=== PATIENT | female | born 1960 | race Caucasian/White ===

== ENCOUNTER 2018-03-12 21:36 | Observation (INO) | payer MEDICARE, MEDICAID ==
[~2018-03-12] VITALS: Ht 165.1 cm; Wt 111.4 kg
--- OUTSIDE RECORDS SUMMARY | 2018-03-12 21:42 | XMS REPORT ---
Author Author [facility] [employer] [facility] Medical Staff Organization [facility] [employer] [facility] Address [address] [place], [place] [address] Phone [phone] Care Team Providers Care Local Tanker Truck Driver Name Role Phone SHAILESH JOHNSON MD PP [phone] Summary purpose TRANSITION OF CARE AUTO GENERATION Chief Complaint and Reason for Visit No authorized Reason for Visit (Admitting Diagnosis) is available for this visit. Problem list No authorized problems tracked for continuity of care are available for this visit. Encounters No authorized problems tracked for encounter diagnoses are available for this visit. Medications No medications recorded for this patient visit Allergies, adverse reactions, alerts Allergen Category Ingredient Status Reaction Severity Onset Iodine Drug Allergy Iodine Confirmed or Verified Latex Drug Allergy Latex Confirmed but Inactive Nausea Severe Adolescence Latex Environmental Allergy LATEX Confirmed but Inactive Nausea Severe Adolescence Codeine Drug Allergy Codeine Confirmed or Verified Erythromycin Base Drug Allergy Erythromycin Base Confirmed or Verified [place] Food Allergy STRAWBERRY Confirmed or Verified Shortness of Breath Lincoln Drug Allergy [place] Confirmed or Verified Shortness of Breath pepperoni Food Allergy pepperoni Confirmed or Verified Shortness of Breath Moderate Coban Miscellaneous Allergy Coban Confirmed or Verified Morphine Drug Allergy Morphine Confirmed or Verified Nausea Severe Adult Morphine Drug Allergy Morphine Confirmed or Verified Shortness of Breath Moderate Adult Stadol Drug Allergy Stadol Confirmed or Verified Stadol Drug Allergy Butorphanol Confirmed or Verified Moxifloxacin Drug Allergy Moxifloxacin Confirmed or Verified Augmentin Drug Allergy Augmentin Confirmed or Verified Augmentin Drug Allergy Potassium Clavulanate Confirmed or Verified Augmentin Drug Allergy Amoxicillin Confirmed or Verified Methylprednisolone Drug Allergy Methylprednisolone Confirmed but Inactive Vancomycin Drug Allergy Vancomycin Confirmed or Verified Rash Severe Adult Tamiflu Drug Allergy Tamiflu Confirmed or Verified Tamiflu Drug Allergy oseltamivir Confirmed or Verified Immunizations No immunizations recorded for this patient visit Relevant diagnostic tests and/or laboratory data RESULTS Therapeutic Drug Monitoring [id number]:55:00 Result Normal Range Units Digoxin/Lanoxin L < 0.2 1.0-2.0 ng/ml *Digoxin-like immunoreactive factors (DLIF) or substances (DLIS) have been identified in blood from patients in renal failure, liver failure, newborns, and women in the third trimester. *Studies have established that the presence of DLIF or DLIS in a sample can result in a false elevation of digoxin when assayed by commercially available immunoassays. *Digoxin bound to Damon fragments of antidigoxin antibodies (ex. Digibind), as found in serum and plasma of individual being treated for digoxin toxicity, may result in misleading digoxin values with this Dimension method. Chemistry :55:00 Result Normal Range Units Sodium 136 134-145 mEq/l Potassium 4.3 3.5-5.1 mEq/l Chloride 98 98-107 mEq/l CO2 28.0 22-28 mEq/l Glucose H 192 70-105 mg/dl BUN 15 7-18 mg/dl Creatinine 0.76 0.6-1.0 mg/dl Calcium 9.3 8.4-10.2 mg/dl Osmolality L 278.0 280-300 mOsm/L Anion GAP 10.0 8-16 BUN/Creatinine Ratio 19.7 10-20 Estimated GFR 79 >=60 mL/min/1.7 Hematology :55:00 Result Normal Range Units WBC H 12.2 4.8-10.8 103/uL RBC H 5.7 4.2-5.4 106/uL HGB 15.8 12.0-16.0 g/dl HCT H 48.9 36.9-47.0 % MCV 85.3 81-99 FL MCH 27.6 27-31 pg MCHC L 32.3 33-37 g/dl RDW 15.0 11.5-15.5 % PLT 301 130-400 103/uL MPV H 11.4 7.3-10.4 FL Segs H 76.0 40-70 % Lymphs L 11.0 20-40 % [place] 8.0 0-10 % Eos 1.0 0-7 % Atypical Lymphs 4.0 0-5 % Special Chemistry :55:00 Result Normal Range Units Hemoglobin A1C H 9.4 4.5-6.2 % Radiology Results :55:00 Result Normal Range Units MPV H 11.4 7.3-10.4 FL History of procedures No procedures recorded for this patient visit. Functional status No functional or cognitive status observations are available for this visit. Vital signs No authorized vital signs are available for this visit. Social history No Social History or smoking status observations were recorded for this visit. ( Unknown if ever smoked.) Treatment Plan No treatment plan text is available for this visit. Hospital discharge instructions No discharge instruction text is available for this visit.
--- OUTSIDE RECORDS SUMMARY | 2018-03-12 21:42 | XMS REPORT ---
Author Author [facility] Medical Staff Organization [facility] Address [address] [place], [place] [address] Phone [phone] Care Team Providers Care Child Care Giver Name Role Phone SHAILESH JOHNSON MD, PP [phone] Summary purpose TRANSITION OF CARE AUTO GENERATION [...] Drug Allergy Erythromycin Base Confirmed or Verified [place] Food Allergy STRAWBERRY Confirmed or Verified Shortness of Breath [place] Drug Allergy [place] Confirmed or Verified Shortness of Breath pepperoni [...] Relevant diagnostic tests and/or laboratory data RESULTS Radiology Results [id number]:34:00 Acute ABD X-Ray PACs Image DATE OF EXAM: 2015 RAD 0060-ACUTE ABDOMEN X RAY : RADIOLOGY REPORT DATE OF SERVICE: 03/24/15 HISTORY: Abdominal pain ACUTE ABDOMEN SERIES 2140 HOURS Comparison is made with 12/03/2013. The bowel gas pattern is within normal limits. There is no obstruction or ileus. There is no free air. Surgical clips are noted in the right upper quadrant. The lungs are clear. Heart size and pulmonary vessels are normal. IMPRESSION: Negative abdomen. MD CRYSTAL Alvarenga/me03/25/2015 08:29:03/25/2015 08:57:32 cc:Dr. Shailesh Johnson This document has been electronically Signed by: On: DATE OF EXAM: 2015 RAD 0060-ACUTE ABDOMEN X RAY : RADIOLOGY REPORT DATE OF SERVICE: 03/24/15 HISTORY: Abdominal pain ACUTE ABDOMEN SERIES 2140 HOURS Comparison is made with 12/03/2013. The bowel gas pattern is within normal limits. There is no obstruction or ileus. There is no free air. Surgical clips are noted in the right upper quadrant. The lungs are clear. Heart size and pulmonary vessels are normal. IMPRESSION: Negative abdomen. MD CRYSTAL Alvarenga/me03/25/2015 08:29:00 / 03/25/2015 08:57:32 cc:Dr. Shailesh Johnson This document has been electronically Signed by: JULIAN ARNOLD MD On: Mar 25 2015 11:34A Result Amended on 2015-03-25 at 11:34:25. Previous status was OK. History of procedures Procedure Code Code Type Description Date Performed Performing Physician 43793 CPT-4 X-RAY EXAM SERIES, ABDOMEN 03-24-2015 SWATHI GREGG 97461 CPT-4 EMERGENCY DEPT VISIT 03-24-2015 SWATHI GREGG 78478 CPT-4 EMERGENCY DEPT VISIT 03-24-2015 SWATHI GREGG Functional status Functional Status Finding Observation Time Abdomen Appearance obese [id number]:10 Abdomen non-tender 41-32-494328:10 Urination normal 03-72-062918:10 Quality sym/unlabored 44-81-699544:10 Cough productive :10 Secretions yes :10 Secretion Consist thin :10 Secretion Color yellow 66-81-593566:10 Breath Sounds RUL clear 72-00-180850:10 Breath Sounds RML clear :10 Breath Sounds RLL clear :10 Breath Sounds KENDELL clear :10 Breath Sounds LLL clear :10 Airway natural :10 Oxygen no : Temp >100.4 no :10 Temp <96.8 no :10 Chills with rigors no : HR > 90bpm yes :10 Respirations > 20 yes :10 Systolic <90 no :10 headache stiff neck no :10 WBC > 45308 no :10 Nursing Note Dismissed home per Humphrey Gregg PA-C. Discharge instructions given and understood by pt who verbalized understanding. Ambulated to exit in stable condition. :07 Vital signs Type Value Date Respiration Rate 20breaths per minute : Pulse 83beats per minute : Oxygen Saturation 95% :00 BP Systolic 149mmHg :00 BP Diastolic 79mmHg :00 Temperature 98.6F :00 Social history Type Value Smoking Status CURRENT EVERY DAY SMOKER Treatment Plan No treatment plan text is available for this visit. Hospital discharge instructions Dismissal Condition good Disposition on DC home DC Inst/Educ Give yes Med/Side Effects Rev yes PNE Vac none Flu Vac none
--- OUTSIDE RECORDS SUMMARY | 2018-03-12 21:42 | XMS REPORT ---
Author [facility] [employer] [facility] Medical Staff Organization [facility] [email or web address] [facility] Address [address] [place], [place] [address] Phone [phone] Care Team Providers Care Infectious Waste Technician Name Role Phone SHAILESH JOHNSON MD PP [phone] Summary purpose TRANSITION OF CARE AUTO GENERATION [...] Drug Allergy Erythromycin Base Confirmed or Verified [place] Food Allergy STRAWBERRY Confirmed or Verified Shortness of Breath Pitman Drug Allergy Pitman Confirmed or Verified Shortness of Breath pepperoni [...] and/or laboratory data RESULTS Therapeutic Drug Monitoring [id number]:55:00 Result Normal Range Units Digoxin/Lanoxin L < [...] 40-70 % Lymphs L 11.0 20-40 % [place] 8.0 0-10 % Eos 1.0 0-7 % Atypical Lymphs 4.0 0-5 % Special Chemistry :55:00 Result Normal Range Units Hemoglobin A1C H 9.4 4.5-6.2 % Radiology Results :55:00 Result Normal Range Units MPV H 11.4 7.3-10.4 FL History of procedures Procedure Code Code Type Description Date Performed Performing Physician 50199 CPT-4 METABOLIC PANEL TOTAL CA 08-11-2015 SHAILESH JOHNSON 98581 CPT-4 ASSAY OF DIGOXIN 08-11-2015 SHAILESH JOHNSON 98493 CPT-4 GLYCOSYLATED HEMOGLOBIN TEST 08-11-2015 SHAILESH JOHNSON 54878 CPT-4 COMPLETE CBC, AUTOMATED 08-11-2015 SHAILESH JOHNSON 33890 CPT-4 BL SMEAR W/DIFF WBC COUNT 08-11-2015 SHAILESH JOHNSON Functional status No functional or cognitive status [...]
--- OUTSIDE RECORDS SUMMARY | 2018-03-12 21:42 | XMS REPORT ---
Author Author [facility] [employer] [facility] Medical Staff Organization [facility] Address [address] [place], [place] [address] Phone [phone] Care Team Providers Care Residential Driver Name Role Phone SHAILESH JOHNSON MD PP [phone] Summary purpose TRANSITION OF CARE AUTO GENERATION [...] Drug Allergy Erythromycin Base Confirmed or Verified [place] Food Allergy STRAWBERRY Confirmed or Verified Shortness of Breath [place] Drug Allergy [place] Confirmed or Verified Shortness of Breath pepperoni [...] Relevant diagnostic tests and/or laboratory data RESULTS Routine Urinalysis [id number]:38:00 Result Normal Range Units Color YELLOW Clarity Slighty cloudy Specific [place] 1.015 1.003-1.035 pH 6.0 4.5-8.0 Glucose NEGATIVE Bilirubin NEGATIVE Ketones NEGATIVE Protein NEGATIVE Urobilinogen 0.2 0-0.2 E.U./dL Nitrites NEGATIVE Blood NEGATIVE Leukocytes NEGATIVE WBCs No WBC's Seen RBCs 0-5 Squamous Epithelial 1+ Bacteria 2+ Chemistry [id number]:38:00 Result Normal Range Units Sodium 141 134-145 mEq/l Potassium 4.5 3.5-5.1 mEq/l Chloride 100 98-107 mEq/l CO2 H 29.2 22-28 mEq/l Glucose H 141 70-105 mg/dl BUN H 24 7-18 mg/dl Creatinine 0.82 0.6-1.0 mg/dl Calcium 9.4 8.4-10.2 mg/dl TP - Total Protein 7.8 6.0-8.3 g/dl Albumin 3.5 3.5-5 g/dl Bilirubin - Total 0.3 0.1-1.0 mg/dl AST 32 10-42 IU/L ALT H 72 12-65 IU/L ALP H 156 25-72 IU/L Osmolality 287.7 280-300 mOsm/L Albumin/Globulin Ratio 0.8 0-8 Anion GAP 11.8 8-16 BUN/Creatinine Ratio H 29.3 10-20 Estimated GFR 73 >=60 mL/min/1.7 Hematology [id number]:38:00 Result Normal Range Units WBC H 15.3 4.8-10.8 103/uL RBC H 6.2 4.2-5.4 106/uL HGB H 17.2 12.0-16.0 g/dl HCT H 53.7 36.9-47.0 % MCV 87.0 81-99 FL MCH 27.9 27-31 pg MCHC L 32.0 33-37 g/dl RDW H 16.3 11.5-15.5 % PLT 338 130-400 103/uL MPV H 11.2 7.3-10.4 FL Neutro % H 78.8 40-70 % Lymph % L 14.4 20-40 % [place] % 4.2 0-10.0 % Eos % 1.4 0-7.0 % Baso % 0.5 0-2 % Neutro # H 12.0 1.5-7.5 103/uL Lymph # 2.2 0.9-4.0 103/uL [place] # 0.6 0-0.8 103/uL Eos # 0.2 0-0.6 103/uL Baso # 0.1 0-0.1 103/uL Body Fluid [id number]:38:00 Result Normal Range Units pH 6.0 4.5-8.0 Radiology Results [id number]:38:00 Result Normal Range Units MPV H 11.2 7.3-10.4 FL History of procedures No procedures [...]
--- OUTSIDE RECORDS SUMMARY | 2018-03-12 21:43 | XMS REPORT ---
Author Author [facility] [employer] [facility] Medical Staff Organization [facility] [employer] [facility] Address [address] [place], [place] [address] Phone [phone] Care Team Providers Care Superintendent Tests Name Role Phone SHAILESH JOHNSON MD PP [phone] Summary purpose TRANSITION OF CARE AUTO GENERATION Chief Complaint and Reason for Visit Admit Diagnosis 1 EDEMA Problem list No authorized problems tracked for [...] Drug Allergy Erythromycin Base Confirmed or Verified [place] Food Allergy STRAWBERRY Confirmed or Verified Shortness of Breath [place] Drug Allergy [place] Confirmed or Verified Shortness of Breath pepperoni [...] tests and/or laboratory data RESULTS Routine Urinalysis [id number]:38:00 Result Normal Range Units Color YELLOW Clarity Slighty cloudy Specific [place] 1.015 1.003-1.035 pH 6.0 4.5-8.0 Glucose NEGATIVE Bilirubin NEGATIVE Ketones NEGATIVE Protein NEGATIVE Urobilinogen 0.2 0-0.2 E.U./dL Nitrites NEGATIVE Blood NEGATIVE Leukocytes NEGATIVE WBCs No WBC's Seen RBCs 0-5 Squamous Epithelial 1+ Bacteria 2+ Routine Cultures [id number]:38:00 Urine Culture Plate Date and Time 10/13/2014 18:38 SourceURINE CULTURE REPORT No Growth After 24 Hours Release Date/Time: 10/14/2014 07:57 CULTURE REPORT 50,000 colonies/ml Normal Vaginal Octavia Release Date/Time: 10/15/2014 09:11 Chemistry [id number]:38:00 Result Normal Range Units Sodium 141 134-145 [...] 10-20 Estimated GFR 73 >=60 mL/min/1.7 Hematology [id number]:38:00 Result Normal Range Units WBC H 15.3 4.8-10.8 103/uL RBC H 6.2 4.2-5.4 106/uL HGB H 17.2 12.0-16.0 g/dl HCT H 53.7 36.9-47.0 % MCV 87.0 81-99 FL MCH 27.9 27-31 pg MCHC L 32.0 33-37 g/dl RDW H 16.3 11.5-15.5 % PLT 338 130-400 103/uL MPV H 11.2 7.3-10.4 FL Neutro % H 78.8 40-70 % Lymph % L 14.4 20-40 % [place] % 4.2 0-10.0 % Eos % 1.4 0-7.0 % Baso % 0.5 0-2 % Neutro # H 12.0 1.5-7.5 103/uL Lymph # 2.2 0.9-4.0 103/uL [place] # 0.6 0-0.8 103/uL Eos # 0.2 0-0.6 103/uL Baso # 0.1 0-0.1 103/uL Body Fluid [id number]:38:00 Result Normal Range Units pH 6.0 4.5-8.0 Radiology Results [id number]:38:00 Result Normal Range Units MPV H 11.2 7.3-10.4 FL History of procedures Procedure Code Code Type Description Date Performed Performing Physician 95068 CPT-4 COMPLETE CBC W/AUTO DIFF WBC 10-13-2014 [facility] [address] CPT-4 COMPREHEN METABOLIC PANEL 10-13-2014 [facility] [address] CPT-4 URINALYSIS, AUTO W/SCOPE 10-13-2014 [facility] [address] CPT-4 URINE CULTURE/COLONY COUNT 10-13-2014 [facility] Functional status No functional or cognitive status [...]
--- OUTSIDE RECORDS SUMMARY | 2018-03-12 21:43 | XMS REPORT ---
Author Author [facility] [employer] [facility] Medical Staff Organization [facility] [employer] [facility] [facility] Address [address] [place], [place] [address] Phone [phone] Care Team Providers Care Turner Machine Operator Name Role Phone SHAILESH JOHNSON MD, PP [phone] Summary purpose TRANSITION OF CARE AUTO GENERATION [...] Drug Allergy Erythromycin Base Confirmed or Verified [place] Food Allergy STRAWBERRY Confirmed or Verified Shortness of Breath [place] Drug Allergy [place] Confirmed or Verified Shortness of Breath pepperoni [...] Relevant diagnostic tests and/or laboratory data RESULTS Chemistry [id number]:50:00 Result Normal Range Units Sodium 140 134-145 mEq/l Potassium 4.5 3.5-5.1 mEq/l Chloride 102 98-107 mEq/l CO2 27.8 22-28 mEq/l Glucose H 106 70-105 mg/dl BUN H 22 7-18 mg/dl Creatinine 0.90 0.6-1.0 mg/dl Calcium 9.3 8.4-10.2 mg/dl TP - Total Protein 7.6 6.0-8.3 g/dl Albumin 3.5 3.5-5 g/dl Bilirubin - Total 0.4 0.1-1.0 mg/dl AST H 58 10-42 IU/L ALT H 100 12-65 IU/L ALP H 135 25-72 IU/L Osmolality 283.1 280-300 mOsm/L Albumin/Globulin Ratio 0.9 0-8 Anion GAP 10.2 8-16 BUN/Creatinine Ratio H 24.4 10-20 Estimated GFR 65 >=60 mL/min/1.7 Vitamin B12 652 193-986 pg/ml Hematology [id number]:50:00 Result Normal Range Units WBC H 13.8 4.8-10.8 103/uL RBC H 5.8 4.2-5.4 106/uL HGB H 16.4 12.0-16.0 g/dl HCT H 51.2 36.9-47.0 % MCV 88.0 81-99 FL MCH 28.2 27-31 pg MCHC L 32.0 33-37 g/dl RDW 14.4 11.5-15.5 % PLT 345 130-400 103/uL MPV H 11.2 7.3-10.4 FL Neutro % H 80.6 40-70 % Lymph % L 13.8 20-40 % [place] % 3.9 0-10.0 % Eos % 0.8 0-7.0 % Baso % 0.4 0-2 % Neutro # H 11.1 1.5-7.5 103/uL Lymph # 1.9 0.9-4.0 103/uL [place] # 0.5 0-0.8 103/uL Eos # 0.1 0-0.6 103/uL Baso # 0.1 0-0.1 103/uL Hematology - Other (Misc) [id number]:50:00 Result Normal Range Units Sed Rate 1 0-30 Thyroid Testing [id number]:50:00 Result Normal Range Units TSH 0.67 0.34-4.82 uIU/mL Free T4 L 0.66 0.78-1.34 ng/dl Radiology Results [id number]:50:00 Result Normal Range Units MPV H 11.2 [...]
--- OUTSIDE RECORDS SUMMARY | 2018-03-12 21:43 | XMS REPORT ---
Author Author [facility] Medical Staff Organization [facility] Address [address] [place], [place] [address] Phone [phone] Summary purpose TRANSITION OF CARE AUTO GENERATION [...] Drug Allergy Erythromycin Base Confirmed or Verified [place] Food Allergy STRAWBERRY Confirmed or Verified Shortness of Breath [place] Drug Allergy [place] Confirmed or Verified Shortness of Breath pepperoni [...] tests and/or laboratory data RESULTS Radiology Results [id number]:14:00 KNEE XRAY - 3 VIEW PACs Image DATE OF EXAM: Aug 04 2015 RAD 0953-KNEE XRAY-3 VIEW- RIGHT: RADIOLOGY REPORT DATE OF SERVICE: 08/04/15 HISTORY: Patient has right knee pain, edema and knee injury 2 weeks earlier. RIGHT KNEE 3 VIEWS 1245 HOURS The joint space is maintained. There is no fracture or joint effusion. Soft tissues are normal. IMPRESSION: Negative study. DO Elver Hannah 08/04/2015 13:28: / 08/04/2015 13:39:14 cc:Dr. [place] Wilson This document has been electronically Signed by: On: DATE OF EXAM: Aug 04 2015 RAD 0953-KNEE XRAY-3 VIEW- RIGHT: RADIOLOGY REPORT DATE OF SERVICE: 08/04/15 HISTORY: Patient has right knee pain, edema and knee injury 2 weeks earlier. RIGHT KNEE 3 VIEWS 1245 HOURS The joint space is maintained. There is no fracture or joint effusion. Soft tissues are normal. IMPRESSION: Negative study. DO Elver Hannah 08/04/2015 13:28:00 / 08/04/2015 13:39:14 cc:Dr. [place] Wilson This document has been electronically Signed by: SWATHI ROONEY DO On: Aug 04 20152:13P Result Amended on 2015-08-04 at 14:14:05. Previous status was [place]. History of procedures No procedures recorded for [...]
--- OUTSIDE RECORDS SUMMARY | 2018-03-12 21:43 | XMS REPORT ---
Author Author [facility] Medical Staff Organization [facility] Address [address] [place], [place] [address] Phone [phone] Summary purpose TRANSITION OF CARE AUTO GENERATION [...] Drug Allergy Erythromycin Base Confirmed or Verified [place] Food Allergy STRAWBERRY Confirmed or Verified Shortness of Breath [place] Drug Allergy [place] Confirmed or Verified Shortness of Breath pepperoni [...] tests and/or laboratory data RESULTS Radiology Results [id number]:14:00 KNEE XRAY - 3 VIEW PACs Image [...] on 2015-08-04 at 14:14:05. Previous status was [place]. History of procedures No procedures recorded for [...]
--- OUTSIDE RECORDS SUMMARY | 2018-03-12 21:43 | XMS REPORT ---
Author [facility] Medical Staff Organization [facility] Address [address] [place], [place] [address] Phone [phone] Care Team Providers Care Postal Service Clerk Name Role Phone SHAILESH JOHNSON MD, PP [phone] Summary purpose TRANSITION OF CARE AUTO GENERATION [...] Drug Allergy Erythromycin Base Confirmed or Verified [place] Food Allergy STRAWBERRY Confirmed or Verified Shortness of Breath [place] Drug Allergy [place] Confirmed or Verified Shortness of Breath pepperoni [...] diagnostic tests and/or laboratory data RESULTS Chemistry [id number]:50:00 Result Normal Range Units Sodium 140 134-145 [...] mL/min/1.7 Vitamin B12 652 193-986 pg/ml Hematology :50:00 Result Normal Range Units WBC H 13.8 4.8-10.8 103/uL RBC H 5.8 4.2-5.4 106/uL HGB H 16.4 12.0-16.0 g/dl HCT H 51.2 36.9-47.0 % MCV 88.0 81-99 FL MCH 28.2 27-31 pg MCHC L 32.0 33-37 g/dl RDW 14.4 11.5-15.5 % PLT 345 130-400 103/uL MPV H 11.2 7.3-10.4 FL Neutro % H 80.6 40-70 % Lymph % L 13.8 20-40 % Kidder % 3.9 0-10.0 % Eos % 0.8 0-7.0 % Baso % 0.4 0-2 % Neutro # H 11.1 1.5-7.5 103/uL Lymph # 1.9 0.9-4.0 103/uL Kidder # 0.5 0-0.8 103/uL Eos # 0.1 0-0.6 103/uL Baso # 0.1 0-0.1 103/uL Reference Lab ([facility]) :50:00 Result Normal Range Units Vitamin B6 2.2 2.1-21.7 ng/mL TEST PERFORMED AT: [facility] [address] [place] [address] MARIBELL MOYA MD PHD SEVEN (Antinuclear Antibodies) NEGATIVE NEGATIVE TEST PERFORMED AT: [facility] [address] [place] [address] PARI DIXON DO,MPH FSH 53.9 mIU/mL Reference Range Follicular Phase 2.5-10.2 Mid-cycle Peak 3.1-17.7 Luteal Phase 1.5- 9.1 Postmenopausal 23.0-116.3 TEST PERFORMED AT: [facility] [address] [place] [address] PARI DIXON DO,MPH FSH ordered in error. Patient's account credited. RMSF IGG NOT DETECTED RMSF IGM NOT DETECTED REFERENCE RANGE: NOT DETECTED TEST PERFORMED AT: [facility] [address] [place] [address] JENNIFER HERMAN MD Lyme Antibodies EIA < OR=0.90 index Index Interpretation ----- < or=0.90 Negative 0.91-1.09 Equivocal > or=1.10 Positive The use of purified VlsE-1 and PepC10 antigens in this assay provides improved specificity compared to assays that utilize whole cell lysates of B. burgdorferi, the causative agent of Lyme disease, and slightly better sensitivity compared to the C6 antibody assay. As recommended by the Food and Drug Administration (FDA), all samples with positive or equivocal results in a Borrelia burgdorferi antibody EIA (screening) will be tested using a blot method. Positive or equivocal screening test results should not be interpreted as truly positive until verified as such using a supplemental assay (e.g., B. burgdorferi blot). The screening test and/or blot for B. burgdorferi antibodies may be falsely negative in early stages of Lyme disease, including the period when erythema migrans is apparent. TEST PERFORMED AT: [facility] [address] [place] [address] PARI DIXON DO,MPH Hematology - Other (Misc) [id number]:50:00 Result Normal Range Units Sed Rate 1 0-30 Thyroid Testing [id number]:50:00 Result Normal Range Units TSH 0.67 0.34-4.82 uIU/mL Free T4 L 0.66 0.78-1.34 ng/dl Free T3 2.6 2.3-4.2 pg/mL TEST [facility]FORMED AT: [facility] [address] [place] [address] PARI DIXON DO,MPH Radiology Results [id number]:00 Result Normal Range Units MPV H 11.2 7.3-10.4 FL Reference Lab ([facility]) [id number]:50:00 Result Normal Range Units E Chaffeensis AB IGG <1:64 E Chaffeensis AB IGM <1:20 Interpretation SEE NOTE ANTIBODY NOT DETECTED REFERENCE RANGE:IgG <1:64 IgM <1:20 Ehrlichia chaffeensis has been identified as the causative agent of Human Monocytic Ehrlichiosis (HME). Infected individuals produce specific antibodies to E. chaffeensis that can be detected by an immunofluorescent antibody (IFA) test. Single IgG IFA titers of 1:64 or greater indicate exposure to E. chaffeensis. A four-fold rise in IgG titers between acute and convalescent samplesand/or the presence of IgM antibody against E. chaffeensis suggest recent or current infection. This test was developed and its performance characteristics have been determined by [facility]. It has not been cleared or approved by the U.S. Food and Drug Administration. The FDA has determined that such clearance or approval is not necessary. Performance characteristics refer to the analytical performance of the test. TEST PERFORMED AT: [facility] [address] [place] [address] JENNIFER HERMAN MD A Phagocytophilum H 1:64 A Phagocytophilum <1:20 Interpretation PAST INFECTION REFERENCE RANGEIgG<1:64 IgM<1:20 Anaplasma phagocytophilum is the tick-borne agent causing Human Granulocytic Ehrlichiosis (HGE). HGE is distinct and separate from Human Monocytic Ehrlichiosis (HME), caused by Ehrlichia chaffeensis. Serologic crossreactivity between A. phagocytophilum and E. chaffeensis is minimal (5-15%). This test was developed and its performance characteristics have been determined by [facility]. It has not been cleared or approved by the U.S. Food and Drug Administration. The FDA has determined that such clearance or approval is not necessary. Performance characteristics refer to the analytical performance of the test. TEST PERFORMED AT: [facility] [address] [place] [address] JENNIFER HERMAN MD Lyme Antibodies EIA < OR=0.90 index Index Interpretation ----- < or=0.90 Negative 0.91-1.09 Equivocal > or=1.10 Positive The use of purified VlsE-1 and PepC10 antigens in this assay provides improved specificity compared to assays that utilize whole cell lysates of B. burgdorferi, the causative agent of Lyme disease, and slightly better sensitivity compared to the C6 antibody assay. As recommended by the Food and Drug Administration (FDA), all samples with positive or equivocal results in a Borrelia burgdorferi antibody EIA (screening) will be tested using a blot method. Positive or equivocal screening test results should not be interpreted as truly positive until verified as such using a supplemental assay (e.g., B. burgdorferi blot). The screening test and/or blot for B. burgdorferi antibodies may be falsely negative in early stages of Lyme disease, including the period when erythema migrans is apparent. TEST [facility]FORMED AT: [facility] [address] PARI DIXON DO,MPH History of procedures Procedure Code Code Type Description Date Performed Performing Physician 05274 CPT-4 COMPLETE CBC W/AUTO DIFF WBC 12-12-2014 SHAILESH JOHNSON 71086 CPT-4 COMPREHEN METABOLIC PANEL 12-12-2014 SHAILESH JOHNSON 57109 CPT-4 ASSAY OF FREE THYROXINE 12-12-2014 SHAILESH JOHNSON 76103 CPT-4 FREE ASSAY (FT-3) 12-12-2014 SHAILSEH JOHNSON 10881 CPT-4 RICKETTSIA ANTIBODY 12-12-2014 SHAILESH JOHNSON 90435 CPT-4 RBC SED RATE, NONAUTOMATED 12-12-2014 SHAILESH JOHNSON 08888 CPT-4 ASSAY THYROID STIM HORMONE 12-12-2014 SHAILESH JOHNSON 87396 CPT-4 VITAMIN B-12 12-12-2014 SHAILESH JOHNSON 87158 CPT-4 ASSAY OF VITAMIN B-6 12-12-2014 SHAILESH JOHNSON 77274 CPT-4 ANTINUCLEAR ANTIBODIES 12-12-2014 [facility] 81947 CPT-4 EHRLICHIA ANTIBODY 12-12-2014 [facility] [address] CPT-4 LYME DISEASE ANTIBODY 12-12-2014 [facility] 44703 CPT-4 GONADOTROPIN (FSH) 12-12-2014 [facility] Functional status No functional or cognitive status [...]
--- OUTSIDE RECORDS SUMMARY | 2018-03-12 21:44 | XMS REPORT | Clinical Summary ---
Author Author Admin, NETTE Nolan [facility] Address Unknown Phone Unavailable Allergies, Adverse Reactions, Alerts Allergy Name Reaction Description Start Date Severity Status Provider LATEX Moderate Active Galina Mercedes RN ERYTHROMYCIN Moderate Active Galina Mercedes RN CODEINE Moderate Active Galina Mercedes RN CELEBREX Moderate Active Galina Mercedes RN PENICILLIN Moderate Active Galina Mercedes RN Conditions or Problems Problem Name Problem Code Onset Date Status Entry Date Provider Comment Standard Description Annotate Hypertension 401.9 Active Pasha Small MD Unspecified essential hypertension C O P D 496 Active Pasha Small MD Chronic airway obstruction, not elsewhere classified (History of) Atrial Fibrillation 427.31 Active Pasha Small MD Atrial fibrillation (History of) Seizure Disorder 780.39 Active Pasha Small MD Other convulsions Lipoma 214.9 Active Pasha Small MD Lipoma, unspecified site FH Diabetes V18.0 Active Pasha Small MD Family history of diabetes mellitus Diabetes, Type 2 250.00 Active Viniciuseh Malikglari CUSTOMER EXPERT Diabetes mellitus without mention of complication, type II or unspecified type, not stated as uncontrolled Diabetes mellitus, type II, uncontrolled 250.02 Active Maliheh Malikglari CUSTOMER EXPERT Diabetes mellitus without mention of complication, type II or unspecified type, uncontrolled Medication List Medication Instructions Start Date Stop Date Generic Name NDC Status Provider Patient Instruction CVS IRON 325 (65 FE) MG TABS 1 qd FERROUS SULFATE 85388701611 No Longer Active Maliheh Ziglari CUSTOMER EXPERT Active HYDROCODONE-ACETAMINOPHEN 5-325 MG TABS 1/2 q 4-6 hrs prn pain HYDROCODONE-ACETAMINOPHEN 68091612137 Active Pasha Small MD Active ORPHENADRINE CITRATE ER 100 MG [id number] 1 tid prn ORPHENADRINE CITRATE 17030421809 Active Pasha Small MD Active ASPIRIN 325 MG TABS 1 qd ASPIRIN 73067183839 Active Pasha Small MD Active ASPIRIN 81 MG TBEC 1 po q d ASPIRIN 00556695740 No Longer Active Pasha Small MD Active LISINOPRIL 10 MG TABS 1 qd LISINOPRIL 52063401124 Active Pasha Small MD Active K-TABS 10 MEQ CR-TABS 1 tab 3 x week POTASSIUM CHLORIDE 04908983969 Active Pasha Small MD Active FUROSEMIDE 20 MG TABS 1 qd FUROSEMIDE 58291118588 Active Pasha Small MD Active PROVENTIL HFA 108 (90 BASE) MCG/ACT AERS 2 puffs q 4 hr prn ALBUTEROL SULFATE 00708841679 Active Galina Long RN Active ALPRAZOLAM 0.25 MG TABS 1/2-1 po tid prn ALPRAZOLAM 95667290777 Active Galina Long RN Active IPRATROPIUM BROMIDE 0.02 % SOLN neb 1 amp qid prn IPRATROPIUM BROMIDE 25939639633 Active Galina Long RN Active VERAPAMIL HCL 80 MG TABS 2 po q am, 2 po q pm VERAPAMIL HCL 10912372802 Active Galina Long RN Active ALBUTEROL SULFATE (2.5 MG/3ML) 0.083% NEBU neb 1 ampule qid prn ALBUTEROL SULFATE 00611372783 Active Galina Lnog RN Active LANOXIN 0.25 MG TABS 1 po q d DIGOXIN 92250437414 Active Galina Mitchellten RN Active PROTONIX 40 MG TBEC 1 po q d PANTOPRAZOLE SODIUM 01840707613 Active Galina Mitchellten RN Active ASPIRIN 81 MG TBEC 1 po q d ASPIRIN 81 MG TBEC 282532 ASPIRIN Inactive CVS IRON 325 (65 FE) MG TABS 1 qd CVS IRON 325 (65 FE ) MG TABS 206966 FERROUS SULFATE Inactive Vital Signs Date Name Value Unit Range Description blood pressure, diastolic - 8462-4 80 mm[Hg] BP hansen blood pressure, systolic - 8480-6 140 mm[Hg] BP sys pulse rate E&M - 8867-4 92 /min Heart rate weight E&M - 3141-9 264 [lb_av] Weight Measured blood pressure, diastolic - 8462-4 79 mm[Hg] BP hansen blood pressure, systolic - 8480-6 134 mm[Hg] BP sys pulse rate E&M - 8867-4 97 /min Heart rate temperature E&M 97.5 [degF] Body temperature weight E&M - 3141-9 261 [lb_av] Weight Measured Diagnostic Results Date Name Value Unit Range Description Chart Maintenance: Outside labs entered on flowsheet - Chemistry sodium, serum 140 mmol/L potassium, serum 4.7 mmol/L blood glucose 155 mg/dL creatinine, serum 0.76 mg/dL aspartate aminotransferase (SGOT), serum 69 U/L alanine aminotransferase (SGPT), serum 91 U/L alkaline phosphatase, serum 133 U/L hemoglobin A1C, blood, as % of total hemoglobin 7.0 % protein, total urine random Trace mg/dL Chart Maintenance: Outside labs entered on [employer] - Hematology leukocyte count, blood 13.5 10*3/mm3 hemoglobin, blood 15.8 g/dL platelet count 342 10*3/mm3 Office Visit: Diabetes Visit - Chemistry cholesterol, target level 200 mg/dL triglyceride, target level 200 mg/dL HDL cholesterol, serum, target level 35 mg/dL LDL target level 100 mg/dL home glucose monitor utilized Yes Encounters Code Encounter Date Provider Facility CPT-35646 Level 5 New Patient 13:41:28 CDT 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 [facility] Procedures Code Procedure Name Date Entry Date Standard Description CPT-OV Office Visit 17:50:00 CDT CPT-OV Office Visit 16:24:57 EASEMENT MAN
--- OUTSIDE RECORDS SUMMARY | 2018-03-12 21:44 | XMS REPORT ---
Author Author [facility] Medical Staff Organization [facility] Address [address] [place], [place] [address] Phone [phone] Summary purpose TRANSITION OF CARE AUTO GENERATION [...] Drug Allergy Erythromycin Base Confirmed or Verified [place] Food Allergy STRAWBERRY Confirmed or Verified Shortness of Breath [place] Drug Allergy [place] Confirmed or Verified Shortness of Breath pepperoni [...] diagnostic tests and/or laboratory data RESULTS Chemistry [id number]:50:00 Result Normal Range Units Sodium 137 134-145 mEq/l Potassium 4.2 3.5-5.1 mEq/l Chloride 98 98-107 mEq/l CO2 H 29.7 22-28 mEq/l Glucose H 218 70-105 mg/dl BUN H 19 7-18 mg/dl Creatinine 0.75 0.6-1.0 mg/dl Calcium 9.2 8.4-10.2 mg/dl TP - Total Protein 7.6 6.0-8.3 g/dl Albumin L 3.3 3.5-5 g/dl Bilirubin - Total 0.3 0.1-1.0 mg/dl AST H 48 10-42 IU/L ALT H 108 12-65 IU/L ALP H 159 25-72 IU/L Osmolality 282.7 280-300 mOsm/L Albumin/Globulin Ratio 0.8 0-8 Anion GAP 9.3 8-16 BUN/Creatinine Ratio H 25.3 10-20 Estimated GFR 81 >=60 mL/min/1.7 Hematology [id number]:50:00 Result Normal Range Units WBC H 12.9 4.8-10.8 103/uL RBC H 5.6 4.2-5.4 106/uL HGB 15.7 12.0-16.0 g/dl HCT H 49.1 36.9-47.0 % MCV 87.2 81-99 FL MCH 27.9 27-31 pg MCHC L 32.0 33-37 g/dl RDW 14.6 11.5-15.5 % PLT 304 130-400 103/uL MPV H 10.7 7.3-10.4 FL Neutro % H 76.1 40-70 % Lymph % L 16.2 20-40 % Erath % 4.6 0-10.0 % Eos % 1.9 0-7.0 % Baso % 0.5 0-2 % Neutro # H 9.8 1.5-7.5 103/uL Lymph # 2.1 0.9-4.0 103/uL Erath # 0.6 0-0.8 103/uL Eos # 0.2 0-0.6 103/uL Baso # 0.1 0-0.1 103/uL Special Chemistry [id number]:50:00 Result Normal Range Units Hemoglobin A1C H 8.2 4.5-6.2 % Radiology Results :50:00 Result Normal Range Units MPV H 10.7 7.3-10.4 FL History of procedures No procedures [...]
--- OUTSIDE RECORDS SUMMARY | 2018-03-12 21:44 | XMS REPORT ---
Author Author [facility] Medical Staff Organization [facility] Address [address] [place], [place] [address] Phone [phone] Care Team Providers Care Yarn Mercerizer Operator Helper Name Role Phone SHAILESH JOHNSON MD, PP [phone] Summary purpose TRANSITION OF CARE AUTO GENERATION [...] Drug Allergy Erythromycin Base Confirmed or Verified [place] Food Allergy STRAWBERRY Confirmed or Verified Shortness of Breath [place] Drug Allergy [place] Confirmed or Verified Shortness of Breath pepperoni [...] visit Relevant diagnostic tests and/or laboratory data No authorized results are available for this patient visit History of procedures No procedures recorded for this patient visit. Functional status Functional Status Finding Observation Time Abdomen Appearance obese :10 Abdomen non-tender 87-86-801126:10 Urination normal :10 Quality sym/unlabored :10 Cough productive :10 Secretions yes :10 Secretion Consist thin :10 Secretion Color yellow :10 Breath Sounds RUL clear :10 Breath Sounds RML clear :10 Breath Sounds RLL clear :10 Breath Sounds KENDELL clear :10 Breath Sounds LLL clear :10 Airway natural :10 Oxygen no :00 Temp >100.4 no :10 Temp <96.8 no :10 Chills with rigors no :10 HR > 90bpm yes :10 Respirations > 20 yes :10 Systolic <90 no :10 headache stiff neck no :10 WBC > 84311 no :10 Nursing Note Dismissed home per Humphrey Gregg PA-C. Discharge instructions given and understood by pt who verbalized understanding. Ambulated to exit in stable condition. :07 Vital signs Type Value Date Respiration Rate 20breaths per minute :00 Pulse 83beats per minute :00 Oxygen Saturation 95% : BP Systolic 149mmHg :00 BP Diastolic 79mmHg :00 Temperature 98.6F :00 Social history Type Value Smoking Status CURRENT EVERY DAY SMOKER Treatment Plan No treatment plan text is available for this visit. Hospital discharge instructions Dismissal Condition good Disposition on DC home DC Inst/Educ Give yes Med/Side Effects Rev yes PNE Vac none Flu Vac none
--- OUTSIDE RECORDS SUMMARY | 2018-03-12 21:44 | XMS REPORT | Clinical Summary ---
Author Author Admin, NETTE Nolan [facility] Address Unknown Phone Unavailable Allergies, Adverse Reactions, [...] Diabetes, Type 2 250.00 Active Viniciuseh Malikglari SCHOOL ADJUSTMENT COUNSELOR Diabetes mellitus without mention of complication, type II or unspecified type, not stated as uncontrolled Diabetes mellitus, type II, uncontrolled 250.02 Active Maliheh Malikglari SCHOOL ADJUSTMENT COUNSELOR Diabetes mellitus without mention of complication, type II or unspecified type, uncontrolled Medication List Medication Instructions Start Date Stop Date Generic Name NDC Status Provider Patient Instruction CVS IRON 325 (65 FE) MG TABS 1 qd FERROUS SULFATE 03009715561 No Longer Active Maliheh Ziglari SCHOOL ADJUSTMENT COUNSELOR Active HYDROCODONE-ACETAMINOPHEN 5-325 MG TABS 1/2 q 4-6 hrs prn pain HYDROCODONE-ACETAMINOPHEN 36496765666 Active Pasha Small MD Active ORPHENADRINE CITRATE ER 100 MG [id number] 1 tid prn ORPHENADRINE CITRATE 59632299032 Active Pasha Small MD Active ASPIRIN 325 MG TABS 1 qd ASPIRIN 57714693225 Active Pasha Small MD Active ASPIRIN 81 MG TBEC 1 po q d ASPIRIN 16315813102 No Longer Active Pasha Small MD Active LISINOPRIL 10 MG TABS 1 qd LISINOPRIL 76922534000 Active Pasha Small MD Active K-TABS 10 MEQ CR-TABS 1 tab 3 x week POTASSIUM CHLORIDE 03348132213 Active Pasha Small MD Active FUROSEMIDE 20 MG TABS 1 qd FUROSEMIDE 00490510749 Active Pasha Small MD Active PROVENTIL HFA 108 (90 BASE) MCG/ACT AERS 2 puffs q 4 hr prn ALBUTEROL SULFATE 18934287968 Active Galina Long RN Active ALPRAZOLAM 0.25 MG TABS 1/2-1 po tid prn ALPRAZOLAM 38791604132 Active Galina Long RN Active IPRATROPIUM BROMIDE 0.02 % SOLN neb 1 amp qid prn IPRATROPIUM BROMIDE 81141337855 Active Galina Long RN Active VERAPAMIL HCL 80 MG TABS 2 po q am, 2 po q pm VERAPAMIL HCL 01219020116 Active Galina Long RN Active ALBUTEROL SULFATE (2.5 MG/3ML) 0.083% NEBU neb 1 ampule qid prn ALBUTEROL SULFATE 22945327830 Active Galina Long RN Active LANOXIN 0.25 MG TABS 1 po q d DIGOXIN 96773537268 Active Galina Mitchellten RN Active PROTONIX 40 MG TBEC 1 po q d PANTOPRAZOLE SODIUM 70348237477 Active Galina Mitchellten RN Active ASPIRIN 81 MG TBEC 1 po q d ASPIRIN 81 MG TBEC 614183 ASPIRIN Inactive CVS IRON 325 (65 FE) MG TABS 1 qd CVS IRON 325 (65 FE ) MG TABS 295034 FERROUS SULFATE Inactive Vital Signs Date Name [...] Results Date Name Value Unit Range Description Office Visit: Diabetes Visit - Chemistry cholesterol, target level 200 mg/dL triglyceride, target level 200 mg/dL HDL cholesterol, serum, target level 35 mg/dL LDL target level 100 mg/dL home glucose monitor utilized Yes Encounters Code Encounter Date Provider Facility CPT-88645 Level 5 New Patient 13:41:28 CDT 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 [facility] Procedures Code Procedure Name Date Entry Date Standard Description CPT-OV Office Visit 17:50:00 CDT CPT-OV Office Visit 16:24:57 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
--- OUTSIDE RECORDS SUMMARY | 2018-03-12 21:44 | XMS REPORT | Clinical Summary ---
Author Author Admin, NETTE Organization [facility] Address Unknown Phone Unavailable Allergies, Adverse Reactions, [...] diabetes mellitus Diabetes, Type 2 250.00 Active Maltreveh Malikglari CHRONIC CARE NURSE Diabetes mellitus without mention of complication, type II or unspecified type, not stated as uncontrolled Diabetes mellitus, type II, uncontrolled 250.02 Active Maliheh Ziglari CHRONIC CARE NURSE Diabetes mellitus without mention of complication, type II or unspecified type, uncontrolled Medication List Medication Instructions Start Date Stop Date Generic Name NDC Status Provider Patient Instruction GABAPENTIN 100 MG ORAL CAPS Take one by mouth 3 times daily, morning, afternoon and evening.] GABAPENTIN 27258340189 Active Maliheh Ziglari CHRONIC CARE NURSE Active CVS IRON 325 (65 FE) MG TABS 1 qd FERROUS SULFATE 82952233306 No Longer Active 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 CHRONIC CARE NURSE Active HYDROCODONE-ACETAMINOPHEN 5-325 MG TABS 1/2 q 4-6 hrs prn pain HYDROCODONE-ACETAMINOPHEN 18821916575 Active Pasha Small MD Active ORPHENADRINE CITRATE ER 100 MG [id number] 1 tid prn ORPHENADRINE CITRATE 35637272391 Active Pasha Small MD Active ASPIRIN 325 MG TABS 1 qd ASPIRIN 68216283937 Active Pasha Small MD Active ASPIRIN 81 MG TBEC 1 po q d ASPIRIN 49889513415 No Longer Active Pasha Small MD Active LISINOPRIL 10 MG TABS 1 qd LISINOPRIL 60740511437 Active Pasha Small MD Active K-TABS 10 MEQ CR-TABS 1 tab 3 x week POTASSIUM CHLORIDE 14825657142 Active Pasha Small MD Active FUROSEMIDE 20 MG TABS 1 qd FUROSEMIDE 81706832504 Active Pasha Small MD Active PROVENTIL HFA 108 (90 BASE) MCG/ACT AERS 2 puffs q 4 hr prn ALBUTEROL SULFATE 88647048556 Active Galina Long RN Active ALPRAZOLAM 0.25 MG TABS 1/2-1 po tid prn ALPRAZOLAM 30267062405 Active Galina Long RN Active IPRATROPIUM BROMIDE 0.02 % SOLN neb 1 amp qid prn IPRATROPIUM BROMIDE 81351587343 Active Galina Long RN Active VERAPAMIL HCL 80 MG TABS 2 po q am, 2 po q pm VERAPAMIL HCL 94407834084 Active Galina Long RN Active ALBUTEROL SULFATE (2.5 MG/3ML) 0.083% NEBU neb 1 ampule qid prn ALBUTEROL SULFATE 12397090746 Active Galina Long RN Active LANOXIN 0.25 MG TABS 1 po q d DIGOXIN 04442406365 Active Galina Long RN Active PROTONIX 40 MG TBEC 1 po q d PANTOPRAZOLE SODIUM 84589207713 Active Galina Long RN Active ASPIRIN 81 MG TBEC 1 po q d ASPIRIN 81 MG TBEC 219055 ASPIRIN Inactive CVS IRON 325 (65 FE) MG TABS 1 qd CVS IRON 325 (65 FE ) MG TABS 206988 FERROUS SULFATE Inactive Vital Signs Date Name Value Unit Range Description blood pressure, diastolic - 8462-4 70 mm[Hg] BP hansen blood pressure, systolic - 8480-6 140 mm[Hg] BP sys pulse rate E&M - 8867-4 100 /min Heart rate weight E&M - 3141-9 261 [lb_av] Weight Measured blood pressure, diastolic - 8462-4 80 mm[Hg] [...] Description Chart Maintenance: Outside labs entered on [employer] - Chemistry sodium, serum 140 mmol/L potassium, serum 4.7 mmol/L blood glucose 155 mg/dL creatinine, serum 0.76 mg/dL aspartate aminotransferase (SGOT), serum 69 U/L alanine aminotransferase (SGPT), serum 91 U/L alkaline phosphatase, serum 133 U/L hemoglobin A1C, blood, as % of total hemoglobin 7.0 % protein, total urine random Trace mg/dL Chart Maintenance: Outside labs entered on [employer] - Hematology leukocyte count, blood 13.5 10*3/mm3 hemoglobin, blood 15.8 g/dL platelet count 342 10*3/mm3 Office Visit: Diabetes Visit - Chemistry cholesterol, target level 200 mg/dL triglyceride, target level 200 mg/dL HDL cholesterol, serum, target level 35 mg/dL LDL target level 100 mg/dL home glucose monitor utilized Yes cholesterol, target level 200 mg/dL triglyceride, target level 200 mg/dL HDL cholesterol, serum, target level 35 mg/dL LDL target level 100 mg/dL Encounters Code Encounter Date Provider Facility CPT-70978 Level 4 Est. 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
--- OUTSIDE RECORDS SUMMARY | 2018-03-12 21:45 | XMS REPORT | Clinical Summary ---
Author Author Admin, NETTE Organization [facility] Address Unknown Phone Unavailable Allergies, Adverse Reactions, Alerts Allergy Name Reaction Description Start Date Severity Status Provider BUTORPHANOL TARTRATE UNK reaction Mild Active Shila [place] MA MORPHINE UNK reaction Mild Active Shila [place] MA IODINE UNK reaction Mild Active Shila Brian MA IMIPRAMINE HCL Tachycardia Critical Active Shila Brian MA GABAPENTIN Delusions Severe Active Shila Brian MA DOXYCYCLINE UNK reaction Mild Active Shila Brian MA PROZAC UNK reaction Mild Active Shila Brian MA LYRICA UNK reaction Mild Active Shila Brian MA EGGS UNK reaction Mild Active Shila [place] MA AVELOX Rash Mild Active Shila Brian MA ADVAIR HFA UNK reaction Mild Active Shila Brian MA LATEX Moderate Active Galina Mercedes RN ERYTHROMYCIN [...] diabetes mellitus Diabetes, Type 2 250.00 Active 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 RANGELAND MANAGEMENT SPECIALIST Diabetes mellitus without mention of complication, type II or unspecified type, not stated as uncontrolled Diabetes mellitus, type II, uncontrolled 250.02 Active 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 RANGELAND MANAGEMENT SPECIALIST Diabetes mellitus without mention of complication, type II or unspecified type, uncontrolled ABDOMINAL PAIN, GENERALIZED 789.07 Active Rory Warren MD Abdominal pain, generalized Medication List Medication Instructions Start Date Stop Date Generic Name NDC Status Provider Patient Instruction DIGITEK 250 MCG ORAL TABLET 1 tab once daily DIGOXIN [id number] Active Rory Warren MD Active JARDIANCE 10 MG ORAL TABLET 1 tab once daily EMPAGLIFLOZIN 75546477733 Active Rory Warren MD Active LASIX 40 MG ORAL TABLET 1 tab twice daily FUROSEMIDE 29619506985 Active Rory Warren MD Active OXYCODONE HCL 10 MG ORAL TABLET Take 1 tablet, PO, TID. OXYCODONE HCL 98960255856 No Longer Active Rory Warren MD Active TRULICITY 1.5 MG/0.5ML SUBCUTANEOUS SOLUTION PEN-INJECTOR 0.5 mL, SubQ, qWeek. DULAGLUTIDE 63027946370 Active Shila Torres MA Active TRIAMCINOLONE ACETONIDE 0.1 % EXTERNAL CREAM apply TOP, TID sparingly to rash TRIAMCINOLONE ACETONIDE 80210010548 Active Shila Torres MA Active SYMBICORT 160-4.5 MCG/ACT INHALATION AEROSOL 2 puff BID BUDESONIDE-FORMOTEROL FUMARATE 85759097088 Active Shila Torres MA Active PROVENTIL HFA 108 (90 BASE) MCG/ACT INHALATION AEROSOL SOLUTION 1 puff q 4 hr prn ALBUTEROL SULFATE 71859310837 Active Shila Torres MA Active PROMETHAZINE HCL 25 MG ORAL TABLET 1 four times a day as needed for nausea/ vomiting PROMETHAZINE HCL 76664831241 Active Shila Torres MA Active OXYGEN 2 Liters, INH in Lines, HS OXYGEN Active Shila Torres MA Active METFORMIN HCL 1000 MG ORAL TABLET 1 tablet by mouth twice daily METFORMIN HCL 75252803315 Active Shila Torres MA Active MECLIZINE HCL 25 MG ORAL TABLET Take one tablet q6hrs, prn as needed for dizziness MECLIZINE HCL 29411071213 Active Shila Torres MA Active IMITREX 100 MG ORAL TABLET 1 tablet daily, prn. SUMATRIPTAN SUCCINATE 39413178466 Active Shila Torres MA Active COLACE 100 MG ORAL CAPSULE 1 po BID PRN Constipation DOCUSATE SODIUM 87397954536 Active Shila Torres MA Active VERAPAMIL HCL ER 180 MG ORAL TABLET EXTENDED RELEASE Take 1 tablet, PO, BID. VERAPAMIL HCL 13031865684 Active Shila Torres MA Active ALPRAZOLAM 0.5 MG ORAL TABLET ALPRAZOLAM 01005607115 Active Shila Torres MA Active DUONEB 0.5-2.5 (3) MG/3ML INHALATION SOLUTION Inhale solution, QID. IPRATROPIUM-ALBUTEROL 87327575540 Active Shila Torres MA Active ALBUTEROL SULFATE (2.5 MG/3ML) 0.083% INHALATION NEBULIZATION SOLUTION neb 1 ampule qid prn ALBUTEROL SULFATE 12435738178 No Longer Active Shila Torres MA Active PROTONIX 40 MG ORAL TABLET DELAYED RELEASE Take 1 tablet, PO, BID. PANTOPRAZOLE SODIUM 03794415812 Active Shila Torres MA Active FUROSEMIDE 20 MG ORAL TABLET 1 qd FUROSEMIDE 04676588241 No Longer Active Shila Torres MA Active HYDROCODONE-ACETAMINOPHEN 5-325 MG ORAL TABLET 1/2 q 4-6 hrs prn pain HYDROCODONE-ACETAMINOPHEN 10384214753 No Longer Active Shila Torres MA Active ORPHENADRINE CITRATE ER 100 MG ORAL TABLET EXTENDED RELEASE 12 HOUR 1 tid prn ORPHENADRINE CITRATE 33128187732 No Longer Active Shila Torres MA Active GABAPENTIN 100 MG ORAL CAPSULE Take one by mouth 3 times daily, morning, afternoon and evening.] GABAPENTIN 87975069398 No Longer Active Shila Torres MA Active [facility] IRON 325 (65 Fe) MG ORAL TABLET 1 qd FERROUS SULFATE 60091777067 No Longer Active Brent RAPHAELP Active ASPIRIN 325 MG ORAL TABLET 1 qd ASPIRIN 72181268411 Active Pasha Small MD Active ASPIRIN 81 MG ORAL TABLET DELAYED RELEASE 1 po q d ASPIRIN 31342148730 No Longer Active Pasha Small MD Active LISINOPRIL 10 MG ORAL TABLET 1 qd LISINOPRIL 43198608988 Active Pasha Small MD Active K-TAB 10 MEQ ORAL TABLET EXTENDED RELEASE 1 tab 3 x week POTASSIUM CHLORIDE 97438998660 Active Pasha Small MD Active IPRATROPIUM BROMIDE 0.02 % INHALATION SOLUTION neb 1 amp qid prn IPRATROPIUM BROMIDE 60369132762 Active Galina Long RN Active ASPIRIN 81 MG ORAL TABLET DELAYED RELEASE 1 po q d ASPIRIN 81 MG ORAL TABLET DELAYED RELEASE 302279 ASPIRIN Inactive [facility] IRON 325 (65 Fe) MG ORAL TABLET 1 qd [facility] IRON 325 (65 Fe) MG ORAL TABLET 932720 FERROUS SULFATE Inactive GABAPENTIN 100 MG ORAL CAPSULE Take one by mouth 3 times daily, morning, afternoon and evening.] GABAPENTIN 100 MG ORAL CAPSULE 671168 GABAPENTIN Inactive ORPHENADRINE CITRATE ER 100 MG ORAL TABLET EXTENDED RELEASE 12 HOUR 1 tid prn ORPHENADRINE CITRATE ER 100 MG ORAL TABLET EXTENDED RELEASE 12 HOUR ORPHENADRINE CITRATE Inactive HYDROCODONE-ACETAMINOPHEN 5-325 MG ORAL TABLET 1/2 q 4-6 hrs prn pain HYDROCODONE-ACETAMINOPHEN 5-325 MG ORAL TABLET 448201 HYDROCODONE-ACETAMINOPHEN Inactive FUROSEMIDE 20 MG ORAL TABLET 1 qd FUROSEMIDE 20 MG ORAL TABLET 535463 FUROSEMIDE Inactive ALBUTEROL SULFATE (2.5 MG/3ML) 0.083% INHALATION NEBULIZATION SOLUTION neb 1 ampule qid prn ALBUTEROL SULFATE (2.5 MG/3ML) 0.083% INHALATION NEBULIZATION SOLUTION 923401 ALBUTEROL SULFATE Inactive OXYCODONE HCL 10 MG ORAL TABLET Take 1 tablet, PO, TID. OXYCODONE HCL 10 MG ORAL TABLET [id number] OXYCODONE HCL Inactive Vital Signs Date Name Value Unit Range Description blood pressure, diastolic 61 mm[Hg] BP hansen blood pressure, systolic 133 mm[Hg] BP sys height E&M 65 [in_us] Bdy height pulse rate E&M 98 /min Heart rate temperature E&M 97.5 [degF] Body temperature weight E&M 241 [lb_av] Weight Measured Encounters Code Encounter Date Provider Facility CPT-48402 Level 4 Est. 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
--- OUTSIDE RECORDS SUMMARY | 2018-03-12 21:45 | XMS REPORT | Clinical Summary ---
Author Author Admin, NETTE Organization [facility] Address Unknown Phone Unavailable Allergies, Adverse Reactions, Alerts Allergy Name Reaction Description Start Date Severity Status Provider BUTORPHANOL TARTRATE UNK reaction Mild Active Shila [place] MA MORPHINE UNK reaction Mild Active Shila [place] MA IODINE UNK reaction Mild Active Shila Brian MA IMIPRAMINE HCL Tachycardia Critical Active Shila Brian MA GABAPENTIN Delusions Severe Active Shila Brian MA DOXYCYCLINE UNK reaction Mild Active Shila Brian MA PROZAC UNK reaction Mild Active Shila Brian MA LYRICA UNK reaction Mild Active Shila Brian MA EGGS UNK reaction Mild Active Shila [place] MA AVELOX Rash Mild Active Shila Brian [...] Diabetes, Type 2 250.00 Active 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 MARKER DESIGNER Diabetes mellitus without mention of complication, type II or unspecified type, not stated as uncontrolled Diabetes mellitus, type II, uncontrolled 250.02 Active 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 MEMORIAL MARKER DESIGNER Diabetes mellitus without mention of complication, type II or unspecified type, uncontrolled ABDOMINAL PAIN, GENERALIZED 789.07 Active Rory Warren MD Abdominal pain, generalized Medication List Medication Instructions Start Date Stop Date Generic Name NDC Status Provider Patient Instruction DIGITEK 250 MCG ORAL TABLET 1 tab once daily DIGOXIN 13034611195 Active Rory Warren MD Active JARDIANCE 10 MG ORAL TABLET 1 tab once daily EMPAGLIFLOZIN 83938753411 Active Rory Warren MD Active LASIX 40 MG ORAL TABLET 1 tab twice daily FUROSEMIDE 69179200344 Active Rory Warren MD Active OXYCODONE HCL 10 MG ORAL TABLET Take 1 tablet, PO, TID. OXYCODONE HCL 36735714988 No Longer Active Rory Warren MD Active TRULICITY 1.5 MG/0.5ML SUBCUTANEOUS SOLUTION PEN-INJECTOR 0.5 mL, SubQ, qWeek. DULAGLUTIDE 51171131772 Active Shila Torres MA Active TRIAMCINOLONE ACETONIDE 0.1 % EXTERNAL CREAM apply TOP, TID sparingly to rash TRIAMCINOLONE ACETONIDE 42295804949 Active Shila Torres MA Active SYMBICORT 160-4.5 MCG/ACT INHALATION AEROSOL 2 puff BID BUDESONIDE-FORMOTEROL FUMARATE 35603909827 Active Shila Torres MA Active PROVENTIL HFA 108 (90 BASE) MCG/ACT INHALATION AEROSOL SOLUTION 1 puff q 4 hr prn ALBUTEROL SULFATE 07304519687 Active Shila Torres MA Active PROMETHAZINE HCL 25 MG ORAL TABLET 1 four times a day as needed for nausea/ vomiting PROMETHAZINE HCL 94457778157 Active Shila Torres MA Active OXYGEN 2 Liters, INH in Lines, HS OXYGEN Active Shila Torres MA Active METFORMIN HCL 1000 MG ORAL TABLET 1 tablet by mouth twice daily METFORMIN HCL 23608312353 Active Shila Torres MA Active MECLIZINE HCL 25 MG ORAL TABLET Take one tablet q6hrs, prn as needed for dizziness MECLIZINE HCL 82720330486 Active Shila Torres MA Active IMITREX 100 MG ORAL TABLET 1 tablet daily, prn. SUMATRIPTAN SUCCINATE 99409187495 Active Shila Torres MA Active COLACE 100 MG ORAL CAPSULE 1 po BID PRN Constipation DOCUSATE SODIUM 72053019410 Active Shila Torres MA Active VERAPAMIL HCL ER 180 MG ORAL TABLET EXTENDED RELEASE Take 1 tablet, PO, BID. VERAPAMIL HCL 32173510166 Active Shila Torres MA Active ALPRAZOLAM 0.5 MG ORAL TABLET ALPRAZOLAM 43914661198 Active Shila Torres MA Active DUONEB 0.5-2.5 (3) MG/3ML INHALATION SOLUTION Inhale solution, QID. IPRATROPIUM-ALBUTEROL 42939795782 Active Shila Torres MA Active ALBUTEROL SULFATE (2.5 MG/3ML) 0.083% INHALATION NEBULIZATION SOLUTION neb 1 ampule qid prn ALBUTEROL SULFATE 15414742863 No Longer Active Shila Torres MA Active PROTONIX 40 MG ORAL TABLET DELAYED RELEASE Take 1 tablet, PO, BID. PANTOPRAZOLE SODIUM 11468562199 Active Shila Torres MA Active FUROSEMIDE 20 MG ORAL TABLET 1 qd FUROSEMIDE 52667217056 No Longer Active Shila Torres MA Active HYDROCODONE-ACETAMINOPHEN 5-325 MG ORAL TABLET 1/2 q 4-6 hrs prn pain HYDROCODONE-ACETAMINOPHEN 44186754283 No Longer Active Shila Torres MA Active ORPHENADRINE CITRATE ER 100 MG ORAL TABLET EXTENDED RELEASE 12 HOUR 1 tid prn ORPHENADRINE CITRATE 35295339074 No Longer Active Shila Torres MA Active GABAPENTIN 100 MG ORAL CAPSULE Take one by mouth 3 times daily, morning, afternoon and evening.] GABAPENTIN 21995765315 No Longer Active Shila Torres MA Active [facility] IRON 325 (65 Fe) MG ORAL TABLET 1 qd FERROUS SULFATE 50348299507 No Longer Active Brent RAPHAELP Active ASPIRIN 325 MG ORAL TABLET 1 qd ASPIRIN 49973065239 Active Pasha Small MD Active ASPIRIN 81 MG ORAL TABLET DELAYED RELEASE 1 po q d ASPIRIN 58980121703 No Longer Active Pasha Small MD Active LISINOPRIL 10 MG ORAL TABLET 1 qd LISINOPRIL 47848369960 Active Pasha Small MD Active K-TAB 10 MEQ ORAL TABLET EXTENDED RELEASE 1 tab 3 x week POTASSIUM CHLORIDE 70738192451 Active Pasha Small MD Active IPRATROPIUM BROMIDE 0.02 % INHALATION SOLUTION neb 1 amp qid prn IPRATROPIUM BROMIDE 10783439943 Active Galina Long RN Active ASPIRIN 81 MG ORAL TABLET DELAYED RELEASE 1 po q d ASPIRIN 81 MG ORAL TABLET DELAYED RELEASE 062329 ASPIRIN Inactive [facility] IRON 325 (65 Fe) MG ORAL TABLET 1 qd [facility] IRON 325 (65 Fe) MG ORAL TABLET 822968 FERROUS SULFATE Inactive GABAPENTIN 100 MG ORAL CAPSULE Take one by mouth 3 times daily, morning, afternoon and evening.] GABAPENTIN 100 MG ORAL CAPSULE 631520 GABAPENTIN Inactive ORPHENADRINE CITRATE ER 100 MG ORAL TABLET EXTENDED RELEASE 12 HOUR 1 tid prn ORPHENADRINE CITRATE ER 100 MG ORAL TABLET EXTENDED RELEASE 12 HOUR ORPHENADRINE CITRATE Inactive HYDROCODONE-ACETAMINOPHEN 5-325 MG ORAL TABLET 1/2 q 4-6 hrs prn pain HYDROCODONE-ACETAMINOPHEN 5-325 MG ORAL TABLET 729861 HYDROCODONE-ACETAMINOPHEN Inactive FUROSEMIDE 20 MG ORAL TABLET 1 qd FUROSEMIDE 20 MG ORAL TABLET 145350 FUROSEMIDE Inactive ALBUTEROL SULFATE (2.5 MG/3ML) 0.083% INHALATION NEBULIZATION SOLUTION neb 1 ampule qid prn ALBUTEROL SULFATE (2.5 MG/3ML) 0.083% INHALATION NEBULIZATION SOLUTION 683908 ALBUTEROL SULFATE Inactive OXYCODONE HCL 10 MG ORAL TABLET Take 1 tablet, PO, TID. OXYCODONE HCL 10 MG ORAL TABLET 5186968 OXYCODONE HCL Inactive Vital Signs Date Name Value Unit Range Description blood pressure, diastolic 61 mm[Hg] BP hansen blood pressure, systolic 133 mm[Hg] BP sys height E&M 65 [in_us] Bdy height pulse rate E&M 98 /min Heart rate temperature E&M 97.5 [degF] Body temperature weight E&M 241 [lb_av] Weight Measured Encounters Code Encounter Date Provider Facility CPT-35215 Level 4 Est. 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
--- OUTSIDE RECORDS SUMMARY | 2018-03-12 21:45 | XMS REPORT | Clinical Summary ---
Author Author Admin, NETTE Organization [facility] Address Unknown Phone Unavailable Allergies, Adverse Reactions, Alerts Allergy Name Reaction Description Start Date Severity Status Provider BUTORPHANOL TARTRATE UNK reaction Mild Active Shila [place] MA MORPHINE UNK reaction Mild Active Shila [place] MA IODINE UNK reaction Mild Active Shila Brian MA IMIPRAMINE HCL Tachycardia Critical Active Shila Brian MA GABAPENTIN Delusions Severe Active Shila Brian MA DOXYCYCLINE UNK reaction Mild Active Shila Brian MA PROZAC UNK reaction Mild Active Shila Brina MA LYRICA UNK reaction Mild Active Shila Brian MA EGGS UNK reaction Mild Active Shila [place] MA AVELOX Rash Mild Active Shila Brian [...] Diabetes, Type 2 250.00 Active 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 DULAGLUTIDE 13884524225 Active Shila Torres MA Active TRIAMCINOLONE ACETONIDE 0.1 % EXTERNAL CREAM apply TOP, TID sparingly to rash TRIAMCINOLONE ACETONIDE 42789307556 Active Shila Torres MA Active SYMBICORT 160-4.5 MCG/ACT INHALATION AEROSOL 2 puff BID BUDESONIDE-FORMOTEROL FUMARATE 98038350421 Active Shila Torres MA Active PROVENTIL HFA 108 (90 BASE) MCG/ACT INHALATION AEROSOL SOLUTION 1 puff q 4 hr prn ALBUTEROL SULFATE 10581204125 Active Shila Torres MA Active PROMETHAZINE HCL 25 MG ORAL TABLET 1 four times a day as needed for nausea/ vomiting PROMETHAZINE HCL 42107625744 Active Shila Torres MA Active OXYGEN 2 Liters, INH in Lines, HS OXYGEN Active Shila Torres MA Active OXYCODONE HCL 10 MG ORAL TABLET Take 1 tablet, PO, TID. OXYCODONE HCL 17321196098 Active Shila Torres MA Active METFORMIN HCL 1000 MG ORAL TABLET 1 tablet by mouth twice daily METFORMIN HCL 02629509357 Active Shila Torres MA Active MECLIZINE HCL 25 MG ORAL TABLET Take one tablet q6hrs, prn as needed for dizziness MECLIZINE HCL 66553005931 Active Shila Torres MA Active LASIX 20 MG ORAL TABLET 1 tablet by mouth BID FUROSEMIDE 09483544368 Active Shila Torres MA Active JARDIANCE 25 MG ORAL TABLET Take 1 tab, PO, every am. EMPAGLIFLOZIN 74913184111 Active Shila Torres MA Active IMITREX 100 MG ORAL TABLET 1 tablet daily, prn. SUMATRIPTAN SUCCINATE 56279184952 Active Shila Torres MA Active COLACE 100 MG ORAL CAPSULE 1 po BID PRN Constipation DOCUSATE SODIUM 50087120885 Active Shila Torres MA Active VERAPAMIL HCL ER 180 MG ORAL TABLET EXTENDED RELEASE Take 1 tablet, PO, BID. VERAPAMIL HCL 12403660189 Active Shila Torres MA Active ALPRAZOLAM 0.5 MG ORAL TABLET ALPRAZOLAM 54957327083 Active Shila Torres MA Active DUONEB 0.5-2.5 (3) MG/3ML INHALATION SOLUTION Inhale solution, QID. IPRATROPIUM-ALBUTEROL 18867215140 Active Shila Torres MA Active ALBUTEROL SULFATE (2.5 MG/3ML) 0.083% INHALATION NEBULIZATION SOLUTION neb 1 ampule qid prn ALBUTEROL SULFATE 43645371454 No Longer Active Shila Torres MA Active DIGOXIN 125 MCG ORAL TABLET Take 1 tab, PO, Daily. DIGOXIN 84658308567 Active Shila Torres MA Active PROTONIX 40 MG ORAL TABLET DELAYED RELEASE Take 1 tablet, PO, BID. PANTOPRAZOLE SODIUM 04299154790 Active Shila Torres MA Active FUROSEMIDE 20 MG ORAL TABLET 1 qd FUROSEMIDE 57867476323 No Longer Active Shila Torres MA Active HYDROCODONE-ACETAMINOPHEN 5-325 MG ORAL TABLET 1/2 q 4-6 hrs prn pain HYDROCODONE-ACETAMINOPHEN 54735828341 No Longer Active Shila Torres MA Active ORPHENADRINE CITRATE ER 100 MG ORAL TABLET EXTENDED RELEASE 12 HOUR 1 tid prn ORPHENADRINE CITRATE 02116539938 No Longer Active Shila Torres MA Active GABAPENTIN 100 MG ORAL CAPSULE Take one by mouth 3 times daily, morning, afternoon and evening.] GABAPENTIN 66304713841 No Longer Active Shila Torres MA Active [facility] IRON 325 (65 Fe) MG ORAL TABLET 1 qd FERROUS SULFATE 03387333429 No Longer Active Brent RAPHAELP Active ASPIRIN 325 MG ORAL TABLET 1 qd ASPIRIN 71533494880 Active Pasha Small MD Active ASPIRIN 81 MG ORAL TABLET DELAYED RELEASE 1 po q d ASPIRIN 02191393515 No Longer Active Pasha Small MD Active LISINOPRIL 10 MG ORAL TABLET 1 qd LISINOPRIL 10410052317 Active Pasha Small MD Active K-TAB 10 MEQ ORAL TABLET EXTENDED RELEASE 1 tab 3 x week POTASSIUM CHLORIDE 95131989409 Active Pasha Small MD Active IPRATROPIUM BROMIDE 0.02 % INHALATION SOLUTION neb 1 amp qid prn IPRATROPIUM BROMIDE 47129811697 Active Galina Long RN Active ASPIRIN 81 MG ORAL TABLET DELAYED RELEASE 1 po q d ASPIRIN 81 MG ORAL TABLET DELAYED RELEASE 446284 ASPIRIN Inactive [facility] IRON 325 (65 Fe) MG ORAL TABLET 1 qd [facility] IRON 325 (65 Fe) MG ORAL TABLET 228470 FERROUS SULFATE Inactive GABAPENTIN 100 MG ORAL CAPSULE Take one by mouth 3 times daily, morning, afternoon and evening.] GABAPENTIN 100 MG ORAL CAPSULE 328402 GABAPENTIN Inactive ORPHENADRINE CITRATE ER 100 MG ORAL TABLET EXTENDED RELEASE 12 HOUR 1 tid prn ORPHENADRINE CITRATE ER 100 MG ORAL TABLET EXTENDED RELEASE 12 HOUR ORPHENADRINE CITRATE Inactive HYDROCODONE-ACETAMINOPHEN 5-325 MG ORAL TABLET 1/2 q 4-6 hrs prn pain HYDROCODONE-ACETAMINOPHEN 5-325 MG ORAL TABLET 695529 HYDROCODONE-ACETAMINOPHEN Inactive FUROSEMIDE 20 MG ORAL TABLET 1 qd FUROSEMIDE 20 MG ORAL TABLET 835458 FUROSEMIDE Inactive ALBUTEROL SULFATE (2.5 MG/3ML) 0.083% INHALATION NEBULIZATION SOLUTION neb 1 ampule qid prn ALBUTEROL SULFATE (2.5 MG/3ML) 0.083% INHALATION NEBULIZATION SOLUTION 831443 ALBUTEROL SULFATE Inactive Encounters Code Encounter Date Provider Facility CPT-30148 Level 4 Est. 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
--- OUTSIDE RECORDS SUMMARY | 2018-03-12 21:45 | XMS REPORT | Clinical Summary ---
Author Author Admin, NETTE Organization [facility] Address Unknown Phone Unavailable Allergies, Adverse [...] Diabetes, Type 2 250.00 Active Maltreveh Malikglari CERAMIC ARTIST Diabetes mellitus without mention of complication, type II or unspecified type, not stated as uncontrolled Diabetes mellitus, type II, uncontrolled 250.02 Active Maliheh Ziglari CERAMIC ARTIST Diabetes mellitus without mention of complication, type II or unspecified type, uncontrolled Medication List Medication Instructions Start Date Stop Date Generic Name NDC Status Provider Patient Instruction GABAPENTIN 100 MG ORAL CAPS Take one by mouth 3 times daily, morning, afternoon and evening.] GABAPENTIN 73963657635 Active Maliheh Ziglari CERAMIC ARTIST Active [facility] IRON 325 (65 FE) MG TABS 1 qd FERROUS SULFATE 99758920931 No Longer Active 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 CERAMIC ARTIST Active HYDROCODONE-ACETAMINOPHEN 5-325 MG TABS 1/2 q 4-6 hrs prn pain HYDROCODONE-ACETAMINOPHEN 02470329944 Active Pasha Small MD Active ORPHENADRINE CITRATE ER 100 MG [id number] 1 tid prn ORPHENADRINE CITRATE 52653625244 Active Pasha Small MD Active ASPIRIN 325 MG TABS 1 qd ASPIRIN 82798011752 Active Pasha Small MD Active ASPIRIN 81 MG TBEC 1 po q d ASPIRIN 44683469674 No Longer Active Pasha Small MD Active LISINOPRIL 10 MG TABS 1 qd LISINOPRIL 67281561252 Active Pasha Small MD Active K-TABS 10 MEQ CR-TABS 1 tab 3 x week POTASSIUM CHLORIDE 75894740533 Active Pasha Small MD Active FUROSEMIDE 20 MG TABS 1 qd FUROSEMIDE 18762538173 Active Pasha Small MD Active PROVENTIL HFA 108 (90 BASE) MCG/ACT AERS 2 puffs q 4 hr prn ALBUTEROL SULFATE 98324845816 Active Galina Long RN Active ALPRAZOLAM 0.25 MG TABS 1/2-1 po tid prn ALPRAZOLAM 69099512214 Active Galina Long RN Active IPRATROPIUM BROMIDE 0.02 % SOLN neb 1 amp qid prn IPRATROPIUM BROMIDE 86079085752 Active Galina Long RN Active VERAPAMIL HCL 80 MG TABS 2 po q am, 2 po q pm VERAPAMIL HCL 72166720767 Active Galina Long RN Active ALBUTEROL SULFATE (2.5 MG/3ML) 0.083% NEBU neb 1 ampule qid prn ALBUTEROL SULFATE 36504257467 Active Galina Long RN Active LANOXIN 0.25 MG TABS 1 po q d DIGOXIN 77931500593 Active Galina Long RN Active PROTONIX 40 MG TBEC 1 po q d PANTOPRAZOLE SODIUM 21968493183 Active Galina Long RN Active ASPIRIN 81 MG TBEC 1 po q d ASPIRIN 81 MG TBEC 748104 ASPIRIN Inactive [facility] IRON 325 (65 FE) MG TABS 1 qd [facility]S IRON 325 (65 FE ) MG TABS 685089 FERROUS SULFATE Inactive Vital Signs Date Name [...] Description Chart Maintenance: Outside labs entered on [employer] - Chemistry sodium, serum 140 mmol/L potassium, serum 4.7 mmol/L blood glucose 155 mg/dL creatinine, serum 0.76 mg/dL aspartate aminotransferase (SGOT), serum 69 U/L alanine aminotransferase (SGPT), serum 91 U/L alkaline phosphatase, serum 133 U/L hemoglobin A1C, blood, as % of total hemoglobin 7.0 % protein, total urine random Trace mg/dL Chart Maintenance: Outside labs entered on [employer] - Hematology leukocyte count, blood 13.5 10*3/mm3 [...] mg/dL Encounters Code Encounter Date Provider Facility CPT-72577 Level 4 Est. Patient 14:53:[address] [facility] [place] CPT-87037 Level 5 New Patient 13:41:[address] 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
--- OUTSIDE RECORDS SUMMARY | 2018-03-12 21:46 | XMS REPORT | Clinical Summary ---
Author Author Admin, NETTE Organization [facility] Address Unknown Phone Unavailable Allergies, Adverse Reactions, Alerts Allergy Name Reaction Description Start Date Severity Status Provider BUTORPHANOL TARTRATE UNK reaction Mild Active Shila Wykoff MA MORPHINE UNK reaction Mild Active Shila Wykoff MA IODINE UNK reaction Mild Active Shila Brian MA IMIPRAMINE HCL Tachycardia Critical Active Shila Brian MA GABAPENTIN Delusions Severe Active Shila Brian MA DOXYCYCLINE UNK reaction Mild Active Shila Brian MA PROZAC UNK reaction Mild Active Shila Brian MA LYRICA UNK reaction Mild Active Shila Brian MA EGGS UNK reaction Mild Active Shila Wykoff MA AVELOX Rash Mild Active Shila Brian [...] Diabetes, Type 2 250.00 Active 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 MARINE PILOT Diabetes mellitus without mention of complication, type II or unspecified type, not stated as uncontrolled Diabetes mellitus, type II, uncontrolled 250.02 Active 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 MARINE PILOT Diabetes mellitus without mention of complication, type II or unspecified type, uncontrolled ABDOMINAL PAIN, GENERALIZED 789.07 Active Rory Warren MD Abdominal pain, generalized Medication List Medication Instructions Start Date Stop Date Generic Name NDC Status Provider Patient Instruction DIGITEK 250 MCG ORAL TABLET 1 tab once daily DIGOXIN 75128022497 Active Rory Warren MD Active JARDIANCE 10 MG ORAL TABLET 1 tab once daily EMPAGLIFLOZIN 15557641572 Active Rory Warren MD Active LASIX 40 MG ORAL TABLET 1 tab twice daily FUROSEMIDE 90822546222 Active Rory Warren MD Active OXYCODONE HCL 10 MG ORAL TABLET Take 1 tablet, PO, TID. OXYCODONE HCL 77693502091 No Longer Active Rory Warren MD Active TRULICITY 1.5 MG/0.5ML SUBCUTANEOUS SOLUTION PEN-INJECTOR 0.5 mL, SubQ, qWeek. DULAGLUTIDE 39624914182 Active Shila Torres MA Active TRIAMCINOLONE ACETONIDE 0.1 % EXTERNAL CREAM apply TOP, TID sparingly to rash TRIAMCINOLONE ACETONIDE 94884284481 Active Shila Torres MA Active SYMBICORT 160-4.5 MCG/ACT INHALATION AEROSOL 2 puff BID BUDESONIDE-FORMOTEROL FUMARATE 39598059994 Active Shila Torres MA Active PROVENTIL HFA 108 (90 BASE) MCG/ACT INHALATION AEROSOL SOLUTION 1 puff q 4 hr prn ALBUTEROL SULFATE 26641267949 Active Shila Torres MA Active PROMETHAZINE HCL 25 MG ORAL TABLET 1 four times a day as needed for nausea/ vomiting PROMETHAZINE HCL 78345256924 Active Shila Torers MA Active OXYGEN 2 Liters, INH in Lines, HS OXYGEN Active Shila Torres MA Active METFORMIN HCL 1000 MG ORAL TABLET 1 tablet by mouth twice daily METFORMIN HCL 60143395341 Active Shila Torres MA Active MECLIZINE HCL 25 MG ORAL TABLET Take one tablet q6hrs, prn as needed for dizziness MECLIZINE HCL 36881824856 Active Shila Torres MA Active IMITREX 100 MG ORAL TABLET 1 tablet daily, prn. SUMATRIPTAN SUCCINATE 47610083890 Active Shila Torres MA Active COLACE 100 MG ORAL CAPSULE 1 po BID PRN Constipation DOCUSATE SODIUM 39613807637 Active Shila Torres MA Active VERAPAMIL HCL ER 180 MG ORAL TABLET EXTENDED RELEASE Take 1 tablet, PO, BID. VERAPAMIL HCL 56168696107 Active Shila Torres MA Active ALPRAZOLAM 0.5 MG ORAL TABLET ALPRAZOLAM 62304608485 Active Shila Torres MA Active DUONEB 0.5-2.5 (3) MG/3ML INHALATION SOLUTION Inhale solution, QID. IPRATROPIUM-ALBUTEROL 07863768417 Active Shila Torres MA Active ALBUTEROL SULFATE (2.5 MG/3ML) 0.083% INHALATION NEBULIZATION SOLUTION neb 1 ampule qid prn ALBUTEROL SULFATE 27214918442 No Longer Active Shila Torres MA Active PROTONIX 40 MG ORAL TABLET DELAYED RELEASE Take 1 tablet, PO, BID. PANTOPRAZOLE SODIUM 59271441019 Active Shila Torres MA Active FUROSEMIDE 20 MG ORAL TABLET 1 qd FUROSEMIDE 99461535935 No Longer Active Shila Torres MA Active HYDROCODONE-ACETAMINOPHEN 5-325 MG ORAL TABLET 1/2 q 4-6 hrs prn pain HYDROCODONE-ACETAMINOPHEN 95965620237 No Longer Active Shila Torres MA Active ORPHENADRINE CITRATE ER 100 MG ORAL TABLET EXTENDED RELEASE 12 HOUR 1 tid prn ORPHENADRINE CITRATE 56558026339 No Longer Active Shila Torres MA Active GABAPENTIN 100 MG ORAL CAPSULE Take one by mouth 3 times daily, morning, afternoon and evening.] GABAPENTIN 48681004509 No Longer Active Shila Torres MA Active [facility] IRON 325 (65 Fe) MG ORAL TABLET 1 qd FERROUS SULFATE 71553383430 No Longer Active Brent RAPHAELP Active ASPIRIN 325 MG ORAL TABLET 1 qd ASPIRIN 26373820297 Active Pasha Small MD Active ASPIRIN 81 MG ORAL TABLET DELAYED RELEASE 1 po q d ASPIRIN 04192491934 No Longer Active Pasha Small MD Active LISINOPRIL 10 MG ORAL TABLET 1 qd LISINOPRIL 40341185856 Active Pasha Small MD Active K-TAB 10 MEQ ORAL TABLET EXTENDED RELEASE 1 tab 3 x week POTASSIUM CHLORIDE 11234491202 Active Pasha Small MD Active IPRATROPIUM BROMIDE 0.02 % INHALATION SOLUTION neb 1 amp qid prn IPRATROPIUM BROMIDE 75813549151 Active Galina Long RN Active ASPIRIN 81 MG ORAL TABLET DELAYED RELEASE 1 po q d ASPIRIN 81 MG ORAL TABLET DELAYED RELEASE 767318 ASPIRIN Inactive [facility] IRON 325 (65 Fe) MG ORAL TABLET 1 qd [facility] IRON 325 (65 Fe) MG ORAL TABLET 428150 FERROUS SULFATE Inactive GABAPENTIN 100 MG ORAL CAPSULE Take one by mouth 3 times daily, morning, afternoon and evening.] GABAPENTIN 100 MG ORAL CAPSULE 883493 GABAPENTIN Inactive ORPHENADRINE CITRATE ER 100 MG ORAL TABLET EXTENDED RELEASE 12 HOUR 1 tid prn ORPHENADRINE CITRATE ER 100 MG ORAL TABLET EXTENDED RELEASE 12 HOUR ORPHENADRINE CITRATE Inactive HYDROCODONE-ACETAMINOPHEN 5-325 MG ORAL TABLET 1/2 q 4-6 hrs prn pain HYDROCODONE-ACETAMINOPHEN 5-325 MG ORAL TABLET 050692 HYDROCODONE-ACETAMINOPHEN Inactive FUROSEMIDE 20 MG ORAL TABLET 1 qd FUROSEMIDE 20 MG ORAL TABLET 576700 FUROSEMIDE Inactive ALBUTEROL SULFATE (2.5 MG/3ML) 0.083% INHALATION NEBULIZATION SOLUTION neb 1 ampule qid prn ALBUTEROL SULFATE (2.5 MG/3ML) 0.083% INHALATION NEBULIZATION SOLUTION 557139 ALBUTEROL SULFATE Inactive OXYCODONE HCL 10 MG ORAL TABLET Take 1 tablet, PO, TID. OXYCODONE HCL 10 MG ORAL TABLET 8032576 OXYCODONE HCL Inactive Vital Signs Date Name Value Unit Range Description blood pressure, diastolic 61 mm[Hg] BP hansen blood pressure, systolic 133 mm[Hg] BP sys height E&M 65 [in_us] Bdy height pulse rate E&M 98 /min Heart rate temperature E&M 97.5 [degF] Body temperature weight E&M 241 [lb_av] Weight Measured Encounters Code Encounter Date Provider Facility CPT-41330 Level 4 Est. 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
--- OUTSIDE RECORDS SUMMARY | 2018-03-12 21:48 | XMS REPORT | Clinical Summary ---
Author Author Admin, NETTE Organization [facility] Address Unknown Phone Unavailable Allergies, Adverse Reactions, Alerts Allergy Name Reaction Description Start Date Severity Status Provider BUTORPHANOL TARTRATE UNK reaction Mild Active Shila Lubbock MA MORPHINE UNK reaction Mild Active Shila [place] MA IODINE UNK reaction Mild Active Shila Brian MA IMIPRAMINE HCL Tachycardia Critical Active Shila Brian MA GABAPENTIN Delusions Severe Active Shila Brian MA DOXYCYCLINE UNK reaction Mild Active Shila Brian MA PROZAC UNK reaction Mild Active Shila Brian MA LYRICA UNK reaction Mild Active Shila Brian MA EGGS UNK reaction Mild Active Shila Lubbock MA AVELOX Rash Mild Active Shila Brian [...] Diabetes, Type 2 250.00 Active 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 CONTROL CLERK HEAD Diabetes mellitus without mention of complication, type II or unspecified type, not stated as uncontrolled Diabetes mellitus, type II, uncontrolled 250.02 Active 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 CONTROL CLERK HEAD Diabetes mellitus without mention of complication, type II or unspecified type, uncontrolled ABDOMINAL PAIN, GENERALIZED 789.07 Active Rory Warren MD Abdominal pain, generalized Medication List Medication Instructions Start Date Stop Date Generic Name NDC Status Provider Patient Instruction DIGITEK 250 MCG ORAL TABLET 1 tab once daily DIGOXIN 55844754965 Active Rroy Warren MD Active JARDIANCE 10 MG ORAL TABLET 1 tab once daily EMPAGLIFLOZIN 94720308005 Active Rory Warren MD Active LASIX 40 MG ORAL TABLET 1 tab twice daily FUROSEMIDE 58438989781 Active Rory Warren MD Active OXYCODONE HCL 10 MG ORAL TABLET Take 1 tablet, PO, TID. OXYCODONE HCL 44193401788 No Longer Active Rory Warren MD Active TRULICITY 1.5 MG/0.5ML SUBCUTANEOUS SOLUTION PEN-INJECTOR 0.5 mL, SubQ, qWeek. DULAGLUTIDE 54549324841 Active Shila Torres MA Active TRIAMCINOLONE ACETONIDE 0.1 % EXTERNAL CREAM apply TOP, TID sparingly to rash TRIAMCINOLONE ACETONIDE 07452923883 Active Shila Torres MA Active SYMBICORT 160-4.5 MCG/ACT INHALATION AEROSOL 2 puff BID BUDESONIDE-FORMOTEROL FUMARATE 65773104706 Active Shila Torres MA Active PROVENTIL HFA 108 (90 BASE) MCG/ACT INHALATION AEROSOL SOLUTION 1 puff q 4 hr prn ALBUTEROL SULFATE 07344331630 Active Shila Torres MA Active PROMETHAZINE HCL 25 MG ORAL TABLET 1 four times a day as needed for nausea/ vomiting PROMETHAZINE HCL 40918976809 Active Shila Torres MA Active OXYGEN 2 Liters, INH in Lines, HS OXYGEN Active Shila Torres MA Active METFORMIN HCL 1000 MG ORAL TABLET 1 tablet by mouth twice daily METFORMIN HCL 73243788922 Active Shila Torres MA Active MECLIZINE HCL 25 MG ORAL TABLET Take one tablet q6hrs, prn as needed for dizziness MECLIZINE HCL 00694584624 Active Shila Torres MA Active IMITREX 100 MG ORAL TABLET 1 tablet daily, prn. SUMATRIPTAN SUCCINATE 12564912405 Active Shila Torres MA Active COLACE 100 MG ORAL CAPSULE 1 po BID PRN Constipation DOCUSATE SODIUM 28355379900 Active Shila Torres MA Active VERAPAMIL HCL ER 180 MG ORAL TABLET EXTENDED RELEASE Take 1 tablet, PO, BID. VERAPAMIL HCL 66954423037 Active Shila Torres MA Active ALPRAZOLAM 0.5 MG ORAL TABLET ALPRAZOLAM 07712278626 Active Shila Torres MA Active DUONEB 0.5-2.5 (3) MG/3ML INHALATION SOLUTION Inhale solution, QID. IPRATROPIUM-ALBUTEROL 57531823812 Active Shila Torres MA Active ALBUTEROL SULFATE (2.5 MG/3ML) 0.083% INHALATION NEBULIZATION SOLUTION neb 1 ampule qid prn ALBUTEROL SULFATE 15024058949 No Longer Active Shila Torres MA Active PROTONIX 40 MG ORAL TABLET DELAYED RELEASE Take 1 tablet, PO, BID. PANTOPRAZOLE SODIUM 07239208825 Active Shila Torres MA Active FUROSEMIDE 20 MG ORAL TABLET 1 qd FUROSEMIDE 39995827734 No Longer Active Shila Torres MA Active HYDROCODONE-ACETAMINOPHEN 5-325 MG ORAL TABLET 1/2 q 4-6 hrs prn pain HYDROCODONE-ACETAMINOPHEN 47122048158 No Longer Active Shila Torres MA Active ORPHENADRINE CITRATE ER 100 MG ORAL TABLET EXTENDED RELEASE 12 HOUR 1 tid prn ORPHENADRINE CITRATE 79802814459 No Longer Active Shila Torres MA Active GABAPENTIN 100 MG ORAL CAPSULE Take one by mouth 3 times daily, morning, afternoon and evening.] GABAPENTIN 35934890988 No Longer Active Shila Torres MA Active [facility] IRON 325 (65 Fe) MG ORAL TABLET 1 qd FERROUS SULFATE 74692671749 No Longer Active Brent RAPHAELP Active ASPIRIN 325 MG ORAL TABLET 1 qd ASPIRIN 51594322533 Active Pasha Small MD Active ASPIRIN 81 MG ORAL TABLET DELAYED RELEASE 1 po q d ASPIRIN 10455939858 No Longer Active Pasha Small MD Active LISINOPRIL 10 MG ORAL TABLET 1 qd LISINOPRIL 92983387126 Active Pasha Small MD Active K-TAB 10 MEQ ORAL TABLET EXTENDED RELEASE 1 tab 3 x week POTASSIUM CHLORIDE 07612576995 Active Pasha Small MD Active IPRATROPIUM BROMIDE 0.02 % INHALATION SOLUTION neb 1 amp qid prn IPRATROPIUM BROMIDE 63935832418 Active Galina Long RN Active ASPIRIN 81 MG ORAL TABLET DELAYED RELEASE 1 po q d ASPIRIN 81 MG ORAL TABLET DELAYED RELEASE 839390 ASPIRIN Inactive [facility] IRON 325 (65 Fe) MG ORAL TABLET 1 qd [facility] IRON 325 (65 Fe) MG ORAL TABLET 223727 FERROUS SULFATE Inactive GABAPENTIN 100 MG ORAL CAPSULE Take one by mouth 3 times daily, morning, afternoon and evening.] GABAPENTIN 100 MG ORAL CAPSULE 056846 GABAPENTIN Inactive ORPHENADRINE CITRATE ER 100 MG ORAL TABLET EXTENDED RELEASE 12 HOUR 1 tid prn ORPHENADRINE CITRATE ER 100 MG ORAL TABLET EXTENDED RELEASE 12 HOUR ORPHENADRINE CITRATE Inactive HYDROCODONE-ACETAMINOPHEN 5-325 MG ORAL TABLET 1/2 q 4-6 hrs prn pain HYDROCODONE-ACETAMINOPHEN 5-325 MG ORAL TABLET 930541 HYDROCODONE-ACETAMINOPHEN Inactive FUROSEMIDE 20 MG ORAL TABLET 1 qd FUROSEMIDE 20 MG ORAL TABLET 588416 FUROSEMIDE Inactive ALBUTEROL SULFATE (2.5 MG/3ML) 0.083% INHALATION NEBULIZATION SOLUTION neb 1 ampule qid prn ALBUTEROL SULFATE (2.5 MG/3ML) 0.083% INHALATION NEBULIZATION SOLUTION 817876 ALBUTEROL SULFATE Inactive OXYCODONE HCL 10 MG ORAL TABLET Take 1 tablet, PO, TID. OXYCODONE HCL 10 MG ORAL TABLET 8048040 OXYCODONE HCL Inactive Vital Signs Date Name Value Unit Range Description blood pressure, diastolic 61 mm[Hg] BP hansen blood pressure, systolic 133 mm[Hg] BP sys height E&M 65 [in_us] Bdy height pulse rate E&M 98 /min Heart rate temperature E&M 97.5 [degF] Body temperature weight E&M 241 [lb_av] Weight Measured Encounters Code Encounter Date Provider Facility CPT-60916 Level 4 Est. 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
--- OUTSIDE RECORDS SUMMARY | 2018-03-12 21:48 | XMS REPORT ---
Author Author [facility] Medical Staff Organization [facility] Address [address] [place], [place] [address] Phone [phone] Care Team Providers Care Manager Online Name Role Phone ALEX BARRERA, SHAILESH RIVERA [phone] Summary purpose TRANSITION OF CARE AUTO GENERATION Chief Complaint and Reason for Visit Admit Diagnosis 1 OTHER MALAISE & FATIGUE Problem list No authorized problems tracked for continuity of care are available for this visit. Encounters No authorized problems tracked for encounter diagnoses are available for this visit. Medications No home medications recorded for this patient visit Allergies, adverse reactions, alerts Allergen Category Ingredient Status Reaction Severity Onset Iodine Drug Allergy Iodine Confirmed or Verified Latex Drug Allergy Latex Confirmed but Inactive Nausea Severe Adolescence Latex Environmental Allergy LATEX Confirmed but Inactive Nausea Severe Adolescence Codeine Drug Allergy Codeine Confirmed or Verified Erythromycin Base Drug Allergy Erythromycin Base Confirmed or Verified [place] Food Allergy STRAWBERRY Confirmed or Verified Shortness of Breath [place] Drug Allergy [place] Confirmed or Verified Shortness of Breath pepperoni [...] Vancomycin Confirmed or Verified Rash Severe Adult Immunizations No immunizations recorded for this patient visit Relevant diagnostic tests and/or laboratory data RESULTS Routine Urinalysis [id number]:30:00 Result Normal Range Units Color YELLOW Clarity Cloudy Specific Crozier 1.025 1.003-1.035 pH 6.0 4.5-8.0 Glucose NEGATIVE Bilirubin NEGATIVE Ketones NEGATIVE Protein NEGATIVE Urobilinogen 0.2 0-0.2 E.U./dL Nitrites NEGATIVE Blood 1+ Leukocytes NEGATIVE WBCs 0-5 RBCs 5-10 Squamous Epithelial 2+ Bacteria 1+ Chemistry :31:00 Result Normal Range Units Sodium 139 134-145 mEq/l Potassium 4.2 3.5-5.1 mEq/l Chloride 101 98-107 mEq/l CO2 26.2 22-28 mEq/l Glucose H 119 70-105 mg/dl BUN 16 7-18 mg/dl Creatinine 0.88 0.6-1.0 mg/dl Calcium 9.2 8.4-10.2 mg/dl TP - Total Protein 7.8 6.0-8.3 g/dl Albumin L 3.3 3.5-5 g/dl Bilirubin - Total 0.3 0.1-1.0 mg/dl AST 16 10-42 IU/L ALT 42 12-65 IU/L ALP H 112 25-72 IU/L Osmolality L 279.9 280-300 mOsm/L Albumin/Globulin Ratio 0.7 0-8 Anion GAP 11.8 8-16 BUN/Creatinine Ratio 18.2 10-20 Estimated GFR 67 >=60 mL/min/1.7 Hematology :31:00 Result Normal Range Units WBC H 15.8 4.8-10.8 103/uL RBC H 6.1 4.2-5.4 106/uL HGB 13.9 12.0-16.0 g/dl HCT 44.7 36.9-47.0 % MCV L 73.8 81-99 FL MCH L 22.9 27-31 pg MCHC L 31.1 33-37 g/dl RDW H 27.7 11.5-15.5 % PLT H 405 130-400 103/uL MPV 9.4 7.3-10.4 FL Neutro % H 77.7 40-70 % Lymph % L 14.2 20-40 % [facility] % 6.0 0-10.0 % Eos % 1.8 0-7.0 % Baso % 0.3 0-2 % Neutro # H 12.3 1.5-7.5 103/uL Lymph # 2.2 0.9-4.0 103/uL [facility] # H 1.0 0-0.8 103/uL Eos # 0.3 0-0.6 103/uL Baso # 0.0 0-0.1 103/uL Body Fluid :30:00 Result Normal Range Units pH 6.0 4.5-8.0 Radiology Results :31:00 Result Normal Range Units MPV 9.4 7.3-10.4 FL History of procedures Procedure Code Code Type Description Date Performed Performing Physician 58281 CPT-4 COMPLETE CBC W/AUTO DIFF WBC 11-20-2013 SHAILESH JOHNSON 86079 CPT-4 COMPREHEN METABOLIC PANEL 11-20-2013 SHAILESH JOHNSON 08520 CPT-4 URINALYSIS, AUTO W/SCOPE 11-20-2013 SHAILESH JOHNSON 27610 CPT-4 MYCOPLASMA ANTIBODY 11-20-2013 SHAILESH JOHNSON 71786 CPT-4 ROUTINE VENIPUNCTURE 11-20-2013 COLETTE ELIAS 13679 CPT-4 EMERGENCY DEPT VISIT 11-20-2013 COLETTE ELIAS 48095 CPT-4 EMERGENCY DEPT VISIT 11-20-2013 COLETTE ELIAS Functional status Functional Status Finding Observation Time Muscle Strength RUE 5 ROM full resist :15 Muscle Strength RLE 5 ROM full resist :15 Muscle Strength LUE 5 ROM full resist :15 Muscle Strength LLE 5 ROM full resist :15 Vital signs Type Value Date Respiration Rate 18breaths per minute :00 Pulse 101beats per minute :00 Oxygen Saturation 94% :00 BP Systolic 157mmHg :00 BP Diastolic 71mmHg :00 Temperature 97.7F :00 Social history No Social History or smoking status observations were recorded for this visit. ( Unknown if ever smoked.) Treatment Plan No treatment plan text is available for this visit. Hospital discharge instructions Dismissal Condition good Disposition on DC home DC Inst/Educ Give yes Med/Side Effects Rev yes
--- OUTSIDE RECORDS SUMMARY | 2018-03-12 21:48 | XMS REPORT ---
Author [facility] Organization [facility] Address [address] [place], [place] [address] Phone [phone] Care Team Providers Care Vocational Placement Specialist Name Role Phone SHAILESH JOHNSON MD, PP [phone] Summary purpose TRANSITION OF CARE AUTO GENERATION Chief Complaint and Reason for Visit Admit Diagnosis 1 ABDOMINAL PAIN, UNSPECIF Problem list No authorized problems tracked for [...] Drug Allergy Erythromycin Base Confirmed or Verified [place] Food Allergy STRAWBERRY Confirmed or Verified Shortness of Breath [place] Drug Allergy [place] Confirmed or Verified Shortness of Breath pepperoni [...] tests and/or laboratory data RESULTS Radiology Results [id number]:00 Abdomen 2 View PACs Image DATE OF EXAM: Dec 03 2013 RAD 0037-ABDOMEN 2 VIEW : RADIOLOGY REPORT DATE OF SERVICE: 12/03/13 HISTORY: Abdominal pain for 3 months ABDOMEN 2 VIEWS 1120 HOURS The bowel gas pattern is normal. There is no obstruction. There is no free air. There are no pathological calcifications. Surgical clips are noted in the right upper quadrant of the abdomen. There is a rounded soft tissue density overlying the central aspect of the pelvis. This is probably located cephalad to the bladder. It measures 19 cm in size. IMPRESSION: Central pelvic soft tissue mass probably representing an enlarged fibroid uterus. Uterine enlargement was noted on the prior ultrasound study dated 06/26/2012. No other acute abdominal abnormality. MD CRYSTAL Alvarenga/nj12/03/2013 11:36:12/03/2013 11:40:17 cc:Dr. Shailesh Johnson This document has been electronically Signed by: On: DATE OF EXAM: Dec 03 2013 RAD 0037-ABDOMEN 2 VIEW : RADIOLOGY REPORT DATE OF SERVICE: 12/03/13 HISTORY: Abdominal pain for 3 months ABDOMEN 2 VIEWS 1120 HOURS The bowel gas pattern is normal. There is no obstruction. There is no free air. There are no pathological calcifications. Surgical clips are noted in the right upper quadrant of the abdomen. There is a rounded soft tissue density overlying the central aspect of the pelvis. This is probably located cephalad to the bladder. It measures 19 cm in size. IMPRESSION: Central pelvic soft tissue mass probably representing an enlarged fibroid uterus. Uterine enlargement was noted on the prior ultrasound study dated 06/26/2012. No other acute abdominal abnormality. MD CRYSTAL Alvarenga/nj12/03/2013 11:36:00 12/03/2013 11:40:17 cc:Dr. Shailesh Johnson This document has been electronically Signed by: On: DATE OF EXAM: Dec 03 2013 RAD 0037-ABDOMEN 2 VIEW : RADIOLOGY REPORT DATE OF SERVICE: 12/03/13 HISTORY: Abdominal pain for 3 months ABDOMEN 2 VIEWS 1120 HOURS The bowel gas pattern is normal. There is no obstruction. There is no free air. There are no pathological calcifications. Surgical clips are noted in the right upper quadrant of the abdomen. There is a rounded soft tissue density overlying the central aspect of the pelvis. This is probably located cephalad to the bladder. It measures 19 cm in size. IMPRESSION: Central pelvic soft tissue mass probably representing an enlarged fibroid uterus. Uterine enlargement was noted on the prior ultrasound study dated 06/26/2012. No other acute abdominal abnormality. MD CRYSTAL Alvarenga/nj12/03/2013 11:36:2014 11:40:17 cc:Dr. Shailesh Johnson This document has been electronically Signed by: JULIAN ARNOLD On: Dec 03 20131:19P Result Amended on 2013-12-03 at 11:44:51. Previous status was [place]. Result Amended on 2013-12-03 at 13:19:43. Previous status was [place]. History of procedures Procedure Code Code Type Description Date Performed Performing Physician 94546 CPT-4 X-RAY EXAM OF ABDOMEN 12-03-2013 SHAILESH JOHNSON Functional status No functional or [...]
--- OUTSIDE RECORDS SUMMARY | 2018-03-12 21:48 | XMS REPORT | Clinical Summary ---
Author Author Admin, NETTE Nolan [facility] Address Unknown Phone Unavailable Allergies, Adverse [...] Diabetes, Type 2 250.00 Active Maltreveh Malikglari NAVIGATION OFFICER Diabetes mellitus without mention of complication, type II or unspecified type, not stated as uncontrolled Diabetes mellitus, type II, uncontrolled 250.02 Active Maliheh Ziglari NAVIGATION OFFICER Diabetes mellitus without mention of complication, type II or unspecified type, uncontrolled Medication List Medication Instructions Start Date Stop Date Generic Name NDC Status Provider Patient Instruction GABAPENTIN 100 MG ORAL CAPS Take one by mouth 3 times daily, morning, afternoon and evening.] GABAPENTIN 36740344698 Active Maliheh Ziglari NAVIGATION OFFICER Active [facility]S IRON 325 (65 FE) MG TABS 1 qd FERROUS SULFATE 98607586008 No Longer Active 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 NAVIGATION OFFICER Active HYDROCODONE-ACETAMINOPHEN 5-325 MG TABS 1/2 q 4-6 hrs prn pain HYDROCODONE-ACETAMINOPHEN 17805443817 Active Pasha Small MD Active ORPHENADRINE CITRATE ER 100 MG [id number] 1 tid prn ORPHENADRINE CITRATE 89681980498 Active Pasha Small MD Active ASPIRIN 325 MG TABS 1 qd ASPIRIN 64714591513 Active Pasha Small MD Active ASPIRIN 81 MG TBEC 1 po q d ASPIRIN 44009100021 No Longer Active Pasha Small MD Active LISINOPRIL 10 MG TABS 1 qd LISINOPRIL 36364459562 Active Pasha Small MD Active K-TABS 10 MEQ CR-TABS 1 tab 3 x week POTASSIUM CHLORIDE 45898588051 Active Pasha Small MD Active FUROSEMIDE 20 MG TABS 1 qd FUROSEMIDE 43822957738 Active Pasha Small MD Active PROVENTIL HFA 108 (90 BASE) MCG/ACT AERS 2 puffs q 4 hr prn ALBUTEROL SULFATE 70852099793 Active Galina Long RN Active ALPRAZOLAM 0.25 MG TABS 1/2-1 po tid prn ALPRAZOLAM 13135960463 Active Galina Long RN Active IPRATROPIUM BROMIDE 0.02 % SOLN neb 1 amp qid prn IPRATROPIUM BROMIDE 94245422712 Active Galina Long RN Active VERAPAMIL HCL 80 MG TABS 2 po q am, 2 po q pm VERAPAMIL HCL 80369725698 Active Galina Long RN Active ALBUTEROL SULFATE (2.5 MG/3ML) 0.083% NEBU neb 1 ampule qid prn ALBUTEROL SULFATE 33235085286 Active Galina Long RN Active LANOXIN 0.25 MG TABS 1 po q d DIGOXIN 07739607977 Active Galina Long RN Active PROTONIX 40 MG TBEC 1 po q d PANTOPRAZOLE SODIUM 84294174541 Active Galina Long RN Active ASPIRIN 81 MG TBEC 1 po q d ASPIRIN 81 MG TBEC 883619 ASPIRIN Inactive [facility]S IRON 325 (65 FE) MG TABS 1 qd CVS IRON 325 (65 FE ) MG TABS 997962 FERROUS SULFATE Inactive Vital Signs Date Name [...] Description Chart Maintenance: Outside labs entered on [employer] - Chemistry sodium, serum 140 mmol/L potassium, serum 4.7 mmol/L blood glucose 155 mg/dL creatinine, serum 0.76 mg/dL aspartate aminotransferase (SGOT), serum 69 U/L alanine aminotransferase (SGPT), serum 91 U/L alkaline phosphatase, serum 133 U/L hemoglobin A1C, blood, as % of total hemoglobin 7.0 % protein, total urine random Trace mg/dL Chart Maintenance: Outside labs entered on [employer] - Hematology leukocyte count, blood 13.5 10*3/mm3 [...] mg/dL Encounters Code Encounter Date Provider Facility CPT-86931 Level 4 Est. 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
--- OUTSIDE RECORDS SUMMARY | 2018-03-12 21:49 | XMS REPORT ---
Author Author [facility] Medical Staff Organization [facility] Address [address] [place], [place] [address] Phone [phone] Care Team Providers Care Take Off Man Name Role Phone SHAILESH JOHNSON MD, PP [phone] Summary purpose TRANSITION OF CARE AUTO GENERATION [...] Drug Allergy Erythromycin Base Confirmed or Verified [place] Food Allergy STRAWBERRY Confirmed or Verified Shortness of Breath [place] Drug Allergy [place] Confirmed or Verified Shortness of Breath pepperoni [...] tests and/or laboratory data RESULTS Radiology Results [id number]:00 Abdomen 2 View PACs Image DATE OF [...] No other acute abdominal abnormality. MD CRYSTAL Alvarenga/or12/03/2013 11:36:00 / 12/03/2013 11:40:17 cc:Dr. Shailesh Johnson This document [...] No other acute abdominal abnormality. MD CRYSTAL Alvarenga/or12/03/2013 11:36:00 / 12/03/2013 11:40:17 cc:Dr. Shailesh Johnson This document [...] No other acute abdominal abnormality. MD CRYSTAL Alvarenga/or12/03/2013 11:36:00 / 12/03/2013 11:40:17 cc:Dr. Shailesh Johnson This document has been electronically Signed by: JULIAN ARNOLD On: Dec 03 20131:19P Result Amended on 2013-12-03 at 11:44:51. Previous status was [place]. Result Amended on 2013-12-03 at 13:19:43. Previous status was [place]. History of procedures No procedures recorded for [...]
--- OUTSIDE RECORDS SUMMARY | 2018-03-12 21:49 | XMS REPORT ---
Author Author [facility] Medical Staff Organization [facility] Address [address] [place], [place] [address] Phone [phone] Care Team Providers Care Die Maker Stamping Name Role Phone SHAILESH JOHNSON MD PP [phone] Summary purpose TRANSITION OF CARE AUTO GENERATION Chief Complaint and Reason for Visit Admit Diagnosis 1 COUGH Problem list No authorized problems tracked for [...] Drug Allergy Erythromycin Base Confirmed or Verified [place] Food Allergy STRAWBERRY Confirmed or Verified Shortness of Breath [place] Drug Allergy [place] Confirmed or Verified Shortness of Breath pepperoni [...] tests and/or laboratory data RESULTS Radiology Results [id number]:00 Chest X-Ray - 2 View PACs Image DATE OF EXAM: Mar 04 2014 RAD 0300-CHEST XRAY 2 VIEW : RADIOLOGY REPORT DATE OF SERVICE:03/04/14 HISTORY:Patient has a cough. CHEST 2 VIEWS 1613 HOURS Heart and mediastinum are normal.Lungs are clear.No effusion is seen. IMPRESSION:Negative study of the chest. Swathi Rooney DO MW/pb 03/04/2014 17:04: / 03/04/2014 21:28:46 cc:Dr. Shailesh Johnson This document has been electronically Signed by: On: DATE OF EXAM: Mar 04 2014 RAD 0300-CHEST XRAY 2 VIEW : RADIOLOGY REPORT DATE OF SERVICE:03/04/14 HISTORY:Patient has a cough. CHEST 2 VIEWS 1613 HOURS Heart and mediastinum are normal.Lungs are clear.No effusion is seen. IMPRESSION:Negative study of the chest. DO LORI Hannah/pb 03/04/2014 17:04: / 03/04/2014 21:28:46 cc:Dr. Shailesh Johnson This document has been electronically Signed by: SWATHI ROONEY DO On: Mar 06 20142:57P Result Amended on 2014-03-06 at 14:57:58. Previous status was [place]. History of procedures Procedure Code Code Type Description Date Performed Performing Physician 77544 CPT-4 CHEST X-RAY 03-04-2014 SHAILESH JOHNSON Functional status No functional or [...]
--- OUTSIDE RECORDS SUMMARY | 2018-03-12 21:49 | XMS REPORT | Clinical Summary ---
Author Author Admin, JADENE Organization [facility] Address Unknown Phone Allergies, Adverse Reactions, Alerts Allergy Name Reaction [...] Active Pasha Small MD Lipoma, unspecified site Medication List Medication Instructions Start Date Stop Date Generic Name [facility] Status Provider Patient Instruction LISINOPRIL 10 MG TABS 1 qd LISINOPRIL 72352705485 Active Pasha Small MD Active [facility]S IRON 325 (65 FE) MG TABS 1 qd FERROUS SULFATE 02979390247 Active Pasha Small MD Active K-TABS 10 MEQ CR-TABS 1 tab 3 x week POTASSIUM CHLORIDE 17264383740 Active Pasha Small MD Active FUROSEMIDE 20 MG TABS 1 qd FUROSEMIDE 10613210384 Active Pasha Small MD Active PROVENTIL HFA 108 (90 BASE) MCG/ACT AERS 2 puffs q 4 hr prn ALBUTEROL SULFATE 44671828922 Active Galina Long RN Active ASPIRIN 81 MG TBEC 1 po q d ASPIRIN 45707989491 Active Galina Long RN Active ALPRAZOLAM 0.25 MG TABS 1/2-1 po tid prn ALPRAZOLAM 27268066221 Active Galina Long RN Active IPRATROPIUM BROMIDE 0.02 % SOLN neb 1 amp qid prn IPRATROPIUM BROMIDE 41327109937 Active Galina Long RN Active VERAPAMIL HCL 80 MG TABS 2 po q am, 2 po q pm VERAPAMIL HCL 44166219139 Active Galina Long RN Active ALBUTEROL SULFATE (2.5 MG/3ML) 0.083% NEBU neb 1 ampule qid prn ALBUTEROL SULFATE 00027020819 Active Galina Long RN Active LANOXIN 0.25 MG TABS 1 po q d DIGOXIN 74190536427 Active Galina Long RN Active PROTONIX 40 MG TBEC 1 po q d PANTOPRAZOLE SODIUM 72619999932 Active Galina Long RN Active Vital Signs Date Name Value Unit Range Description blood pressure, diastolic 74 mm[Hg] BP hansen blood pressure, systolic 119 mm[Hg] BP sys height E&M 65 [in_us] Bdy height pulse rate E&M 106 /min Heart rate temperature E&M 97.4 [degF] Body temperature weight E&M 265 [lb_av] Weight Measured Procedures Code Procedure Name Date Entry Date Standard Description CPT-OV 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
--- OUTSIDE RECORDS SUMMARY | 2018-03-12 21:49 | XMS REPORT ---
Author Author [facility] Organization [facility] Address [address] [place], [place] [address] Phone [phone] Care Team Providers Care Fugitive Detective Name Role Phone SHAILESH JOHNSON MD, PP [phone] Summary purpose TRANSITION OF CARE AUTO GENERATION Chief Complaint and Reason for Visit Admit Diagnosis 1 SHORTNESS OF BREATH Problem list No authorized problems tracked for [...] Drug Allergy Erythromycin Base Confirmed or Verified [place] Food Allergy STRAWBERRY Confirmed or Verified Shortness of Breath [place] Drug Allergy [place] Confirmed or Verified Shortness of Breath pepperoni [...] Relevant diagnostic tests and/or laboratory data RESULTS Blood Cultures [id number]:10:00 Blood Culture Plate Date and Time 02/19/2014 21:13 SourceBLOOD CULTURE REPORT NoGrowth at 1 day. Unless otherwise notified. Final report in 5 Days. Release Date/Time: 02/20/2014 07:32 CULTURE REPORT No growth in 5 days. Release Date/Time: 02/25/2014 07:32 [id number]:00:00 Blood Culture Plate Date and Time 02/19/2014 21:13 SourceBLOOD CULTURE REPORT NoGrowth at 1 day. Unless otherwise notified. Final report in 5 Days. Release Date/Time: 02/20/2014 07:32 CULTURE REPORT No growth in 5 days. Release Date/Time: 02/25/2014 07:32 Chemistry [id number]:00:00 Result Normal Range Units Sodium 137 134-145 mEq/l Potassium 4.2 3.5-5.1 mEq/l Chloride 98 98-107 mEq/l CO2 27.0 22-28 mEq/l Glucose H 111 70-105 mg/dl BUN 11 7-18 mg/dl Creatinine 0.88 0.6-1.0 mg/dl Calcium 8.8 8.4-10.2 mg/dl TP - Total Protein 8.0 6.0-8.3 g/dl Albumin L 3.3 3.5-5 g/dl Bilirubin - Total 0.4 0.1-1.0 mg/dl AST H 70 10-42 IU/L ALT H 134 12-65 IU/L ALP H 121 25-72 IU/L Osmolality L 273.9 280-300 mOsm/L Albumin/Globulin Ratio 0.7 0-8 Anion GAP 12.0 8-16 BUN/Creatinine Ratio 12.5 10-20 Estimated GFR 67 >=60 mL/min/1.7 Hematology [id number]:00:00 Result Normal Range Units WBC 10.2 4.8-10.8 103/uL RBC H 6.2 4.2-5.4 106/uL HGB H 17.4 12.0-16.0 g/dl HCT H 53.0 36.9-47.0 % MCV 85.3 81-99 FL MCH 28.0 27-31 pg MCHC L 32.8 33-37 g/dl RDW H 18.0 11.5-15.5 % PLT 297 130-400 103/uL MPV 9.6 7.3-10.4 FL Neutro % H 79.3 40-70 % Lymph % L 10.9 20-40 % Park % 7.8 0-10.0 % Eos % 1.6 0-7.0 % Baso % 0.4 0-2 % Neutro # H 8.1 1.5-7.5 103/uL Lymph # 1.1 0.9-4.0 103/uL Park # 0.8 0-0.8 103/uL Eos # 0.2 0-0.6 103/uL Baso # 0.0 0-0.1 103/uL Reference Lab (Sendout) [id number]:00:00 Influenza A & B, Rapid AB Positive Type A Radiology Results [id number]:45:00 Chest X-Ray - 2 View PACs Image DATE OF EXAM: 2014 RAD 0300-CHEST XRAY 2 VIEW : RADIOLOGY REPORT DATE OF SERVICE: 02/19/14 HISTORY: Patient has wheezing and achiness. CHEST 2 VIEWS 2120 HOURS Heart and mediastinum are normal. Lungs are clear. No effusion is seen. IMPRESSION: Negative study of the chest. There is no change from 06/01/2013. DO LORI Hannah/fahad 02/20/2014 08:34:00 / 02/20/2014 08:47:50 cc:Dr. Shailesh Johnson This document has been electronically Signed by: On: DATE OF EXAM: 2014 RAD 0300-CHEST XRAY 2 VIEW : RADIOLOGY REPORT DATE OF SERVICE: 02/19/14 HISTORY: Patient has wheezing and achiness. CHEST 2 VIEWS 2120 HOURS Heart and mediastinum are normal. Lungs are clear. No effusion is seen. IMPRESSION: Negative study of the chest. There is no change from 06/01/2013. DO LORI Hannah/fahad 02/20/2014 08:34:00 / 02/20/2014 08:47:50 cc:Dr. Shailesh Johnson This document has been electronically Signed by: SWATHI ROONEY DO On: 2014 12:45P Result Amended on 2014-02-20 at 12:45:49. Previous status was [place]. [id number]:00:00 Result Normal Range Units MPV 9.6 7.3-10.4 FL History of procedures Procedure Code Code Type Description Date Performed Performing Physician 55275 CPT-4 AIRWAY INHALATION TREATMENT 02-19-2014 COLETTE ELIAS 38684 CPT-4 BLOOD CULTURE FOR BACTERIA 02-19-2014 COLETTE ELIAS 25786 CPT-4 BLOOD CULTURE FOR BACTERIA 02-19-2014 COLETTECALIXTO ELIAS 93352 CPT-4 COMPLETE CBC W/AUTO DIFF WBC 02-19-2014 COLETTECALIXTO ELIAS 49626 CPT-4 COMPREHEN METABOLIC PANEL 02-19-2014 COLETTECALIXTO ELIAS 18156 CPT-4 INFLUENZA ASSAY W/OPTIC 02-19-2014 COLETTECALIXTO ANDERSONES 33930 CPT-4 MYCOPLASMA ANTIBODY 02-19-2014 COLETTE ELIAS 73277 CPT-4 CHEST X-RAY 02-19-2014 COLETTECALIXTO ANDERSONES J2060 CPT-4 LORAZEPAM INJECTION 02-19-2014 COLETTECALIXTO ANDERSONES J2930 CPT-4 SOLU-MEDROL 125MG VIAL 02-19-2014 COLETTE ELIAS 54658 CPT-4 ROUTINE VENIPUNCTURE 02-19-2014 COLETTECALIXTO ANDERSONES 79495 CPT-4 ROUTINE VENIPUNCTURE 02-19-2014 COLETTECALIXTO ANDERSONES 71417 CPT-4 EMERGENCY DEPT VISIT 02-19-2014 COLETTE ELIAS 14598 CPT-4 THER/PROPH/DIAG INJ, IV PUSH 02-19-2014 COLETTE ELIAS 55141 CPT-4 TX/PRO/DX INJ NEW DRUG ADDON 02-19-2014 COLETTE ELIAS 33106 CPT-4 EMERGENCY DEPT VISIT 02-19-2014 COLETTE ELIAS Functional status Functional Status Finding Observation Time Muscle Strength RUE 5 ROM full resist 48-92-246515:20 Muscle Strength RLE 5 ROM full resist 16-19-419512:20 Muscle Strength LUE 5 ROM full resist 77-45-370152:20 Muscle Strength LLE 5 ROM full resist 99-94-016320:20 Abdomen Appearance obese 55-73-901941:20 Abdomen non-tender 37-23-280426:20 Urination normal 47-46-041902:20 Quality sym/unlabored 64-33-031533:20 Breath Sounds RUL wheezes :43 Breath Sounds RML wheezes :43 Breath Sounds RLL wheezes :43 Breath Sounds KENDELL wheezes :43 Breath Sounds LLL wheezes :43 Oxygen no :17 Oxygen Flow Rate ra :37 Temp >100.4 no :20 Temp <96.8 no :20 Chills with rigors no :20 HR > 90bpm yes :20 Respirations > 20 no :20 Systolic <90 no :20 headache stiff neck no :20 WBC > 96016 no :20 Rapid Resp no :20 IV Site Location R hand :00 IV Type peripheral :00 IV Site Information new :00 IV Site Start Attmpt 1 times :00 IV Site Brandon 20 :00 IV Site Appearance WNL :00 IV Site Color clear :00 IV Site Patent yes :00 Dressing Type occlusive :00 Nursing Note Discharge instructions reviewed, verbalized understanding. VS obtianed, dc in good condition and ambulatory. IV site remains intact for infusions. 20140318:17 Vital signs Type Value Date Respiration Rate 20breaths per minute :17 Pulse 106beats per minute :17 Oxygen Saturation 96% :17 BP Systolic 130mmHg :17 BP Diastolic 72mmHg :17 Temperature 98.9F :17 Weight 270LB :14 Social history Type Value Smoking Status CURRENT EVERY DAY SMOKER Treatment Plan No treatment plan text is available for this visit. Hospital discharge instructions Dismissal Condition good Disposition on DC home DC Inst/Educ Give yes Med/Side Effects Rev yes
--- OUTSIDE RECORDS SUMMARY | 2018-03-12 21:49 | XMS REPORT ---
Author [facility] Medical Staff Organization [facility] Address [address] [place], [place] [address] Phone [phone] Care Team Providers Care Office Machine Servicer Apprentice Name Role Phone SHAILESH JOHNSON MD PP [phone] Summary purpose TRANSITION OF CARE AUTO GENERATION Chief Complaint and Reason for Visit Admit Diagnosis 1 INFLUENZA COPD Problem list No authorized problems tracked for continuity of care are available for this visit. Encounters The following conditions tracked for encounter diagnoses were recorded for this visit: Finding or Diagnosis Status Certainty Chronicity Onset *COUGH Active Medications Home Medications Medication Directions Started Status Source Iron (ferrous sulfate) 325 mg (65 mg iron) Tab 1 tablet Oral 1 Daily OTC Current Patient recall Xanax 0.5 mg Tab 0.5 tablet Oral PRN 3 Times A Day Current Patient recall aspirin 325 mg Tab 325 mg Oral 1 Daily for blood thinner Current Rx Discharge Report verapamil ER 180 mg Tab 180 mg Oral 2 Times Daily for heart rate/blood pressure Current Rx Discharge Report lisinopril 10 mg Tab 10 mg Oral 1 Daily Current Patient recall albuterol sulfate 2.5 mg/3 mL (0.083 %) Neb Solution 1 inhalation Inhl PRN Every 4 Hours Current Patient recall Lasix 20 mg tablet 1 tablet Oral 1 Daily Current potassium chloride ER 10 mEq capsule,extended release 1 tablet Oral See Medication Notes 3 times a week Current Protonix 40 mg tablet,delayed release 1 tablet Oral 2 Times Daily for GERD Current Patient medication list docusate sodium 50 mg capsule 2 capsule Oral 1 Daily for constipation Current Patient medication list Lanoxin 125 mcg tablet 1 tablet Oral 1 Daily Current Allergies, adverse reactions, alerts Allergen Category Ingredient Status Reaction Severity Onset Iodine Drug Allergy Iodine Confirmed or Verified Latex Drug Allergy Latex Confirmed but Inactive Nausea Severe Adolescence Latex Environmental Allergy LATEX Confirmed but Inactive Nausea Severe Adolescence Codeine Drug Allergy Codeine Confirmed or Verified Erythromycin Base Drug Allergy Erythromycin Base Confirmed or Verified [place] Food Allergy STRAWBERRY Confirmed or Verified Shortness of Breath [place] Drug Allergy [place] Confirmed or Verified Shortness of Breath pepperoni [...] diagnostic tests and/or laboratory data RESULTS Chemistry :45:00 Result Normal Range Units Sodium 138 134-145 mEq/l Potassium 3.8 3.5-5.1 mEq/l Chloride 100 98-107 mEq/l CO2 H 29.6 22-28 mEq/l Glucose H 162 70-105 mg/dl BUN 16 7-18 mg/dl Creatinine 0.92 0.6-1.0 mg/dl Calcium 8.6 8.4-10.2 mg/dl TP - Total Protein 7.5 6.0-8.3 g/dl Albumin L 3.1 3.5-5 g/dl Bilirubin - Total 0.3 0.1-1.0 mg/dl AST H 67 10-42 IU/L ALT H 125 12-65 IU/L ALP H 110 25-72 IU/L Osmolality 280.4 280-300 mOsm/L Albumin/Globulin Ratio 0.7 0-8 Anion GAP 8.4 8-16 BUN/Creatinine Ratio 17.4 10-20 Estimated GFR 64 >=60 mL/min/1.7 Lactic Acid 1.4 0.4-2.0 mmol/L Hematology :45:00 Result Normal Range Units WBC 8.0 4.8-10.8 103/uL RBC H 6.0 4.2-5.4 106/uL HGB H 16.5 12.0-16.0 g/dl HCT H 50.7 36.9-47.0 % MCV 84.5 81-99 FL MCH 27.5 27-31 pg MCHC L 32.5 33-37 g/dl RDW H 17.0 11.5-15.5 % PLT 267 130-400 103/uL MPV 9.6 7.3-10.4 FL Segs H 77.0 40-70 % Bands 1.0 0-5 % Lymphs L 14.0 20-40 % [place] 6.0 0-10 % Eos 2.0 0-7 % Aniso 1+ Radiology Results :45:00 Result Normal Range Units MPV 9.6 7.3-10.4 FL Reference Lab (send out) :45:00 Result Normal Range Units Aniso 1+ History of procedures No procedures recorded for this patient visit. Functional status Functional Status Finding Observation Time Hearing Prob Loc none :45 Vision Problems yes :45 Vision Correct Dev glasses :45 Ambulation Asst Dev none :45 Range of Motion full :00 Muscle Strength RUE 5 ROM full resist :00 Muscle Strength RLE 5 ROM full resist :00 Muscle Strength LUE 5 ROM full resist :00 Muscle Strength LLE 5 ROM full resist 99-23-203265:00 Transfers assist x 1 :00 Ambulation in room 67-94-312732:00 Balance steady :00 Bathing Assistance none :45 Eating Assistance none :45 Dressing Assistance none :45 Toileting Assistance none :45 Transfer Assistance none :45 Decline Slf Care/Mob no :45 Phys Cond Stable yes :45 Nutrition nausea :00 Diet regular :30 Oral Cavity moist and intact :00 Teeth intact 71-81-554142:00 Dental Hygiene poor :00 Abdomen Appearance obese :00 Abdomen soft :00 Bowel Sounds present :00 NG Tube no :00 Feeding Tube none 23-64-148561:00 Villavicencio no 02-36-745974:00 Cont Bladder Irr no 17-35-915321:00 Ostomy no 66-19-809871:00 Stool diarrhea :00 Urination normal 27-83-645583:00 Quality sym/unlabored 80-62-796502:00 Cough productive 46-44-818284:00 Secretions yes :00 Breath Sounds RUL wheezes Comment: ft 90-63-524513:11 Breath Sounds RML clear 75-40-637013:11 Breath Sounds RLL clear 66-71-679517:11 Breath Sounds KENDELL wheezes Comment: ft 75-51-580521:11 Breath Sounds LLL clear 96-47-589500:11 Airway natural 24-91-868712:00 Chest Tube no 25-44-034994:00 Oxygen no 08-71-555798:20 Oxygen Flow Rate ra 15-35-373328:06 C-PAP no 39-33-249463:00 BI-PAP no 70-47-999993:00 Temp >100.4 no 76-16-450174:00 Temp <96.8 no 44-97-984800:00 Chills with rigors no 65-20-271853:00 HR > 90bpm no 23-90-127641:00 Respirations > 20 no 40-26-041187:00 Systolic <90 no 56-34-074009:00 headache stiff neck no 25-25-315080:00 WBC > 40065 no 14-45-906485:00 WBC < 4000 no 52-60-277257:00 Rapid Resp no 35-06-941598:00 IV Site Location Right Hand :25 IV Type peripheral :25 IV Site Information existing Comment: saline lock left in place for continued outpatient infusions This result is a modification to a previously-entered result. It was modified on 10/28 at 19:14 by SRINIVAS. :25 IV Site Brandon 20 :25 IV Site Appearance WNL :25 IV Site Color clear :25 IV Site Patent yes :25 Dressing Type gauze :25 Nursing Note Pt discharged home, ambulatory in [facility]. Saline lock left in place for additional Levaquin and solumdrol infusions. Appointment made with [facility] for treatments @ 2100 tonight and next 4 nights. Discharge instructions per Exit care discussed with pt verbalizing understanding and signed copy. Discharge medications discussed with copy signed, pt verbalized understanding. :30 Cognitive Status Finding Observation Time Oriented To Date 5 Yes :[address] 5 Yes :45 Name 3 Objects 3 Yes :45 Name Object in Rm 2 Yes :45 Recall 3 Objects 3 Yes :45 Repeats a Phrase 1 Yes :45 Follows Verbal Direc 3 Yes :45 Follows Written Dire 1 Yes :45 Write a Sentance 1 Yes : Draw an Object 1 Yes :45 Mini Mental Total 25 points :45 Less than 20 Phys not applicable :45 Learning Ability comprehends well :03 Neurological no :03 Psychological no :03 Physical no :03 Hearing no :03 Support Team Member Needed no :03 Sign Language no :03 Emotional no :03 Vision yes :03 Laguage no :03 Financial no :03 Vital signs Type Value Date Respiration Rate 22breaths per minute :20 Pulse 108beats per minute :20 Oxygen Saturation 93% :20 BP Systolic 129mmHg :20 BP Diastolic 63mmHg :20 Temperature 99.4F :20 Height 65inches :59 Weight 257LB :59 Social history Type Value Smoking Status CURRENT EVERY DAY SMOKER Treatment Plan No treatment plan text is available for this visit. Hospital discharge instructions Discharge Date/Time 02/21/14 1330 Accompanied By friend Relationship friend Dismissal Condition good Disposition on DC home Valuables yes Valuable Type billramu/mihir Valuables Returned T patient DC Inst/Educ Give yes Exit Care Educ Given yes Med/Side Effects Rev yes DC Med Rec Rev yes Medical Equipment na Diet Explained yes Follow up appt appt made (specify) Follow Up Appt D/T 02/21/14 2100 @ Nikki
--- OUTSIDE RECORDS SUMMARY | 2018-03-12 21:49 | XMS REPORT ---
Author Author [facility] Medical Staff Organization [facility] Address [address] [place], [place] [address] Phone [phone] Care Team Providers Care Admission Nurse Coordinator Name Role Phone SHAILESH JOHNSON MD, PP [phone] Summary purpose TRANSITION OF CARE AUTO GENERATION [...] Drug Allergy Erythromycin Base Confirmed or Verified [place] Food Allergy STRAWBERRY Confirmed or Verified Shortness of Breath [place] Drug Allergy [place] Confirmed or Verified Shortness of Breath pepperoni [...] diagnostic tests and/or laboratory data RESULTS Chemistry [id number]:00 Result Normal Range Units Sodium 137 134-145 [...] 10-20 Estimated GFR 67 >=60 mL/min/1.7 Hematology :00:00 Result Normal Range Units WBC 10.2 4.8-10.8 103/uL RBC H 6.2 4.2-5.4 106/uL HGB H 17.4 12.0-16.0 g/dl HCT H 53.0 36.9-47.0 % MCV 85.3 81-99 FL MCH 28.0 27-31 pg MCHC L 32.8 33-37 g/dl RDW H 18.0 11.5-15.5 % PLT 297 130-400 103/uL MPV 9.6 7.3-10.4 FL Neutro % H 79.3 40-70 % Lymph % L 10.9 20-40 % [place] % 7.8 0-10.0 % Eos % 1.6 0-7.0 % Baso % 0.4 0-2 % Neutro # H 8.1 1.5-7.5 103/uL Lymph # 1.1 0.9-4.0 103/uL [place] # 0.8 0-0.8 103/uL Eos # 0.2 0-0.6 103/uL Baso # 0.0 0-0.1 103/uL Reference Lab ([facility]) :00:00 Influenza A & B, Rapid AB Positive Type A Radiology Results :00:00 Result Normal Range Units MPV 9.6 7.3-10.4 FL History of procedures No procedures recorded for this patient visit. Functional status Functional Status Finding Observation Time Muscle Strength RUE 5 ROM full resist :20 Muscle Strength RLE 5 ROM full resist :20 Muscle Strength LUE 5 ROM full resist :20 Muscle Strength LLE 5 ROM full resist :20 Abdomen Appearance obese :20 Abdomen non-tender :20 Urination normal :20 Quality sym/unlabored :20 Breath Sounds RUL wheezes :43 Breath Sounds RML wheezes :43 Breath Sounds RLL wheezes :43 Breath Sounds KENDELL wheezes :43 Breath Sounds LLL wheezes :43 Oxygen no :17 Oxygen Flow Rate ra :37 Temp >100.4 no : Temp <96.8 no :20 Chills with rigors no :20 HR > 90bpm yes :20 Respirations > 20 no :20 Systolic <90 no :20 headache stiff neck no : WBC > 80156 no :20 Rapid Resp no :20 IV [...] per minute :17 Pulse 106beats per minute 54-03-770753:17 Oxygen Saturation 96% :17 BP Systolic 130mmHg [...]
--- OUTSIDE RECORDS SUMMARY | 2018-03-12 21:50 | XMS REPORT ---
Author Author [facility] Medical Staff Organization [facility] Address [address] [place], [place] [address] Phone [phone] Care Team Providers Care Validation Technician Name Role Phone SHAILESH JOHNSON MD, PP [phone] Summary purpose TRANSITION OF CARE AUTO GENERATION [...] Drug Allergy Erythromycin Base Confirmed or Verified [place] Food Allergy STRAWBERRY Confirmed or Verified Shortness of Breath [place] Drug Allergy [place] Confirmed or Verified Shortness of Breath pepperoni [...] tests and/or laboratory data RESULTS Routine Urinalysis [id number]:30:00 Result Normal Range Units Color YELLOW Clarity Cloudy Specific Isabel 1.025 1.003-1.035 pH 6.0 4.5-8.0 Glucose NEGATIVE [...] % Lymph % L 14.2 20-40 % [place] % 6.0 0-10.0 % Eos % 1.8 0-7.0 % Baso % 0.3 0-2 % Neutro # H 12.3 1.5-7.5 103/uL Lymph # 2.2 0.9-4.0 103/uL [place] # H 1.0 0-0.8 103/uL Eos # 0.3 0-0.6 103/uL Baso # 0.0 0-0.1 103/uL Body Fluid :30:00 Result Normal Range Units pH 6.0 4.5-8.0 Radiology Results :31:00 Result Normal Range Units MPV 9.4 7.3-10.4 FL History of procedures No procedures [...]
--- OUTSIDE RECORDS SUMMARY | 2018-03-12 21:50 | XMS REPORT | Clinical Summary ---
Author Author Admin, NETTE Organization [facility] Address Unknown Phone Unavailable Allergies, Adverse [...] Small MD Family history of diabetes mellitus Medication List Medication Instructions Start Date Stop Date Generic Name NDC Status Provider Patient Instruction HYDROCODONE-ACETAMINOPHEN 5-325 MG TABS 1/2 q 4-6 hrs prn pain HYDROCODONE-ACETAMINOPHEN 50472324180 Active Pasha Small MD Active ORPHENADRINE CITRATE ER 100 MG [id number] 1 tid prn ORPHENADRINE CITRATE 56135612397 Active Pasha Small MD Active ASPIRIN 325 MG TABS 1 qd ASPIRIN 51695708046 Active Pasha Small MD Active ASPIRIN 81 MG TBEC 1 po q d ASPIRIN 02551980884 No Longer Active Pasha Small MD Active LISINOPRIL 10 MG TABS 1 qd LISINOPRIL 20257381648 Active Pasha Small MD Active [facility] IRON 325 (65 FE) MG TABS 1 qd FERROUS SULFATE 89925323897 Active Pasha Small MD Active K-TABS 10 MEQ CR-TABS 1 tab 3 x week POTASSIUM CHLORIDE 38377071386 Active Pasha Small MD Active FUROSEMIDE 20 MG TABS 1 qd FUROSEMIDE 56167512820 Active Pasha Small MD Active PROVENTIL HFA 108 (90 BASE) MCG/ACT AERS 2 puffs q 4 hr prn ALBUTEROL SULFATE 88019159350 Active Galina Long RN Active ALPRAZOLAM 0.25 MG TABS 1/2-1 po tid prn ALPRAZOLAM 70629444276 Active Galina Long RN Active IPRATROPIUM BROMIDE 0.02 % SOLN neb 1 amp qid prn IPRATROPIUM BROMIDE 41042923227 Active Galina Long RN Active VERAPAMIL HCL 80 MG TABS 2 po q am, 2 po q pm VERAPAMIL HCL 73889000354 Active Galina Long RN Active ALBUTEROL SULFATE (2.5 MG/3ML) 0.083% NEBU neb 1 ampule qid prn ALBUTEROL SULFATE 77071408907 Active Galina Long RN Active LANOXIN 0.25 MG TABS 1 po q d DIGOXIN 55626125389 Active Galina Long RN Active PROTONIX 40 MG TBEC 1 po q d PANTOPRAZOLE SODIUM 50872318383 Active Galina Long RN Active ASPIRIN 81 MG TBEC 1 po q d ASPIRIN 81 MG TBEC 306408 ASPIRIN Inactive Vital Signs Date Name Value Unit Range Description blood pressure, diastolic - 8462-4 79 mm[Hg] BP hansen blood pressure, systolic - 8480-6 134 mm[Hg] BP sys pulse rate E&M - 8867-4 97 /min Heart rate temperature E&M 97.5 [degF] Body temperature weight E&M - 3141-9 261 [lb_av] Weight Measured blood pressure, diastolic - 8462-4 74 mm[Hg] BP hansen blood pressure, systolic - 8480-6 119 mm[Hg] BP sys height E&M - 8302-2 65 [in_us] Bdy height pulse rate E&M - 8867-4 106 /min Heart rate temperature E&M 97.4 [degF] Body temperature weight E&M - 3141-9 265 [lb_av] Weight Measured Procedures Code Procedure Name Date Entry Date Standard Description CPT-OV Office Visit 17:50:00 CDT CPT-OV Office Visit 16:24:57 MEDICAL PATHOLOGIST
--- OUTSIDE RECORDS SUMMARY | 2018-03-12 21:50 | XMS REPORT ---
Author Author [facility] Medical Staff Organization [facility] Address [address] [place], [place] [address] Phone [phone] Care Team Providers Care Manager Of School Name Role Phone SHAILESH JOHNSON MD PP [phone] Summary purpose TRANSITION OF CARE AUTO GENERATION [...] Drug Allergy Erythromycin Base Confirmed or Verified [place] Food Allergy STRAWBERRY Confirmed or Verified Shortness of Breath [place] Drug Allergy [place] Confirmed or Verified Shortness of Breath pepperoni [...] for this patient visit History of procedures Procedure Code Code Type Description Date Performed Performing Physician 47353 CPT-4 EMERGENCY DEPT VISIT 02-13-2014 SHIVAM LOPEZ 24362 CPT-4 EMERGENCY DEPT VISIT 02-13-2014 SHIVAM LOPEZ Functional status Functional Status Finding Observation Time Muscle Strength RUE 5 ROM full resist :45 Muscle Strength RLE 5 ROM full resist :45 Muscle Strength LUE 5 ROM full resist :45 Muscle Strength LLE 5 ROM full resist :45 Abdomen Appearance obese :45 Abdomen non-tender :45 Urination normal :45 Quality sym/unlabored :45 Breath Sounds RUL clear :45 Breath Sounds RML fine :45 Breath Sounds RLL clear :45 Breath Sounds KENDELL wheezes :45 Breath Sounds LLL clear :45 Oxygen no :05 Temp >100.4 no :45 Temp <96.8 no :45 Chills with rigors no :45 HR > 90bpm yes :45 Respirations > 20 no :45 Systolic <90 no :45 headache stiff neck no :45 WBC > 50521 no :45 Rapid Resp no :45 Nursing Note Vs obtained. Pt continues to deny pain. Pt stable to ambulate off [place]. :05 Vital signs Type Value Date Respiration Rate 20breaths per minute :05 Pulse 89beats per minute :05 Oxygen Saturation 95% :05 BP Systolic 140mmHg :05 BP Diastolic 120mmHg :05 Temperature 97.0F :05 Height 65inches :05 Weight 270LB :05 Social history Type Value Smoking Status CURRENT EVERY DAY SMOKER Treatment Plan No treatment plan text is available for this visit. Hospital discharge instructions Dismissal Condition good Disposition on DC home DC Inst/Educ Give yes Med/Side Effects Rev yes
--- OUTSIDE RECORDS SUMMARY | 2018-03-12 21:50 | XMS REPORT ---
Author Author [facility] Medical Staff Organization [facility] Address [address] [place], [place] [address] Phone [phone] Care Team Providers Care Running Rigger Name Role Phone SHAILESH JOHNSON MD PP [phone] Summary purpose TRANSITION OF CARE AUTO GENERATION [...] Drug Allergy Erythromycin Base Confirmed or Verified [place] Food Allergy STRAWBERRY Confirmed or Verified Shortness of Breath [place] Drug Allergy [place] Confirmed or Verified Shortness of Breath pepperoni [...]
--- OUTSIDE RECORDS SUMMARY | 2018-03-12 21:50 | XMS REPORT ---
Author [facility] Medical Staff Organization [facility] Address [address] [place], [place] [address] Phone [phone] Care Team Providers Care Business Law Teacher Name Role Phone SHAILESH JOHNSON MD PP [phone] Summary purpose TRANSITION OF CARE AUTO GENERATION [...] Drug Allergy Erythromycin Base Confirmed or Verified [place] Food Allergy STRAWBERRY Confirmed or Verified Shortness of Breath [place] Drug Allergy [place] Confirmed or Verified Shortness of Breath pepperoni [...] tests and/or laboratory data RESULTS Blood Cultures [id number]:55:00 Blood Culture Plate Date and Time 02/21/2014 00:58 SourceBLOOD CULTURE REPORT NoGrowth at 1 day. Unless otherwise notified. Final report in 5 Days. Release Date/Time: 02/22/2014 07:39 LEFT ARM CULTURE REPORT No growth in 5 days. Release Date/Time: 02/26/2014 07:29 LEFT ARM [id number]:45:00 Blood Culture Plate Date and Time 02/21/2014 00:58 SourceBLOOD CULTURE REPORT NoGrowth at 1 day. Unless otherwise notified. Final report in 5 Days. Release Date/Time: 02/22/2014 07:39 RIGHT ARM CULTURE REPORT No growth in 5 days. Release Date/Time: 02/26/2014 07:29 RIGHT ARM Chemistry [id number]:45:00 Result Normal Range Units Sodium 138 134-145 [...] 0-5 % Lymphs L 14.0 20-40 % [place] 6.0 0-10 % Eos 2.0 0-7 % [...] Muscle Strength LLE 5 ROM full resist :00 Transfers assist x 1 97-65-268981:00 Ambulation in room :00 Balance steady :00 Bathing Assistance none :45 Eating Assistance none :45 Dressing Assistance none :45 Toileting Assistance none :45 Transfer Assistance none :45 Decline Slf Care/Mob no :45 Phys Cond Stable yes :45 Nutrition nausea :00 Diet regular :30 Oral Cavity moist and intact :00 Teeth intact :00 Dental Hygiene poor :00 Abdomen Appearance obese :00 Abdomen soft :00 Bowel Sounds present :00 NG Tube no :00 Feeding Tube none :00 Villavicencio no :00 Cont Bladder Irr no :00 Ostomy no :00 Stool diarrhea :00 Urination normal :00 Quality sym/unlabored :00 Cough productive :00 Secretions yes :00 Breath Sounds RUL wheezes Comment: ft 33-41-983671:11 Breath Sounds RML clear 18-32-378435:11 Breath Sounds RLL clear 75-99-988277:11 Breath Sounds KENDELL wheezes Comment: ft 32-50-591597:11 Breath Sounds LLL clear 45-86-312440:11 Airway natural :00 Chest Tube no :00 Oxygen no [id number]:20 Oxygen Flow Rate ra 34-09-298515:06 C-PAP no :00 BI-PAP no :00 Temp >100.4 no :00 Temp <96.8 no :00 Chills with rigors no :00 HR > 90bpm no 27-07-846684:00 Respirations > 20 no :00 Systolic <90 no [id number]:00 headache stiff neck no :00 WBC > 78737 no :00 WBC < 4000 no :00 Rapid Resp no :00 IV Site Location Right Hand : IV Type peripheral : IV Site Information existing Comment: saline lock left in place for continued outpatient infusions This result is a modification to a previously-entered result. It was modified on 10/28 at 19:14 by [email or web address]. : IV Site Brandon 20 : IV Site Appearance WNL : IV Site Color clear : IV Site Patent yes : Dressing Type gauze :25 Nursing Note Patient state she sees her doctor this afternoon in follow up, but she feels like she is on the mend. :19 Cognitive Status Finding Observation Time Oriented To Date 5 Yes :[address] 5 Yes :45 Name 3 Objects 3 Yes :45 Name Object in Rm 2 Yes :45 Recall 3 Objects 3 Yes :45 Repeats a Phrase 1 Yes :45 Follows Verbal Direc 3 Yes :45 Follows Written Dire 1 Yes :45 Write a Sentance 1 Yes :45 Draw an Object 1 Yes :45 Mini Mental Total 25 points :45 Less than 20 Phys not applicable :45 Learning Ability comprehends well :03 Neurological no :03 Psychological no :03 Physical no :03 Hearing no :03 Clinical Operations Leader Needed no :03 Sign Language no :03 Emotional no :03 Vision yes :03 Laguage no :03 Financial no :03 Vital signs Type Value Date Respiration Rate 22breaths per minute :20 Pulse 108beats per minute :20 Oxygen Saturation 93% :20 BP Systolic 129mmHg :20 BP Diastolic 63mmHg :20 Temperature 99.4F :20 Height 65inches :59 Weight 257LB 82-36-002731:59 Social history Type Value Smoking Status CURRENT EVERY DAY SMOKER Treatment Plan No treatment plan text is available for this visit. Hospital discharge instructions Discharge Date/Time 02/21/14 1330 Accompanied By friend Relationship friend Dismissal Condition good Disposition on DC home Valuables yes Valuable Type billfold/purse Valuables Returned T patient DC Inst/Educ Give yes Exit Care Educ Given yes Med/Side Effects Rev yes DC Med Rec Rev yes Medical Equipment na Diet Explained yes Follow up appt already scheduled Follow Up Appt D/T 02/21/14 2100 @ Nikki
--- OUTSIDE RECORDS SUMMARY | 2018-03-12 21:51 | XMS REPORT | Continuity of Care Document ---
Demographics x Preferred Language Unknown Marital Status Unknown Mu-Ism Affiliation Unknown Race Unknown Ethnic Group Unknown Author Author [facility] Organization [facility] Address Unknown Phone Unavailable Allergies Active Description Code Type Severity Reaction Onset Reported/Identified Relationship to Patient Clinical Status Yes Augmentin 4242 Drug Allergy N/ A N/A Yes Coban Miscellaneous Allergy N /A N/A Yes Codeine 1550 Drug Allergy N/A N/A Yes Erythromycin Base 2755 Drug Allergy N/A N/A Yes Iodine 852 Drug Allergy N/A N/A Yes LATEX LATEX Environmental Allergy Severe Nausea Yes Morphine 1545 Drug Allergy Moderate Shortness of Breath Yes Moxifloxacin 7927 Drug Allergy N/A N/A Yes oseltamivir 7918 Drug Allergy N /A N/A Confirmed or Verified Yes pepperoni Food Allergy Moderate Shortness of Breath Yes Stadol 976 Drug Allergy N/A N/A Yes [place] Food Allergy N/A Shortness of Breath Yes Tamiflu 61549 Drug Allergy N/A N/A Yes Vancomycin 4866 Drug Allergy Severe Rash Yes AMITRIPTYLINE Drug Allergy N/ A N/A Yes LATEX Drug Allergy N/A N/A Yes MORPHINE SULFATE 37192 Drug Allergy N/A N/A Yes Advair Diskus Drug N/A N/A Yes Augmentin Drug N/A N/A Yes Augmentin Drug Other N/A Yes Avelox Drug N/A [id number] Yes codeine phosphate Drug N/A N/A Yes doxycycline Drug N/A N/A Yes Egg Allergy Drug N/A N/A Yes gabapentin Drug N/A delusions Yes imipramine Drug N/A [id number] Yes iodine Drug N/A N/ A Yes Latex Allergy Drug N/A N/A Yes Lyrica Drug N/A N/ A Yes macrolide antibiotics 37 Drug N /A N/A Yes morphine Drug N/A N/A Yes PROzac Drug N/A N/ A Yes Stadol Drug N/A N/ A Medications There is no data. Problems Date Dx Coded Attending Type Code Diagnosis Diagnosed By 04/29/2013 SWATHI VARGAS 338.29 CHRONIC PAIN NEC 04/29/2013 SWATHI VARGAS 412 OLD MYOCARDIAL INFARCT 04/29/2013 SWATHI VARGAS 427.31 ATRIAL FIBRILLATION 04/29/2013 SWATHI VARGAS 496 CHR AIRWAY OBSTRUCT NEC 04/29/2013 SWATHI VARGAS 724.2 LUMBAGO 04/29/2013 SWATHI VARGAS 780.39 OTHER CONVULSIONS 04/29/2013 SWATHI VARGAS V58.66 LONG-TERM ASPIRIN USE 09/23/2013 D 214.1 LIPOMA SKIN NEC 02/13/2014 SHIVAM LOPEZ 491.21 OBSTRUCTIVE CHRONIC BRON 02/13/2014 SHIVAM LOPEZ 786.05 SHORTNESS OF BREATH 05/27/2017 Kevin Samaniego DO R10.84 ABDOMINAL PAIN, GENERALIZED Procedures Code Description [place] [address] ROUTINE VENIPUNCTURE 04/29/2013 99779 COMPREHEN METABOLIC PANEL 04/29/2013 75547 DRUG SCRN 1+ CLASS NONCHROMO 04/29/2013 75379 URINALYSIS, AUTO W/SCOPE 04/29/2013 11547 BL SMEAR W/DIFF WBC COUNT 04/29/2013 46806 COMPLETE CBC, AUTOMATED 04/29/2013 22705 THER/PROPH/DIAG INJ, IV PUSH 04/29/2013 93165 TX/PRO/DX INJ NEW DRUG ADDON 04/29/2013 18847 EMERGENCY DEPT VISIT 04/29/2013 78365 EMERGENCY DEPT VISIT 04/29/2013 J2060 Lorazepam injection 04/29/2013 J2405 ONDANSETRON HCL INJECTION 04/29/2013 51794 EXC TR-EXT B9+REJI > 4.0 CM 09/23/2013 61628 LAYER CLOSURE OF WOUND(S) 09/23/2013 17758 ROUTINE VENIPUNCTURE 09/23/2013 04768 CHORIONIC GONADOTROPIN ASSAY 09/23/2013 863 OTH LOCAL EXC LESION 09/23/2013 36507 AIRWAY INHALATION TREATMENT 09/23/2013 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, BUPIVICAINE LIPOSOME 09/23/2013 J2250 INJ MIDAZOLAM HYDROCHLORIDE 09/23/2013 J7120 RINGERS LACTATE INFUSION 09/23/2013 J7613 ALBUTEROL NON-COMP UNIT 09/23/2013 02137 EMERGENCY DEPT VISIT 02/13/2014 05892 X-RAY EXAM SERIES, ABDOMEN 03/24/2015 11411 EMERGENCY DEPT VISIT 03/24/2015 18603 EMERGENCY DEPT VISIT 03/24/2015 06880 COMPREHEN METABOLIC PANEL 06/04/2015 27589 GLYCOSYLATED HEMOGLOBIN TEST 06/04/2015 25818 COMPLETE CBC W/AUTO DIFF WBC 06/04/2015 78733 METABOLIC PANEL TOTAL CA 08/11/2015 35056 ASSAY OF DIGOXIN 08/11/2015 52356 GLYCOSYLATED HEMOGLOBIN TEST 08/11/2015 23310 BL SMEAR W/DIFF WBC COUNT 08/11/2015 00766 COMPLETE CBC, AUTOMATED 08/11/2015 Results Test Result Range UA - 04/28/13 00:00 PH 5.5 4.5-8.0 SG 1.020 1.003-1.035 UABILI NEGATIVE UABLD 2+ UACOLOR YEL UAGLU NEGATIVE UAKET NEGATIVE UALEUK NEGATIVE UANIT NEGATIVE UAURO 0.2 0-0.2 CLARITY CL PROTEIN NEGATIVE UA WBC NOWBC UA RBC R05 SQUAMOUS EPITHELIAL CELLS 1+ BACTERIA RARE DRUG SCREEN IN HOUSE - 04/28/13 00:00 MBAR N Negative MBENZO P Negative MCOCN N Negative MMAMP N Negative MMTD N Negative MOPIAT N Negative MPCP N Negative MTCA N Negative MTHC P Negative AMPHETAMINE N Negative CMP - 04/28/13 00:00 ALB 3.0 G/DL 3.5-5 ALP 131 IU/L 32-92 ALT 25 IU/L 12-65 AST 14 IU/L 10-42 BCR 11.2 10-20 BUN 11 MG/DL 7-18 CA 8.5 MG/DL 8.4-10.2 CL 98 MEQ/L 98-107 CO2 28.6 MEQ/L 22-28 CREA 0.98 MG/DL 0.6-1.0 EGFR 60 eGFR >=60 GLU 120 MG/DL 70-105 K 3.9 MEQ/L 3.5-5.1 NA 139 MEQ/L 134-145 OSMSC 278.1 MOSML 280-300 TBIL 0.3 MG/DL 0.1-1.0 TP 7.5 G/DL 6.0-8.3 Albumin/Globulin Ratio 0.7 0-8 Anion Gap 12.4 8-16 CBC WITH DIFF - 04/28/13 00:00 HCT 34.7 % 36.9-47.0 HGB 10.3 G/DL 12.0-16.0 LYMPH 14.0 % 20-40 MCH 20.7 PG 27-31 MCHC 29.7 G/DL 33-37 MCV 69.8 FL 81-99 MONO 4.0 % 0-10 MPV 9.5 FL 7.3-10.4 PLT 604 10^3u 130-400 RBC 5.0 10^6u 4.2-5.4 RDW 19.5 % 11.5-15.5 WBC 15.6 10^3u 4.8-10.8 SEGS 82.0 % 40-70 UA - 06/01/13 00:00 PH 7.0 4.5-8.0 SG 1.015 1.003-1.035 UABILI NEGATIVE UABLD NEGATIVE UACOLOR YEL UAGLU NEGATIVE UAKET NEGATIVE UALEUK NEGATIVE UANIT NEGATIVE UAURO 0.2 0-0.2 CLARITY CL PROTEIN NEGATIVE UA WBC R05 UA RBC R05 SQUAMOUS EPITHELIAL CELLS 1+ CBC WITH DIFF - 06/01/13 00:00 EOS 2.0 % 0-7 HCT 32.2 % 36.9-47.0 HGB 9.6 G/DL 12.0-16.0 LYMPH 14.0 % 20-40 MCH 19.6 PG 27-31 MCHC 29.8 G/DL 33-37 MCV 65.6 FL 81-99 MONO 5.0 % 0-10 MPV 9.2 FL 7.3-10.4 PLT 629 10^3u 130-400 RBC 4.9 10^6u 4.2-5.4 RDW 18.5 % 11.5-15.5 WBC 14.2 10^3u 4.8-10.8 SEGS 79.0 % 40-70 HYPO 1+ CK - 06/01/13 00:00 CK 103 IU/L 26-192 TROP - 06/01/13 00:00 TROP 0.04 NG/ML 0.0-0.4 CKMB - 06/01/13 00:00 CKMB < 0.5 NG/ML 0-3.6 PRO-BNP - 06/01/13 00:00 PRO-BNP 27 PG/ML 0-900 CMP - 06/01/13 00:00 ALB 3.4 G/DL 3.5-5 ALP 132 IU/L 32-92 ALT 28 IU/L 12-65 AST 13 IU/L 10-42 BCR 12.8 10-20 BUN 12 MG/DL 7-18 CA 8.3 MG/DL 8.4-10.2 CL 101 MEQ/L 98-107 CO2 31.0 MEQ/L 22-28 CREA 0.94 MG/DL 0.6-1.0 EGFR 63 eGFR >=60 GLU 103 MG/DL 70-105 K 4.1 MEQ/L 3.5-5.1 NA 141 MEQ/L 134-145 OSMSC 281.3 MOSML 280-300 TBIL 0.2 MG/DL 0.1-1.0 TP 7.5 G/DL 6.0-8.3 Albumin/Globulin Ratio 0.8 0-8 Anion Gap 9.0 8-16 HCG QUAL - 09/23/13 00:00 HCG N CBC WITH DIFF - 11/20/13 00:00 BASO% 0.3 % 0-2 EOS% 1.8 % 0-7.0 HCT 44.7 % 36.9-47.0 HGB 13.9 G/DL 12.0-16.0 LYMPH% 14.2 % 20-40 MCH 22.9 PG 27-31 MCHC 31.1 G/DL 33-37 MCV 73.8 FL 81-99 MONO% 6.0 % 0-10.0 MPV 9.4 FL 7.3-10.4 NEUTRO% 77.7 % 40-70 PLT 405 10^3u 130-400 RBC 6.1 10^6u 4.2-5.4 RDW 27.7 % 11.5-15.5 WBC 15.8 10^3u 4.8-10.8 NEUTRO# 12.3 10^3u 1.5-7.5 LYMPH# 2.2 10^3u 0.9-4.0 MONO# 1.0 10^3u 0-0.8 EOS# 0.3 10^3u 0-0.6 BASO# 0.0 10^3u 0-0.1 UA - 11/20/13 00:00 PH 6.0 4.5-8.0 SG 1.025 1.003-1.035 UABILI NEGATIVE UABLD 1+ UACOLOR YEL UAGLU NEGATIVE UAKET NEGATIVE UALEUK NEGATIVE UANIT NEGATIVE UAURO 0.2 0-0.2 CLARITY CLD PROTEIN NEGATIVE UA WBC R05 UA RBC R510 SQUAMOUS EPITHELIAL CELLS 2+ BACTERIA 1+ CMP - 11/20/13 00:00 ALB 3.3 G/DL 3.5-5 ALP 112 IU/L 25-72 ALT 42 IU/L 12-65 AST 16 IU/L 10-42 BCR 18.2 10-20 BUN 16 MG/DL 7-18 CA 9.2 MG/DL 8.4-10.2 CL 101 MEQ/L 98-107 CO2 26.2 MEQ/L 22-28 CREA 0.88 MG/DL 0.6-1.0 EGFR 67 eGFR >=60 GLU 119 MG/DL 70-105 K 4.2 MEQ/L 3.5-5.1 NA 139 MEQ/L 134-145 OSMSC 279.9 MOSML 280-300 TBIL 0.3 MG/DL 0.1-1.0 TP 7.8 G/DL 6.0-8.3 Albumin/Globulin Ratio 0.7 0-8 Anion Gap 11.8 8-16 RAPID MYCOPLASMA - 11/20/13 00:00 RAPMYCO P Negative CBC WITH DIFF - 02/19/14 00:00 BASO% 0.4 % 0-2 EOS% 1.6 % 0-7.0 HCT 53.0 % 36.9-47.0 HGB 17.4 G/DL 12.0-16.0 LYMPH% 10.9 % 20-40 MCH 28.0 PG 27-31 MCHC 32.8 G/DL 33-37 MCV 85.3 FL 81-99 MONO% 7.8 % 0-10.0 MPV 9.6 FL 7.3-10.4 NEUTRO% 79.3 % 40-70 PLT 297 10^3u 130-400 RBC 6.2 10^6u 4.2-5.4 RDW 18.0 % 11.5-15.5 WBC 10.2 10^3u 4.8-10.8 NEUTRO# 8.1 10^3u 1.5-7.5 LYMPH# 1.1 10^3u 0.9-4.0 MONO# 0.8 10^3u 0-0.8 EOS# 0.2 10^3u 0-0.6 BASO# 0.0 10^3u 0-0.1 RAPID MYCOPLASMA - 02/19/14 00:00 RAPMYCO P Negative CMP - 02/19/14 00:00 ALB 3.3 G/DL 3.5-5 ALP 121 IU/L 25-72 ALT 134 IU/L 12-65 AST 70 IU/L 10-42 BCR 12.5 10-20 BUN 11 MG/DL 7-18 CA 8.8 MG/DL 8.4-10.2 CL 98 MEQ/L 98-107 CO2 27.0 MEQ/L 22-28 CREA 0.88 MG/DL 0.6-1.0 EGFR 67 eGFR >=60 GLU 111 MG/DL 70-105 K 4.2 MEQ/L 3.5-5.1 NA 137 MEQ/L 134-145 OSMSC 273.9 MOSML 280-300 TBIL 0.4 MG/DL 0.1-1.0 TP 8.0 G/DL 6.0-8.3 Albumin/Globulin Ratio 0.7 0-8 Anion Gap 12.0 8-16 INFLU A B RAPID - 02/19/14 00:00 INFLRAP POS FLU A Negative CBC WITH DIFF - 02/21/14 00:00 BANDS 1.0 % 0-5 EOS 2.0 % 0-7 HCT 50.7 % 36.9-47.0 HGB 16.5 G/DL 12.0-16.0 LYMPH 14.0 % 20-40 MCH 27.5 PG 27-31 MCHC 32.5 G/DL 33-37 MCV 84.5 FL 81-99 MONO 6.0 % 0-10 MPV 9.6 FL 7.3-10.4 PLT 267 10^3u 130-400 RBC 6.0 10^6u 4.2-5.4 RDW 17.0 % 11.5-15.5 WBC 8.0 10^3u 4.8-10.8 SEGS 77.0 % 40-70 ANISO 1+ LACTIC ACID - 02/21/14 00:00 LA 1.4 MMOLL 0.4-2.0 CMP - 02/21/14 00:00 ALB 3.1 G/DL 3.5-5 ALP 110 IU/L 25-72 ALT 125 IU/L 12-65 AST 67 IU/L 10-42 BCR 17.4 10-20 BUN 16 MG/DL 7-18 CA 8.6 MG/DL 8.4-10.2 CL 100 MEQ/L 98-107 CO2 29.6 MEQ/L 22-28 CREA 0.92 MG/DL 0.6-1.0 EGFR 64 eGFR >=60 GLU 162 MG/DL 70-105 K 3.8 MEQ/L 3.5-5.1 NA 138 MEQ/L 134-145 OSMSC 280.4 MOSML 280-300 TBIL 0.3 MG/DL 0.1-1.0 TP 7.5 G/DL 6.0-8.3 Albumin/Globulin Ratio 0.7 0-8 Anion Gap 8.4 8-16 UA - 10/13/14 00:00 PH 6.0 4.5-8.0 SG 1.015 1.003-1.035 UABILI NEGATIVE UABLD NEGATIVE UACOLOR YEL UAGLU NEGATIVE UAKET NEGATIVE UALEUK NEGATIVE UANIT NEGATIVE UAURO 0.2 0-0.2 CLARITY SLTCLDY PROTEIN NEGATIVE UA WBC NOWBC UA RBC R05 SQUAMOUS EPITHELIAL CELLS 1+ BACTERIA 2+ CMP - 10/13/14 00:00 ALB 3.5 G/DL 3.5-5 ALP 156 IU/L 25-72 ALT 72 IU/L AST 32 IU/L -42 BCR 29.3 10-20 BUN 24 MG/DL 7-18 CA 9.4 MG/DL 8.4-10.2 CL 100 MEQ/L 98-107 CO2 29.2 MEQ/L 22-28 CREA 0.82 MG/DL 0.6-1.0 EGFR 73 eGFR >=60 GLU 141 MG/DL 70-105 K 4.5 MEQ/L 3.5-5.1 NA 141 MEQ/L 134-145 OSMSC 287.7 MOSML 280-300 TBIL 0.3 MG/DL 0.1-1.0 TP 7.8 G/DL 6.0-8.3 Albumin/Globulin Ratio 0.8 0-8 Anion Gap 11.8 8-16 CBC WITH DIFF - 10/13/14 00:00 BASO% 0.5 % 0-2 EOS% 1.4 % 0-7.0 HCT 53.7 % 36.9-47.0 HGB 17.2 G/DL 12.0-16.0 LYMPH% 14.4 % 20-40 MCH 27.9 PG 27-31 MCHC 32.0 G/DL 33-37 MCV 87.0 FL 81-99 MONO% 4.2 % 0-10.0 MPV 11.2 FL 7.3-10.4 NEUTRO% 78.8 % 40-70 PLT 338 10^3u 130-400 RBC 6.2 10^6u 4.2-5.4 RDW 16.3 % 11.5-15.5 WBC 15.3 10^3u 4.8-10.8 NEUTRO# 12.0 10^3u 1.5-7.5 LYMPH# 2.2 10^3u 0.9-4.0 MONO# 0.6 10^3u 0-0.8 EOS# 0.2 10^3u 0-0.6 BASO# 0.1 10^3u 0-0.1 IMM GRANULOCYTE % 0.7 % IMM GRANULOCYTE # 0.1 10^3u 0-5 CBC WITH DIFF - 12/12/14 00:00 BASO% 0.4 % 0-2 EOS% 0.8 % 0-7.0 HCT 51.2 % 36.9-47.0 HGB 16.4 G/DL 12.0-16.0 LYMPH% 13.8 % 20-40 MCH 28.2 PG 27-31 MCHC 32.0 G/DL 33-37 MCV 88.0 FL 81-99 MONO% 3.9 % 0-10.0 MPV 11.2 FL 7.3-10.4 NEUTRO% 80.6 % 40-70 PLT 345 10^3u 130-400 RBC 5.8 10^6u 4.2-5.4 RDW 14.4 % 11.5-15.5 WBC 13.8 10^3u 4.8-10.8 NEUTRO# 11.1 10^3u 1.5-7.5 LYMPH# 1.9 10^3u 0.9-4.0 MONO# 0.5 10^3u 0-0.8 EOS# 0.1 10^3u 0-0.6 BASO# 0.1 10^3u 0-0.1 SEDR - 12/12/14 00:00 SEDR 1 0-30 IMM GRANULOCYTE % 0.5 % IMM GRANULOCYTE # 0.1 10^3u 0-5 TSH - 12/12/14 00:00 TSH 0.67 UIUML 0.34-4.82 VITB12 - 12/12/14 00:00 B12 652 PG/ML 193-986 CMP - 12/12/14 00:00 ALB 3.5 G/DL 3.5-5 ALP 135 IU/L 25-72 ALT 100 IU/L 12-65 AST 58 IU/L 10-42 BCR 24.4 10-20 BUN 22 MG/DL 7-18 CA 9.3 MG/DL 8.4-10.2 CL 102 MEQ/L 98-107 CO2 27.8 MEQ/L 22-28 CREA 0.90 MG/DL 0.6-1.0 EGFR 65 eGFR >=60 GLU 106 MG/DL 70-105 K 4.5 MEQ/L 3.5-5.1 NA 140 MEQ/L 134-145 OSMSC 283.1 MOSML 280-300 TBIL 0.4 MG/DL 0.1-1.0 TP 7.6 G/DL 6.0-8.3 Albumin/Globulin Ratio 0.9 0-8 Anion Gap 10.2 8-16 FREE T4 - 12/12/14 00:00 FT4 0.66 NG/DL 0.78-1.34 FREE T3 - 12/12/14 00:00 FT3 2.6 pg/mL 2.3-4.2 LYME AB SCREEN WITH REFLEX - 12/12/14 00:00 LYME AB SCREEN WITH REFLEX < OR=0.90 index FSH - 12/12/14 00:00 FSH 53.9 mIU/m SEVEN SCREEN - 12/12/14 00:00 SEVEN NEGATIVE NEGATIVE ELVIN MTN SPOTTED FEVER - 12/12/14 00:00 RMSF1 NOT DETECTED RMSF3 NOT DETECTED EHRLICHIA ANAPLASMA AB PANEL - 12/12/14 00:00 EHAN1 <1:64 EHAN2 <1:20 EHAN3 SEE NOTE EHAN4 1:64 EHAN5 <1:20 EHAN6 PAST INFECTION VIT B6 - 12/12/14 00:00 VITB6 2.2 ng/mL 2.1-21.7 HEAVY METAL PANEL - 12/12/14 00:00 DAVID < 2 mcg/L < 23 MERC < 2 mcg/L < 11 PB1 1.1 mcg/d < 10.0 CBC WITH DIFF - 06/04/15 00:00 BASO% 0.5 % 0-2 EOS% 1.9 % 0-7.0 HCT 49.1 % 36.9-47.0 HGB 15.7 G/DL 12.0-16.0 LYMPH% 16.2 % 20-40 MCH 27.9 PG 27-31 MCHC 32.0 G/DL 33-37 MCV 87.2 FL 81-99 MONO% 4.6 % 0-10.0 MPV 10.7 FL 7.3-10.4 NEUTRO% 76.1 % 40-70 PLT 304 10^3u 130-400 RBC 5.6 10^6u 4.2-5.4 RDW 14.6 % 11.5-15.5 WBC 12.9 10^3u 4.8-10.8 NEUTRO# 9.8 10^3u 1.5-7.5 LYMPH# 2.1 10^3u 0.9-4.0 MONO# 0.6 10^3u 0-0.8 EOS# 0.2 10^3u 0-0.6 BASO# 0.1 10^3u 0-0.1 IMM GRANULOCYTE % 0.7 % IMM GRANULOCYTE # 0.1 10^3u 0-5 HA1C - 06/04/15 00:00 HA1C 8.2 % 4.5-6.2 CMP - 06/04/15 00:00 ALB 3.3 G/DL 3.5-5 ALP 159 IU/L 25-72 ALT 108 IU/L 12-65 AST 48 IU/L 10-42 BCR 25.3 10-20 BUN 19 MG/DL 7-18 CA 9.2 MG/DL 8.4-10.2 CL 98 MEQ/L 98-107 CO2 29.7 MEQ/L 22-28 CREA 0.75 MG/DL 0.6-1.0 EGFR 81 eGFR >=60 GLU 218 MG/DL 70-105 K 4.2 MEQ/L 3.5-5.1 NA 137 MEQ/L 134-145 OSMSC 282.7 MOSML 280-300 TBIL 0.3 MG/DL 0.1-1.0 TP 7.6 G/DL 6.0-8.3 Albumin/Globulin Ratio 0.8 0-8 Anion Gap 9.3 8-16 HA1C - 08/11/15 00:00 HA1C 9.4 % 4.5-6.2 BMP - 08/11/15 00:00 BCR 19.7 10-20 BUN 15 MG/DL 7-18 CA 9.3 MG/DL 8.4-10.2 CL 98 MEQ/L 98-107 CO2 28.0 MEQ/L 22-28 CREA 0.76 MG/DL 0.6-1.0 EGFR 79 eGFR >=60 GLU 192 MG/DL 70-105 K 4.3 MEQ/L 3.5-5.1 NA 136 MEQ/L 134-145 OSMSC 278.0 MOSML 280-300 Anion Gap 10.0 8-16 DIG - 08/11/15 00:00 DIG < 0.2 NG/ML 1.0-2.0 CBC WITH DIFF - 08/11/15 00:00 EOS 1.0 % 0-7 HCT 48.9 % 36.9-47.0 HGB 15.8 G/DL 12.0-16.0 LYMPH 11.0 % 20-40 MCH 27.6 PG 27-31 MCHC 32.3 G/DL 33-37 MCV 85.3 FL 81-99 MONO 8.0 % 0-10 MPV 11.4 FL 7.3-10.4 PLT 301 10^3u 130-400 RBC 5.7 10^6u 4.2-5.4 RDW 15.0 % 11.5-15.5 WBC 12.2 10^3u 4.8-10.8 SEGS 76.0 % 40-70 Atypical Lymphs 4.0 % 0-5 Encounters ACCT No. Visit Date/Time Discharge Status Pt. Type Provider Facility Loc./Unit Complaint [id number] 08/11/2015 16:01:00 08/11/2015 16:01:00 DIS Outpatient SHAILESH JOHNSON [facility] CHANA [id number] 08/04/2015 12:29:00 08/04/2015 12:29:00 DIS Outpatient SHAILESH JOHNSON [facility] CHANA [id number] 06/04/2015 16:48:00 06/04/2015 16:48:00 DIS Outpatient SHAILESH JOHNSON [facility] PANACE [id number] 03/24/2015 20:56:00 03/24/2015 22:08:00 DIS Emergency SWATHI SALGADO [facility] EMR [id number] 12/12/2014 18:04:00 12/12/2014 18:04:00 DIS Outpatient SHAILESH JOHNSON [facility] PANACE [id number] 10/13/2014 18:25:00 10/13/2014 18:25:00 DIS Outpatient SHAILESH JOHNSON [facility] PANACE [id number] 03/04/2014 15:43:00 03/04/2014 15:43:00 DIS Outpatient ALEX SUKHIANNE-MARIE Juan [facility] RAD [id number] 02/21/2014 02:25:00 02/21/2014 13:30:00 DIS Inpatient ALEX SUKHIANNE-MARIE Juan [facility] OBS [id number] 02/19/2014 20:05:00 02/19/2014 23:05:00 DIS Emergency ALEX SUKHIANNE-MARIE Juan [facility] EMR [id number] 02/13/2014 14:32:00 02/13/2014 15:08:00 DIS Emergency SHIVAM LOPEZ [facility] EMR [id number] 12/03/2013 10:59:00 12/03/2013 10:59:00 DIS Outpatient ALEX SUKHIANNE-MARIE Juan [facility] RAD [id number] 11/20/2013 22:57:00 11/21/2013 00:30:00 DIS Emergency ALEX SUKHIANNE-MARIE Juan [facility] EMR [id number] 07/19/2013 19:34:00 07/19/2013 20:35:00 DIS Emergency ALEX SUKHIANNE-MARIE Martinez [facility] EMR [id number] 06/01/2013 22:26:00 06/02/2013 00:28:00 DIS Emergency SHIVAM LOPEZ [facility] EMR [id number] 05/09/2013 11:58:00 05/09/2013 11:58:00 DIS Outpatient SHAILESH JOHNSON [facility] PANACE [id number] 04/28/2013 22:41:00 04/29/2013 00:40:00 DIS Emergency SWATHI VARGAS [facility] EMR [id number] 01/12/2015 00:00:00 Document Registration [id number] 01/12/2015 00:00:00 Document Registration [id number] 01/12/2014 00:00:00 Document Registration [id number] 01/12/2014 00:00:00 Document Registration [id number] 01/12/2014 00:00:00 Document Registration [id number] 01/12/2014 00:00:00 Document Registration [id number] 09/23/2013 07:40:00 Document Registration [id number] 05/09/2013 11:58:12 Document Registration [id number] 05/09/2013 11:58:12 Document Registration [id number] 05/09/2013 11:58:12 Document Registration [id number] 05/09/2013 11:58:11 Document Registration [id number] 01/12/2013 00:00:00 Document Registration [id number] 01/12/2013 00:00:00 Document Registration [id number] 01/12/2013 00:00:00 Document Registration [id number] 01/12/2013 00:00:00 Document Registration [id number] 02/20/2018 13:55:01 ACT Unknown Kevin Samaniego DO [id number] 05/14/2013 14:03:03 05/14/2013 23:59:59 CLS Outpatient Cesar Dillon [id number] 07/15/2015 05:10:27 07/15/2015 05:10:27 DIS Unknown [id number] 01/02/2018 14:39:18 01/02/2018 23:59:59 [id number] 01/01/2018 16:12:25 01/01/2018 23:59:59 [facility] [id number] 01/01/2018 15:17:46 01/01/2018 23:59:59 DIS Outpatient TERRY [facility] [id number] 09/06/2017 10:21:32 09/06/2017 23:59:59 DIS Outpatient TERRY [facility] [id number] 08/02/2017 14:15:28 08/02/2017 23:59:59 DIS Outpatient TIAGO STEWART [facility] [id number] 08/02/2017 13:16:01 08/02/2017 23:59:59 DIS Outpatient TIAGO STEWART [facility] [id number] 05/12/2017 15:22:58 05/12/2017 23:59:59 DIS Outpatient TERRY [facility] [id number] 05/12/2017 14:11:06 05/12/2017 23:59:59 DIS Outpatient TERRY [facility] [id number] 04/26/2017 13:45:00 04/26/2017 23:59:59 DIS Outpatient TERRY [facility] [id number] 03/27/2017 17:36:00 03/27/2017 23:59:59 CLS Emergency [facility] KATHRYN ED ED VISIT [id number] 03/17/2017 14:04:23 03/17/2017 23:59:59 DIS Outpatient TERRY [facility] [id number] 03/17/2017 13:23:22 03/17/2017 23:59:59 DIS Outpatient TIAGO STEWART [facility] [id number] 03/01/2017 15:24:44 03/01/2017 23:59:59 DIS Outpatient TERRY [facility] [id number] 03/01/2017 14:39:16 03/01/2017 23:59:59 DIS Outpatient TERRY [facility] [id number] 01/24/2017 11:21:05 01/24/2017 23:59:59 DIS Outpatient TERRY [facility] [id number] 01/24/2017 10:30:00 01/24/2017 23:59:59 DIS Outpatient TIAGO STEWART [facility] [id number] 12/05/2016 13:19:10 12/05/2016 23:59:59 DIS Outpatient Fariba Knight [facility] [id number] 11/22/2016 11:25:50 11/22/2016 23:59:59 DIS Outpatient TIAGO STEWART [facility] [id number] 11/22/2016 11:24:47 11/22/2016 23:59:59 DIS Outpatient TIAGO STEWART [facility] [id number] 11/02/2016 11:46:56 11/02/2016 23:59:59 DIS Outpatient TIAGO STEWART [facility] [id number] 11/02/2016 10:54:27 11/02/2016 23:59:59 DIS Outpatient TIAGO STEWART [facility] [id number] 10/12/2016 10:30:00 10/12/2016 23:59:59 DIS Outpatient TIAGO STEWART [facility] [id number] 09/20/2016 10:30:00 09/20/2016 23:59:59 DIS Outpatient TIAGO STEWART [facility] [id number] 07/11/2016 19:26:00 07/11/2016 23:59:59 CLS Emergency [facility] KATHRYN ED [facility] [id number] 06/28/2016 10:08:40 06/28/2016 23:59:59 CLS Outpatient TIAGO STEWART [facility] [id number] 05/11/2016 14:30:00 05/11/2016 23:59:59 CLS Outpatient Kassy Sosa [facility] [id number] 05/02/2016 13:46:16 05/02/2016 23:59:59 CLS Outpatient SHAILESH JOHNSON [facility] [id number] 03/05/2016 13:05:00 03/05/2016 23:59:59 CLS Emergency [facility] KATHRYN ED sob [id number] 02/23/2016 11:09:42 02/23/2016 23:59:59 CLS Outpatient ALEX SUKHIANNE-MARIE Martinez [facility] [id number] 01/29/2018 02:00:27 Document Registration [id number] 12/17/2017 05:22:16 Document Registration [id number] 11/10/2017 02:00:49 Document Registration [id number] 09/07/2017 11:39:10 Document Registration [id number] 07/03/2017 02:00:48 Document Registration [id number] 06/12/2017 02:00:20 Document Registration [id number] 06/04/2017 02:00:45 Document Registration [id number] 12/16/2016 02:10:45 Document Registration [id number] 06/28/2016 10:57:59 Document Registration [id number] 05/02/2016 14:35:43 Document Registration [id number] 04/09/2016 02:02:04 Document Registration [id number] 03/28/2016 02:00:31 Document Registration [id number] 03/15/2016 02:00:59 Document Registration [id number] 02/23/2016 11:34:04 Document Registration [id number] 02/01/2016 02:00:13 Document Registration
[2018-03-12] MEDS ORDERED: LACTATED RINGERS 1,000 ML IV ONE (22:13)
[2018-03-12] MEDS ORDERED: diphenhydrAMINE 50 MG/ML INJ (BENADRYL) IVP ONE (22:15)
[2018-03-12] MEDS ORDERED: ONDANSETRON 4 MG/2 ML (SDV) Z0FRAN IVP ONE (22:15)
[2018-03-12] MEDS ORDERED: PANTOPRAZOLE 40 MG (PROTONIX) VIAL IV ONE (22:15)
--- NOTE | 2018-03-12 22:15 | NUR ---
PT RETCHING IN POSITION, STATES SHE JUST FEELS SICK A DOG.
[2018-03-12 22:39] LABS: BASOPHILS % (AUTO) 0 % (0-10); EOSINOPHILS # (AUTO) 0.1 10^3/uL (0.0-0.3); EOSINOPHILS % (AUTO) 1 % (0-10); HEMATOCRIT 53 % (35-52); HEMOGLOBIN 18.5 G/DL (11.5-16.0); LYMPHOCYTES # (AUTO) 3.3 X 10^3 (1.0-4.0); LYMPHOCYTES % (AUTO) 17 % (12-44); MEAN CORPUSCULAR HEMOGLOBIN 29 PG (25-34); MEAN CORPUSCULAR HGB CONC 35 G/DL (32-36); MEAN CORPUSCULAR VOLUME 85 FL (80-99); MEAN PLATELET VOLUME 10.3 FL (7.4-10.4); MONOCYTES # (AUTO) 0.5 X 10^3 (0.0-1.0); MONOCYTES % (AUTO) 3 % (0-12); NEUTROPHILS # (AUTO) 15.3 X 10^3 (1.8-7.8); NEUTROPHILS % (AUTO) 79 % (42-75); PLATELET COUNT 372 10^3/uL (130-400); RED CELL DISTRIBUTION WIDTH 17.2 % (10.0-14.5); WHITE BLOOD COUNT 19.3 10^3/uL (4.3-11.0)
[2018-03-12 22:49] LABS: INR 0.9 (0.8-1.4)
[2018-03-12 23:00] LABS: ALANINE AMINOTRANSFERASE 42 U/L (0-55); ALBUMIN 4.5 GM/DL (3.2-4.5); ALKALINE PHOSPHATASE 191 U/L (40-136); AMYLASE 45 U/L (25-125); BILIRUBIN,TOTAL 0.5 MG/DL (0.1-1.0); BUN/CREATININE RATIO 25; CALCIUM 10.4 MG/DL (8.5-10.1); CARBON DIOXIDE 25 MMOL/L (21-32); CHLORIDE 99 MMOL/L (98-107); CREATININE SERUM 0.88 MG/DL (0.60-1.30); GFR ESTIMATED > 60; GLUCOSE 136 MG/DL (70-105); LIPASE 26 U/L (8-78); MAGNESIUM 2.4 MG/DL (1.8-2.4); POTASSIUM 4.1 MMOL/L (3.6-5.0); SODIUM 142 MMOL/L (135-145); TOTAL PROTEIN 8.7 GM/DL (6.4-8.2)
[2018-03-12] MEDS ORDERED: SCOPOLAMINE 1.5 MG (TRANSDERM-SCOP) PATCH TD ONE (23:00)
[2018-03-12] MEDS ORDERED: PROMETHAZINE INJ 25 MG/ML (PHENERGAN) AMP IVP ONE ×2 (23:00→23:45)
[2018-03-12 23:10] LABS: BAND NEUTROPHILS 8 %; LYMPHOCYTES % (MANUAL) 20 %; MONOCYTES % (MANUAL) 3 %; NEUTROPHILS % (MANUAL) 69 %
[2018-03-12 23:11] LABS: ANISOCYTOSIS SLIGHT
[2018-03-12] MEDS ORDERED: RT-ALBUTEROL/IPRATROPIUM 3 ML (DUONEB) VIAL INH ONE (23:15)
--- NOTE | 2018-03-13 00:13 | NUR ---
PT VOMITED AND PASSED LIQUID STOOL SHORTLY AFTER STRAIGHT CATH PROCEDURE. PT CLEANSED AND NEW SHEETS GIVEN.
[2018-03-13 00:24] LABS: BILIRUBIN,URINE NEGATIVE (NEGATIVE); CLARITY,URINE VERY CLOUDY; COLOR,URINE YELLOW; GLUCOSE, URINE (UA) 2+ (NEGATIVE); KETONES,URINE 1+ (NEGATIVE); LEUKOCYTE ESTERASE ,URINE 1+ (NEGATIVE); NITRITE,URINE NEGATIVE (NEGATIVE); PH,URINE 5 (5-9); PROTEIN,URINE 4+ (NEGATIVE); UROBILINOGEN,URINE 1 MG/DL (NORMAL)
[2018-03-13] MEDS ORDERED: ONDANSETRON 4 MG/2 ML (SDV) Z0FRAN IVP ONE (00:30)
[2018-03-13 00:35] LABS: AMORPHOUS SEDIMENT,UR LARGE AMOR URATES /LPF; BACTERIA,URINE TRACE /HPF; RBC,URINE RARE /HPF; WBC,URINE RARE /HPF
[2018-03-13 00:44] LABS: AMPHETAMINE SCREEN, URINE NEGATIVE (NEGATIVE); BARBITURATE SCREEN URINE NEGATIVE (NEGATIVE); BENZODIAZEPINES SCREEN URINE NEGATIVE (NEGATIVE); CANNABINOID SCREEN, URINE NEGATIVE (NEGATIVE); COCAINE SCREEN URINE NEGATIVE (NEGATIVE); METHADONE STAT NEGATIVE (NEGATIVE); METHAMPHETAMINE SCREEN URINE S NEGATIVE (NEGATIVE); OPIATE SCREEN URINE NEGATIVE (NEGATIVE); OXYCODONE STAT NEGATIVE (NEGATIVE); PROPOXYPHENE STAT NEGATIVE (NEGATIVE); TRICYCLIC ANTIDEPRESSANTS SCRE NEGATIVE (NEGATIVE)
[2018-03-13] MEDS ORDERED: LACTATED RINGERS 1,000 ML IV ONE ×2 (00:49→04:42)
[2018-03-13] MEDS ORDERED: NS IV 1000 ML 1,000 ML IV ONE ×2 (01:08→02:56)
--- NOTE | 2018-03-13 01:43 | ED GI ---
General Chief Complaint: Abdominal/GI Problems Stated Complaint: PAIN IN ABD Nursing Triage Note: Pt's went to registration window stating pt was on the floor in waiting room bathroom and needed assistance. This nurse and MINH Rodriguez went to assist pt. Pt on floor with nothing on down from the waist, pt diaphoretic and crying. Pt assisted to rm 10 in wheelchair. Pt actively wretching and vomiting. Pt c/ o weakness, dizziness, headache and severe abdominal pain that began earlier today. Pt reports vomiting didn't begin until arrival at ED. Sepsis Screen: Possible Severe Sepsis Risk Source of Information: Patient (GIVES VERY MINIMAL INFORMATION), Family (ARE VERY LIMITED HISTORIANS) History of Present Illness Date Seen by Provider: Mar 12, 2018 Time Seen by Provider: 22:05 Initial Comments PT ARRIVES VIA POV C/O NAUSEA/VOMITING/DIARRHEA AND EPIGASTRIC PAIN--BEGAN A COUPLE OF HOURS AGO BEGAN VOMITING ON ARRIVAL TO ER AND HAS VOMITED X 3 IN WAITING ROOM AND IS ACTIVELY VOMITING ON EXAM--HAS VOMITED ALL OVER CLOTHING AND FLOOR IN WAITING ROOM AND IN ER ROOM PT HAS HAD DIARRHEA X 1--WAS INCONTINENT OF STOOL IN WAITING ROOM, AND ALSO IN ER ROOM PT TOOK 1 ZOFRAN AT 1830 WITHOUT RELIEF--STATES IS OLD RX FROM PRIOR PROBLEM STATES SHE HAS A "BAD STOMACH" BUT DOES NOT HAVE ANY DX --JUST STATES SOMETIMES SHE GETS NAUSEATED AND SOMETIMES SHE HAS A STOMACH ACHE, BUT CURRENT PROBLEM IS NOTHING LIKE THOSE SYMPTOMS NO FEVER, BUT IS PROFUSELY DIAPHORETIC ON ARRIVAL NO SICK CONTACTS OR SUSPICIOUS FOODS STATES SHE HAS "EATEN GOOD" ALL DAY, LAST INTAKE WAS AROUND 1730--ATE A SANDWICH FROM [employer] IN [facility]-OTHER FAMILY ATE SAME THING AND NO ONE ELSE IS ILL. PT IS URINATING NORMALLY AND URINATED IN WAITING ROOM--ALSO INCONTINENT OF URINE , WITH VOMITING AND DIARRHEA PCP: YAMILET LIRIANO PT LISTS [facility] FRANCIS HER CURRENT ADDRESS Allergies and Home Medications Allergies Coded Allergies: strawberry (Verified Allergy, Severe, ANAPHYLAXIS, 03/13/18) latex (Verified Allergy, Unknown, 03/13/18) morphine (Verified Allergy, Unknown, 03/13/18) Uncoded Allergies: pepperoni (Allergy, Severe, ANAPHYLAXIS, 03/13/18) Patient Home Medication List Home Medication List Reviewed: No (NEITHER PT NOR FAMILY KNOW ANY OF PT'S MEDICATIONS, AND NO LIST AND UNABLE TO RECALL FROM MED RECONCILIATION) Review of Systems Review of Systems Constitutional: diaphoresis, malaise, weakness Respiratory: No Symptoms Reported Cardiovascular: No Symptoms Reported Gastrointestinal: See HPI, Abdominal Pain, Diarrhea, Nausea, Vomiting, Other ( LARGE VENTRAL HERNIA--NO REPAIR YET, MAY BE HAVING IT REPAIRED IN THE FUTURE, BUT NEEDS CARDIOLOGY EVALUATION FOR CLEARANCE, WHICH HAS NOT BEEN ARRANGED YET. ) Genitourinary: No Symptoms Reported Musculoskeletal: no symptoms reported Skin: no symptoms reported Psychiatric/Neurological: No Symptoms Reported Endocrine: No Symptoms Reported Past Euzmuux-Barrkz-Mhhwpa Hx Patient Social History Alcohol Use: Occasionally Uses Alcohol Beverage of Choice: Beer Recreational Drug Use: No Smoking Status: Former Smoker Recent Foreign Travel: No Contact w/Someone Who Travel: No Recent Infectious Disease Expo: No Recent Hopitalizations: No Physical Abuse: No Sexual Abuse: No Immunizations Up To Date PED Vaccines UTD: Yes Seasonal Allergies Seasonal Allergies: No Past Medical History Surgeries: Yes (HYST/BSO) Appendectomy, Gallbladder, Hysterectomy, Oophorectomy Respiratory: Yes Asthma, COPD Currently Using CPAP: No Cardiac: Yes Atrial Fibrillation Neurological: No [employer]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 oz. [id number]; BMI Method:Stated General Appearance: obese, other (VERY DRAMATIC, WAILING, ACTIVELY VOMITING ALL OVER, AND INCONTINENT OF LOOSE STOOL; PROFUSELY DIAPHORETIC) HEENT: PERRL/EOMI Respiratory: normal breath sounds, no respiratory distress, no accessory muscle use Cardiovascular: no edema, no murmur, tachycardia Gastrointestinal: normal bowel sounds, tenderness (VERY TENDER IN EPIGASTRIC AREA. 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 as tested, no motor/sensory deficits, alert, oriented x 3 Skin: diaphoresis, pallor Focused Exam Lactate Level 03/12/18 22:25: Lactic Acid Level 2.97*H 03/13/18 00:22: Lactic Acid Level 3.28*H Lactic Acid Level Laboratory Tests Test 03/12/18 22:25 03/13/18 00:22 Lactic Acid Level 2.97 MMOL/L (0.50-2.00) *H 3.28 MMOL/L (0.50-2.00) *H Progress/Results/Core Measures Results/Orders Lab Results Laboratory Tests Test 03/12/18 22:25 03/13/18 00:14 03/13/18 00:22 Range/Units White Blood Count 19.3 H 4.3-11.0 10^3/uL Red Blood Count 6.30 H 4.35-5.85 10^6/uL Hemoglobin 18.5 H 11.5-16.0 G/DL Hematocrit 53 H 35-52 % Mean Corpuscular Volume 85 80-99 FL Mean Corpuscular Hemoglobin 29 25-34 PG Mean Corpuscular Hemoglobin Concent 35 32-36 G/DL Red Cell Distribution Width 17.2 H 10.0-14.5 % Platelet Count 372 130-400 10^3/uL Mean Platelet Volume 10.3 7.4-10.4 FL Neutrophils (%) (Auto) 79 H 42-75 % Lymphocytes (%) (Auto) 17 12-44 % Monocytes (%) (Auto) 3 0-12 % Eosinophils (%) (Auto) 1 0-10 % Basophils (%) (Auto) 0 0-10 % Neutrophils # (Auto) 15.3 H 1.8-7.8 X 10^3 Lymphocytes # (Auto) 3.3 1.0-4.0 X 10^3 Monocytes # (Auto) 0.5 0.0-1.0 X 10^3 Eosinophils # (Auto) 0.1 0.0-0.3 10^3/uL Basophils # (Auto) 0.0 0.0-0.1 10^3/uL Neutrophils % (Manual) 69 % Lymphocytes % (Manual) 20 % Monocytes % (Manual) 3 % Band Neutrophils 8 % Anisocytosis SLIGHT Prothrombin Time 12.0 L 12.2-14.7 SEC INR Comment 0.9 0.8-1.4 Activated Partial Thromboplast Time 20 L 24-35 SEC Sodium Level 142 135-145 MMOL/L Potassium Level 4.1 3.6-5.0 MMOL/L Chloride Level 99 98-107 MMOL/L Carbon Dioxide Level 25 21-32 MMOL/L Anion Gap 18 H 5-14 MMOL/L Blood Urea Nitrogen 22 H 7-18 MG/DL Creatinine 0.88 0.60-1.30 MG/DL Estimat Glomerular Filtration Rate > 60 BUN/Creatinine Ratio 25 Glucose Level 136 H 70-105 MG/DL Lactic Acid Level 2.97 *H 3.28 *H 0.50-2.00 MMOL/L Calcium Level 10.4 H 8.5-10.1 MG/DL Corrected Calcium 10.0 8.5-10.1 MG/DL Magnesium Level 2.4 1.8-2.4 MG/DL Total Bilirubin 0.5 0.1-1.0 MG/DL Aspartate Amino Transf (AST/SGOT) 28 5-34 U/L Alanine Aminotransferase (ALT/SGPT) 42 0-55 U/L Alkaline Phosphatase 191 H 40-136 U/L Troponin I < 0.028 <0.028 NG/ML Total Protein 8.7 H 6.4-8.2 GM/DL Albumin 4.5 3.2-4.5 GM/DL Amylase Level 45 25-125 U/L Lipase 26 8-78 U/L Serum Alcohol < 10 <10 MG/DL Urine Color YELLOW Urine Clarity VERY CLOUDY H Urine pH 5 5-9 Urine Specific Bradford 1.020 1.016-1.022 Urine Protein 4+ NEGATIVE Urine Glucose (UA) 2+ H NEGATIVE Urine Ketones 1+ H NEGATIVE Urine Nitrite NEGATIVE NEGATIVE Urine Bilirubin NEGATIVE NEGATIVE Urine Urobilinogen 1 NORMAL MG/DL Urine Leukocyte Esterase 1+ H NEGATIVE Urine RBC (Auto) 1+ H NEGATIVE Urine RBC RARE /HPF Urine WBC RARE /HPF Urine Squamous Epithelial Cells 10-25 H /HPF Urine Crystals PRESENT H /LPF Urine Amorphous Sediment LARGE LILI URATES H /LPF Urine Bacteria TRACE /HPF Urine Casts NONE /LPF Urine Mucus NEGATIVE /LPF Urine Culture Indicated NO Urine Opiates Screen NEGATIVE NEGATIVE Urine Oxycodone Screen NEGATIVE NEGATIVE Urine Methadone Screen NEGATIVE NEGATIVE Urine Propoxyphene Screen NEGATIVE NEGATIVE Urine Barbiturates Screen NEGATIVE NEGATIVE Ur Tricyclic Antidepressants Screen NEGATIVE NEGATIVE Urine Phencyclidine Screen NEGATIVE NEGATIVE Urine Amphetamines Screen NEGATIVE NEGATIVE Urine Methamphetamines Screen NEGATIVE NEGATIVE Urine Benzodiazepines Screen NEGATIVE NEGATIVE Urine Cocaine Screen NEGATIVE NEGATIVE Urine Cannabinoids Screen NEGATIVE NEGATIVE My Orders Orders - BORIS GROVER DO Saline Lock/Iv-Start (03/12/18 22:13) Ekg Tracing (03/12/18 22:13) Monitor-Rhythm Ecg Trace Only (03/12/18 22:13) Straight Cath For Spec.-Adult (03/12/18 22:13) Ct Abdomen/Pelvis Wo (03/12/18 22:13) Alcohol (03/12/18 22:13) Amylase (03/12/18 22:13) Cbc With Automated Diff (03/12/18 22:13) Comprehensive Metabolic Panel (03/12/18 22:13) Drug Screen Stat (Urine) (03/12/18 22:13) Lipase (03/12/18 22:13) Magnesium (03/12/18 22:13) Protime With Inr (03/12/18 22:13) Partial Thromboplastin Time (03/12/18 22:13) Troponin I (03/12/18 22:13) Ua Culture If Indicated (03/12/18 22:13) Saline Lock/Iv-Start (03/12/18 22:13) Lactated Ringers (Lr 1000 Ml Iv Solution (03/12/18 22:13) Ondansetron Injection (Zofran Injectio (03/12/18 22:15) Pantoprazole Injection (Protonix Injecti (03/12/18 22:15) Diphenhydramine Injection (Benadryl Inje (03/12/18 22:15) Scopolamine Patch (Transderm-Scop Patch) (03/12/18 23:00) Promethazine Injection (Phenergan Injec (03/12/18 23:00) Manual Differential (03/12/18 22:25) Albuterol/Ipra Inhalation Soln (Duoneb I (03/12/18 23:15) Lactic Acid Analyzer (03/12/18 23:31) Blood Culture (03/12/18 23:31) Promethazine Injection (Phenergan Injec (03/12/18 23:45) Medications Given in ED Current Medications Medications Dose Ordered Sig/Mary Anne Route Start Time Stop Time Status Last Admin Dose Admin Diphenhydramine HCl 50 mg ONCE ONCE IVP 03/12/18 22:15 03/12/18 22:18 DC 03/12/18 22:31 50 MG Lactated Ringer's 1,000 ml @ 0 mls/hr Q0M ONCE IV 03/12/18 22:13 03/12/18 22:18 DC 03/12/18 22:30 1,000 MLS/HR Ondansetron HCl 8 mg ONCE ONCE IVP 03/12/18 22:15 03/12/18 22:18 DC 03/12/18 22:31 8 MG Pantoprazole 40 mg ONCE ONCE IV 03/12/18 22:15 03/12/18 22:18 DC 03/12/18 22:32 40 MG Promethazine HCl 25 mg ONCE ONCE IVP 03/12/18 23:00 03/12/18 23:01 DC 03/12/18 23:10 25 MG Promethazine HCl 25 mg ONCE ONCE IVP 03/12/18 23:45 03/12/18 23:46 DC 03/13/18 01:23 25 MG Scopolamine 1.5 mg ONCE ONCE TD 03/12/18 23:00 03/12/18 23:01 DC 03/12/18 23:10 1.5 MG Vital Signs/I&O 03/12/18 03/12/18 22:00 23:36 Temp 97.0 97.2 Pulse 127 118 Resp 29 22 B/P (MAP) 148/70 (96) 126/71 Pulse Ox 94 96 O2 Delivery Room Air Nasal Cannula O2 Flow Rate 4.00 Blood Pressure Mean: 89 Progress Progress Note : Progress Note GIVEN ZOFRAN, PHENERGAN, BENADRYL AND SCOPOLAMINE PT CONTINUED TO VOMIT IN CT ROOM AND ALL OVER CT TABLE, ADDITIONAL MEDICATIONS GIVEN PT REFUSED PLAIN XRAYS NAUSEA IMPROVED LONG SHE LAYS STILL, AND NO FURTHER VOMITING AND NO LONGER DIAPHORETIC ABDOMINAL PAIN HAS IMPROVED PT HAD A COUPLE MORE EPISODES OF BOWEL INCONTINENCE DURING ER STAY. BLOOD PRESSURE DID DROP AFTER ADDITIONAL DOSES OF NAUSEA MEDICATION WERE GIVEN, DOWN INTO 60'S AND 70'S SYSTOLIC PT WAS ALSO LAYING ON HER RIGHT SIDE AT THE TIME AND WOULD NOT LAY ON HER BACK TO CHECK VITALS. ADDITIONAL IV STARTED AND ADDITIONAL FLUIDS WERE ORDERED AND BP RAPIDLY UP TO > 100 SYSTOLIC BEFORE 2ND AND 3RD LITER HAD INFUSED HEART RATE DOWN TO LOW 100'S O2 SAT DID DROP TO 88% AFTER ADDITIONAL IV FLUIDS WERE GIVEN AND PT WAS SLEEPING. O2 STARTED AND INCREASED TO 4L/NC AND O2 SATS REMAINED IN MID 90'S VITALS STABLE AT TIME OF ADMIT. BP 124/56, HR 112, O2 SAT MID 90'S ON 4L/NC Initial ECG Impression Date: Mar 12, 2018 Initial ECG Impression Time: 23:35 Initial ECG Rate: 109 Initial ECG Rhythm: Normal Sinus Initial ECG Impression: Nonspecific Changes Initial ECG Comparisson: No Previous ECG Available Diagnostic Imaging Comments CT ABDOMEN/PELVIS--DIFFUSE FLUID FILLED STOMACH, SMALL BOWEL AND PROXIMAL LARGE BOWEL, POSSIBLY REPRESENTING GASTROENTERITIS. NO BOWEL OBSTRUCTION. LARGE WIDE NECKED BOWEL CONTAINING VENTRAL HERNIA, WITH NO EVIDENCE OF OBSTRUCTION. PER STAT RAD VIA FAX @ 0623 Reviewed: Reviewed by Co Departure Communication (Admissions) 0025--SPOKE WITH DR. DENNIS, HOSPITALIST. ACCEPTS PT FOR ADMIT Impression Primary Impression: Acute gastroenteritis Additional Impressions: INTRACTBLE NAUSEA, VOMITING AND DIARRHEA Sepsis IDDM (insulin dependent diabetes mellitus) History of atrial fibrillation Disposition: ADMITTED INPATIENT Condition: Improved Admissions Decision to Admit Reason: Admit from ER (General) Decision to Admit/Date: Mar 13, 2018 Time/Decision to Admit Time: 00:25 BORIS GROVER DO Mar 13, 2018 01:43
--- OUTSIDE RECORDS SUMMARY | 2018-03-13 02:44 | XMS REPORT | Continuity of Care Document ---
Demographics x Preferred Language Unknown Marital Status Unknown Quaker Affiliation Unknown Race Unknown Ethnic Group Unknown Author Author [facility] Organization [facility] Address Unknown Phone Unavailable Allergies Active Description [...] Stadol 976 Drug Allergy N/A N/A Yes [place] Food Allergy N/A Shortness of Breath Yes Tamiflu 33224 Drug Allergy N/A N/A Yes Vancomycin 4866 Drug Allergy Severe Rash Yes AMITRIPTYLINE Drug Allergy N/ A N/A Yes LATEX Drug Allergy N/A N/A Yes MORPHINE SULFATE 46855 Drug Allergy N/A N/A Yes Advair Diskus Drug N/A N/A Yes Augmentin Drug N/A N/A Yes Augmentin Drug Other N/A Yes Avelox Drug N/A [id number] Yes codeine phosphate Drug N/A N/A Yes doxycycline Drug N/A N/A Yes Egg Allergy Drug N/A N/A Yes gabapentin Drug N/A delusions Yes imipramine Drug N/A [id number] Yes iodine Drug N/A N/ A Yes Latex Allergy Drug N/A N/A Yes Lyrica Drug N/A N/ A Yes macrolide antibiotics 37 Drug N /A N/A Yes morphine Drug N/A N/A Yes PROzac Drug N/A N/ A Yes Stadol Drug N/A N/ A Yes morphine [id number] Drug Allergy Unknown N/A 03/12/2018 Medications There is no data. Problems Date [...] Procedures Code [place] [address] ROUTINE VENIPUNCTURE 04/29/2013 58845 COMPREHEN METABOLIC PANEL 04/29/2013 40759 DRUG SCRN 1+ CLASS NONCHROMO 04/29/2013 37555 URINALYSIS, AUTO W/SCOPE 04/29/2013 84399 BL SMEAR W/DIFF WBC COUNT 04/29/2013 12523 COMPLETE CBC, AUTOMATED 04/29/2013 51663 THER/PROPH/DIAG INJ, IV PUSH 04/29/2013 74227 TX/PRO/DX INJ NEW DRUG ADDON 04/29/2013 53043 EMERGENCY DEPT VISIT 04/29/2013 93822 EMERGENCY DEPT VISIT 04/29/2013 J2060 Lorazepam injection 04/29/2013 J2405 ONDANSETRON HCL INJECTION 04/29/2013 82626 EXC TR-EXT B9+REJI > 4.0 CM 09/23/2013 98033 LAYER CLOSURE OF WOUND(S) 09/23/2013 85843 ROUTINE VENIPUNCTURE 09/23/2013 30258 CHORIONIC GONADOTROPIN ASSAY 09/23/2013 863 OTH LOCAL EXC LESION 09/23/2013 75918 AIRWAY INHALATION TREATMENT 09/23/2013 C9290 INJ, BUPIVICAINE LIPOSOME 09/23/2013 J2250 INJ MIDAZOLAM HYDROCHLORIDE 09/23/2013 J7120 RINGERS LACTATE INFUSION 09/23/2013 J7613 ALBUTEROL NON-COMP UNIT 09/23/2013 65037 EMERGENCY DEPT VISIT 02/13/2014 06696 X-RAY EXAM SERIES, ABDOMEN 03/24/2015 12158 EMERGENCY DEPT VISIT 03/24/2015 25776 EMERGENCY DEPT VISIT 03/24/2015 55457 COMPREHEN METABOLIC PANEL 06/04/2015 10761 GLYCOSYLATED HEMOGLOBIN TEST 06/04/2015 28719 COMPLETE CBC W/AUTO DIFF WBC 06/04/2015 52198 METABOLIC PANEL TOTAL CA 08/11/2015 24245 ASSAY OF DIGOXIN 08/11/2015 45066 GLYCOSYLATED HEMOGLOBIN TEST 08/11/2015 74959 BL SMEAR W/DIFF WBC COUNT 08/11/2015 53282 COMPLETE CBC, AUTOMATED 08/11/2015 Results Test Result [...] ALP 156 IU/L 25-72 ALT 72 IU/L 65 AST 32 IU/L 10-42 BCR 29.3 10-20 BUN 24 MG/DL 7-18 CA 9.4 MG/DL 8.4-10.2 CL 100 MEQ/L 98-107 CO2 29.2 MEQ/L 22-28 CREA 0.82 MG/DL 0.6-1.0 EGFR 73 eGFR >=60 GLU 141 MG/DL 70-105 K 4.5 MEQ/L 3.5-5.1 NA 141 MEQ/L 134-145 OSMSC 287.7 MOSML 280-300 TBIL 0.3 MG/DL 0.1-1.0 TP 7.8 G/DL 6.0-8.3 Albumin/Globulin Ratio 0.8 0-8 Anion Gap 11.8 8-16 CBC WITH DIFF - 08/31/15 00:00 BASO% 0.5 % 0-2 EOS% 1.4 [...] % 40-70 Atypical Lymphs 4.0 % 0-5 Complete blood count (CBC) with automated white blood cell (WBC) differential - 03/12/18 22:25 Blood leukocytes automated count (number/volume) 19.3 10*3/uL 4.3-11.0 Blood erythrocytes automated count (number/volume) 6.30 10*6/uL 4.35-5.85 Venous blood hemoglobin measurement (mass/volume) 18.5 g/dL 11.5-16.0 Blood hematocrit (volume fraction) 53 % 35-52 Automated erythrocyte mean corpuscular volume 85 [foz_us] 80-99 Automated erythrocyte mean corpuscular hemoglobin (mass per erythrocyte) 29 pg 25-34 Automated erythrocyte mean corpuscular hemoglobin concentration measurement ( mass/volume) 35 g/dL 32-36 Automated erythrocyte distribution width ratio 17.2 % 10.0-14.5 Automated blood platelet count (count/volume) 372 10*3/uL 130-400 Automated blood platelet mean volume measurement 10.3 [foz_us] 7.4-10.4 Automated blood neutrophils/100 leukocytes 79 % 42-75 Automated blood lymphocytes/100 leukocytes 17 % 12-44 Blood monocytes/100 leukocytes 3 % 0-12 Automated blood eosinophils/100 leukocytes 1 % 0-10 Automated blood basophils/100 leukocytes 0 % 0-10 Blood neutrophils automated count (number/volume) 15.3 10*3 1.8-7.8 Blood lymphocytes automated count (number/volume) 3.3 10*3 1.0-4.0 Blood monocytes automated count (number/volume) 0.5 10*3 0.0-1.0 Automated eosinophil count 0.1 10*3/uL 0.0-0.3 Automated blood basophil count (count/volume) 0.0 10*3/uL 0.0-0.1 Comprehensive metabolic panel - 03/12/18 22:25 Serum or plasma sodium measurement (moles/volume) 142 mmol/L 135-145 Serum or plasma potassium measurement (moles/volume) 4.1 mmol/L 3.6-5.0 Serum or plasma chloride measurement (moles/volume) 99 mmol/L 98-107 Carbon dioxide 25 mmol/L 21-32 Serum or plasma anion gap determination (moles/volume) 18 mmol/L 5-14 Serum or plasma urea nitrogen measurement (mass/volume) 22 mg/dL 7-18 Serum or plasma creatinine measurement (mass/volume) 0.88 mg/dL 0.60-1.30 Serum or plasma urea nitrogen/creatinine mass ratio 25 NRG Serum or plasma creatinine measurement with calculation of estimated glomerular filtration rate > NRG Serum or plasma glucose measurement (mass/volume) 136 mg/dL 70-105 Serum or plasma calcium measurement (mass/volume) 10.4 mg/dL 8.5-10.1 Serum or plasma total bilirubin measurement (mass/volume) 0.5 mg/dL 0.1-1.0 Serum or plasma alkaline phosphatase measurement (enzymatic activity/volume) 191 U/L 40-136 Serum or plasma aspartate aminotransferase measurement (enzymatic activity/ volume) 28 U/L 5-34 Serum or plasma alanine aminotransferase measurement (enzymatic activity/volume ) 42 U/L 0-55 Serum or plasma protein measurement (mass/volume) 8.7 g/dL 6.4-8.2 Serum or plasma albumin measurement (mass/volume) 4.5 g/dL 3.2-4.5 CALCIUM CORRECTED 10.0 mg/dL 8.5-10.1 Magnesium - 03/12/18 22:25 Magnesium 2.4 mg/dL 1.8-2.4 Serum or plasma troponin i.cardiac measurement (mass/volume) - 03/12/18 22:25 Serum or plasma troponin i.cardiac measurement (mass/volume) < ng/ mL <0.028 Serum or plasma amylase measurement (enzymatic activity/volume) - 03/12/18 22: 25 Serum or plasma amylase measurement (enzymatic activity/volume) 45 U /L 25-125 Lipase - 03/12/18 22:25 Lipase 26 U/L 8-78 Blood manual differential performed detection - 03/12/18 22:25 Blood monocytes/100 leukocytes 3 % NRG Manual blood segmented neutrophils/100 leukocytes 69 % NRG Blood band neutrophils/100 leukocytes 8 % NRG Manual blood lymphocytes/100 leukocytes 20 % NRG Blood anisocytosis detection by light microscopy SLIGHT NRG PT panel in platelet poor plasma by coagulation assay - 03/12/18 22:25 Prothrombin time (PT) in platelet poor plasma by coagulation assay 12.0 s 12.2-14.7 INR in platelet poor plasma or blood by coagulation assay 0.9 0.8-1.4 Activated partial thromboplastin time (aPTT) in platelet poor plasma bycoagulation assay - 03/12/18 22:25 Activated partial thromboplastin time (aPTT) in platelet poor plasma bycoagulation assay 20 s 24-35 Serum or plasma ethanol measurement (mass/volume) - 03/12/18 22:25 Serum or plasma ethanol measurement (mass/volume) < mg/dL <10 Blood lactic acid measurement (moles/volume) - 03/12/18 22:25 Blood lactic acid measurement (moles/volume) 2.97 mmol/L 0.50-2.00 Complete urinalysis with reflex to culture - 03/13/18 00:14 Urine color determination YELLOW NRG Urine clarity determination VERY CLOUDY NRG Urine pH measurement by test strip 5 5-9 Specific gravity of urine by test strip 1.020 1.016- 1.022 Urine protein assay by test strip, semi-quantitative 4+ NEGATIVE Urine glucose detection by automated test strip 2+ NEGATIVE Erythrocytes detection in urine sediment by light microscopy 1+ NEGATIVE Urine ketones detection by automated test strip 1+ NEGATIVE Urine nitrite detection by test strip NEGATIVE NEGATIVE Urine total bilirubin detection by test strip NEGATIVE NEGATIVE Urine urobilinogen measurement by automated test strip (mass/volume) 1 mg/dL NORMAL Urine leukocyte esterase detection by dipstick 1+ NEGATIVE Automated urine sediment erythrocyte count by microscopy (number/high power field) RARE NRG Automated urine sediment leukocyte count by microscopy (number/high power field ) RARE NRG Bacteria detection in urine sediment by light microscopy TRACE NRG Squamous epithelial cells detection in urine sediment by light microscopy 10-25 NRG Crystals detection in urine sediment by light microscopy PRESENT NRG Casts detection in urine sediment by light microscopy NONE NRG Mucus detection in urine sediment by light microscopy NEGATIVE NRG Complete urinalysis with reflex to culture NO NRG Amorphous sediment detection in urine sediment by light microscopy LARGE LILI URATES NRG Urine drug screening test - 03/13/18 00:14 Urine phencyclidine detection by screening method NEGATIVE NEGATIVE Urine benzodiazepines detection by screening method NEGATIVE NEGATIVE Urine cocaine detection NEGATIVE NEGATIVE Urine amphetamines detection by screening method NEGATIVE NEGATIVE Urine methamphetamine detection by screening method NEGATIVE NEGATIVE Urine cannabinoids detection by screening method NEGATIVE NEGATIVE Urine opiates detection by screening method NEGATIVE NEGATIVE Urine barbiturates detection NEGATIVE NEGATIVE Screening urine tricyclic antidepressants detection NEGATIVE NEGATIVE Urine methadone detection by screening method NEGATIVE NEGATIVE Urine oxycodone detection NEGATIVE NEGATIVE Urine propoxyphene detection NEGATIVE NEGATIVE Serum or plasma lactate measurement (moles/volume) - 03/13/18 00:22 Serum or plasma lactate measurement (moles/volume) 3.28 mmol/L 0.50-2.00 Encounters ACCT No. Visit Date/Time Discharge Status Pt. Type Provider Facility Loc./Unit Complaint [id number] 08/11/2015 16:01:00 08/11/2015 16:01:00 [id number] 08/04/2015 12:29:00 08/04/2015 12:29:00 DIS Outpatient SHAILESH JOHNSON [facility] PANACE [id number] 06/04/2015 16:48:00 06/04/2015 16:48:00 DIS Outpatient SHAILESH JOHNSON [facility] PA[facility]CE [id number] 03/24/2015 20:56:00 03/24/2015 22:08:00 DIS Emergency SWATHI SALGADO [facility] EMR [id number] 12/12/2014 18:04:00 12/12/2014 18:04:00 DIS Outpatient ALEXSHAILESH BARLOW [facility] PANACE [id number] 10/13/2014 18:25:00 10/13/2014 18:25:00 DIS Outpatient ALEXSHAILESH BARLOW [facility] PANACE [id number] 03/04/2014 15:43:00 03/04/2014 15:43:00 DIS Outpatient ALEXSUKHIANNE-MARIE Juan [facility] RAD [id number] 02/21/2014 02:25:00 02/21/2014 13:30:00 DIS Inpatient ALEXSUKHI BARLOWANNE-MARIE Juan [facility] OBS [id number] 02/19/2014 20:05:00 02/19/2014 23:05:00 DIS Emergency ALEXSHAILESH [facility] EMR [id number] 02/13/2014 14:32:00 02/13/2014 15:08:00 DIS Emergency SHIVAM LOPEZ [facility] EMR [id number] 12/03/2013 10:59:00 12/03/2013 10:59:00 DIS Outpatient ALEX SUKHIANNE-MARIE Juan [facility] RAD [id number] 11/20/2013 22:57:00 11/21/2013 00:30:00 DIS Emergency ALEX SUKHIANNE-MARIE Juan [facility] EMR [id number] 07/19/2013 19:34:00 07/19/2013 20:35:00 DIS Emergency ALEX SUKHIANNE-MARIE Juan [facility] EMR [id number] 06/01/2013 22:26:00 06/02/2013 00:28:00 DIS Emergency SHIVAM LOPEZ W [facility] EMR [id number] 05/09/2013 11:58:00 05/09/2013 11:58:00 DIS Outpatient SHAILESH JOHNSON W [facility] PANACE [id number] 04/28/2013 22:41:00 04/29/2013 00:40:00 DIS Emergency SAMSWATHI Liam [facility] EMR [id number] 01/12/2015 00:00:00 Document Registration [id number] 01/12/2015 00:00:00 Document Registration [id number] 01/12/2014 00:00:00 Document Registration [id number] 01/12/2014 00:00:00 Document Registration [id number] 01/12/2014 00:00:00 Document Registration [id number] 01/12/2014 00:00:00 Document Registration [id number] 09/23/2013 07:40:00 Document Registration [id number] 05/09/2013 11:58:12 Document Registration [id number] 05/09/2013 11:58:12 Document Registration [id number] 05/09/2013 11:58:12 Document Registration [id number] 05/09/2013 11:58:11 Document Registration [id number] 01/12/2013 00:00:00 Document Registration [id number] 01/12/2013 00:00:00 Document Registration [id number] 01/12/2013 00:00:00 Document Registration [id number] 01/12/2013 00:00:00 Document Registration [id number] 02/20/2018 13:55:01 ACT Unknown Kevin Samaniego DO [id number] 05/14/2013 14:03:03 05/14/2013 23:59:59 CLS Outpatient Cesar Dillon [id number] 03/13/2018 00:25:00 ACT Inpatient SONNY BARRERA, ANABEL [place] [facility] 4TH GASTROENTERITIS;INTRACTABLE NAUSEA/VOMITING / [id number] 07/15/2015 05:10:27 07/15/2015 05:10:27 DIS Unknown [id number] 01/02/2018 14:39:18 01/02/2018 23:59:59 CLS Outpatient TIAGO STEWART [facility] [id number] 01/01/2018 16:12:25 01/01/2018 23:59:59 [id number] 01/01/2018 15:17:46 01/01/2018 23:59:59 DIS Outpatient TERRY [facility] [id number] 09/06/2017 10:21:32 09/06/2017 23:59:59 DIS Outpatient TERRY TIAGO [facility] [id number] 08/02/2017 14:15:28 08/02/2017 23:59:59 DIS Outpatient TERRY [facility] [id number] 08/02/2017 13:16:01 08/02/2017 23:59:59 DIS Outpatient TERRY [facility] [id number] 05/12/2017 15:22:58 05/12/2017 23:59:59 DIS Outpatient TERRY [facility] [id number] 05/12/2017 14:11:06 05/12/2017 23:59:59 DIS Outpatient TERRY [facility] [id number] 04/26/2017 13:45:00 04/26/2017 23:59:59 DIS Outpatient TERRY [facility] [id number] 03/27/2017 17:36:00 03/27/2017 23:59:59 CLS Emergency [facility] KATHRYN ED ED VISIT [id number] 03/17/2017 14:04:23 03/17/2017 23:59:59 DIS Outpatient TERRY [facility] [id number] 03/17/2017 13:23:22 03/17/2017 23:59:59 DIS Outpatient TERRY [facility] [id number] 03/01/2017 15:24:44 03/01/2017 23:59:59 DIS Outpatient TERRY [facility] [id number] 03/01/2017 14:39:16 03/01/2017 23:59:59 DIS Outpatient TIAGO STEWART [facility] [id number] 01/24/2017 11:21:05 01/24/2017 23:59:59 DIS Outpatient TIAGO STEWART [facility] [id number] 01/24/2017 10:30:00 01/24/2017 23:59:59 DIS Outpatient TIAGO STEWART [facility] [id number] 12/05/2016 13:19:10 12/05/2016 23:59:59 DIS Outpatient KnightCaseyFariba Jaziel [facility] [id number] 11/22/2016 11:25:50 11/22/2016 23:59:59 DIS Outpatient TERRY [facility] [id number] 11/22/2016 11:24:47 11/22/2016 23:59:59 DIS Outpatient TIAGO STEWART [facility] [id number] 11/02/2016 11:46:56 11/02/2016 23:59:59 DIS Outpatient TERRY TIAGO [facility] [id number] 11/02/2016 10:54:27 11/02/2016 23:59:59 DIS Outpatient TERRY TIAGO [facility] [id number] 10/12/2016 10:30:00 10/12/2016 23:59:59 DIS Outpatient TIAGO STEWART [facility] [id number] 09/20/2016 10:30:00 09/20/2016 23:59:59 DIS Outpatient TERRY [facility] [id number] 07/11/2016 19:26:00 07/11/2016 23:59:59 CLS Emergency [facility] KATHRYN ED [facility] [id number] 06/28/2016 10:08:40 06/28/2016 23:59:59 CLS Outpatient TERRY [facility] [id number] 05/11/2016 14:30:00 05/11/2016 23:59:59 CLS Outpatient Kassy Sosa [facility] [id number] 05/02/2016 13:46:16 05/02/2016 23:59:59 CLS Outpatient ALEX SUKHIANNE-MARIE Martinez [facility] [id number] 03/05/2016 13:05:00 03/05/2016 23:59:59 CLS Emergency [facility] KATHRYN ED sob [id number] 02/23/2016 11:09:42 02/23/2016 23:59:59 CLS Outpatient SHAILESH JOHNSON [facility] [id number] 01/29/2018 02:00:27 Document Registration [id number] 12/17/2017 05:22:16 Document Registration [id number] 11/10/2017 02:00:49 Document Registration [id number] 09/07/2017 11:39:10 Document Registration [id number] 07/03/2017 02:00:48 Document Registration [id number] 06/12/2017 02:00:20 Document Registration [id number] 06/04/2017 02:00:45 Document Registration [id number] 12/16/2016 02:10:45 Document Registration [id number] 06/28/2016 10:57:59 Document Registration [id number] 05/02/2016 14:35:43 Document Registration [id number] 04/09/2016 02:02:04 Document Registration [id number] 03/28/2016 02:00:31 Document Registration [id number] 03/15/2016 02:00:59 Document Registration [id number] 02/23/2016 11:34:04 Document Registration [id number] 02/01/2016 02:00:13 Document Registration
[2018-03-13 03:25] VITALS: BP 112/66
--- NOTE | 2018-03-13 03:25 | NUR ---
DR. GROVER CONTACTED FOR IV FLUID ORDER CLARIFICATION ORDER TO FINISH OUT CURRENT BAG OF NS AT 150ML/HR THEN START LR 150ML/HR BUT ALSO RUN D5 1/2NS WITH 20MEQ KCL @ 150ML/HR CONCURRENTLY.
[2018-03-13] MEDS ORDERED: LACTATED RINGERS 1,000 ML IV SCH (03:30)
--- NOTE | 2018-03-13 03:30 | NUR ---
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 JOHNSON IN [facility] PT USES [facility] FOR HER PHARMACY
--- NOTE | 2018-03-13 03:30 | NUR ---
JANESAMINAJakob Pike admitted to room 410-1, with an admitting diagnosis of GASTROENTEREITIS, INTRACTABLE NAUSEA/VOMITING/DIARRHEA, SEPSIS, on 03/13/18 from ED via CART, accompanied by STAFF & SISTER.JANESAMINAJakob Pike introduced to surroundings, call light, bed controls, phone, TV, temperature control, lights, meal times, smoking policy, visitor policy, side rail policy, bathrooms and showers. Patient Rights given to patient in the handbook. GOYO MARRERO verbalizes understanding that [facility] is not responsible for the loss or damage to any personal effects or valuables that are kept in the patients possession during their hospitalization. THE PATIENT'S PLAN OF CARE WAS DISCUSSED WITH THE PATIENT SHE DENIES ANY QUESTIONS OR CONCERNS AT THIS TIME. GOYO MARRERO verbalizes understanding of Interdisciplinary Patient Education. Patient and/or family were informed about the Rapid Response Team and its purpose. Addendum: 03/13/18 at 0405 by STEFF LOPEZ RN GOYO MARRERO admitted to room 410-1, with an admitting diagnosis of GASTROENTERITIS, INTRACTABLE NAUSEA/VOMITING/DIARRHEA, SEPSIS, on 03/13/18 from ED via CART, accompanied by STAFF & SISTER.GOYO MARRERO introduced to surroundings, call light, bed controls, phone, TV, temperature control, lights, meal times, smoking policy, visitor policy, side rail policy, bathrooms and showers. Patient Rights given to patient in the handbook. GOYO MARRERO verbalizes understanding that [facility] is not responsible for the loss or damage to any personal effects or valuables that are kept in the patients possession during their hospitalization. THE PATIENT'S PLAN OF CARE WAS DISCUSSED WITH THE PATIENT SHE DENIES ANY QUESTIONS OR CONCERNS AT THIS TIME. GOYO MARRERO verbalizes understanding of Interdisciplinary Patient Education. Patient and/or family were informed about the Rapid Response Team and its purpose.
[2018-03-13] MEDS ORDERED: D5 1/2 NS W/KCL 20 MEQ/L 1,000 ML IV ONE (04:41)
[2018-03-13] MEDS ORDERED: SCOPOLAMINE 1.5 MG (TRANSDERM-SCOP) PATCH TOP SCH (04:45)
[2018-03-13] MEDS ORDERED: ONDANSETRON 4 MG/2 ML (SDV) Z0FRAN IV PRN (04:45)
[2018-03-13] MEDS ORDERED: PROMETHAZINE INJ 25 MG/ML (PHENERGAN) AMP IV PRN (04:45)
[2018-03-13] MEDS ORDERED: diphenhydrAMINE 50 MG/ML INJ (BENADRYL) IV PRN (04:45)
[2018-03-13] MEDS: D5 1/2 NS W/KCL 20 MEQ/L 1,000 ML IV SCH ×2 (04:54→11:35)
[2018-03-13 05:30] VITALS: BP 116/68
[2018-03-13] MEDS ORDERED: inSUlin ASPART (NovoLOG) 1 UNIT/0.01 ML (CHARGE PER UNIT) SC SCH ×2 (06:00→12:00)
[2018-03-13] MEDS ORDERED: FLU QUADRIvalent (5+ YOA) 2018-2019 (AFLURIA) 0.5 ML IM ONE (07:00)
[2018-03-13 07:07] LABS: BASOPHILS % (AUTO) 0 % (0-10); EOSINOPHILS % (AUTO) 0 % (0-10); HEMATOCRIT 48 % (35-52); HEMOGLOBIN 15.3 G/DL (11.5-16.0); LYMPHOCYTES # (AUTO) 1.1 X 10^3 (1.0-4.0); LYMPHOCYTES % (AUTO) 5 % (12-44); MEAN CORPUSCULAR HEMOGLOBIN 28 PG (25-34); MEAN CORPUSCULAR HGB CONC 32 G/DL (32-36); MEAN CORPUSCULAR VOLUME 88 FL (80-99); MEAN PLATELET VOLUME 10.3 FL (7.4-10.4); MONOCYTES # (AUTO) 0.9 X 10^3 (0.0-1.0); MONOCYTES % (AUTO) 4 % (0-12); NEUTROPHILS # (AUTO) 19.3 X 10^3 (1.8-7.8); NEUTROPHILS % (AUTO) 90 % (42-75); PLATELET COUNT 266 10^3/uL (130-400); RED CELL DISTRIBUTION WIDTH 16.3 % (10.0-14.5); WHITE BLOOD COUNT 21.4 10^3/uL (4.3-11.0)
--- NOTE | 2018-03-13 07:25 | Diagnostic Imaging Report ---
PROCEDURE: CT abdomen and pelvis without contrast. TECHNIQUE: Multiple contiguous axial images were obtained through the abdomen and pelvis without the use of intravenous contrast. INDICATION: Abdominal pain with nausea and vomiting. COMPARISON: None available. FINDINGS: Evaluation of the abdominal viscera is mildly limited without contrast. Lower chest: The lung bases are clear. No pericardial or pleural effusion. Peritoneum: No free intraperitoneal air or fluid. Liver and biliary system: Liver is enlarged measuring 20 cm in length. Diffuse hypoattenuation of liver is compatible hepatic steatosis. No focal hepatic lesion by noncontrast imaging. Cholecystectomy. No biliary duct dilatation. Spleen and Pancreas: Spleen is normal. Unenhanced pancreas is grossly normal. Adrenals: Normal. tract: No renal or ureteral calculi. No obstructive uropathy. Uterus is atrophic versus surgically absent. No concerning adnexal mass. GI tract: Stomach is partially filled with fluid and there is no wall thickening. No bowel obstruction. No pericolonic inflammatory changes. The small bowel and colon have fluid within them which can be seen with enteritis. Vasculature and Lymph nodes: Normal caliber aorta has moderate atherosclerotic plaquing. No abdominal or pelvic lymphadenopathy. Musculoskeletal: No concerning osseous lesion. IMPRESSION: 1. No bowel obstruction. 2. Fluid-filled stomach, small bowel and colon can be seen with gastroenteritis. 3. Findings are in agreement with the preliminary report. Dictated by: Dictated on workstation # [id number]
[2018-03-13 07:27] LABS: ALANINE AMINOTRANSFERASE 32 U/L (0-55); ALBUMIN 3.4 GM/DL (3.2-4.5); ALKALINE PHOSPHATASE 113 U/L (40-136); BILIRUBIN,TOTAL 0.7 MG/DL (0.1-1.0); BUN/CREATININE RATIO 31; CALCIUM 9.1 MG/DL (8.5-10.1); CARBON DIOXIDE 25 MMOL/L (21-32); CHLORIDE 105 MMOL/L (98-107); CREATININE SERUM 0.81 MG/DL (0.60-1.30); GFR ESTIMATED > 60; GLUCOSE 266 MG/DL (70-105); POTASSIUM 4.7 MMOL/L (3.6-5.0); SODIUM 142 MMOL/L (135-145); TOTAL PROTEIN 6.4 GM/DL (6.4-8.2)
[2018-03-13 08:30] VITALS: BP 146/78
[2018-03-13] MEDS ORDERED: ALPR0.5T PO (08:31)
[2018-03-13] MEDS ORDERED: OXYC10TA7 PO (08:31)
[2018-03-13] MEDS ORDERED: PANTOPRAZOLE 40 MG (PROTONIX) VIAL IV SCH (09:00)
--- NOTE | 2018-03-13 09:02 | NUR ---
patient has not had any stools in [address]iff precautions[address] Dr Chaves and I discussed this plan.
[2018-03-13 10:30] VITALS: BP 110/66
[2018-03-13] MEDS ORDERED: LISI10TA2 PO (10:38)
[2018-03-13] MEDS ORDERED: PROM25TA14 PO (10:38)
[2018-03-13] MEDS ORDERED: DIGO250T PO (10:38)
[2018-03-13] MEDS ORDERED: PANT40TA2 PO (10:38)
[2018-03-13] MEDS ORDERED: VERA180T5 PO (10:38)
[2018-03-13] MEDS ORDERED: DULA1.5P2 SQ (10:38)
[2018-03-13] MEDS ORDERED: TR1C15 TP (10:38)
[2018-03-13] MEDS ORDERED: INSU100I10 SQ (10:38)
[2018-03-13] MEDS ORDERED: FURO40TA4 PO (10:38)
[2018-03-13] MEDS ORDERED: ONDN4T PO (10:38)
[2018-03-13] MEDS ORDERED: INSU100I23 SQ ×2 (10:38→10:52)
[2018-03-13] MEDS ORDERED: SERT50TA2 PO (10:38)
[2018-03-13] MEDS ORDERED: POTA10TA10 PO (10:38)
[2018-03-13] MEDS ORDERED: RT-ALBUINH IH (10:38)
[2018-03-13] MEDS ORDERED: MECL-106 PO (10:38)
[2018-03-13] MEDS ORDERED: IPRA3AMP31 NEB (10:52)
[2018-03-13] MEDS ORDERED: ALBU2.5V4 NEB (10:52)
[2018-03-13] MEDS ORDERED: SUMA100T2 PO (10:52)
[2018-03-13] MEDS ORDERED: ASCO500T6 PO (10:52)
[2018-03-13] MEDS ORDERED: ASPI325T32 PO (10:52)
[2018-03-13] MEDS ORDERED: FERR-84 PO (10:52)
[2018-03-13] MEDS ORDERED: CHOL5000 PO (10:52)
--- NOTE | 2018-03-13 10:55 | NUR ---
HAD A LIST FAXED OVER FROM DR. JOHNSON OFFICE AND CALLED [facility] IN [place] FOR A LIST OF RECENTLY FILLED MEDICATIONS. [facility] FILLED: 03-05-18 PROAIR 1 PUFF Q4H PRN (STATES SHE USES 2 PUFFS PRN) 03-05-18 TRIAMCINOLONE CREAM AAA 2-3X DAILY UP TO TWO WEEKS 03-02-18 TRULICITY 1.5 WEEKLY (STATES SHE TAKES ON MONDAY) 03-02-18 VERAPAMIL ER 180MG TAB BID 02-25-17 PROTONIX 40MG BID 02-25-18 XANAX 0.5MG TID PRN 02-21-18 OXYCODONE 10MG TID (STATES SHE TAKES PRN) 02-16-18 LANTUS PEN 45 UNITS HS 02-14-18 MECLIZINE 25MG Q6H PRN DIZZINESS 02-14-18 PROMETHAZINE 25MG Q4-6H PRN NAUSEA 02-14-18 LASIX 40MG Q12H (STATES SHE TAKES AM AND 3PM) 02-05-18 HUMALOG KWIKPEN 18 TID + SLIDING SCALE (STATES SHE USES 20 AC BASE +SLIDING SCALE) 02-02-18 ZOFRAN 4MG Q8H PRN 02-02-18 ZOLOFT 50MG DAILY X7 THEN INCREASE TO TWO DAILY (ONLY TAKES 1 AT HS) 02-02-18 LISINOPRIL 10MG DAILY #90 02-02-18 POTASSIUM 10MEQ TID #90 (ONLY TAKES 1 AT 3PM) 01-08-18 DIGOXIN 0.25 DAILY #90 (STATES SHE IS NOT CURRENTLY TAKING) OTC MEDS: IRON DAILY VITAMIN C DAILY VITAMIN D DAILY ASPIRIN 325MG DAILY PATIENT TAKES ALBUTEROL NEBULIZER NEEDED WHEN SHE IS NOT FEELING WELL, SHE USES DUONEB PRN FOR SOB USUALLY. SHE RECEIVES THESE FROM [facility]. SHE STATES SHE HAS IMITREX ON HAND NEEDED WELL MUPIROCIN OINT.
[2018-03-13] MEDS ORDERED: MUPI15CR11 TP (11:00)
[2018-03-13 11:58] VITALS: BP 112/66
[2018-03-13] MEDS ORDERED: RT-ALBUTEROL/IPRATROPIUM 3 ML (DUONEB) VIAL INH PRN (12:30)
[2018-03-13] MEDS ORDERED: NON-FORMULARY MEDICATION 1 EA EA (Ondansetron HCl (Zofran) 4 MG) PO PRN (12:30)
[2018-03-13] MEDS ORDERED: ALPRAZolam 0.5 MG (XANAX) TAB PO PRN (12:30)
[2018-03-13] MEDS ORDERED: MECLIZINE 25 MG (ANTIVERT) TAB PO PRN (12:30)
[2018-03-13] MEDS ORDERED: NON-FORMULARY MEDICATION 1 EA EA (Oxycodone HCl 10 MG) PO PRN (12:30)
[2018-03-13] MEDS ORDERED: PATIENT MAY USE OWN MEDS, ALL MC SCH (12:30)
--- NOTE | 2018-03-13 12:32 | Short Stay Summary-Hospitalist ---
History of Present Illness HPI/Chief Complaint Pt is a 57yoCF with a PMH of IDDMII, a-fib, COPD who presented to the ER due to nausea and vomiting. She states she has had a sinus infection for the past week and her vertigo has been worse and last night veyr became very nauseated prompting her to seek care in the ER. She states in the waiting room of the ER she started to vomit continuously and developed diarrhea of which she was incontinent. Per notes this continued throughout her entire ER stay and she did not improve with antiemetics. She now states she feels much better and has no pain or nausea. She has not had a bowel movement since the middle of the night. She is hungry and would like to eat. Her only concern today is that she will get to discharge home. Source: patient Date Seen 03/13/18 Time Seen by a Provider: 12:32 Attending Physician Kian Lemons MD PCP Kassy Sosa MD Referring Physician Date of Admission Mar 13, 2018 at 00:25 Home Medications & Allergies Home Medications Reviewed patient Home Medication Reconciliation performed by pharmacy medication reconciliations mine technician and/or nursing. Patients Allergies have been reviewed. Allergies Allergies Coded Allergies butorphanol (Verified Allergy, Severe, 03/13/18) strawberry (Verified Allergy, Severe, ANAPHYLAXIS, 03/13/18) erythromycin base (Verified Allergy, Unknown, NAUSEA, 03/13/18) gabapentin (Verified Allergy, Unknown, 03/13/18) heartburn latex (Verified Allergy, Unknown, 03/13/18) morphine (Verified Allergy, Unknown, 03/13/18) Uncoded Allergies pepperoni ( Allergy, Severe, ANAPHYLAXIS, 03/13/18) Past Bgwhcqo-Vbezll-Uggasi Hx Past Med/Social Hx: Reviewed Nursing Past Med/Soc Hx Patient Social History Alcohol Use: Occasionally Uses Alcohol Beverage of Choice: Beer Recreational Drug Use: No Smoking Status: Former Smoker Recent Foreign Travel: No Contact w/other who traveled: No Recent Hopitalizations: No Recent Infectious Disease Expo: No Immunizations Up To Date Pediatric: Yes Seasonal Allergies Seasonal Allergies: No Past Medical History Surgeries: Appendectomy, Gallbladder, Hysterectomy, Oophorectomy Currently Using CPAP: No Cardiac: Atrial Fibrillation Hysterectomy, Menopausal Gastrointestinal: Abdominal Hernia Endocrine: Diabetes, Insulin dep Psychosocial: Anxiety History of Blood Disorders: No Family History Reviewed Nursing Family Hx Abdominal aortic aneurysm 19 MOTHER Dementia 19 FATHER FH: anemia 19 FATHER Hypertension 19 MOTHER No Pertinent Family Hx Review of Systems Constitutional: No chills; dizziness; No fever EENTM: nose congestion Respiratory: No short of breath Gastrointestinal: abdominal pain, diarrhea, nausea, vomiting Psychiatric/Neurological: No Symptoms Reported Physical Exam Physical Exam Vital Signs Vital Signs - First Documented 03/12/18 03/12/18 22:00 23:36 Temp 97.0 Pulse 127 Resp 29 B/P (MAP) 148/70 (96) Pulse Ox 94 O2 Delivery Room Air O2 Flow Rate 4.00 Capillary Refill : Less Than 3 Seconds Height, Weight, BMI Height: 5'5.00" Weight: 245lbs. 9.0oz. 111.857676vq; 40.9 BMI Method:Stated General Appearance: Chronically ill, Obese HEENT: PERRL/EOMI, Moist Mucous Membranes Neck: Non Tender, Supple Respiratory: Lungs Clear, No Respiratory Distress Cardiovascular: Regular Rate, Rhythm, No Murmur Gastrointestinal: Normal Bowel Sounds, Non Tender, Soft; No Distended, No Guarding Extremity: No Calf Tenderness, No Pedal Edema Neurologic/Psychiatric: Alert, Oriented x3 Skin: Normal Color, Warm/Dry Results Results/Procedures Labs Laboratory Tests 03/12/18 22:25 03/13/18 06:42 Patient resulted labs reviewed. Imaging: Reviewed Imaging Report Short Stay Diagnosis Discharge Diagnosis-Short Stay Admission Diagnosis Gastroenteritis with intractable nausea and vomiting Final Discharge Diagnosis Gastroenteritis with intractable nausea and vomiting Conclusion Plan Gastroenteritis with intractable nausea and vomiting Nausea/vomiting improved Will do PO challenge If tolerates can DC home Lactic acidosis Resolving Likely due vomiting and hypovolemia COPD Currently 4lpm and normally does not wear daytime oxygen Home O2 study prior to DC Clinical Quality Measures DVT/VTE Risk/Contraindication: Risk Factor Score Per Nursin RFS Level Per Nursing on Admit: 4+=Very High SALINAS COLVIN MD Mar 13, 2018 12:32
--- NOTE | 2018-03-13 12:45 | Discharge Inst-Simple/Standard ---
Discharge Inst-Standard Discharge Medications New, Converted or Re-Newed RX: Transmitted to Pharmacy Patient Instructions/Follow Up Plan of Care/Instructions/FU: Please continue to take your medications as written. Please follow up with Dr Sosa in the next week. Activity as Tolerated: Yes Discharge Diet: Soft Diet (bland food and advance slowly as tolerated) Return to The Hospital For: Inability to keep any food down, abdominal pain, chest pain, shortness of breath, if you feel you are getting worse. Planned Outpatient Orders/Ref. Pneu Vac Indicated: Yes SALINAS COLVIN MD Mar 13, 2018 12:44
[2018-03-13] MEDS ORDERED: RT-ALBUTEROL/IPRATROPIUM 3 ML (DUONEB) VIAL ONE (13:43)
--- NOTE | 2018-03-13 14:06 | NUR ---
home oxygen study pt dropped to 85% spo2 while at rest on room air, placed back on 4 lpm nasal cannula and spo2 increased to 92% pt will require 4 lpm nasal cannula at all times.
--- NOTE | 2018-03-13 14:33 | NUR ---
CM/SS patient now requires 4L continuous oxygen. She uses [facility] for her nocturnal. They were faxed new information for continuous and will deliver portable to hospital.
[2018-03-13] MEDS ORDERED: FUROSEMIDE 40 MG (LASIX) TAB PO SCH (15:00)
[2018-03-13] MEDS ORDERED: KCL 10 MEQ TAB (MICRO K) PO SCH (15:00)
[2018-03-13] MEDS ORDERED: DIGOXIN 0.25 MG (LANOXIN) TAB PO SCH (15:00)
[2018-03-13] MEDS ORDERED: NON-FORMULARY MEDICATION 1 EA EA (Insulin Glargine,Hum.rec.anlog (Lantus Solostar) 45 UNIT SQ SCH (21:00)
[2018-03-13] MEDS ORDERED: VERAPAMIL HCL 180 MG PO SCH (21:00)
[2018-03-13] MEDS ORDERED: SERTRALINE 50 MG (ZOLOFT) TABLET PO SCH (21:00)
[2018-03-13] MEDS ORDERED: PANTOPRAZOLE 40 MG (PROTONIX) TAB PO SCH (21:00)
[2018-03-14] MEDS ORDERED: FERROUS SULF 325 MG (IRON) TAB PO SCH (08:00)
[2018-03-14] MEDS ORDERED: ASPIRIN E.C. 325 MG (ECOTRIN) TABLET PO SCH ×4 (09:00→09:30)
[2018-03-14] MEDS ORDERED: lisINopril 10 MG (PRINIVIL) TABLET PO SCH ×4 (09:00→09:30)
--- OUTSIDE RECORDS SUMMARY | 2018-03-14 15:12 | XMS REPORT | Continuity of Care Document ---
Demographics x Preferred Language Unknown Marital Status Unknown Episcopal Affiliation Unknown Race Unknown Ethnic Group Unknown Author Author [facility] Organization [facility] Address Unknown Phone Unavailable Allergies Active [...] Stadol 976 Drug Allergy N/A N/A Yes [place] Food Allergy N/A Shortness of Breath Yes Tamiflu 18018 Drug Allergy N/A N/A Yes Vancomycin 4866 Drug Allergy Severe Rash Yes AMITRIPTYLINE Drug Allergy N/ A N/A Yes LATEX Drug Allergy N/A N/A Yes MORPHINE SULFATE 22353 Drug Allergy N/A N/A Yes Advair Diskus Drug N/A N/A Yes Augmentin Drug N/A N/A Yes Augmentin Drug Other N/A Yes Avelox Drug N/A [id number] Yes codeine phosphate Drug N/A N/A Yes doxycycline Drug N/A N/A Yes Egg Allergy Drug N/A N/A Yes gabapentin Drug N/A delusions Yes imipramine Drug N/A [id number] Yes iodine Drug N/A N/ A Yes Latex Allergy Drug N/A N/A Yes Lyrica Drug N/A N/ A Yes macrolide antibiotics 37 Drug N /A N/A Yes morphine Drug N/A N/A Yes PROzac Drug N/A N/ A Yes Stadol Drug N/A N/ A Yes pepperoni pepperoni Severe ANAPHYLAXIS 03/13/2018 Yes strawberry [id number] Drug Allergy Severe ANAPHYLAXIS 03/13/2018 Yes latex [id number] Drug Allergy Unknown N/A 03/13/2018 Yes morphine [id number] Drug Allergy Unknown N/A 03/13/2018 Medications There is no data. Problems Date [...] Procedures Code Description Performed By Performed On ROUTINE VENIPUNCTURE 04/29/2013 28120 COMPREHEN METABOLIC PANEL 04/29/2013 75203 DRUG SCRN 1+ CLASS NONCHROMO 04/29/2013 43507 URINALYSIS, AUTO W/SCOPE 04/29/2013 92273 BL SMEAR W/DIFF WBC COUNT 04/29/2013 98079 COMPLETE CBC, AUTOMATED 04/29/2013 26610 THER/PROPH/DIAG INJ, IV PUSH 04/29/2013 69096 TX/PRO/DX INJ NEW DRUG ADDON 04/29/2013 75456 EMERGENCY DEPT VISIT 04/29/2013 86905 EMERGENCY DEPT VISIT 04/29/2013 J2060 Lorazepam injection 04/29/2013 J2405 ONDANSETRON HCL INJECTION 04/29/2013 61717 EXC TR-EXT B9+REJI > 4.0 CM 09/23/2013 25301 LAYER CLOSURE OF WOUND(S) 09/23/2013 28800 ROUTINE VENIPUNCTURE 09/23/2013 66674 CHORIONIC GONADOTROPIN ASSAY 09/23/2013 863 OTH LOCAL EXC LESION 09/23/2013 56938 AIRWAY INHALATION TREATMENT 09/23/2013 C9290 INJ, BUPIVICAINE LIPOSOME 09/23/2013 J2250 INJ MIDAZOLAM HYDROCHLORIDE 09/23/2013 J7120 RINGERS LACTATE INFUSION 09/23/2013 J7613 ALBUTEROL NON-COMP UNIT 09/23/2013 63488 EMERGENCY DEPT VISIT 02/13/2014 60395 X-RAY EXAM SERIES, ABDOMEN 03/24/2015 43441 EMERGENCY DEPT VISIT 03/24/2015 24991 EMERGENCY DEPT VISIT 03/24/2015 64341 COMPREHEN METABOLIC PANEL 06/04/2015 71325 GLYCOSYLATED HEMOGLOBIN TEST 06/04/2015 20730 COMPLETE CBC W/AUTO DIFF WBC 06/04/2015 00109 METABOLIC PANEL TOTAL CA 08/11/2015 70896 ASSAY OF DIGOXIN 08/11/2015 41901 GLYCOSYLATED HEMOGLOBIN TEST 08/11/2015 68969 BL SMEAR W/DIFF WBC COUNT 08/11/2015 07863 COMPLETE CBC, AUTOMATED 08/11/2015 Results Test Result [...] ALP 110 IU/L 25-72 ALT 125 IU/L 1265 AST 67 IU/L -42 BCR 17.4 10-20 BUN 16 MG/DL 7-18 [...] ALB 3.5 G/DL 3.5-5 ALP 156 IU/L 2572 ALT 72 IU/L AST 32 IU/L 42 BCR 29.3 10-20 BUN 24 MG/DL 7-18 [...] CL 98 MEQ/L 98-107 CO2 28.0 MEQ/L - CREA 0.76 MG/DL 0.6-1.0 EGFR 79 eGFR [...] lactic acid measurement (moles/volume) 2.97 mmol/L 0.50-2.00 Bacterial blood culture - 03/12/18 22:25 Bacterial blood culture NG NRG Bacterial blood culture - 03/12/18 23:46 Bacterial blood culture NG NRG Complete urinalysis with reflex to culture - [...] plasma lactate measurement (moles/volume) 3.28 mmol/L 0.50-2.00 Capillary blood glucose measurement by glucometer (mass/volume) - 03/13/18 06: 35 Capillary blood glucose measurement by glucometer (mass/volume) 254 mg/dL 70-110 Complete blood count (CBC) with automated white blood cell (WBC) differential - 03/13/18 06:42 Blood leukocytes automated count (number/volume) 21.4 10*3/uL 4.3-11.0 Blood erythrocytes automated count (number/volume) 5.39 10*6/uL 4.35-5.85 Venous blood hemoglobin measurement (mass/volume) 15.3 g/dL 11.5-16.0 Blood hematocrit (volume fraction) 48 % 35-52 Automated erythrocyte mean corpuscular volume 88 [foz_us] 80-99 Automated erythrocyte mean corpuscular hemoglobin (mass per erythrocyte) 28 pg 25-34 Automated erythrocyte mean corpuscular hemoglobin concentration measurement ( mass/volume) 32 g/dL 32-36 Automated erythrocyte distribution width ratio 16.3 % 10.0-14.5 Automated blood platelet count (count/volume) 266 10*3/uL 130-400 Automated blood platelet mean volume measurement 10.3 [foz_us] 7.4-10.4 Automated blood neutrophils/100 leukocytes 90 % 42-75 Automated blood lymphocytes/100 leukocytes 5 % 12-44 Blood monocytes/100 leukocytes 4 % 0-12 Automated blood eosinophils/100 leukocytes 0 % 0-10 Automated blood basophils/100 leukocytes 0 % 0-10 Blood neutrophils automated count (number/volume) 19.3 10*3 1.8-7.8 Blood lymphocytes automated count (number/volume) 1.1 10*3 1.0-4.0 Blood monocytes automated count (number/volume) 0.9 10*3 0.0-1.0 Automated eosinophil count 0.0 10*3/uL 0.0-0.3 Automated blood basophil count (count/volume) 0.0 10*3/uL 0.0-0.1 Comprehensive metabolic panel - 03/13/18 06:42 Serum or plasma sodium measurement (moles/volume) 142 mmol/L 135-145 Serum or plasma potassium measurement (moles/volume) 4.7 mmol/L 3.6-5.0 Serum or plasma chloride measurement (moles/volume) 105 mmol/L 98-107 Carbon dioxide 25 mmol/L 21-32 Serum or plasma anion gap determination (moles/volume) 12 mmol/L 5-14 Serum or plasma urea nitrogen measurement (mass/volume) 25 mg/dL 7-18 Serum or plasma creatinine measurement (mass/volume) 0.81 mg/dL 0.60-1.30 Serum or plasma urea nitrogen/creatinine mass ratio 31 NRG Serum or plasma creatinine measurement with calculation of estimated glomerular filtration rate > NRG Serum or plasma glucose measurement (mass/volume) 266 mg/dL 70-105 Serum or plasma calcium measurement (mass/volume) 9.1 mg/dL 8.5-10.1 Serum or plasma total bilirubin measurement (mass/volume) 0.7 mg/dL 0.1-1.0 Serum or plasma alkaline phosphatase measurement (enzymatic activity/volume) 113 U/L 40-136 Serum or plasma aspartate aminotransferase measurement (enzymatic activity/ volume) 21 U/L 5-34 Serum or plasma alanine aminotransferase measurement (enzymatic activity/volume ) 32 U/L 0-55 Serum or plasma protein measurement (mass/volume) 6.4 g/dL 6.4-8.2 Serum or plasma albumin measurement (mass/volume) 3.4 g/dL 3.2-4.5 CALCIUM CORRECTED 9.6 mg/dL 8.5-10.1 Blood lactic acid measurement (moles/volume) - 03/13/18 10:15 Blood lactic acid measurement (moles/volume) 2.33 mmol/L 0.50-2.00 Capillary blood glucose measurement by glucometer (mass/volume) - 03/13/18 12: 45 Capillary blood glucose measurement by glucometer (mass/volume) 183 mg/dL 70-110 Serum or plasma lactate measurement (moles/volume) - 03/13/18 12:50 Serum or plasma lactate measurement (moles/volume) 2.39 mmol/L 0.50-2.00 Encounters ACCT No. Visit Date/Time Discharge Status Pt. Type Provider Facility Loc./Unit Complaint [id number] 08/11/2015 16:01:00 08/11/2015 16:01:00 DIS Outpatient SHAILESH JOHNSON [facility] CHANA [id number] 08/04/2015 12:29:00 08/04/2015 12:29:00 DIS Outpatient SHAILESH JOHNSON [facility] PANACE [id number] 06/04/2015 16:48:00 06/04/2015 16:48:00 DIS Outpatient SHAILESH JOHNSON [facility] PANACE [id number] 03/24/2015 20:56:00 03/24/2015 22:08:00 DIS Emergency SWATHI SALGADO [facility] EMR [id number] 12/12/2014 18:04:00 12/12/2014 18:04:00 DIS Outpatient SHAILESH JOHNSON [facility] PANACE [id number] 10/13/2014 18:25:00 10/13/2014 18:25:00 DIS Outpatient SHAILESH JOHNSON [facility] PANACE [id number] 03/04/2014 15:43:00 03/04/2014 15:43:00 DIS Outpatient SHAILESH JOHNSON [facility] RAD [id number] 02/21/2014 02:25:00 02/21/2014 13:30:00 DIS Inpatient SHAILESH JOHNSON [facility] OBS [id number] 02/19/2014 20:05:00 02/19/2014 23:05:00 DIS Emergency STEVESHAILESH BARLOW [facility] EMR [id number] 02/13/2014 14:32:00 02/13/2014 15:08:00 DIS Emergency SHIVAM LOPEZ [facility] EMR [id number] 12/03/2013 10:59:00 12/03/2013 10:59:00 DIS Outpatient SHAILESH JOHNSON [facility] RAD [id number] 11/20/2013 22:57:00 11/21/2013 00:30:00 DIS Emergency STEVE SUKHIANNE-MARIE Juan [facility] EMR [id number] 07/19/2013 19:34:00 07/19/2013 20:35:00 DIS Emergency STEVE SUKHIANNE-MARIE Juan [facility] EMR [id number] 06/01/2013 22:26:00 06/02/2013 00:28:00 DIS Emergency SHIVAM LOPEZ [facility] EMR [id number] 05/09/2013 11:58:00 05/09/2013 11:58:00 DIS Outpatient SHAILESH JOHNSON [facility] PANACE [id number] 04/28/2013 22:41:00 04/29/2013 00:40:00 DIS Emergency SWATHI VARGAS [facility] EMR [id number] 01/12/2015 00:00:00 Document Registration [id number] 01/12/2015 00:00:00 Document Registration [id number] 01/12/2014 00:00:00 Document Registration [id number] 01/12/2014 00:00:00 Document Registration [id number] 01/12/2014 00:00:00 Document Registration [id number] 01/12/2014 00:00:00 Document Registration [id number] 09/23/2013 07:40:00 Document Registration [id number] 05/09/2013 11:58:12 Document Registration [id number] 05/09/2013 11:58:12 Document Registration [id number] 05/09/2013 11:58:12 Document Registration [id number] 05/09/2013 11:58:11 Document Registration [id number] 01/12/2013 00:00:00 Document Registration [id number] 01/12/2013 00:00:00 Document Registration [id number] 01/12/2013 00:00:00 Document Registration [id number] 01/12/2013 00:00:00 Document Registration [id number] 02/20/2018 13:55:01 ACT Unknown Kevin Samaniego DO [id number] 05/14/2013 14:03:03 05/14/2013 23:59:59 CLS Outpatient SantanaCesar [id number] 03/13/2018 00:25:00 ACT Inpatient SONNY BARRERA, ANABEL [place] [facility] 4TH GASTROENTERITIS;INTRACTABLE NAUSEA/VOMITING / [id number] 07/15/2015 05:10:27 07/15/2015 05:10:27 DIS Unknown [id number] 01/02/2018 14:39:18 01/02/2018 23:59:59 CLS Outpatient TIAGO STEWART [facility] [id number] 01/01/2018 16:12:25 01/01/2018 23:59:59 DIS Outpatient TERRY [facility] [id number] 01/01/2018 15:17:46 01/01/2018 23:59:59 DIS Outpatient TERRY [facility] [id number] 09/06/2017 10:21:32 09/06/2017 23:59:59 DIS Outpatient TERRY [facility] [id number] 08/02/2017 14:15:28 08/02/2017 23:59:59 DIS Outpatient TERRY [facility] [id number] 08/02/2017 13:16:01 08/02/2017 23:59:59 DIS Outpatient TERRY [facility] [id number] 05/12/2017 15:22:58 05/12/2017 23:59:59 DIS Outpatient TERRY [facility] [id number] 05/12/2017 14:11:06 05/12/2017 23:59:59 DIS Outpatient TERRY [facility] [id number] 04/26/2017 13:45:00 04/26/2017 23:59:59 DIS Outpatient TERRY [facility] [id number] 03/27/2017 17:36:00 03/27/2017 23:59:59 CLS Emergency [facility] KATHRYN ED ED VISIT [id number] 03/17/2017 14:04:23 03/17/2017 23:59:59 DIS Outpatient TERRY [facility] [id number] 03/17/2017 13:23:22 03/17/2017 23:59:59 DIS Outpatient TERRY [facility] [id number] 03/01/2017 15:24:44 03/01/2017 23:59:59 DIS Outpatient TERRY [facility] [id number] 03/01/2017 14:39:16 03/01/2017 23:59:59 DIS Outpatient TIAGO STEWART [facility] [id number] 01/24/2017 11:21:05 01/24/2017 23:59:59 DIS Outpatient TIAGO STEWART [facility] [id number] 01/24/2017 10:30:00 01/24/2017 23:59:59 DIS Outpatient TIAGO STEWART [facility] [id number] 12/05/2016 13:19:10 12/05/2016 23:59:59 DIS Outpatient Fariba Knight [facility] [id number] 11/22/2016 11:25:50 11/22/2016 23:59:59 DIS Outpatient TERRY TIAGO [facility] [id number] 11/22/2016 11:24:47 11/22/2016 23:59:59 DIS Outpatient TIAGO STEWART [facility] [id number] 11/02/2016 11:46:56 11/02/2016 23:59:59 DIS Outpatient TERRY [facility] [id number] 11/02/2016 10:54:27 11/02/2016 23:59:59 DIS Outpatient TERRY TIAGO [facility] [id number] 10/12/2016 10:30:00 10/12/2016 23:59:59 DIS Outpatient TIAGO STEWART [facility] [id number] 09/20/2016 10:30:00 09/20/2016 23:59:59 DIS Outpatient TERRY TIAGO [facility] [id number] 07/11/2016 19:26:00 07/11/2016 23:59:59 CLS Emergency [facility] KATHRYN ED Ill [id number] 06/28/2016 10:08:40 06/28/2016 23:59:59 CLS Outpatient TERRY [facility] [id number] 05/11/2016 14:30:00 05/11/2016 23:59:59 CLS Outpatient SteveKassy Merritt [facility] [id number] 05/02/2016 13:46:16 05/02/2016 23:59:59 CLS Outpatient SHAILESH JOHNSON [facility] [id number] 03/05/2016 13:05:00 03/05/2016 23:59:59 CLS Emergency [facility] KATHRYN ED sob [id number] 02/23/2016 11:09:42 02/23/2016 23:59:59 CLS Outpatient SHAILESH JOHNSON Juan [facility] [id number] 01/29/2018 02:00:27 Document Registration [id number] 12/17/2017 05:22:16 Document Registration [id number] 11/10/2017 02:00:49 Document Registration [id number] 09/07/2017 11:39:10 Document Registration [id number] 07/03/2017 02:00:48 Document Registration [id number] 06/12/2017 02:00:20 Document Registration [id number] 06/04/2017 02:00:45 Document Registration [id number] 12/16/2016 02:10:45 Document Registration [id number] 06/28/2016 10:57:59 Document Registration [id number] 05/02/2016 14:35:43 Document Registration [id number] 04/09/2016 02:02:04 Document Registration [id number] 03/28/2016 02:00:31 Document Registration [id number] 03/15/2016 02:00:59 Document Registration [id number] 02/23/2016 11:34:04 Document Registration [id number] 02/01/2016 02:00:13 Document Registration
== END 2018-03-13 14:10 | disposition home or self-care (01) ==
LOC: EDUNIT# 21:36 → ER 21:38 → 4TH 21:39 → UNDOADMOB 03-13 00:25 → UNDODISOB 03-13 17:10
PROVIDERS: ADMIT Internal Medicine; ATTEND Internal Medicine
DX: K52.9 Noninfective gastroenteritis and colitis, unspecified (principal); E87.2 Acidosis; J44.9 Chronic obstructive pulmonary disease, unspecified; E11.9 Type 2 diabetes mellitus without complications; F41.9 Anxiety disorder, unspecified; I48.91 Unspecified atrial fibrillation; Z79.4 Long term (current) use of insulin; Z87.891 Personal history of nicotine dependence; Z88.5 Allergy status to narcotic agent
CPT/HCPCS: 36415; 51701; 74176; 80053; 80306; 80320; 81000; 82150; 82962; 83605; 83690; 83735; 84484; 85007; 85025; 85027; 85610; 85730; 87040; 93005; 93041; 94761; 96361; 96374; 96375; 96376; G0378

== ENCOUNTER 2018-08-04 18:11 | Emergency (ER) | payer MEDICARE, MEDICAID ==
[~2018-08-04] VITALS: Ht 165.1 cm; Wt 117.9 kg
[~2018-08-04 18:11] MED LIST: ALBU2.5V4 NEB; ALPR0.5T PO; ASCO500T6 PO; ASPI325T32 PO; CHOL5000 PO; DIGO250T PO; DULA1.5P2 SQ; FERR-84 PO; FURO40TA4 PO; INSU100I10 SQ; INSU100I23 SQ; IPRA3AMP31 NEB; LISI10TA2 PO; MECL-106 PO; MUPI15CR11 TP; ONDN4T PO; OXYC10TA7 PO; PANT40TA2 PO; POTA10TA10 PO; PROM25TA14 PO; RT-ALBUINH IH; SERT50TA2 PO; SUMA100T2 PO; TR1C15 TP; VERA180T11 PO
--- NOTE | 2018-08-04 19:37 | ED Lower Extremity ---
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 Patient is complaining of pain on her left foot that radiates up to her ankle. Patient is rating her pain at a 1. Nursing Sepsis Screen: No Definite Risk Source: patient Exam Limitations: no limitations History of Present Illness Date Seen by Provider: Aug 04, 2018 Time Seen by Provider: 19:32 Initial Comments Patient is a 57-year-old diabetic female with history of diabetic neuropathy presents with left foot injury. Patient was running in her living room when she struck her metal coffee table. Patient with tenderness swelling to the dorsum of leftfore foot without deformity. Patient has decreased sensation unsure if she may have a fracture. No other injury or pain complaints. Patient is on antibiotic regulation therapy Onset: just prior to arrival Pain/Injury Location: left foot Method of Injury: direct blow Modifying Factors: Improves With Movement, Improves With Pain Medication Allergies and Home Medications Allergies Coded Allergies: butorphanol (Verified Allergy, Severe, 03/13/18) strawberry (Verified Allergy, Severe, ANAPHYLAXIS, 03/13/18) erythromycin base (Verified Allergy, Unknown, NAUSEA, 03/13/18) gabapentin (Verified Allergy, Unknown, 03/13/18) heartburn latex (Verified Allergy, Unknown, 03/13/18) morphine (Verified Allergy, Unknown, 03/13/18) Uncoded Allergies: pepperoni (Allergy, Severe, ANAPHYLAXIS, 03/13/18) Home Medications Albuterol Sulfate 1 Puff Puff, 2 PUFF IH Q4H PRN for SHORTNESS OF BREATH, (Reported) Albuterol Sulfate 2.5 Mg/3 Ml Vial.neb, 2.5 MG NEB Q4H PRN for SHORTNESS OF BREATH, (Reported) Alprazolam 0.5 Mg Tablet, 0.5 MG PO TID PRN for ANXIETY, (Reported) Ascorbic Acid 500 Mg Tablet, 500 MG PO DAILY, (Reported) Aspirin 325 Mg Tablet.dr, 325 MG PO DAILY, (Reported) Cholecalciferol (Vitamin D3) 5,000 Unit Capsule, 5,000 UNIT PO DAILY, (Reported) Digoxin 250 Mcg Tablet, 250 MCG PO 1500, (Reported) Dulaglutide 1.5 Mg/0.5 Ml Pen.injctr, 1.5 MG SQ Fr, (Reported) Ferrous Sulfate 325 Mg Tablet, 325 MG PO DAILY, (Reported) Furosemide 40 Mg Tablet, 40 MG PO 0800,1500, (Reported) Insulin Glargine,Hum.rec.anlog 100 Unit/1 Ml Insuln.pen, 45 UNIT SQ HS, (Reported) Insulin Lispro 100 Unit/1 Ml Insuln.pen, 20 UNIT SQ TIDAC, (Reported) Insulin Lispro 100 Unit/1 Ml Insuln.pen, SQ AC PRN for SLIDING SCALE, (Reported) USES SLIDING SCALE IN ADDITION TO 20 UNITS WITH MEALS BASELINE Ipratropium/Albuterol Sulfate 3 Ml Ampul.neb, 3 ML NEB QID PRN for SHORTNESS OF BREATH, (Reported) Lisinopril 10 Mg Tablet, 10 MG PO DAILY, (Reported) Meclizine HCl 25 Mg Tablet, 25 MG PO Q6H PRN for DIZZINESS, (Reported) Mupirocin Calcium 15 Gm Cream..g., TP TID PRN for SORES, (Reported) Ondansetron HCl 4 Mg Tab, 4 MG PO Q8H PRN for NAUSEA/VOMITING-1ST LINE, (Reported) Oxycodone HCl 10 Mg Tablet, 10 MG PO TID PRN for PAIN-SEVERE, (Reported) Pantoprazole Sodium 40 Mg Tablet.dr, 40 MG PO BID, (Reported) Potassium Chloride 10 Meq Tablet.er, 10 MEQ PO 1500, (Reported) Promethazine HCl 25 Mg Tablet, 25 MG PO Q4H PRN for NAUSEA/VOMITING-2ND LINE, (Reported) Sertraline HCl 50 Mg Tablet, 50 MG PO HS, (Reported) Sumatriptan Succinate 100 Mg Tablet, 100 MG PO UD PRN for MIGRAINE, (Reported) PER STANDARD INSTRUCTIONS Triamcinolone Acet 15 Gm Cr, TP TID, (Reported) Verapamil HCl 180 Mg Tablet.er, 180 MG PO BID, (Reported) Patient Home Medication List Home Medication List Reviewed: Yes Review of Systems Constitutional: no symptoms reported EENTM: no symptoms reported Respiratory: no symptoms reported Cardiovascular: no symptoms reported Gastrointestinal: no symptoms reported Musculoskeletal: see HPI Skin: no symptoms reported Past Tkrqvxy-Nagokj-Pgaijn Hx Past Med/Social Hx: Reviewed Nursing Past Med/Soc Hx Patient Social History Alcohol Use: Denies Use Alcohol Beverage of Choice: Beer Recreational Drug Use: No Smoking Status: Current Everyday Smoker Type Used: Cigarettes 2nd Hand Smoke Exposure: Yes Recent Foreign Travel: No Contact w/Someone Who Travel: No Recent Infectious Disease Expo: No Recent Hopitalizations: No Physical Abuse: No Sexual Abuse: No Mistreated: No Fear: No Immunizations Up To Date PED Vaccines UTD: Yes Seasonal Allergies Seasonal Allergies: No Past Medical History Surgeries: Yes (HYST/BSO) Appendectomy, Gallbladder, Hysterectomy, Oophorectomy Respiratory: Yes Asthma, COPD Currently Using CPAP: No Cardiac: Yes Atrial Fibrillation, Hypertension Neurological: Yes (Fibromyalgia, Memory Loss) 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, Vertigo 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, 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 Genitourinary: No Gastrointestinal: Yes (LARGE VENTRAL HERNIA--NO REPAIR) Abdominal Hernia Musculoskeletal: No Endocrine: Yes Diabetes, Insulin dep HEENT: No Cancer: No Psychosocial: Yes Anxiety Integumentary: No Blood Disorders: No Family Medical History Abdominal aortic aneurysm 19 MOTHER Dementia 19 FATHER FH: anemia 19 FATHER Hypertension 19 MOTHER No Pertinent Family Hx Physical Exam Vital Signs Vital Signs - First Documented 08/04/18 18:15 Temp 98.6 Pulse 107 Resp 22 B/P (MAP) 129/52 (77) Pulse Ox 94 O2 Delivery Room Air Capillary Refill : Less Than 3 Seconds Height, Weight, BMI Height: 5'5.00" Weight: 260lbs. 0oz. 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 Patient placed in ortho shoe and instructed to follow up with PCP for official Impression Primary Impression: Contusion of left foot, initial encounter Disposition: 01 HOME, SELF-CARE Condition: Unchanged Departure-Patient Inst. Referrals: NO,LOCAL PHYSICIAN (PCP/Family) Primary Care Physician Patient Instructions: Contusion (DC) Add. Discharge Instructions: Please wear orthopedic shoe and continue home pain medications. Follow up with your PCP in 3-5 days for re-evaluation and review of radiology report. All discharge instructions reviewed with patient and/or family. Voiced understanding. KAISER RUTHERFORD DO Aug 04, 2018 19:37
--- NOTE | 2018-08-04 19:38 | Diagnostic Imaging Report ---
PATIENT HISTORY: Injury to the left foot, pain. TECHNIQUE: Three views of the left foot. COMPARISON: None. FINDINGS: No acute fracture or dislocation is seen in the left foot. Alignment appears normal. There are degenerative changes at the interphalangeal joints. IMPRESSION: Degenerative changes in the left foot with no acute osseous abnormality seen. Dictated by: Dictated on workstation # [id number]
--- NOTE | 2018-08-04 19:38 | Diagnostic Imaging Report ---
PATIENT HISTORY: Injury to the left ankle. TECHNIQUE: Three views of the left ankle. COMPARISON: None. FINDINGS: No acute fracture or dislocation is seen in the left ankle. Alignment appears normal. Ankle mortise is symmetric and the joint space is preserved. The talar dome is unremarkable. There is mild cortical irregularity at the medial malleolus which may be from remote trauma. There is a small Achilles tendon enthesophyte. IMPRESSION: No acute osseous abnormality is seen in the left ankle. Dictated by: Dictated on workstation # [id number]
[2018-08-04 19:45] VITALS: BP 130/47
--- OUTSIDE RECORDS SUMMARY | 2018-08-04 20:06 | XMS REPORT | Clinical Summary ---
Author Author Admin, NETTE Organization [facility] Address Unknown Phone Unavailable Allergies, Adverse Reactions, Alerts Allergy Name Reaction Description Start Date Severity Status Provider BUTORPHANOL TARTRATE UNK reaction Mild Active Shila [place] MA MORPHINE UNK reaction Mild Active Shila [place] MA IODINE UNK reaction Mild Active Shila Brian MA IMIPRAMINE HCL Tachycardia Critical Active Shila Brian MA GABAPENTIN Delusions Severe Active Shila Brian MA DOXYCYCLINE UNK reaction Mild Active Shila Brian MA PROZAC UNK reaction Mild Active Shila Brian MA LYRICA UNK reaction Mild Active Shila Brian MA EGGS UNK reaction Mild Active Shila [place] MA AVELOX Rash Mild Active Shila Brian [...] Diabetes, Type 2 250.00 Active 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 Diabetes mellitus without mention of complication, type II or unspecified type, not stated as uncontrolled Diabetes mellitus, type II, uncontrolled 250.02 Active 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 Diabetes mellitus without mention of complication, type II or unspecified type, uncontrolled ABDOMINAL PAIN, GENERALIZED 789.07 Active Rory Warren MD Abdominal pain, generalized Elevated white blood cell count 288.60 Active Rosemary Chamorro MA Leukocytosis, unspecified Medication List Medication Instructions Start Date Stop Date Generic Name NDC Status Provider Patient Instruction DIGITEK 250 MCG ORAL TABLET 1 tab once daily DIGOXIN 06633343209 Active Rory Warren MD Active JARDIANCE 10 MG ORAL TABLET 1 tab once daily EMPAGLIFLOZIN 02439659893 Active Rory Warren MD Active LASIX 40 MG ORAL TABLET 1 tab twice daily FUROSEMIDE 30490280384 Active Rory Warren MD Active OXYCODONE HCL 10 MG ORAL TABLET Take 1 tablet, PO, TID. OXYCODONE HCL 93233335355 No Longer Active Rory Warren MD Active TRULICITY 1.5 MG/0.5ML SUBCUTANEOUS SOLUTION PEN-INJECTOR 0.5 mL, SubQ, qWeek. DULAGLUTIDE 27188795242 Active Shila Torres MA Active TRIAMCINOLONE ACETONIDE 0.1 % EXTERNAL CREAM apply TOP, TID sparingly to rash TRIAMCINOLONE ACETONIDE 22583874566 Active Shila Torres MA Active SYMBICORT 160-4.5 MCG/ACT INHALATION AEROSOL 2 puff BID BUDESONIDE- FORMOTEROL FUMARATE 98541135958 Active Shila Torres MA Active PROVENTIL HFA 108 (90 BASE) MCG/ACT INHALATION AEROSOL SOLUTION 1 puff q 4 hr prn ALBUTEROL SULFATE 79283015014 Active Shila Torres MA Active PROMETHAZINE HCL 25 MG ORAL TABLET 1 four times a day as needed for nausea/vomiting PROMETHAZINE HCL 79671214193 Active Shila Brian CARLITA Active OXYGEN 2 Liters, INH in Lines, HS OXYGEN Active Shila Torres MA Active METFORMIN HCL 1000 MG ORAL TABLET 1 tablet by mouth twice daily METFORMIN HCL 10199885506 Active Shilajess Torres CARLITA Active MECLIZINE HCL 25 MG ORAL TABLET Take one tablet q6hrs, prn as needed for dizziness MECLIZINE HCL 18495855791 Active Shila Brian CARLITA Active IMITREX 100 MG ORAL TABLET 1 tablet daily, prn. SUMATRIPTAN SUCCINATE 12314420991 Active Shila Torres MA Active COLACE 100 MG ORAL CAPSULE 1 po BID PRN Constipation DOCUSATE SODIUM 18044362604 Active Shila Torres MA Active VERAPAMIL HCL ER 180 MG ORAL TABLET EXTENDED RELEASE Take 1 tablet, PO, BID. VERAPAMIL HCL 05384096959 Active Shila Torres MA Active ALPRAZOLAM 0.5 MG ORAL TABLET ALPRAZOLAM 61202789161 Active Shila Torres MA Active DUONEB 0.5-2.5 (3) MG/3ML INHALATION SOLUTION Inhale solution, QID. IPRATROPIUM-ALBUTEROL 05731469428 Active Shila Brian ZAZUETA Active ALBUTEROL SULFATE (2.5 MG/3ML) 0.083% INHALATION NEBULIZATION SOLUTION neb 1 ampule qid prn ALBUTEROL SULFATE 54807526735 No Longer Active Shila Torres MA Active PROTONIX 40 MG ORAL TABLET DELAYED RELEASE Take 1 tablet, PO, BID. PANTOPRAZOLE SODIUM 07042001529 Active Shila Torres MA Active FUROSEMIDE 20 MG ORAL TABLET 1 qd FUROSEMIDE 41923927243 No Longer Active Shila Torres MA Active HYDROCODONE-ACETAMINOPHEN 5-325 MG ORAL TABLET 1/2 q 4-6 hrs prn pain HYDROCODONE-ACETAMINOPHEN 26746639262 No Longer Active Shila Torres MA Active ORPHENADRINE CITRATE ER 100 MG ORAL TABLET EXTENDED RELEASE 12 HOUR 1 tid prn ORPHENADRINE CITRATE 50981841821 No Longer Active Shila Torres MA Active GABAPENTIN 100 MG ORAL CAPSULE Take one by mouth 3 times daily, morning, afternoon and evening.] GABAPENTIN 27522854793 No Longer Active Shila Torres MA Active [facility] IRON 325 (65 Fe) MG ORAL TABLET 1 qd FERROUS SULFATE 87629528552 No Longer Active Brent Breezy RAPHAELP Active ASPIRIN 325 MG ORAL TABLET 1 qd ASPIRIN 17859936743 Active Pasha Small MD Active ASPIRIN 81 MG ORAL TABLET DELAYED RELEASE 1 po q d ASPIRIN 22461349505 No Longer Active Pasha Small MD Active LISINOPRIL 10 MG ORAL TABLET 1 qd LISINOPRIL 94436119036 Active Pasha Small MD Active K-TAB 10 MEQ ORAL TABLET EXTENDED RELEASE 1 tab 3 x week POTASSIUM CHLORIDE 38572757403 Active Pasha Small MD Active IPRATROPIUM BROMIDE 0.02 % INHALATION SOLUTION neb 1 amp qid prn IPRATROPIUM BROMIDE 77968116923 Active Galina Long RN Active ASPIRIN 81 MG ORAL TABLET DELAYED RELEASE 1 po q d ASPIRIN 81 MG ORAL TABLET DELAYED RELEASE 659603 ASPIRIN Inactive [facility] IRON 325 (65 Fe) MG ORAL TABLET 1 qd [facility] IRON 325 (65 Fe) MG ORAL TABLET 482258 FERROUS SULFATE Inactive GABAPENTIN 100 MG ORAL CAPSULE Take one by mouth 3 times daily, morning, afternoon and evening.] GABAPENTIN 100 MG ORAL CAPSULE 911735 GABAPENTIN Inactive ORPHENADRINE CITRATE ER 100 MG ORAL TABLET EXTENDED RELEASE 12 HOUR 1 tid prn ORPHENADRINE CITRATE ER 100 MG ORAL TABLET EXTENDED RELEASE 12 HOUR ORPHENADRINE CITRATE Inactive HYDROCODONE-ACETAMINOPHEN 5-325 MG ORAL TABLET 1/2 q 4-6 hrs prn pain HYDROCODONE-ACETAMINOPHEN 5-325 MG ORAL TABLET 513874 HYDROCODONE-ACETAMINOPHEN Inactive FUROSEMIDE 20 MG ORAL TABLET 1 qd FUROSEMIDE 20 MG ORAL TABLET 822559 FUROSEMIDE Inactive ALBUTEROL SULFATE (2.5 MG/3ML) 0.083% INHALATION NEBULIZATION SOLUTION neb 1 ampule qid prn ALBUTEROL SULFATE (2.5 MG/3ML) 0.083% INHALATION NEBULIZATION SOLUTION 560296 ALBUTEROL SULFATE Inactive OXYCODONE HCL 10 MG ORAL TABLET Take 1 tablet, PO, TID. OXYCODONE HCL 10 MG ORAL TABLET 8586988 OXYCODONE HCL Inactive Diagnostic Results Date Name Value Unit Range Description Lab Report: CBC W/DIFF - Hematology leukocyte count, blood 16.8 10^3/MM^3 10*3/mm3 4.6-10.2 neutrophils as percent of blood leukocytes 83.4 % 42.2-75.2 monocytes as percent of blood leukocytes 3.9 % 1.7-9.3 lymphocytes as percent of blood leukocytes 10.6 % 20.5-51.1 erythrocyte (RBC) count 5.60 10^6/MM^3 10*6/mm3 3.80-5.80 hemoglobin, blood 16.2 g/dL 12.0-16.0 hematocrit, blood 50.9 % 37.0-47.0 mean corpuscular volume, RBC 91 fL 80-97 mean corpuscular hemoglobin, RBC 28.9 pg 27.0-31.2 mean corpuscular hemoglobin concentration, RBC 31.8 G/DL % 31.8-35.4 red blood cell distribution width 13.4 % 11.6-14.8 platelet count 364 10^3/MM^3 10*3/mm3 524-905 2737/05/14 leukocyte count, blood 13.9 10^3/MM^3 10*3/mm3 4.6-10.2 neutrophils as percent of blood leukocytes 82.4 % 42.2-75.2 monocytes as percent of blood leukocytes 3.2 % 1.7-9.3 lymphocytes as percent of blood leukocytes 12.6 % 20.5-51.1 erythrocyte (RBC) count 5.66 10^6/MM^3 10*6/mm3 3.80-5.80 hemoglobin, blood 16.0 g/dL 12.0-16.0 hematocrit, blood 50.6 % 37.0-47.0 mean corpuscular volume, RBC 89 fL 80-97 mean corpuscular hemoglobin, RBC 28.3 pg 27.0-31.2 mean corpuscular hemoglobin concentration, RBC 31.7 G/DL % 31.8-35.4 red blood cell distribution width 12.7 % 11.6-14.8 platelet count 299 10^3/MM^3 10*3/mm3 937-531 4384/06/11 leukocyte count, blood 14.3 10^3/MM^3 10*3/mm3 4.6-10.2 neutrophils as percent of blood leukocytes 81.4 % 42.2-75.2 monocytes as percent of blood leukocytes 3.4 % 1.7-9.3 lymphocytes as percent of blood leukocytes 13.5 % 20.5-51.1 erythrocyte (RBC) count 5.79 10^6/MM^3 10*6/mm3 3.80-5.80 hemoglobin, blood 15.9 g/dL 12.0-16.0 hematocrit, blood 50.0 % 37.0-47.0 mean corpuscular volume, RBC 86 fL 80-97 mean corpuscular hemoglobin, RBC 27.5 pg 27.0-31.2 mean corpuscular hemoglobin concentration, RBC 31.9 G/DL % 31.8-35.4 red blood cell distribution width 12.4 % 11.6-14.8 platelet count 352 10^3/MM^3 10*3/mm3 142-424 Encounters Code Encounter Date Provider Facility CPT-34812 Level 4 Est. 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
--- OUTSIDE RECORDS SUMMARY | 2018-08-04 20:06 | XMS REPORT | Clinical Summary ---
Author Author Admin, NETTE Organization [facility] Address Unknown Phone Unavailable Allergies, Adverse Reactions, Alerts Allergy Name Reaction Description Start Date Severity Status Provider BUTORPHANOL TARTRATE UNK reaction Mild Active Shila Olga MA MORPHINE UNK reaction Mild Active Shila Olga MA IODINE UNK reaction Mild Active Shila Brian MA IMIPRAMINE HCL Tachycardia Critical Active Shila Brian MA GABAPENTIN Delusions Severe Active Shila Brian MA DOXYCYCLINE UNK reaction Mild Active Shila Brian MA PROZAC UNK reaction Mild Active Shila Brian MA LYRICA UNK reaction Mild Active Shila Brian MA EGGS UNK reaction Mild Active Shila Olga MA AVELOX Rash Mild Active Shila Brian [...] mellitus Diabetes, Type 2 250.00 Active Brent Ganromelia DOBSON Diabetes mellitus without mention of complication, type II or unspecified type, not stated as uncontrolled Diabetes mellitus, type II, uncontrolled 250.02 Active Brent Jansenkelly TANYARD WORKER Diabetes mellitus without mention of complication, type II or unspecified type, uncontrolled ABDOMINAL PAIN, GENERALIZED 789.07 Active Rory Warren MD Abdominal pain, generalized Elevated white blood cell count 288.60 Active Rosemary Chamorro MA Leukocytosis, unspecified BMI 40-44.9 Active Kitty ROTH Body Mass Index 40.0- 44.9, adult Obesity Class III (BMI >=40) Active Kitty ROTH Morbid obesity Medication List Medication Instructions Start Date Stop Date Generic Name NDC Status Provider Patient Instruction ALPRAZOLAM 0.5 MG ORAL TABLET 1 PO TID PRN anxiety ALPRAZOLAM 38538368341 Active Kitty ROTH Active HYDROCODONE-ACETAMINOPHEN 10-325 MG ORAL TABLET 1-2 every 12 hours as needed for severe pain HYDROCODONE-ACETAMINOPHEN 72647371654 Active Kitty Connor APRN-Speedy Active DIGITEK 250 MCG ORAL TABLET 1 tab once daily DIGOXIN 26804253596 Active Rory Warren MD Active JARDIANCE 10 MG ORAL TABLET 1 tab once daily EMPAGLIFLOZIN 93849537051 Active Rory Warren MD Active LASIX 40 MG ORAL TABLET 1 tab twice daily FUROSEMIDE 70262554357 Active Rory Warren MD Active OXYCODONE HCL 10 MG ORAL TABLET Take 1 tablet, PO, TID. OXYCODONE HCL 88363561448 No Longer Active Rory Warren MD Active TRULICITY 1.5 MG/0.5ML SUBCUTANEOUS SOLUTION PEN-INJECTOR 0.5 mL, SubQ, qWeek. DULAGLUTIDE 38985608610 Active Shila Torres MA Active TRIAMCINOLONE ACETONIDE 0.1 % EXTERNAL CREAM apply TOP, TID sparingly to rash TRIAMCINOLONE ACETONIDE 04129522870 Active Shila Torres MA Active SYMBICORT 160-4.5 MCG/ACT INHALATION AEROSOL 2 puff BID BUDESONIDE- FORMOTEROL FUMARATE 16661659852 Active Shila Torres MA Active PROVENTIL HFA 108 (90 BASE) MCG/ACT INHALATION AEROSOL SOLUTION 1 puff q 4 hr prn ALBUTEROL SULFATE 22773143231 Active Shila Torres MA Active PROMETHAZINE HCL 25 MG ORAL TABLET 1 four times a day as needed for nausea/vomiting PROMETHAZINE HCL 50115895102 Active Shila Torres MA Active OXYGEN 2 Liters, INH in Lines, HS OXYGEN Active Shila Torres MA Active METFORMIN HCL 1000 MG ORAL TABLET 1 tablet by mouth twice daily METFORMIN HCL 45817148313 Active Shila Torres MA Active MECLIZINE HCL 25 MG ORAL TABLET Take one tablet q6hrs, prn as needed for dizziness MECLIZINE HCL 00421874835 Active Shila Torres MA Active IMITREX 100 MG ORAL TABLET 1 tablet daily, prn. SUMATRIPTAN SUCCINATE 36331807961 Active Shila Torres MA Active COLACE 100 MG ORAL CAPSULE 1 po BID PRN Constipation DOCUSATE SODIUM 36805482627 Active Shila Torres MA Active VERAPAMIL HCL ER 180 MG ORAL TABLET EXTENDED RELEASE Take 1 tablet, PO, BID. VERAPAMIL HCL 32736305839 Active Shila Torres MA Active DUONEB 0.5-2.5 (3) MG/3ML INHALATION SOLUTION Inhale solution, QID. IPRATROPIUM-ALBUTEROL 92269897492 Active Shila Torres MA Active ALBUTEROL SULFATE (2.5 MG/3ML) 0.083% INHALATION NEBULIZATION SOLUTION neb 1 ampule qid prn ALBUTEROL SULFATE 37266663718 No Longer Active Shila Torres MA Active PROTONIX 40 MG ORAL TABLET DELAYED RELEASE Take 1 tablet, PO, BID. PANTOPRAZOLE SODIUM 91243666776 Active Shila Brian ZAZUETA Active FUROSEMIDE 20 MG ORAL TABLET 1 qd FUROSEMIDE 99715823488 No Longer Active Shila Torres MA Active HYDROCODONE-ACETAMINOPHEN 5-325 MG ORAL TABLET 1/2 q 4-6 hrs prn pain HYDROCODONE-ACETAMINOPHEN 61180360291 No Longer Active Shila Torres MA Active ORPHENADRINE CITRATE ER 100 MG ORAL TABLET EXTENDED RELEASE 12 HOUR 1 tid prn ORPHENADRINE CITRATE 17997143291 No Longer Active Shila Torres MA Active GABAPENTIN 100 MG ORAL CAPSULE Take one by mouth 3 times daily, morning, afternoon and evening.] GABAPENTIN 79871599015 No Longer Active Shila CunhaOlga MA Active [facility] IRON 325 (65 Fe) MG ORAL TABLET 1 qd FERROUS SULFATE 56599471835 No Longer Active Brent DOBSON Active ASPIRIN 325 MG ORAL TABLET 1 qd ASPIRIN 18200606839 Active Pasha Small MD Active ASPIRIN 81 MG ORAL TABLET DELAYED RELEASE 1 po q d ASPIRIN 89921586773 No Longer Active Pasha Small MD Active LISINOPRIL 10 MG ORAL TABLET 1 qd LISINOPRIL 78344707298 Active Pasha Small MD Active K-TAB 10 MEQ ORAL TABLET EXTENDED RELEASE 1 tab 3 x week POTASSIUM CHLORIDE 07556623332 Active Pasha Small MD Active IPRATROPIUM BROMIDE 0.02 % INHALATION SOLUTION neb 1 amp qid prn IPRATROPIUM BROMIDE 57059074070 Active Galina Long RN Active ASPIRIN 81 MG ORAL TABLET DELAYED RELEASE 1 po q d ASPIRIN 81 MG ORAL TABLET DELAYED RELEASE 255426 ASPIRIN Inactive [facility] IRON 325 (65 Fe) MG ORAL TABLET 1 qd [facility] IRON 325 (65 Fe) MG ORAL TABLET 844390 FERROUS SULFATE Inactive GABAPENTIN 100 MG ORAL CAPSULE Take one by mouth 3 times daily, morning, afternoon and evening.] GABAPENTIN 100 MG ORAL CAPSULE 012087 GABAPENTIN Inactive ORPHENADRINE CITRATE ER 100 MG ORAL TABLET EXTENDED RELEASE 12 HOUR 1 tid prn ORPHENADRINE CITRATE ER 100 MG ORAL TABLET EXTENDED RELEASE 12 HOUR ORPHENADRINE CITRATE Inactive HYDROCODONE-ACETAMINOPHEN 5-325 MG ORAL TABLET 1/2 q 4-6 hrs prn pain HYDROCODONE-ACETAMINOPHEN 5-325 MG ORAL TABLET 568043 HYDROCODONE-ACETAMINOPHEN Inactive FUROSEMIDE 20 MG ORAL TABLET 1 qd FUROSEMIDE 20 MG ORAL TABLET 158244 FUROSEMIDE Inactive ALBUTEROL SULFATE (2.5 MG/3ML) 0.083% INHALATION NEBULIZATION SOLUTION neb 1 ampule qid prn ALBUTEROL SULFATE (2.5 MG/3ML) 0.083% INHALATION NEBULIZATION SOLUTION 306118 ALBUTEROL SULFATE Inactive OXYCODONE HCL 10 MG ORAL TABLET Take 1 tablet, PO, TID. OXYCODONE HCL 10 MG ORAL TABLET 4068064 OXYCODONE HCL Inactive Diagnostic Results Date Name [...] % 11.6-14.8 platelet count 364 10^3/MM^3 10*3/mm3 770-727 2465/05/14 leukocyte count, blood 13.9 10^3/MM^3 10*3/mm3 4.6-10.2 [...] % 11.6-14.8 platelet count 299 10^3/MM^3 10*3/mm3 721-295 8750/06/11 leukocyte count, blood 14.3 10^3/MM^3 10*3/mm3 4.6-10.2 [...] 142-424 Encounters Code Encounter Date Provider Facility CPT-10294 Level 4 Est. 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
--- OUTSIDE RECORDS SUMMARY | 2018-08-04 20:07 | XMS REPORT | Clinical Summary ---
Author Author Admin, NETTE Organization [facility] Address Unknown Phone Unavailable Allergies, Adverse Reactions, Alerts Allergy Name Reaction Description Start Date Severity Status Provider BUTORPHANOL TARTRATE UNK reaction Mild Active Shila [place] MA MORPHINE UNK reaction Mild Active Shila [place] MA IODINE UNK reaction Mild Active Shila Brian MA IMIPRAMINE HCL Tachycardia Critical Active Shila Brian MA GABAPENTIN Delusions Severe Active Shila Brian MA DOXYCYCLINE UNK reaction Mild Active Shila Brian MA PROZAC UNK reaction Mild Active Shila Brian MA LYRICA UNK reaction Mild Active Shila Brian MA EGGS UNK reaction Mild Active Shila [place] MA AVELOX Rash Mild Active Shila Brian [...] Diabetes, Type 2 250.00 Active 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 [employer] Diabetes mellitus without mention of complication, type II or unspecified type, not stated as uncontrolled Diabetes mellitus, type II, uncontrolled 250.02 Active 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 [employer] Diabetes mellitus without mention of complication, type II or unspecified type, uncontrolled ABDOMINAL PAIN, GENERALIZED 789.07 Active Rory Warren MD Abdominal pain, generalized Elevated white blood cell count 288.60 Active Rosemary Chamorro MA Leukocytosis, unspecified Medication List Medication Instructions Start Date Stop Date Generic Name NDC Status Provider Patient Instruction DIGITEK 250 MCG ORAL TABLET 1 tab once daily DIGOXIN 42945383627 Active Rory Warren MD Active JARDIANCE 10 MG ORAL TABLET 1 tab once daily EMPAGLIFLOZIN 64866035059 Active Rory Warren MD Active LASIX 40 MG ORAL TABLET 1 tab twice daily FUROSEMIDE 34563026774 Active Rory Warren MD Active OXYCODONE HCL 10 MG ORAL TABLET Take 1 tablet, PO, TID. OXYCODONE HCL 04324371766 No Longer Active Rory Warren MD Active TRULICITY 1.5 MG/0.5ML SUBCUTANEOUS SOLUTION PEN-INJECTOR 0.5 mL, SubQ, qWeek. DULAGLUTIDE 59408701347 Active Shila Torres MA Active TRIAMCINOLONE ACETONIDE 0.1 % EXTERNAL CREAM apply TOP, TID sparingly to rash TRIAMCINOLONE ACETONIDE 88196351472 Active Shila Torres MA Active SYMBICORT 160-4.5 MCG/ACT INHALATION AEROSOL 2 puff BID BUDESONIDE- FORMOTEROL FUMARATE 54203465721 Active Shila Torres MA Active PROVENTIL HFA 108 (90 BASE) MCG/ACT INHALATION AEROSOL SOLUTION 1 puff q 4 hr prn ALBUTEROL SULFATE 80784714861 Active Shila Torres MA Active PROMETHAZINE HCL 25 MG ORAL TABLET 1 four times a day as needed for nausea/vomiting PROMETHAZINE HCL 37782540644 Active Shila Brian CARLITA Active OXYGEN 2 Liters, INH in Lines, HS OXYGEN Active Shila Torres MA Active METFORMIN HCL 1000 MG ORAL TABLET 1 tablet by mouth twice daily METFORMIN HCL 04024226677 Active Shilajess Torres CARLITA Active MECLIZINE HCL 25 MG ORAL TABLET Take one tablet q6hrs, prn as needed for dizziness MECLIZINE HCL 28224776875 Active Shila Brian CARLITA Active IMITREX 100 MG ORAL TABLET 1 tablet daily, prn. SUMATRIPTAN SUCCINATE 33074054440 Active Shila Torres MA Active COLACE 100 MG ORAL CAPSULE 1 po BID PRN Constipation DOCUSATE SODIUM 30390236345 Active Shila Torres MA Active VERAPAMIL HCL ER 180 MG ORAL TABLET EXTENDED RELEASE Take 1 tablet, PO, BID. VERAPAMIL HCL 82575676339 Active Shila Torres MA Active ALPRAZOLAM 0.5 MG ORAL TABLET ALPRAZOLAM 19586566930 Active Shila Torres MA Active DUONEB 0.5-2.5 (3) MG/3ML INHALATION SOLUTION Inhale solution, QID. IPRATROPIUM-ALBUTEROL 23430087736 Active Shila Brian ZAUZETA Active ALBUTEROL SULFATE (2.5 MG/3ML) 0.083% INHALATION NEBULIZATION SOLUTION neb 1 ampule qid prn ALBUTEROL SULFATE 16381529046 No Longer Active Shila Torres MA Active PROTONIX 40 MG ORAL TABLET DELAYED RELEASE Take 1 tablet, PO, BID. PANTOPRAZOLE SODIUM 31052069794 Active Shila Torres MA Active FUROSEMIDE 20 MG ORAL TABLET 1 qd FUROSEMIDE 91633436992 No Longer Active Shila Torres MA Active HYDROCODONE-ACETAMINOPHEN 5-325 MG ORAL TABLET 1/2 q 4-6 hrs prn pain HYDROCODONE-ACETAMINOPHEN 27558428654 No Longer Active Shila Torres MA Active ORPHENADRINE CITRATE ER 100 MG ORAL TABLET EXTENDED RELEASE 12 HOUR 1 tid prn ORPHENADRINE CITRATE 75734824051 No Longer Active Shila Torres MA Active GABAPENTIN 100 MG ORAL CAPSULE Take one by mouth 3 times daily, morning, afternoon and evening.] GABAPENTIN 18669056301 No Longer Active Shila Torres MA Active [facility] IRON 325 (65 Fe) MG ORAL TABLET 1 qd FERROUS SULFATE 55193793572 No Longer Active Brent Breezy RAPHAELP Active ASPIRIN 325 MG ORAL TABLET 1 qd ASPIRIN 17431779423 Active Pasha Small MD Active ASPIRIN 81 MG ORAL TABLET DELAYED RELEASE 1 po q d ASPIRIN 08306985855 No Longer Active Pasha Small MD Active LISINOPRIL 10 MG ORAL TABLET 1 qd LISINOPRIL 46814990708 Active Pasha Small MD Active K-TAB 10 MEQ ORAL TABLET EXTENDED RELEASE 1 tab 3 x week POTASSIUM CHLORIDE 30942073029 Active Pasha Small MD Active IPRATROPIUM BROMIDE 0.02 % INHALATION SOLUTION neb 1 amp qid prn IPRATROPIUM BROMIDE 59946520236 Active Galina Long RN Active ASPIRIN 81 MG ORAL TABLET DELAYED RELEASE 1 po q d ASPIRIN 81 MG ORAL TABLET DELAYED RELEASE 354710 ASPIRIN Inactive [facility] IRON 325 (65 Fe) MG ORAL TABLET 1 qd [facility] IRON 325 (65 Fe) MG ORAL TABLET 717798 FERROUS SULFATE Inactive GABAPENTIN 100 MG ORAL CAPSULE Take one by mouth 3 times daily, morning, afternoon and evening.] GABAPENTIN 100 MG ORAL CAPSULE 152566 GABAPENTIN Inactive ORPHENADRINE CITRATE ER 100 MG ORAL TABLET EXTENDED RELEASE 12 HOUR 1 tid prn ORPHENADRINE CITRATE ER 100 MG ORAL TABLET EXTENDED RELEASE 12 HOUR ORPHENADRINE CITRATE Inactive HYDROCODONE-ACETAMINOPHEN 5-325 MG ORAL TABLET 1/2 q 4-6 hrs prn pain HYDROCODONE-ACETAMINOPHEN 5-325 MG ORAL TABLET 917323 HYDROCODONE-ACETAMINOPHEN Inactive FUROSEMIDE 20 MG ORAL TABLET 1 qd FUROSEMIDE 20 MG ORAL TABLET 775767 FUROSEMIDE Inactive ALBUTEROL SULFATE (2.5 MG/3ML) 0.083% INHALATION NEBULIZATION SOLUTION neb 1 ampule qid prn ALBUTEROL SULFATE (2.5 MG/3ML) 0.083% INHALATION NEBULIZATION SOLUTION 858541 ALBUTEROL SULFATE Inactive OXYCODONE HCL 10 MG ORAL TABLET Take 1 tablet, PO, TID. OXYCODONE HCL 10 MG ORAL TABLET 9721850 OXYCODONE HCL Inactive Diagnostic Results Date Name [...] % 11.6-14.8 platelet count 364 10^3/MM^3 10*3/mm3 219-117 6468/05/14 leukocyte count, blood 13.9 10^3/MM^3 10*3/mm3 4.6-10.2 [...] % 11.6-14.8 platelet count 299 10^3/MM^3 10*3/mm3 142-424 Encounters Code Encounter Date Provider Facility [id number] Level 4 Est. 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
--- OUTSIDE RECORDS SUMMARY | 2018-08-04 20:07 | XMS REPORT | Clinical Summary ---
Author Author Admin, NETTE Organization [facility] Address Unknown Phone Unavailable Allergies, Adverse Reactions, Alerts Allergy Name Reaction Description Start Date Severity Status Provider BUTORPHANOL TARTRATE UNK reaction Mild Active Shila [place] MA MORPHINE UNK reaction Mild Active Shila [place] MA IODINE UNK reaction Mild Active Shila Brian MA IMIPRAMINE HCL Tachycardia Critical Active Shila Brian MA GABAPENTIN Delusions Severe Active Shila Rbian MA DOXYCYCLINE UNK reaction Mild Active Shila Brian MA PROZAC UNK reaction Mild Active Shila Brian MA LYRICA UNK reaction Mild Active Shila Brian MA EGGS UNK reaction Mild Active Shila [place] MA AVELOX Rash Mild Active Shila Brian [...] Diabetes, Type 2 250.00 Active 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 [employer] SUPER[employer]OR Diabetes mellitus without mention of complication, type II or unspecified type, not stated as uncontrolled Diabetes mellitus, type II, uncontrolled 250.02 Active 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 [employer]TE[employer] SUPER[employer]OR Diabetes mellitus without mention of complication, type II or unspecified type, uncontrolled ABDOMINAL PAIN, GENERALIZED 789.07 Active Rory Warren MD Abdominal pain, generalized Elevated white blood cell count 288.60 Active Rosemary Chamorro MA Leukocytosis, unspecified Medication List Medication Instructions Start Date Stop Date Generic Name NDC Status Provider Patient Instruction DIGITEK 250 MCG ORAL TABLET 1 tab once daily DIGOXIN 05906962979 Active Rory Warren MD Active JARDIANCE 10 MG ORAL TABLET 1 tab once daily EMPAGLIFLOZIN 31244950441 Active Rory Warren MD Active LASIX 40 MG ORAL TABLET 1 tab twice daily FUROSEMIDE 66417046845 Active Rory Warren MD Active OXYCODONE HCL 10 MG ORAL TABLET Take 1 tablet, PO, TID. OXYCODONE HCL 40781577727 No Longer Active Rory Warren MD Active TRULICITY 1.5 MG/0.5ML SUBCUTANEOUS SOLUTION PEN-INJECTOR 0.5 mL, SubQ, qWeek. DULAGLUTIDE 90813199354 Active Shila Torres MA Active TRIAMCINOLONE ACETONIDE 0.1 % EXTERNAL CREAM apply TOP, TID sparingly to rash TRIAMCINOLONE ACETONIDE 03050835640 Active Shila Torres MA Active SYMBICORT 160-4.5 MCG/ACT INHALATION AEROSOL 2 puff BID BUDESONIDE- FORMOTEROL FUMARATE 78063124377 Active Shila Torres MA Active PROVENTIL HFA 108 (90 BASE) MCG/ACT INHALATION AEROSOL SOLUTION 1 puff q 4 hr prn ALBUTEROL SULFATE 18895940598 Active Shila Torres MA Active PROMETHAZINE HCL 25 MG ORAL TABLET 1 four times a day as needed for nausea/vomiting PROMETHAZINE HCL 90722061515 Active Shila Brian CARLITA Active OXYGEN 2 Liters, INH in Lines, HS OXYGEN Active Shila Torres MA Active METFORMIN HCL 1000 MG ORAL TABLET 1 tablet by mouth twice daily METFORMIN HCL 88248311091 Active Shilajess Torres CARLITA Active MECLIZINE HCL 25 MG ORAL TABLET Take one tablet q6hrs, prn as needed for dizziness MECLIZINE HCL 63420266325 Active Shila Brian CARLITA Active IMITREX 100 MG ORAL TABLET 1 tablet daily, prn. SUMATRIPTAN SUCCINATE 06429882685 Active Shila Torres MA Active COLACE 100 MG ORAL CAPSULE 1 po BID PRN Constipation DOCUSATE SODIUM 17840326419 Active Shila Torres MA Active VERAPAMIL HCL ER 180 MG ORAL TABLET EXTENDED RELEASE Take 1 tablet, PO, BID. VERAPAMIL HCL 74468289868 Active Shila Torres MA Active ALPRAZOLAM 0.5 MG ORAL TABLET ALPRAZOLAM 98783159017 Active Shila Torres MA Active DUONEB 0.5-2.5 (3) MG/3ML INHALATION SOLUTION Inhale solution, QID. IPRATROPIUM-ALBUTEROL 53780296558 Active Shila Brian ZAZUETA Active ALBUTEROL SULFATE (2.5 MG/3ML) 0.083% INHALATION NEBULIZATION SOLUTION neb 1 ampule qid prn ALBUTEROL SULFATE 92165347435 No Longer Active Shila Torres MA Active PROTONIX 40 MG ORAL TABLET DELAYED RELEASE Take 1 tablet, PO, BID. PANTOPRAZOLE SODIUM 35274736281 Active Shila Torres MA Active FUROSEMIDE 20 MG ORAL TABLET 1 qd FUROSEMIDE 27923728588 No Longer Active Shila Torres MA Active HYDROCODONE-ACETAMINOPHEN 5-325 MG ORAL TABLET 1/2 q 4-6 hrs prn pain HYDROCODONE-ACETAMINOPHEN 60711150568 No Longer Active Shila Torres MA Active ORPHENADRINE CITRATE ER 100 MG ORAL TABLET EXTENDED RELEASE 12 HOUR 1 tid prn ORPHENADRINE CITRATE 14928192274 No Longer Active Shila Torres MA Active GABAPENTIN 100 MG ORAL CAPSULE Take one by mouth 3 times daily, morning, afternoon and evening.] GABAPENTIN 17759022127 No Longer Active Shila Torres MA Active [facility] IRON 325 (65 Fe) MG ORAL TABLET 1 qd FERROUS SULFATE 48898667902 No Longer Active Brent Breezy RAPHAELP Active ASPIRIN 325 MG ORAL TABLET 1 qd ASPIRIN 35437281227 Active Pasha Small MD Active ASPIRIN 81 MG ORAL TABLET DELAYED RELEASE 1 po q d ASPIRIN 26334559680 No Longer Active Pasha Small MD Active LISINOPRIL 10 MG ORAL TABLET 1 qd LISINOPRIL 82274224014 Active Pasha Small MD Active K-TAB 10 MEQ ORAL TABLET EXTENDED RELEASE 1 tab 3 x week POTASSIUM CHLORIDE 59786488589 Active Pasha Small MD Active IPRATROPIUM BROMIDE 0.02 % INHALATION SOLUTION neb 1 amp qid prn IPRATROPIUM BROMIDE 61027156869 Active Galina Long RN Active ASPIRIN 81 MG ORAL TABLET DELAYED RELEASE 1 po q d ASPIRIN 81 MG ORAL TABLET DELAYED RELEASE 770643 ASPIRIN Inactive [facility]ON 325 (65 Fe) MG ORAL TABLET 1 qd [facility] IRON 325 (65 Fe) MG ORAL TABLET 638249 FERROUS SULFATE Inactive GABAPENTIN 100 MG ORAL CAPSULE Take one by mouth 3 times daily, morning, afternoon and evening.] GABAPENTIN 100 MG ORAL CAPSULE 687467 GABAPENTIN Inactive ORPHENADRINE CITRATE ER 100 MG ORAL TABLET EXTENDED RELEASE 12 HOUR 1 tid prn ORPHENADRINE CITRATE ER 100 MG ORAL TABLET EXTENDED RELEASE 12 HOUR ORPHENADRINE CITRATE Inactive HYDROCODONE-ACETAMINOPHEN 5-325 MG ORAL TABLET 1/2 q 4-6 hrs prn pain HYDROCODONE-ACETAMINOPHEN 5-325 MG ORAL TABLET 851185 HYDROCODONE-ACETAMINOPHEN Inactive FUROSEMIDE 20 MG ORAL TABLET 1 qd FUROSEMIDE 20 MG ORAL TABLET 145692 FUROSEMIDE Inactive ALBUTEROL SULFATE (2.5 MG/3ML) 0.083% INHALATION NEBULIZATION SOLUTION neb 1 ampule qid prn ALBUTEROL SULFATE (2.5 MG/3ML) 0.083% INHALATION NEBULIZATION SOLUTION 657094 ALBUTEROL SULFATE Inactive OXYCODONE HCL 10 MG ORAL TABLET Take 1 tablet, PO, TID. OXYCODONE HCL 10 MG ORAL TABLET 5986747 OXYCODONE HCL Inactive Diagnostic Results Date Name [...] % 11.6-14.8 platelet count 364 10^3/MM^3 10*3/mm3 142-424 Encounters Code Encounter Date Provider Facility [id number] Level 4 Est. 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
--- OUTSIDE RECORDS SUMMARY | 2018-08-04 20:07 | XMS REPORT | Clinical Summary ---
Author Author Admin, NETTE Organization [facility] Address Unknown Phone Unavailable Allergies, Adverse Reactions, Alerts Allergy Name Reaction Description Start Date Severity Status Provider BUTORPHANOL TARTRATE UNK reaction Mild Active Shila [place] MA MORPHINE UNK reaction Mild Active Shila [place] MA IODINE UNK reaction Mild Active Shila Brian MA IMIPRAMINE HCL Tachycardia Critical Active Shila Brian MA GABAPENTIN Delusions Severe Active Shila Brian MA DOXYCYCLINE UNK reaction Mild Active Shila Brian MA PROZAC UNK reaction Mild Active Shila Brian MA LYRICA UNK reaction Mild Active Shila Brian MA EGGS UNK reaction Mild Active Shila [place] MA AVELOX Rash Mild Active Shila Brian MA ADVAIR HFA UNK reaction Mild Active Shila Brian MA LATEX Moderate Active Galina Mercedes RN ERYTHROMYCIN Moderate Active Galina Mercedes RN CODEINE Moderate Active Galina Mrecedes RN CELEBREX Moderate Active Galina Mercedes RN [...] Diabetes, Type 2 250.00 Active 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 Diabetes mellitus without mention of complication, type II or unspecified type, not stated as uncontrolled Diabetes mellitus, type II, uncontrolled 250.02 Active 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 Diabetes mellitus without mention of complication, type II or unspecified type, uncontrolled ABDOMINAL PAIN, GENERALIZED 789.07 Active Rory Warren MD Abdominal pain, generalized Elevated white blood cell count 288.60 Active Rosemary Chamorro MA Leukocytosis, unspecified Medication List Medication Instructions Start Date Stop Date Generic Name NDC Status Provider Patient Instruction DIGITEK 250 MCG ORAL TABLET 1 tab once daily DIGOXIN 90572167059 Active Rory Warren MD Active JARDIANCE 10 MG ORAL TABLET 1 tab once daily EMPAGLIFLOZIN 25820003667 Active Rory Warren MD Active LASIX 40 MG ORAL TABLET 1 tab twice daily FUROSEMIDE 42135641100 Active Rory Warren MD Active OXYCODONE HCL 10 MG ORAL TABLET Take 1 tablet, PO, TID. OXYCODONE HCL 23770493110 No Longer Active Rory Warren MD Active TRULICITY 1.5 MG/0.5ML SUBCUTANEOUS SOLUTION PEN-INJECTOR 0.5 mL, SubQ, qWeek. DULAGLUTIDE 32995334422 Active Shila Torres MA Active TRIAMCINOLONE ACETONIDE 0.1 % EXTERNAL CREAM apply TOP, TID sparingly to rash TRIAMCINOLONE ACETONIDE 55373855940 Active Shila Torres MA Active SYMBICORT 160-4.5 MCG/ACT INHALATION AEROSOL 2 puff BID BUDESONIDE- FORMOTEROL FUMARATE 83057274226 Active Shila Torres MA Active PROVENTIL HFA 108 (90 BASE) MCG/ACT INHALATION AEROSOL SOLUTION 1 puff q 4 hr prn ALBUTEROL SULFATE 15062206662 Active Shila Torres MA Active PROMETHAZINE HCL 25 MG ORAL TABLET 1 four times a day as needed for nausea/vomiting PROMETHAZINE HCL 52366789107 Active Shila Brian CARLITA Active OXYGEN 2 Liters, INH in Lines, HS OXYGEN Active Shila Torres MA Active METFORMIN HCL 1000 MG ORAL TABLET 1 tablet by mouth twice daily METFORMIN HCL 15697707488 Active Shilajess Torres CARLITA Active MECLIZINE HCL 25 MG ORAL TABLET Take one tablet q6hrs, prn as needed for dizziness MECLIZINE HCL 34580361537 Active Shila Brian CARLITA Active IMITREX 100 MG ORAL TABLET 1 tablet daily, prn. SUMATRIPTAN SUCCINATE 62793928270 Active Shila Torres MA Active COLACE 100 MG ORAL CAPSULE 1 po BID PRN Constipation DOCUSATE SODIUM 06787945551 Active Shila Torres MA Active VERAPAMIL HCL ER 180 MG ORAL TABLET EXTENDED RELEASE Take 1 tablet, PO, BID. VERAPAMIL HCL 92294867124 Active Shila Torres MA Active ALPRAZOLAM 0.5 MG ORAL TABLET ALPRAZOLAM 92242460065 Active Shila Torres MA Active DUONEB 0.5-2.5 (3) MG/3ML INHALATION SOLUTION Inhale solution, QID. IPRATROPIUM-ALBUTEROL 63866758798 Active Shila Brian ZAZUETA Active ALBUTEROL SULFATE (2.5 MG/3ML) 0.083% INHALATION NEBULIZATION SOLUTION neb 1 ampule qid prn ALBUTEROL SULFATE 60660321742 No Longer Active Shila Torres MA Active PROTONIX 40 MG ORAL TABLET DELAYED RELEASE Take 1 tablet, PO, BID. PANTOPRAZOLE SODIUM 58301749361 Active Shila Torres MA Active FUROSEMIDE 20 MG ORAL TABLET 1 qd FUROSEMIDE 71641765630 No Longer Active Shila Torres MA Active HYDROCODONE-ACETAMINOPHEN 5-325 MG ORAL TABLET 1/2 q 4-6 hrs prn pain HYDROCODONE-ACETAMINOPHEN 38495560458 No Longer Active Shila Torres MA Active ORPHENADRINE CITRATE ER 100 MG ORAL TABLET EXTENDED RELEASE 12 HOUR 1 tid prn ORPHENADRINE CITRATE 80792521756 No Longer Active Shila Torres MA Active GABAPENTIN 100 MG ORAL CAPSULE Take one by mouth 3 times daily, morning, afternoon and evening.] GABAPENTIN 56347053558 No Longer Active Shila Torres MA Active [facility] IRON 325 (65 Fe) MG ORAL TABLET 1 qd FERROUS SULFATE 74095079352 No Longer Active Brent Breezy RAPHAELP Active ASPIRIN 325 MG ORAL TABLET 1 qd ASPIRIN 97092570559 Active Pasha Small MD Active ASPIRIN 81 MG ORAL TABLET DELAYED RELEASE 1 po q d ASPIRIN 59084752883 No Longer Active Pasha Small MD Active LISINOPRIL 10 MG ORAL TABLET 1 qd LISINOPRIL 31544261278 Active Pasha Small MD Active K-TAB 10 MEQ ORAL TABLET EXTENDED RELEASE 1 tab 3 x week POTASSIUM CHLORIDE 70319733373 Active Pasha Small MD Active IPRATROPIUM BROMIDE 0.02 % INHALATION SOLUTION neb 1 amp qid prn IPRATROPIUM BROMIDE 74443812157 Active Galina Long RN Active ASPIRIN 81 MG ORAL TABLET DELAYED RELEASE 1 po q d ASPIRIN 81 MG ORAL TABLET DELAYED RELEASE 505382 ASPIRIN Inactive [facility] IRON 325 (65 Fe) MG ORAL TABLET 1 qd [facility] IRON 325 (65 Fe) MG ORAL TABLET 681590 FERROUS SULFATE Inactive GABAPENTIN 100 MG ORAL CAPSULE Take one by mouth 3 times daily, morning, afternoon and evening.] GABAPENTIN 100 MG ORAL CAPSULE 063794 GABAPENTIN Inactive ORPHENADRINE CITRATE ER 100 MG ORAL TABLET EXTENDED RELEASE 12 HOUR 1 tid prn ORPHENADRINE CITRATE ER 100 MG ORAL TABLET EXTENDED RELEASE 12 HOUR ORPHENADRINE CITRATE Inactive HYDROCODONE-ACETAMINOPHEN 5-325 MG ORAL TABLET 1/2 q 4-6 hrs prn pain HYDROCODONE-ACETAMINOPHEN 5-325 MG ORAL TABLET 095129 HYDROCODONE-ACETAMINOPHEN Inactive FUROSEMIDE 20 MG ORAL TABLET 1 qd FUROSEMIDE 20 MG ORAL TABLET 672741 FUROSEMIDE Inactive ALBUTEROL SULFATE (2.5 MG/3ML) 0.083% INHALATION NEBULIZATION SOLUTION neb 1 ampule qid prn ALBUTEROL SULFATE (2.5 MG/3ML) 0.083% INHALATION NEBULIZATION SOLUTION 844268 ALBUTEROL SULFATE Inactive OXYCODONE HCL 10 MG ORAL TABLET Take 1 tablet, PO, TID. OXYCODONE HCL 10 MG ORAL TABLET 7684238 OXYCODONE HCL Inactive Diagnostic Results Date Name [...] % 11.6-14.8 platelet count 364 10^3/MM^3 10*3/mm3 229-938 6600/05/14 leukocyte count, blood 13.9 10^3/MM^3 10*3/mm3 4.6-10.2 [...] 142-424 Encounters Code Encounter Date Provider Facility CPT-25684 Level 4 Est. 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
--- OUTSIDE RECORDS SUMMARY | 2018-08-04 20:08 | XMS REPORT | Clinical Summary ---
Author Author Admin, NETTE Organization [facility] Address Unknown Phone Unavailable Allergies, Adverse Reactions, Alerts Allergy Name Reaction Description Start Date Severity Status Provider BUTORPHANOL TARTRATE UNK reaction Mild Active Shila Conway MA MORPHINE UNK reaction Mild Active Shila Conway MA IODINE UNK reaction Mild Active Shila Brian MA IMIPRAMINE HCL Tachycardia Critical Active Shila Brian MA GABAPENTIN Delusions Severe Active Shila Brian MA DOXYCYCLINE UNK reaction Mild Active Shila Brian MA PROZAC UNK reaction Mild Active Shila Brian MA LYRICA UNK reaction Mild Active Shila Brian MA EGGS UNK reaction Mild Active Shila Conway MA AVELOX Rash Mild Active Shila Brian [...] Diabetes, Type 2 250.00 Active 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 WINDER OPERATOR Diabetes mellitus without mention of complication, type II or unspecified type, not stated as uncontrolled Diabetes mellitus, type II, uncontrolled 250.02 Active 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 WINDER OPERATOR Diabetes mellitus without mention of complication, type II or unspecified type, uncontrolled ABDOMINAL PAIN, GENERALIZED 789.07 Active Rory Warren MD Abdominal pain, generalized Elevated white blood cell count 288.60 Active Rosemary Chamorro MA Leukocytosis, unspecified Medication List Medication Instructions Start Date Stop Date Generic Name NDC Status Provider Patient Instruction DIGITEK 250 MCG ORAL TABLET 1 tab once daily DIGOXIN 92754686480 Active Rory Warren MD Active JARDIANCE 10 MG ORAL TABLET 1 tab once daily EMPAGLIFLOZIN 85252338178 Active Rory Warren MD Active LASIX 40 MG ORAL TABLET 1 tab twice daily FUROSEMIDE 28012542121 Active Rory Warren MD Active OXYCODONE HCL 10 MG ORAL TABLET Take 1 tablet, PO, TID. OXYCODONE HCL 21537695744 No Longer Active Rory Warren MD Active TRULICITY 1.5 MG/0.5ML SUBCUTANEOUS SOLUTION PEN-INJECTOR 0.5 mL, SubQ, qWeek. DULAGLUTIDE 29967067860 Active Shila Torres MA Active TRIAMCINOLONE ACETONIDE 0.1 % EXTERNAL CREAM apply TOP, TID sparingly to rash TRIAMCINOLONE ACETONIDE 37329869215 Active Shila Torres MA Active SYMBICORT 160-4.5 MCG/ACT INHALATION AEROSOL 2 puff BID BUDESONIDE- FORMOTEROL FUMARATE 52451740635 Active Shila Torres MA Active PROVENTIL HFA 108 (90 BASE) MCG/ACT INHALATION AEROSOL SOLUTION 1 puff q 4 hr prn ALBUTEROL SULFATE 84333751716 Active Shila Torres MA Active PROMETHAZINE HCL 25 MG ORAL TABLET 1 four times a day as needed for nausea/vomiting PROMETHAZINE HCL 56069889686 Active Shila Brian CARLITA Active OXYGEN 2 Liters, INH in Lines, HS OXYGEN Active Shila Torres MA Active METFORMIN HCL 1000 MG ORAL TABLET 1 tablet by mouth twice daily METFORMIN HCL 41751678849 Active Shilajess Torres CARLITA Active MECLIZINE HCL 25 MG ORAL TABLET Take one tablet q6hrs, prn as needed for dizziness MECLIZINE HCL 04183977628 Active Shila Brian CARLITA Active IMITREX 100 MG ORAL TABLET 1 tablet daily, prn. SUMATRIPTAN SUCCINATE 72627946077 Active Shila Torres MA Active COLACE 100 MG ORAL CAPSULE 1 po BID PRN Constipation DOCUSATE SODIUM 34524047878 Active Shila Torres MA Active VERAPAMIL HCL ER 180 MG ORAL TABLET EXTENDED RELEASE Take 1 tablet, PO, BID. VERAPAMIL HCL 02009891294 Active Shila Torres MA Active ALPRAZOLAM 0.5 MG ORAL TABLET ALPRAZOLAM 74500443953 Active Shila Torres MA Active DUONEB 0.5-2.5 (3) MG/3ML INHALATION SOLUTION Inhale solution, QID. IPRATROPIUM-ALBUTEROL 07056713466 Active Shila Brian ZAZUETA Active ALBUTEROL SULFATE (2.5 MG/3ML) 0.083% INHALATION NEBULIZATION SOLUTION neb 1 ampule qid prn ALBUTEROL SULFATE 10025445646 No Longer Active Shila Torres MA Active PROTONIX 40 MG ORAL TABLET DELAYED RELEASE Take 1 tablet, PO, BID. PANTOPRAZOLE SODIUM 84238257827 Active Shila Torres MA Active FUROSEMIDE 20 MG ORAL TABLET 1 qd FUROSEMIDE 24688292238 No Longer Active Shila Torres MA Active HYDROCODONE-ACETAMINOPHEN 5-325 MG ORAL TABLET 1/2 q 4-6 hrs prn pain HYDROCODONE-ACETAMINOPHEN 77163153360 No Longer Active Shila Torres MA Active ORPHENADRINE CITRATE ER 100 MG ORAL TABLET EXTENDED RELEASE 12 HOUR 1 tid prn ORPHENADRINE CITRATE 08679816796 No Longer Active Shila Torres MA Active GABAPENTIN 100 MG ORAL CAPSULE Take one by mouth 3 times daily, morning, afternoon and evening.] GABAPENTIN 47602910715 No Longer Active Shila Torres MA Active [facility] IRON 325 (65 Fe) MG ORAL TABLET 1 qd FERROUS SULFATE 11405325821 No Longer Active Brent Breezy RAPHAELP Active ASPIRIN 325 MG ORAL TABLET 1 qd ASPIRIN 72316743646 Active Pasha Small MD Active ASPIRIN 81 MG ORAL TABLET DELAYED RELEASE 1 po q d ASPIRIN 71896762259 No Longer Active Pasha Small MD Active LISINOPRIL 10 MG ORAL TABLET 1 qd LISINOPRIL 17322534913 Active Pasha Small MD Active K-TAB 10 MEQ ORAL TABLET EXTENDED RELEASE 1 tab 3 x week POTASSIUM CHLORIDE 99083654576 Active Pasha Small MD Active IPRATROPIUM BROMIDE 0.02 % INHALATION SOLUTION neb 1 amp qid prn IPRATROPIUM BROMIDE 37717991393 Active Galina Long RN Active ASPIRIN 81 MG ORAL TABLET DELAYED RELEASE 1 po q d ASPIRIN 81 MG ORAL TABLET DELAYED RELEASE 755773 ASPIRIN Inactive [facility] IRON 325 (65 Fe) MG ORAL TABLET 1 qd [facility] IRON 325 (65 Fe) MG ORAL TABLET 522925 FERROUS SULFATE Inactive GABAPENTIN 100 MG ORAL CAPSULE Take one by mouth 3 times daily, morning, afternoon and evening.] GABAPENTIN 100 MG ORAL CAPSULE 614262 GABAPENTIN Inactive ORPHENADRINE CITRATE ER 100 MG ORAL TABLET EXTENDED RELEASE 12 HOUR 1 tid prn ORPHENADRINE CITRATE ER 100 MG ORAL TABLET EXTENDED RELEASE 12 HOUR ORPHENADRINE CITRATE Inactive HYDROCODONE-ACETAMINOPHEN 5-325 MG ORAL TABLET 1/2 q 4-6 hrs prn pain HYDROCODONE-ACETAMINOPHEN 5-325 MG ORAL TABLET 470267 HYDROCODONE-ACETAMINOPHEN Inactive FUROSEMIDE 20 MG ORAL TABLET 1 qd FUROSEMIDE 20 MG ORAL TABLET 376238 FUROSEMIDE Inactive ALBUTEROL SULFATE (2.5 MG/3ML) 0.083% INHALATION NEBULIZATION SOLUTION neb 1 ampule qid prn ALBUTEROL SULFATE (2.5 MG/3ML) 0.083% INHALATION NEBULIZATION SOLUTION 490770 ALBUTEROL SULFATE Inactive OXYCODONE HCL 10 MG ORAL TABLET Take 1 tablet, PO, TID. OXYCODONE HCL 10 MG ORAL TABLET [id number] OXYCODONE HCL Inactive Diagnostic Results Date Name [...] [id number] Encounters Code Encounter Date Provider Facility CPT-08046 Level 4 Est. 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
--- OUTSIDE RECORDS SUMMARY | 2018-08-04 20:08 | XMS REPORT | Clinical Summary ---
Author Author Admin, NETTE Organization [facility] Address Unknown Phone Unavailable Allergies, Adverse Reactions, Alerts Allergy Name Reaction Description Start Date Severity Status Provider BUTORPHANOL TARTRATE UNK reaction Mild Active Shila Elgin MA MORPHINE UNK reaction Mild Active Shila Elgin MA IODINE UNK reaction Mild Active Shila Brian MA IMIPRAMINE HCL Tachycardia Critical Active Shila Brian MA GABAPENTIN Delusions Severe Active Shila Brian MA DOXYCYCLINE UNK reaction Mild Active Shila Brian MA PROZAC UNK reaction Mild Active Shila Brian MA LYRICA UNK reaction Mild Active Shila Brain MA EGGS UNK reaction Mild Active Shila Elgin MA AVELOX Rash Mild Active Shila Brian [...] Diabetes, Type 2 250.00 Active 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 PRACTICE COORDINATOR Diabetes mellitus without mention of complication, type II or unspecified type, not stated as uncontrolled Diabetes mellitus, type II, uncontrolled 250.02 Active 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 PRACTICE COORDINATOR Diabetes mellitus without mention of complication, type II or unspecified type, uncontrolled ABDOMINAL PAIN, GENERALIZED 789.07 Active Rory Warren MD Abdominal pain, generalized Elevated white blood cell count 288.60 Active Rosemary Chamorro MA Leukocytosis, unspecified Medication List Medication Instructions Start Date Stop Date Generic Name NDC Status Provider Patient Instruction DIGITEK 250 MCG ORAL TABLET 1 tab once daily DIGOXIN 47808285400 Active Rory Warren MD Active JARDIANCE 10 MG ORAL TABLET 1 tab once daily EMPAGLIFLOZIN 62459997793 Active Rory Warren MD Active LASIX 40 MG ORAL TABLET 1 tab twice daily FUROSEMIDE 05377026106 Active Rory Warren MD Active OXYCODONE HCL 10 MG ORAL TABLET Take 1 tablet, PO, TID. OXYCODONE HCL 86056836282 No Longer Active Rory Warren MD Active TRULICITY 1.5 MG/0.5ML SUBCUTANEOUS SOLUTION PEN-INJECTOR 0.5 mL, SubQ, qWeek. DULAGLUTIDE 68024755788 Active Shila Torres MA Active TRIAMCINOLONE ACETONIDE 0.1 % EXTERNAL CREAM apply TOP, TID sparingly to rash TRIAMCINOLONE ACETONIDE 48041852307 Active Shila Torres MA Active SYMBICORT 160-4.5 MCG/ACT INHALATION AEROSOL 2 puff BID BUDESONIDE- FORMOTEROL FUMARATE 51412088592 Active Shila Torres MA Active PROVENTIL HFA 108 (90 BASE) MCG/ACT INHALATION AEROSOL SOLUTION 1 puff q 4 hr prn ALBUTEROL SULFATE 24935000847 Active Shila Torres MA Active PROMETHAZINE HCL 25 MG ORAL TABLET 1 four times a day as needed for nausea/vomiting PROMETHAZINE HCL 46535735903 Active Shila Brian CARLITA Active OXYGEN 2 Liters, INH in Lines, HS OXYGEN Active Shila Torres MA Active METFORMIN HCL 1000 MG ORAL TABLET 1 tablet by mouth twice daily METFORMIN HCL 49543614415 Active Shilajess Torres CARLITA Active MECLIZINE HCL 25 MG ORAL TABLET Take one tablet q6hrs, prn as needed for dizziness MECLIZINE HCL 11281303056 Active Shila Brian CARLITA Active IMITREX 100 MG ORAL TABLET 1 tablet daily, prn. SUMATRIPTAN SUCCINATE 42117832550 Active Shila Torres MA Active COLACE 100 MG ORAL CAPSULE 1 po BID PRN Constipation DOCUSATE SODIUM 93898580744 Active Shila Torres MA Active VERAPAMIL HCL ER 180 MG ORAL TABLET EXTENDED RELEASE Take 1 tablet, PO, BID. VERAPAMIL HCL 02626389847 Active Shila Torres MA Active ALPRAZOLAM 0.5 MG ORAL TABLET ALPRAZOLAM 51494896987 Active Shila Torres MA Active DUONEB 0.5-2.5 (3) MG/3ML INHALATION SOLUTION Inhale solution, QID. IPRATROPIUM-ALBUTEROL 41663093139 Active Shila Brian ZAZUETA Active ALBUTEROL SULFATE (2.5 MG/3ML) 0.083% INHALATION NEBULIZATION SOLUTION neb 1 ampule qid prn ALBUTEROL SULFATE 76620724929 No Longer Active Shila Torres MA Active PROTONIX 40 MG ORAL TABLET DELAYED RELEASE Take 1 tablet, PO, BID. PANTOPRAZOLE SODIUM 95601130234 Active Shila Torres MA Active FUROSEMIDE 20 MG ORAL TABLET 1 qd FUROSEMIDE 26645157549 No Longer Active Shila Torres MA Active HYDROCODONE-ACETAMINOPHEN 5-325 MG ORAL TABLET 1/2 q 4-6 hrs prn pain HYDROCODONE-ACETAMINOPHEN 51903536473 No Longer Active Shila Torres MA Active ORPHENADRINE CITRATE ER 100 MG ORAL TABLET EXTENDED RELEASE 12 HOUR 1 tid prn ORPHENADRINE CITRATE 36721800991 No Longer Active Shila Torres MA Active GABAPENTIN 100 MG ORAL CAPSULE Take one by mouth 3 times daily, morning, afternoon and evening.] GABAPENTIN 83873686218 No Longer Active Shila Torres MA Active [facility] IRON 325 (65 Fe) MG ORAL TABLET 1 qd FERROUS SULFATE 84870957121 No Longer Active Brent Breezy RAPHAELP Active ASPIRIN 325 MG ORAL TABLET 1 qd ASPIRIN 41473412678 Active Pasha Small MD Active ASPIRIN 81 MG ORAL TABLET DELAYED RELEASE 1 po q d ASPIRIN 51275548043 No Longer Active Pasha Small MD Active LISINOPRIL 10 MG ORAL TABLET 1 qd LISINOPRIL 18912641377 Active Pasha Small MD Active K-TAB 10 MEQ ORAL TABLET EXTENDED RELEASE 1 tab 3 x week POTASSIUM CHLORIDE 49890660302 Active Pasha Small MD Active IPRATROPIUM BROMIDE 0.02 % INHALATION SOLUTION neb 1 amp qid prn IPRATROPIUM BROMIDE 52066881876 Active Galina Long RN Active ASPIRIN 81 MG ORAL TABLET DELAYED RELEASE 1 po q d ASPIRIN 81 MG ORAL TABLET DELAYED RELEASE 039022 ASPIRIN Inactive [facility] IRON 325 (65 Fe) MG ORAL TABLET 1 qd [facility] IRON 325 (65 Fe) MG ORAL TABLET 357555 FERROUS SULFATE Inactive GABAPENTIN 100 MG ORAL CAPSULE Take one by mouth 3 times daily, morning, afternoon and evening.] GABAPENTIN 100 MG ORAL CAPSULE 221988 GABAPENTIN Inactive ORPHENADRINE CITRATE ER 100 MG ORAL TABLET EXTENDED RELEASE 12 HOUR 1 tid prn ORPHENADRINE CITRATE ER 100 MG ORAL TABLET EXTENDED RELEASE 12 HOUR ORPHENADRINE CITRATE Inactive HYDROCODONE-ACETAMINOPHEN 5-325 MG ORAL TABLET 1/2 q 4-6 hrs prn pain HYDROCODONE-ACETAMINOPHEN 5-325 MG ORAL TABLET 599160 HYDROCODONE-ACETAMINOPHEN Inactive FUROSEMIDE 20 MG ORAL TABLET 1 qd FUROSEMIDE 20 MG ORAL TABLET 422856 FUROSEMIDE Inactive ALBUTEROL SULFATE (2.5 MG/3ML) 0.083% INHALATION NEBULIZATION SOLUTION neb 1 ampule qid prn ALBUTEROL SULFATE (2.5 MG/3ML) 0.083% INHALATION NEBULIZATION SOLUTION 180442 ALBUTEROL SULFATE Inactive OXYCODONE HCL 10 MG ORAL TABLET Take 1 tablet, PO, TID. OXYCODONE HCL 10 MG ORAL TABLET 2990730 OXYCODONE HCL Inactive Encounters Code Encounter Date Provider Facility CPT-99939 Level 4 Est. Patient 14:53:[address] [facility] CPT-10389 Level 5 New Patient 13:41:[address] 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
--- OUTSIDE RECORDS SUMMARY | 2018-08-04 20:14 | XMS REPORT | Continuity of Care Document ---
Demographics x Preferred Language Unknown Marital Status Unknown Episcopalian Affiliation Unknown Race Unknown Ethnic Group Unknown Author Organization Unknown Address Unknown Allergies Active Description Code Type Severity Reaction Onset Reported/Identified Relationship to Patient Clinical Status Yes Augmentin 4242 Drug Allergy N/A N/A Yes Coban Miscellaneous Allergy N/A N/A Yes Codeine 1550 Drug Allergy N/A N/A Yes Erythromycin Base 2755 Drug Allergy N/A N/A Yes Iodine 852 Drug Allergy N/A N/A Yes LATEX LATEX Environmental Allergy Severe Nausea Yes Morphine 1545 Drug Allergy Moderate Shortness of Breath Yes Moxifloxacin 7927 Drug Allergy N/A N/A Yes oseltamivir 7918 Drug Allergy N/A N/A Confirmed or Verified Yes pepperoni Food Allergy Moderate Shortness of Breath Yes Stadol 976 Drug Allergy N/A N/A Yes [place] Food Allergy N/A Shortness of Breath Yes Tamiflu 91023 Drug Allergy N/A N/A Yes Vancomycin 4866 Drug Allergy Severe Rash Yes Advair Diskus Drug N/A N/A Yes Augmentin Drug N/A N/A Yes Augmentin Drug Other N/A Yes Avelox Drug N/A [id number] Yes codeine phosphate Drug N/A N/A Yes doxycycline Drug N/A N/A Yes Egg Allergy Drug N/A N/A Yes gabapentin Drug N/A delusions Yes imipramine Drug N/A [id number] Yes iodine Drug N/A N/A Yes Latex Allergy Drug N/A N/A Yes Lyrica Drug N/A N/A Yes macrolide antibiotics 37 Drug N/A N/A Yes morphine Drug N/A N/A Yes PROzac Drug N/A N/A Yes Stadol Drug N/A N/A Yes butorphanol [id number] Drug Allergy Severe N/A 03/13/2018 Yes pepperoni pepperoni Severe ANAPHYLAXIS 03/13/2018 Yes strawberry [id number] Drug Allergy Severe ANAPHYLAXIS 03/13/2018 Yes erythromycin base [id number] Drug Allergy Unknown NAUSEA 03/13/2018 Yes gabapentin [id number] Drug Allergy Unknown N/A 03/13/2018 Yes latex [id number] Drug Allergy Unknown N/A 03/13/2018 Yes morphine [id number] Drug Allergy Unknown N/A 03/13/2018 Medications There is no data. Problems Date Dx Coded Attending Type Code Diagnosis Diagnosed By 04/29/2013 SWATHI VARGAS 338.29 CHRONIC PAIN NEC 04/29/2013 SWATHI VARGAS 412 OLD MYOCARDIAL INFARCT 04/29/2013 SWATHI VARGAS 427.31 ATRIAL FIBRILLATION 04/29/2013 SWATHI VARGAS 496 CHR AIRWAY OBSTRUCT NEC 04/29/2013 SWATHI VARGAS 724.2 LUMBAGO 04/29/2013 SWATHI VARGAS 780.39 OTHER CONVULSIONS 04/29/2013 SWATHI VARGAS V58.66 LONG- TERM ASPIRIN USE 09/23/2013 D 214.1 LIPOMA SKIN NEC 02/13/2014 SHIVAM LOPEZ 491.21 OBSTRUCTIVE CHRONIC BRON 02/13/2014 SHIVAM LOPEZ 786.05 SHORTNESS OF BREATH 05/27/2017 Kevin Samaniego DO R10.84 ABDOMINAL PAIN, GENERALIZED 03/13/2018 ANABEL DENNIS MD, Ot E11.9 TYPE 2 DIABETES MELLITUS WITHOUT COMPLIC 03/13/2018 ANABEL DENNIS MD, Ot E87.2 ACIDOSIS 03/13/2018 ANABEL DENNIS MD, Ot F41.9 ANXIETY DISORDER, UNSPECIFIED 03/13/2018 ANABEL DENNIS MD, Ot I48.91 UNSPECIFIED ATRIAL FIBRILLATION 03/13/2018 ANABEL DENNIS MD, Ot J44.9 CHRONIC OBSTRUCTIVE PULMONARY DISEASE, U 03/13/2018 ANABEL DENNIS MD, Ot K52.9 NONINFECTIVE GASTROENTERITIS AND COLITIS 03/13/2018 ANABEL DENNIS MD, Ot 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 03/13/2018 ANABEL DENNIS MD, Ot Z87.891 PERSONAL HISTORY OF NICOTINE DEPENDENCE 03/13/2018 ANABEL DENNIS MD, Ot Z88.5 ALLERGY STATUS TO NARCOTIC AGENT STATUS 05/29/2018 Kevin Samaniego DO D72.829 Elevated white blood cell count 07/25/2018 AMY HEADLEY MD Ot Z87.891 PERSONAL HISTORY OF NICOTINE DEPENDENCE 07/30/2018 AMY HEADLEY MD Ot Z87.891 PERSONAL HISTORY OF NICOTINE DEPENDENCE 07/30/2018 AMY HEADLEY MD Ot Z87.891 PERSONAL HISTORY OF NICOTINE DEPENDENCE 08/01/2018 Kevin Samaniego DO E66.01 Obesity Class III (BMI >=40) 08/01/2018 Kevin Samaniego DO Z68.41 BMI 40-44.9 Procedures Code Description [place] [address] ROUTINE VENIPUNCTURE 04/29/2013 15641 COMPREHEN METABOLIC PANEL 04/29/2013 15481 DRUG SCRN 1+ CLASS NONCHROMO 04/29/2013 13843 URINALYSIS, AUTO W/SCOPE 04/29/2013 87810 BL SMEAR W/DIFF WBC COUNT 04/29/2013 13110 COMPLETE CBC, AUTOMATED 04/29/2013 03599 THER/PROPH/DIAG INJ, IV PUSH 04/29/2013 77272 TX/PRO/DX INJ NEW DRUG ADDON 04/29/2013 54390 EMERGENCY DEPT VISIT 04/29/2013 18500 EMERGENCY DEPT VISIT 04/29/2013 J2060 Lorazepam injection 04/29/2013 J2405 ONDANSETRON HCL INJECTION 04/29/2013 02281 EXC TR-EXT B9+REJI > 4.0 CM 09/23/2013 04600 LAYER CLOSURE OF WOUND(S) 09/23/2013 05692 ROUTINE VENIPUNCTURE 09/23/2013 92898 CHORIONIC GONADOTROPIN ASSAY 09/23/2013 863 [facility] LOCAL EXC LESION 09/23/2013 66506 AIRWAY INHALATION TREATMENT 09/23/2013 C9290 INJ, BUPIVICAINE LIPOSOME 09/23/2013 J2250 INJ MIDAZOLAM HYDROCHLORIDE 09/23/2013 J7120 RINGERS LACTATE INFUSION 09/23/2013 J7613 ALBUTEROL NON-COMP UNIT 09/23/2013 91970 EMERGENCY DEPT VISIT 02/13/2014 45534 X-RAY EXAM SERIES, ABDOMEN 03/24/2015 17014 EMERGENCY DEPT VISIT 03/24/2015 86323 EMERGENCY DEPT VISIT 03/24/2015 93542 COMPREHEN METABOLIC PANEL 06/04/2015 37740 GLYCOSYLATED HEMOGLOBIN TEST 06/04/2015 28597 COMPLETE CBC W/AUTO DIFF WBC 06/04/2015 91712 METABOLIC PANEL TOTAL CA 08/11/2015 72809 ASSAY OF DIGOXIN 08/11/2015 74573 GLYCOSYLATED HEMOGLOBIN TEST 08/11/2015 19116 BL SMEAR W/DIFF WBC COUNT 08/11/2015 02864 COMPLETE CBC, AUTOMATED 08/11/2015 Results Test Result [...] ALT 134 IU/L 12-65 AST 70 IU/L -42 BCR 12.5 10-20 BUN 11 MG/DL 7-18 [...] ALB 3.1 G/DL 3.5-5 ALP 110 IU/L -72 ALT 125 IU/L AST 67 IU/L 42 BCR 17.4 10-20 BUN 16 MG/DL 7-18 [...] ALP 156 IU/L 25-72 ALT 72 IU/L 12-65 AST 32 IU/L 10-42 BCR 29.3 10-20 [...] - 12/12/14 00:00 SEVEN NEGATIVE NEGATIVE ELVIN MAN SPOTTED FEVER - 12/12/14 00:00 RMSF1 NOT [...] Automated erythrocyte mean corpuscular hemoglobin concentration measurement (mass/volume) 35 g/dL 32-36 Automated erythrocyte distribution width ratio 17.2 % 10.0- 14.5 Automated blood platelet count (count/volume) 372 10*3/uL [...] Blood monocytes automated count (number/volume) 0.5 10*3 0.0- 1.0 Automated eosinophil count 0.1 10*3/uL 0.0-0.3 Automated [...] Serum or plasma aspartate aminotransferase measurement (enzymatic activity/volume) 28 U/L 5-34 Serum or plasma alanine aminotransferase measurement (enzymatic activity/volume) 42 U/L 0-55 Serum or plasma protein measurement (mass/volume) 8.7 g/dL 6.4-8.2 Serum or plasma albumin measurement (mass/volume) 4.5 g/dL 3.2-4.5 CALCIUM CORRECTED 10.0 mg/dL 8.5-10.1 Magnesium - 03/12/18 22:25 Magnesium 2.4 mg/dL 1.8-2.4 Serum or plasma troponin i.cardiac measurement (mass/volume) - 03/12/18 22:25 Serum or plasma troponin i.cardiac measurement (mass/volume) < ng/mL <0.028 Serum or plasma amylase measurement (enzymatic activity/volume) - 03/12/18 22:25 Serum or plasma amylase measurement (enzymatic activity/volume) 45 U/L 25-125 Lipase - 03/12/18 22:25 Lipase 26 [...] Blood lactic acid measurement (moles/volume) 2.97 mmol/L 0.50- 2.00 Bacterial blood culture - 03/12/18 22:25 Bacterial blood culture NG NRG Bacterial blood culture - 03/12/18 23:46 Bacterial blood culture NG NRG Complete urinalysis with reflex to culture - 03/13/18 00:14 Urine color determination YELLOW NRG Urine clarity determination VERY CLOUDY NRG Urine pH measurement by test strip 5 5-9 Specific gravity of urine by test strip 1.020 1.016-1.022 Urine protein assay by test strip, semi-quantitative [...] sediment leukocyte count by microscopy (number/high power field) RARE NRG Bacteria detection in urine sediment [...] glucose measurement by glucometer (mass/volume) - 03/13/18 06:35 Capillary blood glucose measurement by glucometer (mass/volume) [...] Automated erythrocyte mean corpuscular hemoglobin concentration measurement (mass/volume) 32 g/dL 32-36 Automated erythrocyte distribution width ratio 16.3 % 10.0- 14.5 Automated blood platelet count (count/volume) 266 10*3/uL [...] Blood monocytes automated count (number/volume) 0.9 10*3 0.0- 1.0 Automated eosinophil count 0.0 10*3/uL 0.0-0.3 Automated [...] Serum or plasma aspartate aminotransferase measurement (enzymatic activity/volume) 21 U/L 5-34 Serum or plasma alanine aminotransferase measurement (enzymatic activity/volume) 32 U/L 0-55 Serum or plasma protein measurement (mass/volume) 6.4 g/dL 6.4-8.2 Serum or plasma albumin measurement (mass/volume) 3.4 g/dL 3.2-4.5 CALCIUM CORRECTED 9.6 mg/dL 8.5-10.1 Blood lactic acid measurement (moles/volume) - 03/13/18 10:15 Blood lactic acid measurement (moles/volume) 2.33 mmol/L 0.50- 2.00 Capillary blood glucose measurement by glucometer (mass/volume) - 03/13/18 12:45 Capillary blood glucose measurement by glucometer (mass/volume) 183 mg/dL 70-110 Serum or plasma lactate measurement (moles/volume) - 03/13/18 12:50 Serum or plasma lactate measurement (moles/volume) 2.39 mmol/L 0.50-2.00 Encounters ACCT No. Visit Date/Time Discharge Status Pt. Type Provider Facility Loc./Unit Complaint [id number] 08/11/2015 16:01:00 08/11/2015 16:01:00 DIS Outpatient [facility] [id number] 08/04/2015 12:29:00 08/04/2015 12:29:00 DIS Outpatient [facility] [id number] 06/04/2015 16:48:00 06/04/2015 16:48:00 DIS Outpatient [facility] [id number] 03/24/2015 20:56:00 03/24/2015 22:08:00 DIS Emergency [facility] EMR [id number] 12/12/2014 18:04:00 12/12/2014 18:04:00 DIS Outpatient [facility] CHANA [id number] 10/13/2014 18:25:00 10/13/2014 18:25:00 DIS Outpatient [facility] PANACE [id number] 03/04/2014 15:43:00 03/04/2014 15:43:00 DIS Outpatient [facility] RAD [id number] 02/21/2014 02:25:00 02/21/2014 13:30:00 DIS Inpatient [facility] OBS [id number] 02/19/2014 20:05:00 02/19/2014 23:05:00 DIS Emergency [facility] EMR [id number] 02/13/2014 14:32:00 02/13/2014 15:08:00 DIS Emergency [facility]RA LOPEZ[facility] EMR [id number] 12/03/2013 10:59:00 12/03/2013 10:59:00 DIS Outpatient [facility] RAD [id number] 11/20/2013 22:57:00 11/21/2013 00:30:00 DIS Emergency [facility] EMR [id number] 07/19/2013 19:34:00 07/19/2013 20:35:00 DIS Emergency [facility] EMR [id number] 06/01/2013 22:26:00 06/02/2013 00:28:00 DIS Emergency SHIVAM LOPEZ [facility] EMR [id number] 05/09/2013 11:58:00 05/09/2013 11:58:00 DIS Outpatient [facility] PANACE [id number] 04/28/2013 22:41:00 04/29/2013 00:40:00 DIS Emergency [facility] EMR [id number] 01/12/2015 00:00:00 Document Registration [id number] 01/12/2015 00:00:00 Document Registration [id number] 01/12/2014 00:00:00 Document Registration [id number] 01/12/2014 00:00:00 Document Registration [id number] 01/12/2014 00:00:00 Document Registration [id number] 01/12/2014 00:00:00 Document Registration [id number] 09/23/2013 07:40:00 Document Registration [id number] 05/09/2013 11:58:12 Document Registration [id number] 05/09/2013 11:58:12 Document Registration [id number] 05/09/2013 11:58:12 Document Registration [id number] 05/09/2013 11:58:11 Document Registration [id number] 01/12/2013 00:00:00 Document Registration [id number] 01/12/2013 00:00:00 Document Registration [id number] 01/12/2013 00:00:00 Document Registration [id number] 01/12/2013 00:00:00 Document Registration [id number] 08/01/2018 10:38:01 ACT Unknown Kevin Samaniego DO [id number] 05/14/2013 14:03:03 05/14/2013 23:59:59 CLS Outpatient Cesar Dillon [id number] 07/30/2018 10:45:00 07/30/2018 23:59:59 CLS Preadmit KAYODE BARRERA, AMY [facility] RAD FS SCREENING [id number] 06/04/2018 11:56:00 06/04/2018 23:59:59 CLS Preadmit KAYODE BARRERA, AMY [facility] RAD SCREENING [id number] 03/12/2018 21:39:00 03/13/2018 14:10:00 DIS Inpatient SONNY BARRERA, ANABEL Park [facility] 4TH GASTROENTERITIS;INTRACTABLE NAUSEA/VOMITING/ [id number] 07/11/2018 13:25:01 07/11/2018 23:59:59 DIS Outpatient TERRY [facility] [id number] 07/11/2018 12:46:29 07/11/2018 23:59:59 DIS Outpatient TERRY TIAGO [facility] [id number] 06/06/2018 15:02:39 06/06/2018 23:59:59 DIS Outpatient TERRY [facility] [id number] 06/06/2018 14:25:24 06/06/2018 23:59:59 DIS Outpatient TERRY TIAGO [facility] [id number] 05/21/2018 06:11:07 05/21/2018 23:59:59 DIS Outpatient TERRY [facility] RAD [id number] 04/26/2018 15:31:09 04/26/2018 23:59:59 DIS Outpatient TERRY [facility] [id number] 04/26/2018 14:39:21 04/26/2018 23:59:59 DIS Outpatient TERRY [facility] [id number] 04/09/2018 13:41:18 04/09/2018 23:59:59 DIS Outpatient TERRY [facility]AT[facility] RAD [id number] 03/28/2018 14:36:03 03/28/2018 23:59:59 DIS Outpatient TERRY [facility] [id number] 03/28/2018 13:15:00 03/28/2018 23:59:59 DIS Outpatient TERRY [facility] [id number] 01/02/2018 14:39:18 01/02/2018 23:59:59 CLS Outpatient TERRY [facility] [id number] 01/01/2018 16:12:25 01/01/2018 23:59:59 DIS Outpatient TERRY [facility] [id number] 01/01/2018 15:17:46 01/01/2018 23:59:59 DIS Outpatient TERRY [facility] [id number] 09/06/2017 10:21:32 09/06/2017 23:59:59 DIS Outpatient TERRY [facility] [id number] 08/02/2017 14:15:28 08/02/2017 23:59:59 DIS Outpatient TERRY [facility] [id number] 08/02/2017 13:16:01 08/02/2017 23:59:59 DIS Outpatient TIAGO STEWART [facility] [id number] 05/12/2017 15:22:58 05/12/2017 23:59:59 DIS Outpatient TERRY TIAGO [facility] [id number] 05/12/2017 14:11:06 05/12/2017 23:59:59 [facility] [id number] 04/26/2017 13:45:00 04/26/2017 23:59:59 DIS Outpatient TERRY [facility] [id number] 03/27/2017 17:36:00 03/27/2017 23:59:59 CLS [facility] ED ED VISIT [id number] 03/17/2017 14:04:23 03/17/2017 23:59:59 DIS Outpatient TERRY [facility] [id number] 03/17/2017 13:23:22 03/17/2017 23:59:59 DIS Outpatient TERRY [facility] [id number] 03/01/2017 15:24:44 03/01/2017 23:59:59 DIS Outpatient TERRY [facility] [id number] 03/01/2017 14:39:16 03/01/2017 23:59:59 DIS Outpatient TERRY TIAGO [facility] [id number] 01/24/2017 11:21:05 01/24/2017 23:59:59 DIS Outpatient TERRY TIAGO [facility] [id number] 01/24/2017 10:30:00 01/24/2017 23:59:59 DIS Outpatient TRERY [facility] [id number] 12/05/2016 13:19:10 12/05/2016 23:59:59 DIS Outpatient Fariba Knight [facility] [id number] 11/22/2016 11:25:50 11/22/2016 23:59:59 DIS Outpatient TERRY [facility] [id number] 11/22/2016 11:24:47 11/22/2016 23:59:59 DIS Outpatient TERRY [facility] [id number] 11/02/2016 11:46:56 11/02/2016 23:59:59 DIS Outpatient TERRY [facility] [id number] 11/02/2016 10:54:27 11/02/2016 23:59:59 DIS Outpatient TERRY [facility] [id number] 10/12/2016 10:30:00 10/12/2016 23:59:59 DIS Outpatient TERRY [facility] [id number] 09/20/2016 10:30:00 09/20/2016 23:59:59 DIS Outpatient TERRY [facility] [id number] 07/11/2016 19:26:00 07/11/2016 23:59:59 CLS [facility] ED Ill [id number] 06/28/2016 10:08:40 06/28/2016 23:59:59 CLS Outpatient TERRY [facility] [id number] 05/11/2016 14:30:00 05/11/2016 23:59:59 CLS Outpatient Kassy Sosa [facility] [id number] 05/02/2016 13:46:16 05/02/2016 23:59:59 CLS Outpatient SHAILESH JOHNSON [facility] [id number] 03/05/2016 13:05:00 03/05/2016 23:59:59 CLS [facility] KATHRYN ED sob [id number] 02/23/2016 11:09:42 02/23/2016 23:59:59 CLS Outpatient SHAILESH JOHNSON [facility] [id number] 06/14/2018 11:50:37 Document Registration [id number] 04/20/2018 10:53:35 Document Registration [id number] 01/29/2018 02:00:27 Document Registration [id number] 12/17/2017 05:22:16 Document Registration [id number] 11/10/2017 02:00:49 Document Registration [id number] 09/07/2017 11:39:10 Document Registration [id number] 07/03/2017 02:00:48 Document Registration [id number] 06/12/2017 02:00:20 Document Registration [id number] 06/04/2017 02:00:45 Document Registration [id number] 12/16/2016 02:10:45 Document Registration [id number] 06/28/2016 10:57:59 Document Registration [id number] 05/02/2016 14:35:43 Document Registration [id number] 04/09/2016 02:02:04 Document Registration [id number] 03/28/2016 02:00:31 Document Registration [id number] 03/15/2016 02:00:59 Document Registration [id number] 02/23/2016 11:34:04 Document Registration [id number] 02/01/2016 02:00:13 Document Registration
== END 2018-08-04 19:45 | disposition home or self-care (01) ==
LOC: EDUNIT# 18:11 → ER FS 18:13
DX: S90.32XA Contusion of left foot, initial encounter (principal); E11.40 Type 2 diabetes mellitus with diabetic neuropathy, unspecified; J44.9 Chronic obstructive pulmonary disease, unspecified; I10 Essential (primary) hypertension; I48.91 Unspecified atrial fibrillation; F41.9 Anxiety disorder, unspecified; F17.210 Nicotine dependence, cigarettes, uncomplicated; Z87.19 Personal history of other diseases of the digestive system; Z88.5 Allergy status to narcotic agent; Z88.1 Allergy status to other antibiotic agents; Z88.8 Allergy status to other drugs, medicaments and biological substances; Z91.040 Latex allergy status; Z79.82 Long term (current) use of aspirin; Z79.4 Long term (current) use of insulin; Z90.49 Acquired absence of other specified parts of digestive tract; Z90.710 Acquired absence of both cervix and uterus; Z82.49 Family history of ischemic heart disease and other diseases of the circulatory system; W22.8XXA Striking against or struck by other objects, initial encounter
CPT/HCPCS: 73610; 73630

== ENCOUNTER → 2018-08-27 | Outpatient (CLI) | payer MEDICARE, MEDICAID ==
--- NOTE | 2018-08-27 14:14 | Diagnostic Imaging Report ---
EXAM: CT CHEST SCREENING WO INDICATION: Current smoker. 78-[id number]-bnso smoking history. COMPARISON: None. FINDINGS: Calcified granulomas in the right middle lobe. Linear atelectasis or scarring in the lingula and anterior right middle lobe. No endobronchial lesions. No pulmonary nodule or mass. No pleural effusion or pneumothorax. Normal caliber thoracic aorta and central pulmonary arteries. Moderate atherosclerotic calcifications including coronary. Normal heart size. No pericardial effusion. No acute findings in the visualized upper abdomen. No lymphadenopathy. Osseous structures are intact. IMPRESSION: 1. No suspicious pulmonary nodule or mass. Recommend continued annual screening with low-dose chest CT in 12 months. 2. Moderate atherosclerotic calcifications including coronary. LungRads category: 1. MODIFIER: None. Please note that the low-dose technique of this chest CT is of non-diagnostic quality. This study is only intended for lung cancer screening of high risk patients. Dictated by: Dictated on workstation # [id number]
== END ==
LOC: RAD 12:48
PROVIDERS: ATTEND Internal Medicine Hematology & Oncology
DX: Z12.2 Encounter for screening for malignant neoplasm of respiratory organs (principal); I25.10 Atherosclerotic heart disease of native coronary artery without angina pectoris; F17.210 Nicotine dependence, cigarettes, uncomplicated

== ENCOUNTER 2018-09-04 13:05 | Outpatient (RCR) | payer MEDICARE, MEDICAID ==
[2018-08-30 14:20] VITALS: BP 126/90
--- NOTE | 2018-08-30 14:48 | NUR ---
WHILE AWAITING DOCTOR'S OFFICE TO FAX ORDERS, PT GOT A PHONE CALL THAT A FAMILY MEMBER WAS BEING RUSHED TO THE HOSPITAL VIA AMBULANCE. PT STATED "I CANT WAIT, I NEED TO GO RIGHT NOW. ILL COME BACK TOMORROW. I JUST CAN'T DEAL WITH EVERYTHING RIGHT NOW, I NEED TO BE WITH MY FAMILY". PT AMBULATED OUT WITH STEADY GAIT.
[2018-08-31] MEDS: cefTRIAXone 1,000 MG/2.86 ml vial (IM ONLY) IM SCH (14:20)
[2018-08-31] MEDS: LIDOCAINE 1% INJ 20 ML 20 ML VIAL INJ SCH (14:20)
[2018-08-31 14:25] VITALS: BP 131/64
[2018-09-01 13:26] VITALS: BP 142/66
[2018-09-01] MEDS: cefTRIAXone 1,000 MG/2.86 ml vial (IM ONLY) IM SCH (13:34)
[2018-09-01] MEDS: LIDOCAINE 1% INJ 20 ML 20 ML VIAL INJ SCH (13:34)
[2018-09-02] MEDS: cefTRIAXone 1,000 MG/2.86 ml vial (IM ONLY) IM SCH (13:29)
[2018-09-02] MEDS: LIDOCAINE 1% INJ 20 ML 20 ML VIAL INJ SCH (13:30)
[2018-09-02 13:34] VITALS: BP 139/65
[2018-09-03] MEDS: LIDOCAINE 1% INJ 20 ML 20 ML VIAL INJ SCH (14:13)
[2018-09-03] MEDS: cefTRIAXone 1,000 MG/2.86 ml vial (IM ONLY) IM SCH (14:13)
[2018-09-03 14:15] VITALS: BP 130/65
[~2018-09-04] VITALS: Ht 165.1 cm; Wt 117.0 kg
[~2018-09-04 13:05] MED LIST changes: +LIDOCAINE 1% INJ 20 ML 20 ML VIAL ONE; +cefTRIAXone 1,000 MG IV (ROCEPHIN) VIAL ONE
[2018-09-04] MEDS: LIDOCAINE 1% INJ 20 ML 20 ML VIAL INJ SCH (13:30)
[2018-09-04] MEDS: cefTRIAXone 1,000 MG/2.86 ml vial (IM ONLY) IM SCH (13:30)
[2018-09-04 13:32] VITALS: BP 153/65
== END 2018-09-04 13:32 | disposition home or self-care (01) ==
LOC: SDC 13:05
DX: J01.90 Acute sinusitis, unspecified (principal)
CPT/HCPCS: 96372

== ENCOUNTER → 2018-10-09 | Outpatient (CLI) | payer MEDICARE, MEDICAID ==
[~2018-10-09] MED LIST changes: -LIDOCAINE 1% INJ 20 ML 20 ML VIAL ONE; -cefTRIAXone 1,000 MG IV (ROCEPHIN) VIAL ONE
--- NOTE | 2018-10-09 09:58 | Diagnostic Imaging Report ---
PROCEDURE: CT sinuses without contrast TECHNIQUE: Multiple contiguous axial images were obtained through the sinuses without the use of intravenous contrast. Coronal and sagittal reformations were then performed. Auto Exposure Controls were utilized during the CT exam to meet ALARA standards for radiation dose reduction. INDICATION: Sinus congestion. COMPARISON: None. FINDINGS: The paranasal sinuses are clear. No mucosal thickening or air-fluid levels. No large jillian bullosa. The ostiomeatal units and frontal recesses are patent. Midline nasal septum. None pneumatizations of the right mastoid. The visualized left mastoid and middle ears are clear. The orbits and visualized intracranial contents are unremarkable. IMPRESSION: Normal paranasal sinus CT. Dictated by: Dictated on workstation # [id number]
== END ==
LOC: RAD 08:09
DX: J32.9 Chronic sinusitis, unspecified (principal)
CPT/HCPCS: 70486

== ENCOUNTER 2018-11-21 17:47 | Inpatient (IN) | payer MEDICARE, MEDICAID ==
[~2018-11-21] VITALS: Ht 165.1 cm; Wt 125.6 kg
--- NOTE | 2018-11-21 18:24 | ED Respiratory ---
General Chief Complaint: Respiratory Problems Stated Complaint: ASTHMA ATTACK Nursing Triage Note: Patient c/o shortness of breath. States that she has been having difficulty breathing for the past week. She reports that she thought it was would get better but she has continued to struggle to catch her breath. She states she has been using her inhaler and albuterol breathing treatments at home and still is not having any improvement in her symptoms. She denies and fever, chills, or pain. Source: patient, family History of Present Illness Date Seen by Provider: Nov 21, 2018 Time Seen by Provider: 18:06 Initial Comments 58-year-old female presenting with complaints of shortness of breath and chest tightness. She has been using her inhaler and DuoNeb treatments at home without significant improvement. She states that she's been getting more short of breath over the last week. She has increased chest tightness as well. She denies any fever or chills. She was coughing up thick colored sputum until yesterday. She continues to smoke about a pack a day. She also has a history of diabetes and high blood pressure. She follows with a doctor out of [facility]. She is scheduled to see a career coach at the end of the week in [facility]. She has oxygen that she wears at night but in the last 2 days she has been wearing it during the day as well. She has had a little more confused the last couple of days as well. She gets easily winded with minimal exertion. She does have a history of prior TIAs that causes her to have issues with her memory but has been again more confused than normal in the last couple of days. She states that she had an A1c over 10 with her licensing director on the [facility] when she was last seen a few weeks ago. They have made some diet changes and she reports that she has been keeping her sugars under 200 recently. Allergies and Home Medications Allergies Coded Allergies: butorphanol (Verified Allergy, Severe, 03/13/18) strawberry (Verified Allergy, Severe, ANAPHYLAXIS, 03/13/18) codeine (Verified Allergy, Unknown, 11/21/18) doxycycline (Verified Allergy, Unknown, 11/21/18) erythromycin base (Verified Allergy, Unknown, NAUSEA, 03/13/18) fluoxetine (Verified Allergy, Unknown, 11/21/18) gabapentin (Verified Allergy, Unknown, 03/13/18) heartburn iodine (Verified Allergy, Unknown, 11/21/18) latex (Verified Allergy, Unknown, 03/13/18) morphine (Verified Allergy, Unknown, 03/13/18) pregabalin (Verified Allergy, Unknown, 11/21/18) salmeterol (Verified Allergy, Unknown, 11/21/18) Uncoded Allergies: pepperoni (Allergy, Severe, ANAPHYLAXIS, 03/13/18) Home Medications Albuterol Sulfate 1 Puff Puff, 2 PUFF IH Q4H PRN for SHORTNESS OF BREATH, (Reported) Albuterol Sulfate 2.5 Mg/3 Ml Vial.neb, 2.5 MG NEB Q4H PRN for SHORTNESS OF BREATH, (Reported) Alprazolam 0.5 Mg Tablet, 0.5 MG PO TID PRN for ANXIETY, (Reported) Ascorbic Acid 500 Mg Tablet, 500 MG PO DAILY, (Reported) Aspirin 325 Mg Tablet.dr, 325 MG PO DAILY, (Reported) Cholecalciferol (Vitamin D3) 5,000 Unit Capsule, 5,000 UNIT PO DAILY, (Reported) Digoxin 250 Mcg Tablet, 250 MCG PO 1500, (Reported) Dulaglutide 1.5 Mg/0.5 Ml Pen.injctr, 1.5 MG SQ Fr, (Reported) Ferrous Sulfate 325 Mg Tablet, 325 MG PO DAILY, (Reported) Furosemide 40 Mg Tablet, 40 MG PO 0800,1500, (Reported) Insulin Glargine,Hum.rec.anlog 100 Unit/1 Ml Insuln.pen, 45 UNIT SQ HS, (Reported) Insulin Lispro 100 Unit/1 Ml Insuln.pen, 20 UNIT SQ TIDAC, (Reported) Insulin Lispro 100 Unit/1 Ml Insuln.pen, SQ AC PRN for SLIDING SCALE, (Reported) USES SLIDING SCALE IN ADDITION TO 20 UNITS WITH MEALS BASELINE Ipratropium/Albuterol Sulfate 3 Ml Ampul.neb, 3 ML NEB QID PRN for SHORTNESS OF BREATH, (Reported) Lisinopril 10 Mg Tablet, 10 MG PO DAILY, (Reported) Meclizine HCl 25 Mg Tablet, 25 MG PO Q6H PRN for DIZZINESS, (Reported) Mupirocin Calcium 15 Gm Cream..g., TP TID PRN for SORES, (Reported) Ondansetron HCl 4 Mg Tab, 4 MG PO Q8H PRN for NAUSEA/VOMITING-1ST LINE, (Report ed) Oxycodone HCl 10 Mg Tablet, 10 MG PO TID PRN for PAIN-SEVERE, (Reported) Pantoprazole Sodium 40 Mg Tablet.dr, 40 MG PO BID, (Reported) Potassium Chloride 10 Meq Tablet.er, 10 MEQ PO 1500, (Reported) Promethazine HCl 25 Mg Tablet, 25 MG PO Q4H PRN for NAUSEA/VOMITING-2ND LINE, (Reported) Sertraline HCl 50 Mg Tablet, 50 MG PO HS, (Reported) Sumatriptan Succinate 100 Mg Tablet, 100 MG PO UD PRN for MIGRAINE, (Reported) PER STANDARD INSTRUCTIONS Triamcinolone Acet 15 Gm Cr, TP TID, (Reported) Verapamil HCl 180 Mg Tablet.er, 180 MG PO BID, (Reported) Patient Home Medication List Home Medication List Reviewed: Yes Review of Systems Review of Systems Constitutional: No chills, No fever; malaise EENTM: no symptoms reported Respiratory: see HPI, cough, dyspnea on exertion; No hemoptysis; phlegm, short of breath, wheezing Cardiovascular: chest pain (chest tightness) Gastrointestinal: no symptoms reported Genitourinary: no symptoms reported Musculoskeletal: no symptoms reported Skin: no symptoms reported Psychiatric/Neurological: Anxiety, Pre-Existing Deficit (confusion and memory issues from prior TIAs but increased in the last couple of days) Past Eytqixu-Tzsrbg-Zaqaki Hx Past Med/Social Hx: Reviewed Nursing Past Med/Soc Hx Patient Social History Alcohol Use: Denies Use Number of Drinks Today: AA Alcohol Beverage of Choice: Beer Recreational Drug Use: No Smoking Status: Current Everyday Smoker Type Used: Cigarettes 2nd Hand Smoke Exposure: Yes Recent Foreign Travel: No Contact w/Someone Who Travel: No Recent Infectious Disease Expo: No Recent Hopitalizations: No Physical Abuse: No Sexual Abuse: No Mistreated: No Fear: No Immunizations Up To Date PED Vaccines UTD: Yes Seasonal Allergies Seasonal Allergies: No Past Medical History Surgeries: Yes (HYST/BSO) Appendectomy, Gallbladder, Hysterectomy, Oophorectomy Respiratory: Yes Asthma, COPD Currently Using CPAP: No Cardiac: Yes Atrial Fibrillation, Hypertension Neurological: Yes (Fibromyalgia, Memory Loss) Neuropathy, Vertigo 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, 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 Genitourinary: No Gastrointestinal: Yes (LARGE VENTRAL HERNIA--NO REPAIR) Abdominal Hernia Musculoskeletal: No Endocrine: Yes Diabetes, Insulin dep HEENT: No Cancer: No Psychosocial: Yes Anxiety Integumentary: No Blood Disorders: No Family Medical History Abdominal aortic aneurysm 19 MOTHER Dementia 19 FATHER FH: anemia 19 FATHER Hypertension 19 MOTHER No Pertinent Family Hx Physical Exam Vital Signs - First Documented 11/21/18 17:50 Temp 36.5 Pulse 106 Resp 24 B/P (MAP) 134/59 (84) Pulse Ox 95 O2 Delivery Nasal Cannula O2 Flow Rate 2.00 Capillary Refill : Less Than 3 Seconds Height: 5'5.00" Weight: 258lbs. 0.0oz. 117.751422hq; 43.00 BMI Method:Stated General Appearance: WD/WN, mild distress, obese HEENT: PERRL/EOMI, pharynx normal Neck: non-tender, full range of motion, supple, normal inspection Respiratory: chest non-tender, decreased breath sounds, accessory muscle use (mild accessory muscle use with breathing), wheezing (both inspiratory and expiratory) Cardiovascular: normal peripheral pulses, regular rate, rhythm Gastrointestinal: normal bowel sounds, non tender, soft Extremities: normal range of motion, non-tender Neurologic/Psychiatric: alert, oriented x 3 Skin: normal color, warm/dry Focused Exam Lactate Level 11/21/18 18:25: Lactic Acid Level 2.15*H Lactic Acid Level Laboratory Tests Test 11/21/18 18:25 Lactic Acid Level 2.15 MMOL/L (0.50-2.00) *H Progress/Results/Core Measures Suspected Sepsis Recent Fever Within 48 Hours: No Infection Criteria Present: Suspected New Infection New/Unexplained Altered Menta: No Sepsis Screen: Possible Sepsis Risk SIRS Temperature: Pulse: 106 Respiratory Rate: 24 Laboratory Tests 11/21/18 18:25: White Blood Count 15.0H Blood Pressure 134 /59 Mean: 84 11/21/18 18:25: Lactic Acid Level 2.15*H Laboratory Tests 11/21/18 18:25: Creatinine 0.54L, Platelet Count 400, Total Bilirubin 0.2 Results/Orders Lab Results Laboratory Tests Test 11/21/18 18:25 11/21/18 18:35 Range/Units White Blood Count 15.0 H 4.3-11.0 10^3/uL Red Blood Count 5.04 4.35-5.85 10^6/uL Hemoglobin 11.9 11.5-16.0 G/DL Hematocrit 40 35-52 % Mean Corpuscular Volume 79 L 80-99 FL Mean Corpuscular Hemoglobin 24 L 25-34 PG Mean Corpuscular Hemoglobin Concent 30 L 32-36 G/DL Red Cell Distribution Width 16.9 H 10.0-14.5 % Platelet Count 400 130-400 10^3/uL Mean Platelet Volume 10.0 7.4-10.4 FL Neutrophils (%) (Auto) 81 H 42-75 % Lymphocytes (%) (Auto) 12 12-44 % Monocytes (%) (Auto) 4 0-12 % Eosinophils (%) (Auto) 1 0-10 % Basophils (%) (Auto) 0 0-10 % Neutrophils # (Auto) 12.1 H 1.8-7.8 X 10^3 Lymphocytes # (Auto) 1.9 1.0-4.0 X 10^3 Monocytes # (Auto) 0.6 0.0-1.0 X 10^3 Eosinophils # (Auto) 0.2 0.0-0.3 10^3/uL Basophils # (Auto) 0.1 0.0-0.1 10^3/uL Neutrophils % (Manual) 89 % Lymphocytes % (Manual) 7 % Monocytes % (Manual) 3 % Eosinophils % (Manual) 0 % Basophils % (Manual) 0 % Band Neutrophils 1 % Sodium Level 139 135-145 MMOL/L Potassium Level 3.9 3.6-5.0 MMOL/L Chloride Level 98 98-107 MMOL/L Carbon Dioxide Level 29 21-32 MMOL/L Anion Gap 12 5-14 MMOL/L Blood Urea Nitrogen 19 H 7-18 MG/DL Creatinine 0.54 L 0.60-1.30 MG/DL Estimat Glomerular Filtration Rate > 60 BUN/Creatinine Ratio 35 Glucose Level 273 H 70-105 MG/DL Lactic Acid Level 2.15 *H 0.50-2.00 MMOL/L Calcium Level 9.4 8.5-10.1 MG/DL Corrected Calcium 9.6 8.5-10.1 MG/DL Magnesium Level 1.9 1.6-2.4 MG/DL Total Bilirubin 0.2 0.1-1.0 MG/DL Aspartate Amino Transf (AST/SGOT) 29 5-34 U/L Alanine Aminotransferase (ALT/SGPT) 54 0-55 U/L Alkaline Phosphatase 175 H 40-136 U/L Troponin I < 0.30 <0.30 NG/ML Pro-B-Type Natriuretic Peptide 50.6 <75.0 PG/ML Total Protein 7.4 6.4-8.2 GM/DL Albumin 3.7 3.2-4.5 GM/DL Blood Gas Puncture Site RT WRIST Blood Gas Patient Temperature 37 C Arterial Blood pH 7.50 H 7.37-7.43 Arterial Blood Partial Pressure CO2 44 35-45 MMHG Arterial Blood Partial Pressure O2 68 L 79-93 MMHG Arterial Blood HCO3 34 H 23-27 MMOL/L Arterial Blood Total CO2 35.7 H 21.0-31.0 MMOL/L Arterial Blood Oxygen Saturation 95 94-100 % Arterial Blood Base Excess 10.0 H -2.5-2.5 MMOL/L [place] Test OK Blood Gas Ventilator Setting NO Blood Gas Inspired Oxygen 2 LITERS My Orders Orders - WESLEY YEBOAH MD Cbc With Automated Diff (11/21/18 18:16) Comprehensive Metabolic Panel (11/21/18 18:16) Blood Culture (11/21/18 18:16) Albuterol/Ipra Inhalation Soln (Duoneb I (11/21/18 18:30) Magnesium (11/21/18 18:16) Chest Pa/Lat (2 View) (11/21/18 18:16) Ekg Tracing (11/21/18 18:16) O2 (11/21/18 18:16) Ed Iv/Invasive Line Start (11/21/18 18:16) Sputum Culture (11/21/18 18:16) Monitor-Rhythm Ecg Trace Only (11/21/18 18:16) Troponin I Fs (11/21/18 18:16) Probnp Fs (11/21/18 18:16) Arterial Blood Gas (11/21/18 18:16) Lactic Acid Analyzer (11/21/18 18:16) Svn Small Volume Nebulizer (11/21/18 18:16) Manual Differential (11/21/18 18:25) Methylprednisolone Sod Succ (Solu-Medrol (11/21/18 19:17) Medications Given in ED Current Medications Medications Dose Ordered Sig/Mary Anne Route Start Time Stop Time Status Last Admin Dose Admin Albuterol/ Ipratropium 3 ml ONCE ONCE INH 11/21/18 18:30 11/21/18 18:31 DC 11/21/18 18:40 3 ML Vital Signs/I&O 11/21/18 11/21/18 11/21/18 17:50 18:44 18:45 Temp 36.5 Pulse 106 Resp 24 B/P (MAP) 134/59 (84) Pulse Ox 95 97 97 O2 Delivery Nasal Cannula Nasal Cannula Nasal Cannula O2 Flow Rate 2.00 2.00 2.00 Capillary Refill : Less Than 3 Seconds Blood Pressure Mean: 84 Progress Note #1: Progress Note With her having some confusion and history of COPD and asthma as well as diabetes we'll obtain an ABG to look at her CO2 level and make sure that she is not retaining CO2. We will also obtain blood count, chemistry, blood cultures and chest x-ray. Sputum culture if she is able to cough up any sputum. With her complaints of chest tightness and increased respiratory difficulty and will also obtain an electrocardiogram and cardiac enzymes since she has high blood pressure and diabetes. Give a DuoNeb treatment here and continue on the supplemental oxygen. Progress Note #2: Progress Note Labs show that she has elevated WBC count to 15K with a left shift. She has slight elevation of her lactic acid to 2.1 but this may be from her diabetes and some mild tachypnea as her CXR does not show any infiltrate. The ABG shows alkalosis and mild elevation of CO2 and low O2 despite supplemental oxygen at 2 Lpm. her glucose is elevated at 273. Discussed with Dr. Lemons, television news photographer for Hospitalist since her PCP is out of [place], and he accepted pt for admit. Will use MAT protocols and sliding scale insulin for her glucose. Given a first dose of steroids here of 40 mg IV along with breathing treatment. ECG Initial ECG Impression Date: Nov 21, 2018 Initial ECG Impression Time: 18:20 Initial ECG Rate: 104 Initial ECG Rhythm: S.Tach Initial ECG Comparisson: No Previous ECG Available Comment Sinus tachycardia with a heart rate of 104 bpm. There is a left anterior fascicular block. DC interval is 134 ms. QT interval is 349 ms with a QT corrected interval of 459 ms. She has no acute ST elevation. She has had a Q- wave in V1 and V2 for possible old anteroseptal infarct. She has no prior tracing available for comparison. Diagnostic Imaging Diagonstic Imaging: Xray Plain Films/CT/US/NM/MRI: chest Comments NAME: GOYO MARRERO [facility] REC#: [id number] PT STATUS: REG ER : 1960 PHYSICIAN: WESLEY YEBOAH MD ADMIT DATE: 11/21/18/ER FS Draft Date of Exam:11/21/18 CHEST PA/LAT (2 VIEW) Indication: Shortness of breath. Findings: No focal consolidation is found. The heart size is at the upper limits of normal but no gross overdistention of vascularity. No effusion or pneumothorax. Some chronic ostial lysis of the distal left clavicle noted no acute chest wall abnormality. Impression: No acute-appearing abnormality Dictated on workstation # [id number] Dict: 11/21/181850 Trans: 11/21/181852 CVB [id number] Interpreted by: CURTIS SCHUSTER Electronically signed by: Departure Communication (Admissions) Time/Spoke to Admitting Phy: 19:[address] Lemons for the hospitalist service about admitting the patient for COPD exacerbation. Will continue steroids and breathing treatments under the MAT protocol. Given the first dose of Solu-Medrol [address] Consult [address] Dave with Pulmonary in am. Impression Primary Impression: COPD with exacerbation Additional Impressions: Leukocytosis Qualified Codes: D72.829 - Elevated white blood cell count, unspecified Hypoxia Disposition: ADMITTED INPATIENT Condition: Stable Admissions Decision to Admit Reason: Admit from ER (General) Decision to Admit/Date: Nov 21, 2018 Time/Decision to Admit Time: 19:28 Departure-Patient Inst. Referrals: NO,LOCAL PHYSICIAN (PCP) Primary Care Physician WESLEY YEBOAH MD Nov 21, 2018 18:24
[2018-11-21] MEDS ORDERED: RT-ALBUTEROL/IPRATROPIUM 3 ML (DUONEB) VIAL INH ONE (18:30)
[2018-11-21 18:41] LABS: BASOPHILS % (AUTO) 0 % (0-10); EOSINOPHILS % (AUTO) 1 % (0-10); HEMATOCRIT 40 % (35-52); HEMOGLOBIN 11.9 G/DL (11.5-16.0); LYMPHOCYTES % (AUTO) 12 % (12-44); MEAN CORPUSCULAR HEMOGLOBIN 24 PG (25-34); MEAN CORPUSCULAR HGB CONC 30 G/DL (32-36); MEAN CORPUSCULAR VOLUME 79 FL (80-99); MONOCYTES % (AUTO) 4 % (0-12); NEUTROPHILS % (AUTO) 81 % (42-75); PLATELET COUNT 400 10^3/uL (130-400); RED CELL DISTRIBUTION WIDTH 16.9 % (10.0-14.5)
[2018-11-21 18:42] LABS: BASOPHILS # (AUTO) 0.1 10^3/uL (0.0-0.1); EOSINOPHILS # (AUTO) 0.2 10^3/uL (0.0-0.3); LYMPHOCYTES # (AUTO) 1.9 X 10^3 (1.0-4.0); MONOCYTES # (AUTO) 0.6 X 10^3 (0.0-1.0); NEUTROPHILS # (AUTO) 12.1 X 10^3 (1.8-7.8)
[2018-11-21 18:46] LABS: ABG PCO2 44 MMHG (35-45); ABG PO2 68 MMHG (79-93)
[2018-11-21 18:47] LABS: ABG OXYGEN SATURATION 95 % (94-100); ABG TCO2 35.7 MMOL/L (21.0-31.0)
[2018-11-21 18:48] LABS: ALLENS TEST OK; INSPIRED O2 2 LITERS; VENTILATOR NO
[2018-11-21 18:49] LABS: PATIENT TEMP 37 C
--- NOTE | 2018-11-21 18:53 | Diagnostic Imaging Report ---
Indication: Shortness of breath. Findings: No focal consolidation is found. The heart size is at the upper limits of normal but no gross overdistention of vascularity. No effusion or pneumothorax. Some chronic ostial lysis of the distal left clavicle noted no acute chest wall abnormality. Impression: No acute-appearing abnormality Dictated by: Dictated on workstation # [id number]
[2018-11-21 19:02] LABS: BAND NEUTROPHILS 1 %; BASOPHILS % (MANUAL) 0 %; EOSINOPHILS % (MANUAL) 0 %; LYMPHOCYTES % (MANUAL) 7 %; MONOCYTES % (MANUAL) 3 %; NEUTROPHILS % (MANUAL) 89 %
[2018-11-21 19:03] LABS: POTASSIUM 3.9 MMOL/L (3.6-5.0); SODIUM 139 MMOL/L (135-145)
[2018-11-21 19:04] LABS: ALANINE AMINOTRANSFERASE 54 U/L (0-55); ALKALINE PHOSPHATASE 175 U/L (40-136); BILIRUBIN,TOTAL 0.2 MG/DL (0.1-1.0); BUN/CREATININE RATIO 35; CALCIUM 9.4 MG/DL (8.5-10.1); CARBON DIOXIDE 29 MMOL/L (21-32); CHLORIDE 98 MMOL/L (98-107); CREATININE SERUM 0.54 MG/DL (0.60-1.30); GFR ESTIMATED > 60; GLUCOSE 273 MG/DL (70-105); MAGNESIUM 1.9 MG/DL (1.6-2.4); TOTAL PROTEIN 7.4 GM/DL (6.4-8.2)
[2018-11-21 19:05] LABS: ALBUMIN 3.7 GM/DL (3.2-4.5)
[2018-11-21] MEDS ORDERED: methylPREDNISolone 40 MG/ML (Solu-MEDROL) VIAL IV STA (19:17)
[2018-11-21 21:09] VITALS: BP 138/69
[2018-11-21] MEDS ORDERED: NS IV 1000 ML 1,000 ML IV SCH (22:00)
[2018-11-21 22:41] VITALS: BP 138/69
[2018-11-21 23:40] VITALS: BP 149/84
[2018-11-22] MEDS ORDERED: RT-ALBUTEROL/IPRATROPIUM 3 ML (DUONEB) VIAL INH PRN
[2018-11-22] MEDS: RT-ALBUTEROL/IPRATROPIUM 3 ML (DUONEB) VIAL INH SCH ×3 (03:21→10:59)
[2018-11-22 03:35] VITALS: BP 134/61
[2018-11-22 06:06] LABS: BASOPHILS % (AUTO) 0 % (0-10); EOSINOPHILS % (AUTO) 0 % (0-10); HEMATOCRIT 39 % (35-52); HEMOGLOBIN 11.8 G/DL (11.5-16.0); LYMPHOCYTES # (AUTO) 1.2 X 10^3 (1.0-4.0); LYMPHOCYTES % (AUTO) 8 % (12-44); MEAN CORPUSCULAR HEMOGLOBIN 24 PG (25-34); MEAN CORPUSCULAR HGB CONC 31 G/DL (32-36); MEAN CORPUSCULAR VOLUME 78 FL (80-99); MEAN PLATELET VOLUME 10.3 FL (7.4-10.4); MONOCYTES # (AUTO) 0.7 X 10^3 (0.0-1.0); MONOCYTES % (AUTO) 5 % (0-12); NEUTROPHILS # (AUTO) 12.6 X 10^3 (1.8-7.8); NEUTROPHILS % (AUTO) 87 % (42-75); PLATELET COUNT 396 10^3/uL (130-400); RED CELL DISTRIBUTION WIDTH 17.4 % (10.0-14.5); WHITE BLOOD COUNT 14.5 10^3/uL (4.3-11.0)
--- NOTE | 2018-11-22 06:16 | NUR ---
THIS NURSE SPOKE TO PATIENT AND PATIENT FAMILY IN AN ATTEMPT TO EDUCATE THEM WHEN PATIENT CAME IN ABOUT REFRAINING FROM TAKING HOME MEDICATIONS WHILE IN THE HOSPITAL, PATIENT STATED SHE HAD HOME MEDS WITH HER. PATIENT AND CAREGIVER/SISTER DAVID ACKNOWLEDGED UNDERSTANDING. AT 0600 THIS NURSE OVERHEARD PATIENT TELLING THE PROJECTION ENGINEER AFTER GETTING HER BLOOD SUGAR CHECKED "I HAVE MY OWN INSULIN". THIS NURSE WENT INTO PATIENT'S ROOM AND AGAIN SPOKE WITH PATIENT AND HER SISTER ABOUT THE DANGERS OF TAKING HOME MEDICATIONS WHILE IN THE HOSPITAL. THIS NURSE TOLD PATIENT THAT THERE ARE ORDERS IN PLACE FOR SLIDING SCALE INSULIN AND ACCORDING TO HER BLOOD SUGAR LEVEL PATIENT WOULD BE GETTING 12UNITS OF SLIDING SCALE INSULIN. PATIENT THEN SAID "WELL, I'M GOING TO JUST BE HONEST WITH YOU, MY BLOOD SUGAR WAS HIGH EARLIER AND I TOOK SOME OF MY OWN INSULIN SO I DON'T THINK IT IS A GOOD IDEA FOR YOU TO GIVE ME INSULIN". (PATIENT REPORTED THAT HER BLOOD SUGAR WAS GREATER THAN 500 EARLIER, HER SISTER HAD GONE TO THE SNACK MACHINE SEVERAL TIMES THROUGHOUT THE NIGHT AND PURCHASED ITEMS FOR THE PATIENT). THIS NURSE EXPLAINED TO PATIENT HOW DANGEROUS IT IS TO TAKE HER HOME MEDICATIONS WHILE IN THE HOSPITAL. PATIENT SAID "I WISH I WAS AT HOME, HONESTLY I JUST WANTED TO GO TO THE ER AND GET A SHOT AND GO HOME". WHEN THIS NURSE ASKED PATIENT WHAT KIND OF A SHOT SHE WAS LOOKING FOR SHE SAID "THE SOLU-MEDROL. I HAVE AN APPOINTMENT WITH A LUNG DOCTOR IN [place] TOMORROW AND I DON'T WANT TO MISS THAT APPOINTMENT, IT TOOK ME THREE MONTHS TO GET IN. I REALLY JUST WANT TO GO HOME, I HAVE TWENTY-FOUR HOUR CARE AT HOME I DON'T NEED TO BE HERE, EVERYTHING YOU HAVE DONE FOR ME HERE I CAN GET AT HOME".
[2018-11-22 06:28] LABS: ALANINE AMINOTRANSFERASE 55 U/L (0-55); ALBUMIN 3.5 GM/DL (3.2-4.5); ALKALINE PHOSPHATASE 170 U/L (40-136); BILIRUBIN,TOTAL 0.3 MG/DL (0.1-1.0); BUN/CREATININE RATIO 23; CALCIUM 9.3 MG/DL (8.5-10.1); CARBON DIOXIDE 29 MMOL/L (21-32); CHLORIDE 98 MMOL/L (98-107); CREATININE SERUM 0.79 MG/DL (0.60-1.30); GFR ESTIMATED > 60; GLUCOSE 397 MG/DL (70-105); POTASSIUM 4.1 MMOL/L (3.6-5.0); SODIUM 139 MMOL/L (135-145); TOTAL PROTEIN 7.5 GM/DL (6.4-8.2)
[2018-11-22] MEDS: inSUlin ASPART (NovoLOG) 1 UNIT/0.01 ML (CHARGE PER UNIT) SC SCH ×2 (06:45→12:08)
[2018-11-22] MEDS ORDERED: predniSONE 20 MG TAB PO SCH (07:45)
--- NOTE | 2018-11-22 08:00 | NUR ---
NOTE THAT PT IS VERY NON COMPLIANT -- SHE HAS HER OWN MEDS AND IS TAKING THEM HERSELF-- ALSO; HER FRIEND THAT STAYED WITH HER HAS BEEN GOING DOWN AND GETTING PT CHIPS AND CANDIES FROM VENDING MACHINE -- PT VOICED SHE WANTS TO LEAVE -- THIS RN ADVISED DR COLVIN --
--- NOTE | 2018-11-22 08:34 | Pulmonary Consultation ---
History of Present Illness History of Present Illness Date of Consultation 11/22/18 08:29 Time Seen by Provider: 08:29 Date of Admission History of Present Illness 58yo with hx of TIA, DM, and current smoker presented to ED secondary to worsening SOB, productive cough, and chest tightness over the last week. Home inhalers have not improved her SOB. She denies any fever or chills. Allergies and Home Medications Allergies Coded Allergies: butorphanol (Verified Allergy, Severe, 03/13/18) strawberry (Verified Allergy, Severe, ANAPHYLAXIS, 03/13/18) codeine (Verified Allergy, Unknown, 11/21/18) doxycycline (Verified Allergy, Unknown, 11/21/18) erythromycin base (Verified Allergy, Unknown, NAUSEA, 03/13/18) fluoxetine (Verified Allergy, Unknown, 11/21/18) iodine (Verified Allergy, Unknown, 11/21/18) latex (Verified Allergy, Unknown, 03/13/18) morphine (Verified Allergy, Unknown, 03/13/18) pregabalin (Verified Allergy, Unknown, 11/21/18) salmeterol (Verified Allergy, Unknown, 11/21/18) gabapentin (Verified Adverse Reaction, Unknown, 11/22/18) heartburn Uncoded Allergies: pepperoni (Allergy, Severe, ANAPHYLAXIS, 03/13/18) Home Medications Albuterol Sulfate 1 Puff Puff, 2 PUFF IH Q4H PRN for SHORTNESS OF BREATH, (Reported) Albuterol Sulfate 2.5 Mg/3 Ml Vial.neb, 2.5 MG NEB Q4H PRN for SHORTNESS OF BREATH, (Reported) Alprazolam 0.5 Mg Tablet, 0.5 MG PO TID PRN for ANXIETY, (Reported) Ascorbic Acid 500 Mg Tablet, 500 MG PO DAILY, (Reported) Aspirin 325 Mg Tablet.dr, 325 MG PO DAILY, (Reported) Cholecalciferol (Vitamin D3) 5,000 Unit Capsule, 5,000 UNIT PO DAILY, (Reported) Digoxin 250 Mcg Tablet, 250 MCG PO 1500, (Reported) Dulaglutide 1.5 Mg/0.5 Ml Pen.injctr, 1.5 MG SQ Fr, (Reported) Ferrous Sulfate 325 Mg Tablet, 325 MG PO DAILY, (Reported) Furosemide 40 Mg Tablet, 40 MG PO 0800,1500, (Reported) Insulin Glargine,Hum.rec.anlog 100 Unit/1 Ml Insuln.pen, 45 UNIT SQ HS, (Reported) Insulin Lispro 100 Unit/1 Ml Insuln.pen, 20 UNIT SQ TIDAC, (Reported) Insulin Lispro 100 Unit/1 Ml Insuln.pen, SQ AC PRN for SLIDING SCALE, (Reported) USES SLIDING SCALE IN ADDITION TO 20 UNITS WITH MEALS BASELINE Ipratropium/Albuterol Sulfate 3 Ml Ampul.neb, 3 ML NEB QID PRN for SHORTNESS OF BREATH, (Reported) Lisinopril 10 Mg Tablet, 10 MG PO DAILY, (Reported) Meclizine HCl 25 Mg Tablet, 25 MG PO Q6H PRN for DIZZINESS, (Reported) Mupirocin Calcium 15 Gm Cream..g., TP TID PRN for SORES, (Reported) Ondansetron HCl 4 Mg Tab, 4 MG PO Q8H PRN for NAUSEA/VOMITING-1ST LINE, (Reported) Oxycodone HCl 10 Mg Tablet, 10 MG PO TID PRN for PAIN-SEVERE, (Reported) Pantoprazole Sodium 40 Mg Tablet.dr, 40 MG PO BID, (Reported) Potassium Chloride 10 Meq Tablet.er, 10 MEQ PO 1500, (Reported) Promethazine HCl 25 Mg Tablet, 25 MG PO Q4H PRN for NAUSEA/VOMITING-2ND LINE, (Reported) Sertraline HCl 50 Mg Tablet, 50 MG PO HS, (Reported) Sumatriptan Succinate 100 Mg Tablet, 100 MG PO UD PRN for MIGRAINE, (Reported) PER STANDARD INSTRUCTIONS Triamcinolone Acet 15 Gm Cr, TP TID, (Reported) Verapamil HCl 180 Mg Tablet.er, 180 MG PO BID, (Reported) Past Bzdlari-Azjygx-Ejaltt Hx Past Med/Social Hx: Reviewed Nursing Past Med/Soc Hx Patient Social History Alcohol Use: Denies Use Number of Drinks Today: AA Alcohol Beverage of Choice: Beer Recreational Drug Use: No Smoking Status: Current Everyday Smoker Type Used: Cigarettes 2nd Hand Smoke Exposure: Yes Recent Foreign Travel: No Contact w/Someone Who Travel: No Recent Infectious Disease Expo: No Recent Hopitalizations: No Physical Abuse: No Sexual Abuse: No Mistreated: No Fear: No Immunizations Up To Date PED Vaccines UTD: Yes Seasonal Allergies Seasonal Allergies: No Past Medical History Surgeries: Yes (HYST/BSO) Appendectomy, Gallbladder, Hysterectomy, Oophorectomy Respiratory: Yes Asthma, COPD Currently Using CPAP: No Cardiac: Yes Atrial Fibrillation, Hypertension Neurological: Yes (Fibromyalgia, Memory Loss) Neuropathy, Vertigo 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 0.0oz. 117.425683ci; 45.23 BMI Method:Stated Exam Exam Vital Signs Date Time Temp Pulse Resp B/P (MAP) Pulse Ox O2 Delivery O2 Flow Rate FiO2 11/22/18 07:00 92 11/22/18 06:48 93 Nasal Cannula 3.00 11/22/18 03:35 36.2 105 22 134/61 (85) 91 Nasal Cannula 11/22/18 03:21 93 Nasal Cannula 3.00 11/22/18 01:00 101 11/21/18 23:43 Nasal Cannula 11/21/18 23:40 36.9 102 21 149/84 (105) 95 Nasal Cannula 11/21/18 22:41 95 Nasal Cannula 3.00 11/21/18 22:41 36.8 106 95 2 11/21/18 21:55 106 11/21/18 21:09 36.8 103 22 138/69 93 Nasal Cannula 2.00 2.00 11/21/18 19:56 36.6 108 22 157/75 95 Nasal Cannula 2.00 11/21/18 18:45 97 Nasal Cannula 2.00 11/21/18 18:44 97 Nasal Cannula 2.00 11/21/18 17:50 36.5 106 24 134/59 (84) 95 Nasal Cannula 2.00 I & O 11/22/18 07:00 Intake Total 450 ml Output Total 900 ml Balance -450 ml Height & Weight Height: 5'5.00" Weight: 258lbs. 0.0oz. 117.578489ow; 45.23 BMI Method:Stated Capillary Refill: Less Than 3 Seconds Gastrointestinal: normal bowel sounds, non tender, soft Results Lab Laboratory Tests 11/21/18 18:25 11/22/18 05:30 Assessment/Plan Assessment/Plan COPDAE -Continue Duoneb -Prednisone 40mg PO daily -ABG - C02 is 44 -CXR reviewed EL AGUILAR DO Nov 22, 2018 08:34
[2018-11-22 09:00] VITALS: BP 168/64
--- NOTE | 2018-11-22 10:08 | History & Physical-Hospitalist ---
[facility]A GONZALEZ [facility] 11/22/18 1008: History of Present Illness HPI/Chief Complaint Pt is a 58 y.o WF with PMH of Insulin-dependent DMII, HTN, TIA, Afib, COPD, asthma, and 45 year tobacco use who reported to the ED with worsening SOA for the past week. She notes she usually has these symptoms around this time of year and she is usually able to control it, but this time her sx got progressively worse so she went to the ED. She has been using her inhaler more and more often and has needed to use her O2 (2L) during the day where as previously she only used it at night. Her SOA exacerbates with minimal exertion. Her SOA has been accompanied by a productive cough, though she notes she has had the cough for a long while before this episode of SOA. She denies and fever, chills, or chest pain pain, or any other related symptoms She is a long time smoker and has tried, but failed in her attempts to quit. As mentioned above, at baseline she uses 2L O2 at night (concentrator) and also has an ambulatory O2 tank. Her asthma has previously been controlled on albuterol inhaler and Ipra-Albuterol Nebulizer at home. Pt is scheduled for an appointment with her marketing account executive tomorrow (11/23/18) and also an appointment next week for a sleep study for suspected sleep apnea. Source: patient, RN/MD, RN notes reviewed Exam Limitations: no limitations Date Seen 11/22/18 Time Seen by a Provider: 08:30 Attending Physician Kian Lemons MD PCP No,Local Physician Referring Physician Date of Admission Nov 21, 2018 at 19:28 Home Medications & Allergies Home Medications Reviewed patient Home Medication Reconciliation performed by pharmacy medication reconciliations dental laboratory technician and/or nursing. Patients Allergies have been reviewed. Allergies Allergies Coded Allergies butorphanol (Verified Allergy, Severe, 03/13/18) strawberry (Verified Allergy, Severe, ANAPHYLAXIS, 03/13/18) codeine (Verified Allergy, Unknown, 11/21/18) doxycycline (Verified Allergy, Unknown, 11/21/18) erythromycin base (Verified Allergy, Unknown, NAUSEA, 03/13/18) fluoxetine (Verified Allergy, Unknown, 11/21/18) iodine (Verified Allergy, Unknown, 11/21/18) latex (Verified Allergy, Unknown, 03/13/18) morphine (Verified Allergy, Unknown, 03/13/18) pregabalin (Verified Allergy, Unknown, 11/21/18) salmeterol (Verified Allergy, Unknown, 11/21/18) gabapentin (Verified Adverse Reaction, Unknown, 11/22/18) heartburn Uncoded Allergies pepperoni ( Allergy, Severe, ANAPHYLAXIS, 03/13/18) Past Ikyxsxc-Gmjyyn-Uwtwko Hx Past Med/Social Hx: Reviewed Nursing Past Med/Soc Hx Patient Social History Marrital Status: cohabiting Number of Children: 3 Number of living children: 3 Employed/Student: unemployed (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 COPD 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 Asthma) Alcohol Use: Denies Use Number of Drinks Today: AA Alcohol Beverage of Choice: Beer Recreational Drug Use: No Smoking Status: Current Everyday Smoker (45 years hx of smoking, has tried many different methods for quitting but has been unsuccesful ) Type Used: Cigarettes 2nd Hand Smoke Exposure: Yes Recent Foreign Travel: No Contact w/other who traveled: No Recent Hopitalizations: No Recent Infectious Disease Expo: No Immunizations Up To Date Pediatric: Yes Seasonal Allergies Seasonal Allergies: No Past Medical History Surgeries: Appendectomy, Gallbladder, Hysterectomy, Oophorectomy Respiratory: Asthma, COPD, Sleep Apnea (Clinical diagnosis, is scheduled for Sleep study next week (week of Nov 26)) uses O2 (nasal) at nights Currently Using CPAP: No Currently Using BIPAP: No Cardiac: Atrial Fibrillation, Hypertension Neurological: Neuropathy (with pain in bilat feet), TIA (with memory deficits), Vertigo : No Hysterectomy, Menopausal Gastrointestinal: Abdominal Hernia Musculoskeletal: Fibromyalgia Endocrine: Diabetes, Insulin dep Are Your Blood Sugars Over 250: No Hearing Impairment: Denies Psychosocial: Anxiety History of Blood Disorders: No Family History Abdominal aortic aneurysm 19 MOTHER Dementia 19 FATHER FH: anemia 19 FATHER Hypertension 19 MOTHER Diabetes, Stroke Review of Systems Constitutional: No chills, No diaphoresis, No fever EENTM: No nose congestion, No throat swelling Respiratory: No cough; dyspnea on exertion; No hemoptysis; short of breath (improved after Nebs), wheezing (intermittent, not at the time of eval) Cardiovascular: No chest pain, No edema, No palpitations Gastrointestinal: No abdominal pain, No constipation, No diarrhea, No dysphagia Genitourinary: No dysuria, No frequency Skin: No lesions, No rash Psychiatric/Neurological: Emotional Problems ("I get angry too quickly"); Denies Headache Physical Exam Physical Exam Vital Signs Vital Signs - First Documented 11/21/18 11/21/18 17:50 22:41 Temp 36.5 Pulse 106 Resp 24 B/P (MAP) 134/59 (84) Pulse Ox 95 O2 Delivery Nasal Cannula O2 Flow Rate 2.00 FiO2 2 Capillary Refill : Less Than 3 Seconds Height, Weight, BMI Height: 5'5.00" Weight: 258lbs. 0.0oz. 117.922734wf; 45.23 BMI Method:Stated General Appearance: No Apparent Distress, WD/WN, Obese, Other (Pt is an obese white female with unkempt hair, who is cooperative and acceptly pleasant. She huggs a pillow as she talks to me but otherwise does not seem confused or disoriented at this time) Eyes: Bilateral Eye Normal Inspection, Bilateral Eye PERRL, Bilateral Eye EOMI HEENT: Normal ENT Inspection, Moist Mucous Membranes Neck: Normal Inspection, Non Tender Respiratory: Chest Non Tender, Lungs Clear, Normal Breath Sounds, No Accessory Muscle Use, No Respiratory Distress; No Wheezing Cardiovascular: Regular Rate, Rhythm, No Edema, No Gallop, No JVD, No Murmur, Normal Peripheral Pulses Extremity: Normal Capillary Refill, Normal Inspection Neurologic/Psychiatric: Alert, Oriented x3, Normal Mood/Affect Skin: Normal Color, Warm/Dry Lymphatic: No Adenopathy Results Results/Procedures Labs Laboratory Tests 11/21/18 18:25 11/22/18 05:30 Patient resulted labs reviewed. Assessment/Plan Assessment and Plan Hx of Asthma COPD Exacerbation -Negative CXR -O2 nasal cannula (keep O2 stat >90%) -Ipra-Albuterol Nebs Q2h, PRN -Oral Steroids -O2 sat walk test to assess if pt need increased home O2 -Pulmonology consult, appreciate recommendations Insulin-Dependent DMII -Elevated blood sugar -Restart her on her regular Long acting insulin Hx of Paroxysmal Afib -Tx w/ ASA, Verapimil, and Digoxin at home Hx of HTN -Controlled on Lisinopril at home Hx of GERD -Controlled on PPI Hx of Anxiey Hx of TIAs (self reported) Hx of Neuropathy Overall assessment & plan: Pt is stable, SOA has improved considerably and lungs sound clear to auscultation. Discussed plan for d/c with pt after O2 sat ambulation test; pt understands and agrees with plan for d/c home and f/u with her Purchasing Engineer tomorrow. Clinical Quality Measures DVT/VTE Risk/Contraindication: Risk Factor Score Per Nursin RFS Level Per Nursing on Admit: 4+=Very High SALINAS THOMPSON MD 11/23/18 1707: Past Qkertlz-Dyotbx-Dtmmlo Hx Family History Abdominal aortic aneurysm 19 MOTHER Dementia 19 FATHER FH: anemia 19 FATHER Hypertension 19 MOTHER Assessment/Plan Admission Diagnosis COPD Exacerbation Admission Status: Observation Diagnosis/Problems Diagnosis/Problems (1) COPD (chronic obstructive pulmonary disease) Status: Acute Qualifiers: COPD type: COPD with acute exacerbation Qualified Codes: J44.1 - Chronic obstructive pulmonary disease with (acute) exacerbation (2) Insulin dependent diabetes mellitus Status: Chronic (3) Essential (primary) hypertension Status: Chronic (4) Atrial fibrillation Status: Chronic Qualifiers: Atrial fibrillation type: paroxysmal Qualified Codes: I48.0 - Paroxysmal atrial fibrillation Supervisory-Addendum Brief Verification & Attestation Participated in pt care: history, MDM, physical Personally performed: exam, history, MDM, supervision of care Care discussed with: Medical Student Procedures: n/a Results interpretation: Verified all documentation Verification and Attestation of Medical Student E/M Service A medical student performed and documented this service in my presence. I rev iewed and verified all information documented by the medical student and made modifications to such information, when appropriate. I personally performed the physical exam and medical decision making. Salinas Thompson, Nov 23, 2018,17:07 [address] [facility] Nov 22, 2018 10:08 SALINAS THOMPSON MD Nov 23, 2018 17:07
[2018-11-22] MEDS ORDERED: METF500T8 PO (10:59)
[2018-11-22] MEDS ORDERED: MUPI22OI2 TOP (10:59)
[2018-11-22] MEDS ORDERED: FLUT16SP22 NS (10:59)
[2018-11-22] MEDS ORDERED: INSU300I SC (10:59)
[2018-11-22] MEDS ORDERED: SCOP1PAT11 TD (10:59)
[2018-11-22] MEDS ORDERED: NYST60PO TOP (10:59)
[2018-11-22] MEDS ORDERED: SERT50TA9 PO (10:59)
[2018-11-22] MEDS ORDERED: HYDR-3820 PO (10:59)
[2018-11-22] MEDS ORDERED: LIRA0.6P3 SC (10:59)
[2018-11-22] MEDS ORDERED: ALPR0.5T7 PO (10:59)
[2018-11-22] MEDS ORDERED: ONDA4TAB10 PO (10:59)
[2018-11-22] MEDS ORDERED: PIOG15TA67 PO (10:59)
[2018-11-22] MEDS ORDERED: TR1O15 TOP (10:59)
[2018-11-22] MEDS ORDERED: LINA145C PO (10:59)
[2018-11-22] MEDS ORDERED: CHOL50005 PO (10:59)
--- NOTE | 2018-11-22 11:02 | NUR ---
WENT OVER THE EXT MED HX WITH THE PATIENT AND SHE VERIFIED HOW SHE TAKES THEM. HER POTASSIUM IS WRITTEN TID HOWEVER SHE STATES SHE ONLY TAKES ONE DAILY NOW. SHE DOES NOT TAKE SYMBICORT ANYMORE BECAUSE IT MAKES HER SHORT OF BREATH.
[2018-11-22] MEDS ORDERED: PRD20T PO (11:20)
--- NOTE | 2018-11-22 11:22 | Discharge Inst-Simple/Standard ---
Discharge Inst-Standard Reconcile Patient Problems Problems Reviewed?: Yes Discharge Medications New, Converted or Re-Newed RX: Transmitted to Pharmacy Patient Instructions/Follow Up Plan of Care/Instructions/FU: Please continue to take your medications as written. Please follow up with your PCP in the next week and with your powder worker tomorrow. Activity as Tolerated: Yes Discharge Diet: ADA Diet Return to The Hospital For: Shortness of breath, increase oxygen or inhaler use, confusion, difficulty waking up, chest pain, if you feel you are getting worse. SALINAS COLVIN MD Nov 22, 2018 11:22
[2018-11-22 12:18] VITALS: BP 112/67
--- NOTE | 2018-11-22 13:49 | NUR ---
Contacted [facility] in [place] et they will bring a portable oxygen tank to Lelo's room for her to transport home to [facility]. They indicated that they would be bringing that for her very quickly as patient has indicated that she wants to leave [place]. However, we are still waiting on finalized discharge orders according to the primary care nurse. Lelo denies any other needs at this time.
--- NOTE | 2018-11-22 14:02 | NUR ---
patient was on 3 L NC with O2 sat 92%; O2 was removed for 60 mins and rechecked on RA with O2 sat of 84%; O2 was added and it took 3 L NC to get O2 sat up to 90% and stay up. 3 L at all times
[2018-11-22 15:13] VITALS: BP 112/67
--- NOTE | 2018-11-22 15:37 | NUR ---
RD ASSESSMENT PMHx: DM, HTN, afib, COPD, TIA PT INTERACTION: Pt was awake and pleasant during nutrition assessment. Pt states current appetite is pretty good, but had been poor until a few days ago. Pt states following a diabetic diet at home, and currently has some issues with swallowing her food. Pt states upcoming swallow evaluation. Pt states episodes of nausea recently, but no vomiting. Pt states no recent issues with constipation or diarrhea, and that her last BM was this AM. Pt states no recent weight changes. Note unable to determine recen wt hx, per chart review. Pt states current management of DM as "getting better." Note most recent glu of 363. ABNORMAL NUTRITION-RELATED LAB VALUES: glu 363 (H) Est. kcal needs: 4368-6040 kcal (15-18 kcal/kg) Est. Pro needs: 100-125 g Pro (0.8-1.0 g Pro/kg) PES STATEMENT: Inadequate oral intake related to nausea | swallowing difficulty as evidenced by patient interview INTERVENTION: Continue with current diet order of CHO 60g/m 1snack. Encouraged pt to eat when able. Will follow-up with results of swallow evaluation. MONITOR/EVALUATE: PO Intake; Plan of Care; Hydration Status; Weight Status; Lab Values Keshia Cavazos, MS, RD, LD [phone]
--- NOTE | 2018-11-26 11:45 | Physician Query-Final Dx ---
Final Diagnosis Give Final Diagnosis Please give Final Diagnosis JUAN CASTILLO Nov 26, 2018 11:45
== END 2018-11-22 14:31 | disposition home or self-care (01) | DRG 191 ==
LOC: EDUNIT# 17:47 → ER FS 17:48 → 4TH 19:28
PROVIDERS: ADMIT Internal Medicine; ATTEND Internal Medicine
DX: J44.1 Chronic obstructive pulmonary disease with (acute) exacerbation (principal); I48.20 Chronic atrial fibrillation, unspecified; Z68.41 Body mass index [BMI] 40.0-44.9, adult; F17.210 Nicotine dependence, cigarettes, uncomplicated; M79.7 Fibromyalgia; R41.3 Other amnesia; F41.9 Anxiety disorder, unspecified; J45.909 Unspecified asthma, uncomplicated; I10 Essential (primary) hypertension; I48.0 Paroxysmal atrial fibrillation; K21.9 Gastro-esophageal reflux disease without esophagitis; E66.9 Obesity, unspecified; K43.9 Ventral hernia without obstruction or gangrene; E11.40 Type 2 diabetes mellitus with diabetic neuropathy, unspecified; Z79.4 Long term (current) use of insulin; Z90.710 Acquired absence of both cervix and uterus; Z86.73 Personal history of transient ischemic attack (TIA), and cerebral infarction without residual deficits
CPT/HCPCS: 36415; 71046; 80053; 82805; 82962; 83605; 83735; 83880; 84145; 84484; 85007; 85025; 85027; 87040; 87070; 87205; 93005; 93041; 94640; 94760; 94761; 96374

== ENCOUNTER 2018-12-27 13:23 | Outpatient (RCR) | payer MEDICARE, MEDICAID ==
[~2018-12-27 13:23] MED LIST changes: +ALPR0.5T7 PO; +CHOL50005 PO; -DIGO250T PO; +DIGO250T3 PO; +FLUT16SP22 NS; +HYDR-3820 PO; +INSU300I SC; +LINA145C PO; +LIRA0.6P3 SC; +METF500T19 PO; +MUPI22OI2 TOP; +NYST60PO TOP; +ONDA4TAB10 PO; +PIOG15TA67 PO; +PRD20T PO; +SCOP1PAT11 TD; +SERT50TA9 PO; +TR1O15 TOP
== END 2019-03-05 09:13 | disposition home or self-care (01) ==
PROVIDERS: ATTEND Psychiatry & Neurology Neurology
DX: R13.10 Dysphagia, unspecified (principal)

== ENCOUNTER 2019-01-08 11:06 | Emergency (ER) | payer MEDICARE, MEDICAID ==
[~2019-01-08] VITALS: Ht 165.1 cm; Wt 122.5 kg
[~2019-01-08 11:06] MED LIST changes: +DIGO250T PO; -DIGO250T3 PO; -METF500T19 PO; +METF500T8 PO
[2019-01-08 11:38] LABS: HEMATOCRIT 43 % (35-52); HEMOGLOBIN 13.1 G/DL (11.5-16.0); MEAN CORPUSCULAR HEMOGLOBIN 23 PG (25-34); MEAN CORPUSCULAR HGB CONC 31 G/DL (32-36); MEAN CORPUSCULAR VOLUME 76 FL (80-99); WHITE BLOOD COUNT 14.6 10^3/uL (4.3-11.0)
[2019-01-08 11:39] LABS: BASOPHILS # (AUTO) 0.1 10^3/uL (0.0-0.1); BASOPHILS % (AUTO) 1 % (0-10); EOSINOPHILS # (AUTO) 0.3 10^3/uL (0.0-0.3); EOSINOPHILS % (AUTO) 2 % (0-10); LYMPHOCYTES # (AUTO) 1.8 X 10^3 (1.0-4.0); LYMPHOCYTES % (AUTO) 12 % (12-44); MEAN PLATELET VOLUME 10.1 FL (7.4-10.4); MONOCYTES # (AUTO) 0.5 X 10^3 (0.0-1.0); MONOCYTES % (AUTO) 3 % (0-12); NEUTROPHILS # (AUTO) 11.9 X 10^3 (1.8-7.8); NEUTROPHILS % (AUTO) 81 % (42-75); PLATELET COUNT 306 10^3/uL (130-400); RED CELL DISTRIBUTION WIDTH 18.5 % (10.0-14.5)
--- NOTE | 2019-01-08 11:50 | Diagnostic Imaging Report ---
CHEST 1 VIEW AP/PA ONLY Indication: Chest pain. Comparison: 11/21/2018 Findings: No focal airspace disease in the visualized lungs. Please note that the posterior lower lobes are poorly evaluated by portable radiography. No pleural effusion or pneumothorax. Stable enlargement of the cardiac silhouette. Hazy opacities over the lungs are due to patient's large body habitus. Impression: 1. No acute cardiopulmonary process by portable radiography. Dictated by: Dictated on workstation # [id number]
[2019-01-08 11:52] LABS: BUN/CREATININE RATIO 30; CALCIUM 9.3 MG/DL (8.5-10.1); CARBON DIOXIDE 31 MMOL/L (21-32); CHLORIDE 94 MMOL/L (98-107); CREATININE SERUM 0.44 MG/DL (0.60-1.30); GFR ESTIMATED > 60; GLUCOSE 263 MG/DL (70-105); POTASSIUM 4.1 MMOL/L (3.6-5.0); SODIUM 136 MMOL/L (135-145)
[2019-01-08 11:53] LABS: ALANINE AMINOTRANSFERASE 56 U/L (0-55); ALBUMIN 3.6 GM/DL (3.2-4.5); ALKALINE PHOSPHATASE 162 U/L (40-136); BILIRUBIN,TOTAL 0.3 MG/DL (0.1-1.0); MAGNESIUM 1.8 MG/DL (1.6-2.4); TOTAL PROTEIN 7.7 GM/DL (6.4-8.2)
[2019-01-08 11:54] LABS: INR 0.9 (0.8-1.4); PROTHROMBIN TIME PATIENT 12.6 SEC (12.2-14.7)
--- NOTE | 2019-01-08 12:13 | ED Cardiac General ---
History of Present Illness General Chief Complaint: Chest Pain Stated Complaint: SOB Nursing Triage Note: Patient presents to the ED with c/o of chest pressure and shortness of breath. States that the pressure started around 30 minutes ago while at rest. She also report nausea and states that she took half of a phenergan around 10am as well as a breathing treatment. Source: patient Exam Limitations: no limitations History of Present Illness Date Seen by Provider: Jan 08, 2019 Time Seen by Provider: 13:10 Initial Comments The patient is a pleasant 58-year-old obese female who presents for evaluation of chest heaviness/pressure as well as some shortness of breath which started approximately 30 minutes prior to arrival. She also reports some nausea and mentions that she took a Phenergan at home which seemed to help a little. She also states that she took a breathing treatment. She did take her aspirin this morning. She was sitting in a car when the discomfort began today. She states she is scheduled to have a cardiac cath with a valve (repair?) on January 23 at [facility] with Dr. Juan Mason. She denies vomiting, productive cough, diaphoresis, palpitations, abdominal or back pain, or syncope. She is alert and oriented 4, calm, and appears to be in no distress. 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 ASA po RAILROAD CAR INSPECTOR: Yes Associated Systoms: Chest Pain, Nausea/Vomiting (nausea) Allergies and Home Medications Allergies Coded Allergies: butorphanol (Verified Allergy, Severe, 03/13/18) strawberry (Verified Allergy, Severe, ANAPHYLAXIS, 03/13/18) codeine (Verified Allergy, Unknown, 11/21/18) doxycycline (Verified Allergy, Unknown, 11/21/18) erythromycin base (Verified Allergy, Unknown, NAUSEA, 03/13/18) fluoxetine (Verified Allergy, Unknown, 11/21/18) iodine (Verified Allergy, Unknown, 11/21/18) latex (Verified Allergy, Unknown, 03/13/18) morphine (Verified Allergy, Unknown, 03/13/18) pregabalin (Verified Allergy, Unknown, 11/21/18) salmeterol (Verified Allergy, Unknown, 11/21/18) gabapentin (Verified Adverse Reaction, Unknown, 11/22/18) heartburn Uncoded Allergies: pepperoni (Allergy, Severe, ANAPHYLAXIS, 03/13/18) Home Medications Albuterol Sulfate 1 Puff Puff, 2 PUFF IH Q4H PRN for SHORTNESS OF BREATH, (Reported) Albuterol Sulfate 2.5 Mg/3 Ml Vial.neb, 2.5 MG NEB Q4H PRN for SHORTNESS OF FELICITAS TH, (Reported) Alprazolam 0.5 Mg Tablet, 0.5 MG PO TID PRN for ANXIETY, (Reported) Aspirin 325 Mg Tablet.dr, 325 MG PO DAILY, (Reported) Cholecalciferol (Vitamin D3) 50,000 Unit Capsule, 50,000 UNITS PO [place], (Reported) Digoxin 250 Mcg Tablet, 250 MCG PO 1400, (Reported) Fluticasone Propionate 16 Gm [place].susp, 2 SPRAYS NS DAILY, (Reported) Furosemide 40 Mg Tablet, 40 MG PO 0800,1400, (Reported) Hydrocodone/Acetaminophen 1 Each Tablet, 1-2 TAB PO Q12H PRN for PAIN-MODERATE, (Reported) Insulin Glargine,Hum.rec.anlog 300 Unit/1 Ml Insuln.pen, 60 UNITS SC BID, (Reported) Insulin Lispro 100 Unit/1 Ml Insuln.pen, 32-38 UNIT SQ TIDAC, (Reported) Ipratropium/Albuterol Sulfate 3 Ml Ampul.neb, 3 ML NEB QID PRN for SHORTNESS OF BREATH, (Reported) Linaclotide 145 Mcg Capsule, 145 MCG PO DAILY, (Reported) Liraglutide 0.6 Mg/0.1 Ml Pen.injctr, 1.8 MG SC 1100, (Reported) Lisinopril 10 Mg Tablet, 10 MG PO DAILY, (Reported) Meclizine HCl 25 Mg Tablet, 25 MG PO Q6H PRN for DIZZINESS, (Reported) Metformin HCl 500 Mg Tab.er.24h, 500 MG PO BID, (Reported) Mupirocin 22 Gm Oint...g., TOP TID PRN for SORES, (Reported) Nystatin 60 Gm Powder, TOP TID, (Reported) Ondansetron HCl 4 Mg Tablet, 4 MG PO Q8H PRN for NAUSEA/VOMITING-1ST LINE, (Reported) Pantoprazole Sodium 40 Mg Tablet.dr, 40 MG PO BID, (Reported) Pioglitazone HCl 15 Mg Tablet, 15 MG PO DAILY, (Reported) Potassium Chloride 10 Meq Tablet.er, 10 MEQ PO 1400, (Reported) Prednisone 20 Mg Tab, 40 MG PO DAILY@0700 Prescribed by: SALINAS COLVIN on 11/22/18 1120 Promethazine HCl 25 Mg Tablet, 25 MG PO Q4H PRN for NAUSEA/VOMITING-2ND LINE, (Reported) Scopolamine 1 Each Patch.td72, 1 PATCH TD Q72H, (Reported) Sertraline HCl 50 Mg Tablet, 150 MG PO HS, (Reported) TAKES 3 (50MG) TABLETS Sumatriptan Succinate 100 Mg Tablet, 100 MG PO UD PRN for MIGRAINE, (Reported) PER STANDARD INSTRUCTIONS Triamcinolone Acet 15 Gm Oint, TOP BID, (Reported) APPLY TO FEET Verapamil HCl 180 Mg Tablet.er, 180 MG PO BID, (Reported) Patient Home Medication List Home Medication List Reviewed: Yes Review of Systems Review of Systems Constitutional: no symptoms reported EENTM: No Symptoms Reported Respiratory: Shortness of Air Cardiovascular: Chest Pain (Pressure) Gastrointestinal: Nausea Genitourinary: No Symptoms Reported Musculoskeletal: no symptoms reported Skin: no symptoms reported Psychiatric/Neurological: No Symptoms Reported Endocrine: No Symptoms Reported Hematologic/Lymphatic: No Symptoms Reported All Other Systems Reviewed Negative Unless Noted: Yes Past Kfehshr-Jwqfes-Iwzjbd Hx Past Med/Social Hx: Reviewed Nursing Past Med/Soc Hx Patient Social History Alcohol Use: Denies Use Number of Drinks Today: AA Alcohol Beverage of Choice: Beer Recreational Drug Use: No Smoking Status: Current Everyday Smoker Type Used: Cigarettes 2nd Hand Smoke Exposure: Yes Recent Foreign Travel: No Contact w/Someone Who Travel: No Recent Infectious Disease Expo: No Recent Hopitalizations: No Physical Abuse: No Sexual Abuse: No Mistreated: No Fear: No Immunizations Up To Date PED Vaccines UTD: Yes Seasonal Allergies Seasonal Allergies: No Past Medical History Surgeries: Yes (HYST/BSO) Appendectomy, Gallbladder, Hysterectomy, Oophorectomy Respiratory: Yes Asthma, COPD Currently Using CPAP: No Currently Using BIPAP: No Cardiac: Yes Atrial Fibrillation, Hypertension Neurological: Yes (Fibromyalgia, Memory Loss) Neuropathy, TIA, 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, Menopausal Genitourinary: No Gastrointestinal: Yes (LARGE VENTRAL HERNIA--NO REPAIR) Abdominal Hernia Musculoskeletal: No Fibromyalgia Endocrine: Yes Diabetes, Insulin dep HEENT: No Hearing Impairment: Denies Cancer: Yes (Polycythemia) Psychosocial: Yes Anxiety Integumentary: No Blood Disorders: Yes (Polycythemia) Family Medical History Abdominal aortic aneurysm 19 MOTHER Dementia 19 FATHER FH: anemia 19 FATHER Hypertension 19 MOTHER Diabetes, Stroke Physical Exam Vital Signs Vital Signs - First Documented Capillary Refill : Less Than 3 Seconds Height, Weight, BMI Height: 5'5.00" Weight: 258lbs. 0.0oz. 117.089075lr; 44.00 BMI Method:Stated General Appearance: No Apparent Distress, WD/WN HEENT: PERRL/EOMI, Pharynx Normal Neck: Full Range of Motion, Normal Inspection, Non Tender, Supple Respiratory: Chest Non Tender, Lungs Clear, Normal Breath Sounds, No Accessory Muscle Use Cardiovascular: No Edema, No Gallop, No Murmur, Tachycardia Gastrointestinal: Normal Bowel Sounds, Non Tender, Soft Extremity: Normal Capillary Refill, Normal Inspection, Non Tender Neurologic/Psychiatric: Alert, Oriented x3, No Motor/Sensory Deficits, Normal Mood/Affect Skin: Normal Color, Warm/Dry Progress/Results/Core Measures Results/Orders Lab Results Laboratory Tests Test 01/08/19 11:30 Range/Units White Blood Count 14.6 H 4.3-11.0 10^3/uL Red Blood Count 5.66 4.35-5.85 10^6/uL Hemoglobin 13.1 11.5-16.0 G/DL Hematocrit 43 35-52 % Mean Corpuscular Volume 76 L 80-99 FL Mean Corpuscular Hemoglobin 23 L 25-34 PG Mean Corpuscular Hemoglobin Concent 31 L 32-36 G/DL Red Cell Distribution Width 18.5 H 10.0-14.5 % Platelet Count 306 130-400 10^3/uL Mean Platelet Volume 10.1 7.4-10.4 FL Neutrophils (%) (Auto) 81 H 42-75 % Lymphocytes (%) (Auto) 12 12-44 % Monocytes (%) (Auto) 3 0-12 % Eosinophils (%) (Auto) 2 0-10 % Basophils (%) (Auto) 1 0-10 % Neutrophils # (Auto) 11.9 H 1.8-7.8 X 10^3 Lymphocytes # (Auto) 1.8 1.0-4.0 X 10^3 Monocytes # (Auto) 0.5 0.0-1.0 X 10^3 Eosinophils # (Auto) 0.3 0.0-0.3 10^3/uL Basophils # (Auto) 0.1 0.0-0.1 10^3/uL Prothrombin Time 12.6 12.2-14.7 SEC INR Comment 0.9 0.8-1.4 Activated Partial Thromboplast Time 24 24-35 SEC Sodium Level 136 135-145 MMOL/L Potassium Level 4.1 3.6-5.0 MMOL/L Chloride Level 94 L 98-107 MMOL/L Carbon Dioxide Level 31 21-32 MMOL/L Anion Gap 11 5-14 MMOL/L Blood Urea Nitrogen 13 7-18 MG/DL Creatinine 0.44 L 0.60-1.30 MG/DL Estimat Glomerular Filtration Rate > 60 BUN/Creatinine Ratio 30 Glucose Level 263 H 70-105 MG/DL Calcium Level 9.3 8.5-10.1 MG/DL Corrected Calcium 9.6 8.5-10.1 MG/DL Magnesium Level 1.8 1.6-2.4 MG/DL Total Bilirubin 0.3 0.1-1.0 MG/DL Aspartate Amino Transf (AST/SGOT) 50 H 5-34 U/L Alanine Aminotransferase (ALT/SGPT) 56 H 0-55 U/L Alkaline Phosphatase 162 H 40-136 U/L Troponin I < 0.30 <0.30 NG/ML Pro-B-Type Natriuretic Peptide 27.4 <75.0 PG/ML Total Protein 7.7 6.4-8.2 GM/DL Albumin 3.6 3.2-4.5 GM/DL My Orders Orders - JUDY WIN DO Cbc With Automated Diff (01/08/19 11:20) Magnesium (01/08/19 11:20) Chest 1 View Ap/Pa Only (01/08/19 11:20) Ekg Tracing (01/08/19 11:20) Comprehensive Metabolic Panel (01/08/19 11:20) Protime With Inr (01/08/19 11:20) Partial Thromboplastin Time (01/08/19 11:20) O2 (01/08/19 11:20) Monitor-Rhythm Ecg Trace Only (01/08/19 11:20) Ed Iv/Invasive Line Start (01/08/19 11:20) Troponin I Fs (01/08/19 11:20) Probnp Fs (01/08/19 11:20) Vital Signs/I&O 01/08/19 01/08/19 11:10 11:10 Temp 36.3 Pulse 105 Resp 19 B/P (MAP) 157/74 (101) Pulse Ox 96 O2 Delivery Nasal Cannula Room Air Blood Pressure Mean: 101 POS Progress Progress Note : Progress Note @1246 - the patient stated that if she has to be admitted she would like to go to [facility]. Patient updated on lab and imaging results and agrees with the plan to transfer. I discussed the case with the transfer team at this time. @1256 - Dr. Yi Edwards, ER physician, accepts the patient transfer to [facility] at this time. Comment @1115 - sinus tachycardia, rate of 100, left axis deviation present, no acute ischemic findings noted, no STEMI, reviewed and interpreted by myself Departure Impression Primary Impression: Chest pain Disposition: 02 XFER SHT-TRM HOSP Condition: Stable Transfer Transfer Reason: Patient preference Time Spoke to Accepting Phy: 12:[address] Yi Edwards (ER physician) accepts the ER-to-ER transfer to [facility] at this time. Transfer Time: 13:13 Transfer Facility: [facility] - Method of Transfer: EMS Departure-Patient Inst. Referrals: TIAGO STEWART APRN (PCP) Primary Care Physician JUDY WIN DO Jan 08, 2019 12:13 POS
[2019-01-08] MEDS ORDERED: LORazepam 0.5 MG (ATIVAN) TABLET PO STA (14:15)
[2019-01-08 14:30] VITALS: BP 144/76
== END 2019-01-08 14:30 | disposition short-term general hospital (02) ==
LOC: EDUNIT# 11:06 → ER FS 11:07
DX: R07.89 Other chest pain (principal); J44.9 Chronic obstructive pulmonary disease, unspecified; I10 Essential (primary) hypertension; I48.91 Unspecified atrial fibrillation; M79.7 Fibromyalgia; E11.40 Type 2 diabetes mellitus with diabetic neuropathy, unspecified; F41.9 Anxiety disorder, unspecified; F17.210 Nicotine dependence, cigarettes, uncomplicated; Z86.73 Personal history of transient ischemic attack (TIA), and cerebral infarction without residual deficits; Z90.49 Acquired absence of other specified parts of digestive tract; Z90.710 Acquired absence of both cervix and uterus; Z90.722 Acquired absence of ovaries, bilateral; Z88.5 Allergy status to narcotic agent; Z88.8 Allergy status to other drugs, medicaments and biological substances; Z88.1 Allergy status to other antibiotic agents; Z91.040 Latex allergy status; Z79.82 Long term (current) use of aspirin; Z79.51 Long term (current) use of inhaled steroids; Z79.84 Long term (current) use of oral hypoglycemic drugs; Z82.49 Family history of ischemic heart disease and other diseases of the circulatory system
CPT/HCPCS: 36415; 71045; 80053; 83735; 83880; 84484; 85025; 85610; 85730; 93005; 93041

== ENCOUNTER 2019-04-11 10:45 | Outpatient (RCR) | payer MEDICARE, MEDICAID ==
[2019-03-27 14:15] VITALS: BP 120/60
[2019-04-09 11:05] VITALS: BP 130/60
[2019-04-09 11:52] VITALS: BP 120/60
[~2019-04-11] VITALS: Ht 165.1 cm; Wt 121.6 kg
[2019-04-11 10:27] VITALS: BP 141/60
[~2019-04-11 10:45] MED LIST changes: +ACHYD1T PO; +ASCO500T17 PO; -ASCO500T6 PO; -DIGO250T PO; +DIGO250T3 PO; -HYDR-3820 PO; -MECL-106 PO; +MECL-149 PO; +METF500T19 PO; -METF500T8 PO; +ONDA-105 PO; -ONDA4TAB10 PO
[2019-04-11 11:45] VITALS: BP 125/60
== END 2019-06-25 | disposition home or self-care (01) ==
LOC: PULM 10:45
PROVIDERS: ATTEND Nurse Practitioner Family
DX: J44.9 Chronic obstructive pulmonary disease, unspecified (principal); G47.33 Obstructive sleep apnea (adult) (pediatric); Z53.8 Procedure and treatment not carried out for other reasons
CPT/HCPCS: 99211

== ENCOUNTER 2020-05-23 01:18 | Emergency (ER) | payer MEDICARE, MEDICAID ==
[~2020-05-23 01:18] MED LIST changes: -LISI10TA2 PO; +LISI10TA25 PO; +METF-865 PO; -METF500T19 PO; +SERT-413 PO; -SERT50TA9 PO
[2020-05-23] MEDS ORDERED: KETOROLAC 30 MG/ML VIAL IVP STA (01:36)
[2020-05-23] MEDS ORDERED: NS IV 1000 ML 1,000 ML IV STA (01:36)
[2020-05-23] MEDS ORDERED: PROMETHAZINE INJ 25 MG/ML (PHENERGAN) AMP IVP STA (01:36)
--- NOTE | 2020-05-23 01:46 | ED General ---
General Chief Complaint: Back Problems Stated Complaint: LFET BACK PAIN Source of Information: Patient, EMS, Old Records History of Present Illness Date Seen by Provider: May 23, 2020 Time Seen by Provider: 01:24 Initial Comments 59 yo female presenting with left flank pain that has been off and on for a while but more severe tonight. She has a history of chronic issues with n/v, COPD that is O2 dependent, and prior TIAs causing memory issues for her. She reports having recent work up and CT scan with GI doctor in [place]. She was told then that she had a kidney stone but that it should not give her problems. She also reports having some falls and can not remember if she has had any injury with any of the falls. She had tried to take 1/2 of a 10/325 Hydrocodone this evening but it did not help with the pain so she called EMS to bring her for evaluation and pain control. She states she had tried Ibuprofen previously as well without improvement in her pain. She denies fever or chills but has had her chronic n/v. No diarrhea or blood in her stool or urine. Timing/Duration: Getting Worse, Intermittent, Other (pain present off and on for more than a week and getting worse, more severe tonight) Severity: Severe Modifying Factors: worse with Movement Associated Systoms: No Chest Pain; Cough (chronic from COPD); No Diaphoresis, No Fever/Chills, No Headaches, No Loss of Appetite, No Malaise; Nausea/Vomiting (chronic and no worse than usual); No Seizure; Shortness of Air (chronic from COPD and no worse than usual); No Syncope, No Weakness Allergies and Home Medications Allergies Coded Allergies: butorphanol (Verified Allergy, Severe, 03/13/18) strawberry (Verified Allergy, Severe, ANAPHYLAXIS, 03/13/18) codeine (Verified Allergy, Unknown, 11/21/18) doxycycline (Verified Allergy, Unknown, 11/21/18) erythromycin base (Verified Allergy, Unknown, NAUSEA, 03/13/18) fluoxetine (Verified Allergy, Unknown, 11/21/18) iodine (Verified Allergy, Unknown, 11/21/18) latex (Verified Allergy, Unknown, 03/13/18) morphine (Verified Allergy, Unknown, 03/13/18) pregabalin (Verified Allergy, Unknown, 11/21/18) salmeterol (Verified Allergy, Unknown, 11/21/18) gabapentin (Verified Adverse Reaction, Unknown, 11/22/18) heartburn Uncoded Allergies: pepperoni (Allergy, Severe, ANAPHYLAXIS, 03/13/18) Home Medications Albuterol Sulfate 1 Puff Puff, 2 PUFF IH Q4H PRN for SHORTNESS OF BREATH, (Reported) Albuterol Sulfate 2.5 Mg/3 Ml Vial.neb, 2.5 MG NEB Q4H PRN for SHORTNESS OF BREATH, (Reported) Alprazolam 0.5 Mg Tablet, 0.5 MG PO TID PRN for ANXIETY, (Reported) Aspirin 325 Mg Tablet.dr, 325 MG PO DAILY, (Reported) Baclofen 10 Mg Tablet, 10 MG PO TID PRN for pain/muscle spasm Prescribed by: WESLEY YEBOAH on 05/23/20 0310 Cholecalciferol (Vitamin D3) 50,000 Unit Capsule, 50,000 UNITS PO [place], (Reported) Digoxin 250 Mcg Tablet, 250 MCG PO 1400, (Reported) Fluticasone Propionate 16 Gm [place].susp, 2 SPRAYS NS DAILY, (Reported) Furosemide 40 Mg Tablet, 40 MG PO 0800,1400, (Reported) Hydrocodone Bit/Acetaminophen 1 Each Tablet, 1-2 TAB PO Q12H PRN for PAIN- MODERATE, (Reported) Insulin Glargine,Hum.rec.anlog 300 Unit/1 Ml Insuln.pen, 60 UNITS SC BID, (Reported) Insulin Lispro 100 Unit/1 Ml Insuln.pen, 32-38 UNIT SQ TIDAC, (Reported) Ipratropium/Albuterol Sulfate 3 Ml Ampul.neb, 3 ML NEB QID PRN for SHORTNESS OF BREATH, (Reported) Linaclotide 145 Mcg Capsule, 145 MCG PO DAILY, (Reported) Liraglutide 0.6 Mg/0.1 Ml Pen.injctr, 1.8 MG SC 1100, (Reported) Lisinopril 10 Mg Tablet, 10 MG PO DAILY, (Reported) Meclizine HCl 25 Mg Tablet, 25 MG PO Q6H PRN for DIZZINESS, (Reported) Metformin HCl 500 Mg Tab.er.24h, 500 MG PO BID, (Reported) Mupirocin 22 Gm Oint...g., TOP TID PRN for SORES, (Reported) Nystatin 60 Gm Powder, TOP TID, (Reported) Ondansetron HCl 4 Mg Tablet, 4 MG PO Q8H PRN for NAUSEA/VOMITING-1ST LINE, (Reported) Pantoprazole Sodium 40 Mg Tablet.dr, 40 MG PO BID, (Reported) Pioglitazone HCl 15 Mg Tablet, 15 MG PO DAILY, (Reported) Potassium Chloride 10 Meq Tablet.er, 10 MEQ PO 1400, (Reported) Prednisone 20 Mg Tab, 40 MG PO DAILY@0700 Prescribed by: SALINAS COLVIN on 11/22/18 1120 Promethazine HCl 25 Mg Tablet, 25 MG PO Q4H PRN for NAUSEA/VOMITING-2ND LINE, (Reported) Scopolamine 1 Each Patch.td72, 1 PATCH TD Q72H, (Reported) Sertraline HCl 50 Mg Tablet, 150 MG PO HS, (Reported) TAKES 3 (50MG) TABLETS Sumatriptan Succinate 100 Mg Tablet, 100 MG PO UD PRN for MIGRAINE, (Reported) PER STANDARD INSTRUCTIONS Triamcinolone Acet 15 Gm Oint, TOP BID, (Reported) APPLY TO FEET Verapamil HCl 180 Mg Tablet.er, 180 MG PO BID, (Reported) Patient Home Medication List Home Medication List Reviewed: Yes Review of Systems Review of Systems Constitutional: No chills, No fever EENTM: no symptoms reported Respiratory: no symptoms reported Cardiovascular: no symptoms reported Gastrointestinal: see HPI Genitourinary: No dysuria, No frequency Musculoskeletal: see HPI Skin: no symptoms reported Psychiatric/Neurological: Anxiety Past Jbmayew-Pwcafe-Zcwqio Hx Past Med/Social Hx: Reviewed Nursing Past Med/Soc Hx Patient Social History Alcohol Use: Denies Use Number of Drinks Today: AA Alcohol Beverage of Choice: Beer Smoking Status: Current Everyday Smoker Type Used: Cigarettes 2nd Hand Smoke Exposure: Yes Recent Hopitalizations: No Immunizations Up To Date PED Vaccines UTD: Yes Seasonal Allergies Seasonal Allergies: No Past Medical History Surgeries: Yes (HYST/BSO) Appendectomy, Gallbladder, Hysterectomy, Oophorectomy Respiratory: Yes Asthma, COPD Currently Using CPAP: No Currently Using BIPAP: No Cardiac: Yes Atrial Fibrillation, Hypertension Neurological: Yes (Fibromyalgia, Memory Loss) Neuropathy, TIA, Vertigo 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, 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 Genitourinary: No Gastrointestinal: Yes (LARGE VENTRAL HERNIA--NO REPAIR) Abdominal Hernia Musculoskeletal: No Fibromyalgia Endocrine: Yes Diabetes, Insulin dep HEENT: No Hearing Impairment: Denies Cancer: Yes (Polycythemia) Psychosocial: Yes Anxiety Integumentary: No Blood Disorders: Yes (Polycythemia) Family Medical History Abdominal aortic aneurysm 19 MOTHER Dementia 19 FATHER FH: anemia 19 FATHER Hypertension 19 MOTHER Diabetes, Stroke Physical Exam Vital Signs Vital Signs - First Documented 05/23/20 05/23/20 01:22 03:19 Pulse 99 Resp 18 B/P (MAP) 125/55 (78) Pulse Ox 98 O2 Delivery Nasal Cannula O2 Flow Rate 2.00 Capillary Refill : Height, Weight, BMI Height: 5'5.00" Weight: 268lbs. 0.0oz. 121.299447ab; 44.6 BMI Method:Stated General Appearance: Moderate Distress (crying out at times and complains of left flank pain), Obese HEENT: PERRL/EOMI Neck: Full Range of Motion, Non Tender, Supple Respiratory: Chest Non Tender, No Accessory Muscle Use, No Respiratory Distress, Decreased Breath Sounds Cardiovascular: Regular Rate, Rhythm, Normal Peripheral Pulses, Systolic Murmur (2/6 KALI) Gastrointestinal: Normal Bowel Sounds, No Pulsatile Mass, Soft; No Distended, No Guarding; Hernia (large ventral hernia), Tenderness (left flank pain) Rectal: Deferred Back: No CVA Tenderness (L), No CVA Tenderness (R) Extremity: Normal Capillary Refill, Normal Range of Motion Neurologic/Psychiatric: Alert, Oriented x3 Skin: Normal Color, Warm/Dry Progress/Results/Core Measures Suspected Sepsis SIRS Temperature: Pulse: Respiratory Rate: Laboratory Tests 05/23/20 01:32: White Blood Count 16.4H Blood Pressure / Mean: Laboratory Tests 05/23/20 01:32: Creatinine 0.88, Platelet Count 320, Total Bilirubin 0.3 Results/Orders Lab Results Laboratory Tests Test 05/23/20 01:32 05/23/20 01:55 Range/Units White Blood Count 16.4 H 4.3-11.0 10^3/uL Red Blood Count 5.10 4.35-5.85 10^6/uL Hemoglobin 12.3 11.5-16.0 G/DL Hematocrit 39 35-52 % Mean Corpuscular Volume 76 L 80-99 FL Mean Corpuscular Hemoglobin 24 L 25-34 PG Mean Corpuscular Hemoglobin Concent 32 32-36 G/DL Red Cell Distribution Width 17.6 H 10.0-14.5 % Platelet Count 320 130-400 10^3/uL Mean Platelet Volume 10.0 7.4-10.4 FL Immature Granulocyte % (Auto) 1 % Neutrophils (%) (Auto) 76 H 42-75 % Lymphocytes (%) (Auto) 15 12-44 % Monocytes (%) (Auto) 6 0-12 % Eosinophils (%) (Auto) 2 0-10 % Basophils (%) (Auto) 1 0-10 % Neutrophils # (Auto) 12.5 H 1.8-7.8 X 10^3 Lymphocytes # (Auto) 2.5 1.0-4.0 X 10^3 Monocytes # (Auto) 0.9 0.0-1.0 X 10^3 Eosinophils # (Auto) 0.3 0.0-0.3 10^3/uL Basophils # (Auto) 0.1 0.0-0.1 10^3/uL Immature Granulocyte # (Auto) 0.2 H 0.0-0.1 10^3/uL Neutrophils % (Manual) 81 % Lymphocytes % (Manual) 16 % Monocytes % (Manual) 2 % Band Neutrophils 1 % Toxic Granulation 4+ Microcytosis SLIGHT Target Cells SLIGHT Sodium Level 135 135-145 MMOL/L Potassium Level 4.3 3.6-5.0 MMOL/L Chloride Level 94 L 98-107 MMOL/L Carbon Dioxide Level 26 21-32 MMOL/L Anion Gap 15 H 5-14 MMOL/L Blood Urea Nitrogen 29 H 7-18 MG/DL Creatinine 0.88 0.60-1.30 MG/DL Estimat Glomerular Filtration Rate > 60 BUN/Creatinine Ratio 33 Glucose Level 220 H 70-105 MG/DL Calcium Level 9.1 8.5-10.1 MG/DL Corrected Calcium 9.3 8.5-10.1 MG/DL Total Bilirubin 0.3 0.1-1.0 MG/DL Aspartate Amino Transf (AST/SGOT) 31 5-34 U/L Alanine Aminotransferase (ALT/SGPT) 64 H 0-55 U/L Alkaline Phosphatase 162 H 40-136 U/L Total Protein 7.9 6.4-8.2 GM/DL Albumin 3.8 3.2-4.5 GM/DL Lipase 20 8-78 U/L Urine Color YELLOW Urine Clarity CLEAR Urine pH 6.0 5-9 Urine Specific [place] 1.010 L 1.016-1.022 Urine Protein NEGATIVE NEGATIVE Urine Glucose (UA) NEGATIVE NEGATIVE Urine Ketones NEGATIVE NEGATIVE Urine Nitrite NEGATIVE NEGATIVE Urine Bilirubin NEGATIVE NEGATIVE Urine Urobilinogen 0.2 < = 1.0 MG/DL Urine Leukocyte Esterase NEGATIVE NEGATIVE Urine RBC (Auto) NEGATIVE NEGATIVE Urine RBC 0-2 /HPF Urine WBC RARE /HPF Urine Squamous Epithelial Cells 2-5 /HPF Urine Crystals NONE /LPF Urine Bacteria NEGATIVE /HPF Urine Casts PRESENT /LPF Urine Hyaline Casts RARE /LPF Urine Mucus NEGATIVE /LPF Urine Culture Indicated NO My Orders Orders - WESLEY YEBOAH MD Comprehensive Metabolic Panel (05/23/20 01:36) Lipase (05/23/20 01:36) Ua Culture If Indicated (05/23/20 01:36) Ed Iv/Invasive Line Start (05/23/20 01:36) Cbc With Automated Diff (05/23/20 01:36) Ct Abdomen/Pelvis Wo (05/23/20 01:36) Ns Iv 1000 Ml (Sodium Chloride 0.9%) (05/23/20 01:36) Ketorolac Injection (Toradol Injection) (05/23/20 01:36) Promethazine Injection (Phenergan Injec (05/23/20 01:36) Manual Differential (05/23/20 01:32) Orphenadrine Inj (Ed Only) (Norflex Inje (05/23/20 03:08) Vital Signs/I&O 05/23/20 05/23/20 01:22 03:19 Pulse 99 83 Resp 18 16 B/P (MAP) 125/55 (78) 137/62 Pulse Ox 98 97 O2 Delivery Nasal Cannula Nasal Cannula O2 Flow Rate 2.00 Capillary Refill : Progress Note #1: Progress Note Check labs and urine to look for signs of UTI, kidney stone, hematuria, elevated WBC for possible diverticulitis, colitis, UTI, Pyelonephritis. CT scan of abdomen/pelvis without contrast to evaluate for her flank pain to see if a possible source is seen on imaging. Perform scan without contrast to help look for kidney stones. She does have large amount of intra-abdominal fat that will act as natural contrast. Give IVF for hydration, Toradol for pain and inflammation, she requested phenergan for nausea. Progress Note #2: Progress Note CBC shows elevated white blood cell count to 16.4 with mild left shift. The chemistry panel does not show any acute significant abnormality. Urinalysis is clear without signs of infection. Patient has had significant improvement in her pain with treatment as well as with sitting up in the wheelchair. CT scan shows no evidence of bowel obstruction or kidney stones. She has no evidence of colitis or diverticulitis. This could still be musculoskeletal in nature. Will add on a muscle relaxer to the pain medication and have her take her enteric coated ibuprofen she already has at home with prn hydrocodone for severe pain. Counseled patient to follow-up with clinic for continued concerns. Diagnostic Imaging Diagonstic Imaging: CT Plain Films/CT/US/NM/MRI: abdomen, pelvis Comments Impression: 1. No evidence of nephrolithiasis, hydronephrosis, or ureteral stones. No indication of bowel obstruction. No evidence of colitis or diverticulitis. Read by radiologist Dirk estrada MD at 0230 and faxed at [phone] Reviewed: [facility] Imp[facility] Primary Impression: Left flank pain Additional Impression: Musculoskeletal back pain Disposition: HOME, SELF-CARE Condition: Stable Departure-Patient Inst. Decision time for Depature: 03:09 Referrals: TIAGO STEWART APRN (PCP/Family) Primary Care Physician Patient Instructions: Muscle Strain ED, Flank Pain (DC) Add. Discharge Instructions: Continue on medicine for muscle spasm and inflammation. Check back with clinic and your primary provider for continued pain/concerns. All discharge instructions reviewed with patient and/or family. Voiced understanding. Scripts Baclofen (Baclofen) 10 Mg Tablet 10 MG PO TID PRN for pain/muscle spasm for 10 Days, #30 TAB 0 Refills Prov: WESLEY YEBOAH MD 05/23/20 Images Torso/Trunk 1 - Muscle Spams, Tenderness (tender to palpation and movement left posterior flank) WESLEY YEBOAH MD May 23, 2020 01:46
[2020-05-23 01:50] LABS: WHITE BLOOD COUNT 16.4 10^3/uL (4.3-11.0)
[2020-05-23 01:51] LABS: BASOPHILS # (AUTO) 0.1 10^3/uL (0.0-0.1); BASOPHILS % (AUTO) 1 % (0-10); EOSINOPHILS # (AUTO) 0.3 10^3/uL (0.0-0.3); EOSINOPHILS % (AUTO) 2 % (0-10); HEMATOCRIT 39 % (35-52); HEMOGLOBIN 12.3 G/DL (11.5-16.0); LYMPHOCYTES # (AUTO) 2.5 X 10^3 (1.0-4.0); LYMPHOCYTES % (AUTO) 15 % (12-44); MEAN CORPUSCULAR HEMOGLOBIN 24 PG (25-34); MEAN CORPUSCULAR HGB CONC 32 G/DL (32-36); MEAN CORPUSCULAR VOLUME 76 FL (80-99); MONOCYTES # (AUTO) 0.9 X 10^3 (0.0-1.0); MONOCYTES % (AUTO) 6 % (0-12); NEUTROPHILS # (AUTO) 12.5 X 10^3 (1.8-7.8); NEUTROPHILS % (AUTO) 76 % (42-75); PLATELET COUNT 320 10^3/uL (130-400)
[2020-05-23 02:03] LABS: BILIRUBIN,URINE NEGATIVE (NEGATIVE); CLARITY,URINE CLEAR; COLOR,URINE YELLOW; GLUCOSE, URINE (UA) NEGATIVE (NEGATIVE); KETONES,URINE NEGATIVE (NEGATIVE); LEUKOCYTE ESTERASE ,URINE NEGATIVE (NEGATIVE); NITRITE,URINE NEGATIVE (NEGATIVE); PROTEIN,URINE NEGATIVE (NEGATIVE); RBC,URINE 0-2 /HPF
[2020-05-23 02:04] LABS: BACTERIA,URINE NEGATIVE /HPF; HYALINE CASTS, URINE RARE /LPF; WBC,URINE RARE /HPF
[2020-05-23 02:09] LABS: BAND NEUTROPHILS 1 %; LYMPHOCYTES % (MANUAL) 16 %; MONOCYTES % (MANUAL) 2 %; NEUTROPHILS % (MANUAL) 81 %
[2020-05-23 02:11] LABS: MICROCYTOSIS SLIGHT; TARGET CELLS SLIGHT; TOXIC GRANULATION/VACUOLAZATIO 4+
[2020-05-23 02:23] LABS: ALANINE AMINOTRANSFERASE 64 U/L (0-55); ALBUMIN 3.8 GM/DL (3.2-4.5); ALKALINE PHOSPHATASE 162 U/L (40-136); BILIRUBIN,TOTAL 0.3 MG/DL (0.1-1.0); BUN/CREATININE RATIO 33; CALCIUM 9.1 MG/DL (8.5-10.1); CARBON DIOXIDE 26 MMOL/L (21-32); CHLORIDE 94 MMOL/L (98-107); CREATININE SERUM 0.88 MG/DL (0.60-1.30); GFR ESTIMATED > 60; GLUCOSE 220 MG/DL (70-105); LIPASE 20 U/L (8-78); POTASSIUM 4.3 MMOL/L (3.6-5.0); SODIUM 135 MMOL/L (135-145); TOTAL PROTEIN 7.9 GM/DL (6.4-8.2)
[2020-05-23] MEDS ORDERED: ORPHENADRINE 60 MG/2 ML (NORFLEX) AMP (ED ONLY) IVP STA (03:08)
[2020-05-23] MEDS ORDERED: BACL10TA PO (03:10)
[2020-05-23 03:19] VITALS: BP 137/62
--- NOTE | 2020-05-23 08:08 | Diagnostic Imaging Report ---
PROCEDURE: CT abdomen and pelvis without contrast. TECHNIQUE: Multiple contiguous axial images were obtained through the abdomen and pelvis without the use of intravenous contrast. Auto Exposure Controls were utilized during the CT exam to meet ALARA standards for radiation dose reduction. INDICATION: Left flank pain, history of stones. History of cholecystectomy and appendectomy. Hernia. EXAMINATION: CT abdomen pelvis without contrast 05/23/2020 COMPARISON: 03/12/2018 FINDINGS: Not mentioned by [facility] report the lung bases demonstrate a somewhat micronodular appearance which can be seen in atypical type of a viral pneumonia. Correlate with symptoms. Non-specific tiny nodules scattered throughout the right middle lobe and right lower lobe which should be followed using the Fleischner criteria. Within the abdomen and pelvis there is heterogeneity of the liver likely areas of fatty infiltration. Follow-up with nonemergent sonography could exclude underlying lesion. There is evidence of previous cholecystectomy. The spleen is normal. Adrenal glands and pancreas unremarkable. Gallbladder surgically absent. Kidneys unremarkable with no nephrolithiasis or hydronephrosis. 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 There is atherosclerotic disease. There is no ascites or free air. No inflammatory changes seen about the loops of bowel. There is herniation of loops of small and large bowel into a pannus with a more focal anterior fat-containing umbilical hernia with a small amount of bowel protruding towards the herniation but without obstruction. No acute osseous abnormality appreciated. IMPRESSION: 1. Nonspecific micronodular appearance to the visualized lung bases a viral type of pneumonia is not excluded and clinical correlation is recommended this is an additional finding not mentioned by [facility] report. Additionally tiny nodules in the right lung also noted see above discussion. 2. Heterogeneity of the liver which could be due to fatty infiltration see above recommendations. 3. Chronic findings throughout the abdomen and pelvis. A small ventral hernia is noted in the lower abdomen mentioned above however not mentioned above is mild subcutaneous fat stranding overlying the hernia which is age indeterminate. A focal inflammatory process not excluded. Report was faxed and called, [facility], [facility]io Hale , by michelle at 8:03am. HELLEN Beverly, was also notified. Dictated by: Dictated on workstation # [id number]
== END 2020-05-23 03:20 | disposition home or self-care (01) ==
LOC: EDUNIT# 01:18 → ER FS 01:25
DX: R10.9 Unspecified abdominal pain (principal); M54.9 Dorsalgia, unspecified; I10 Essential (primary) hypertension; E11.40 Type 2 diabetes mellitus with diabetic neuropathy, unspecified; I48.91 Unspecified atrial fibrillation; J44.9 Chronic obstructive pulmonary disease, unspecified; F41.9 Anxiety disorder, unspecified; M79.7 Fibromyalgia; F17.210 Nicotine dependence, cigarettes, uncomplicated; Z79.52 Long term (current) use of systemic steroids; Z79.4 Long term (current) use of insulin; Z79.51 Long term (current) use of inhaled steroids; Z79.82 Long term (current) use of aspirin
CPT/HCPCS: 36415; 74176; 80053; 81000; 83690; 85007; 85027

== ENCOUNTER 2020-07-27 20:36 | Emergency (ER) | payer MEDICARE, MEDICAID ==
[~2020-07-27 20:36] MED LIST changes: +BACL10TA PO
[2020-07-27] MEDS ORDERED: NS IV 1000 ML 1,000 ML IV STA (20:48)
[2020-07-27] MEDS ORDERED: PROMETHAZINE INJ 25 MG/ML (PHENERGAN) AMP IVP STA (20:48)
[2020-07-27] MEDS ORDERED: LORazepam INJ 2 MG/ML (ATIVAN) VIAL IVP STA (20:48)
--- NOTE | 2020-07-27 20:57 | ED General ---
General Chief Complaint: Dizziness/Syncope Stated Complaint: VERTIGO Source of Information: Patient, EMS, Old Records History of Present Illness Date Seen by Provider: Jul 27, 2020 Time Seen by Provider: 20:39 Initial Comments 59 yo female presenting with complaints of dizzy, n/v, not feeling well all day. This evening she started having vomiting after being nauseated all day. She denies any pain with urination. She does have some abdominal cramping with nausea and vomiting. She had a bowel movement this afternoon and states it was normal. She has chronic COPD and uses oxygen to feel short of breath. She complains of having headache and pressure. She complains that she is just "very sick". She had eaten today but not taking any insulin. She tried taking some meclizine and has a scopolamine patch on for vertigo was still having dizziness with nausea vomiting. EMS was called because she was too dizzy and weak to get out of bed. She follows with providers out of [facility]. She denies having any fever, chills, chest pain, fall or head injury. Timing/Duration: 12-24 Hours Severity: Severe Associated Systoms: No Chest Pain; Cough, Diaphoresis; No Fever/Chills; Headaches, Malaise, Nausea/Vomiting; No Rash, No Seizure; Shortness of Air; No Syncope; Weakness Allergies and Home Medications Allergies Coded Allergies: butorphanol (Verified Allergy, Severe, 03/13/18) strawberry (Verified Allergy, Severe, ANAPHYLAXIS, 03/13/18) codeine (Verified Allergy, Unknown, 11/21/18) doxycycline (Verified Allergy, Unknown, 11/21/18) erythromycin base (Verified Allergy, Unknown, NAUSEA, 03/13/18) fluoxetine (Verified Allergy, Unknown, 11/21/18) iodine (Verified Allergy, Unknown, 11/21/18) latex (Verified Allergy, Unknown, 03/13/18) morphine (Verified Allergy, Unknown, 03/13/18) pregabalin (Verified Allergy, Unknown, 11/21/18) salmeterol (Verified Allergy, Unknown, 11/21/18) gabapentin (Verified Adverse Reaction, Unknown, 11/22/18) heartburn Uncoded Allergies: pepperoni (Allergy, Severe, ANAPHYLAXIS, 03/13/18) Home Medications Albuterol Sulfate 1 Puff Puff, 2 PUFF IH Q4H PRN for SHORTNESS OF BREATH, (Reported) Albuterol Sulfate 2.5 Mg/3 Ml Vial.neb, 2.5 MG NEB Q4H PRN for SHORTNESS OF BREATH, (Reported) Alprazolam 0.5 Mg Tablet, 0.5 MG PO TID PRN for ANXIETY, (Reported) Aspirin 325 Mg Tablet.dr, 325 MG PO DAILY, (Reported) Baclofen 10 Mg Tablet, 10 MG PO TID PRN for pain/muscle spasm Prescribed by: WESLEY YEBOAH on 05/23/20 0310 Cholecalciferol (Vitamin D3) 50,000 Unit Capsule, 50,000 UNITS PO [place], (Reported) Digoxin 250 Mcg Tablet, 250 MCG PO 1400, (Reported) Fluticasone Propionate 16 Gm [place].susp, 2 SPRAYS NS DAILY, (Reported) Furosemide 40 Mg Tablet, 40 MG PO 0800,1400, (Reported) Hydrocodone Bit/Acetaminophen 1 Each Tablet, 1-2 TAB PO Q12H PRN for PAIN- MODERATE, (Reported) Insulin Glargine,Hum.rec.anlog 300 Unit/1 Ml Insuln.pen, 60 UNITS SC BID, (Reported) Insulin Lispro 100 Unit/1 Ml Insuln.pen, 32-38 UNIT SQ TIDAC, (Reported) Ipratropium/Albuterol Sulfate 3 Ml Ampul.neb, 3 ML NEB QID PRN for SHORTNESS OF BREATH, (Reported) Linaclotide 145 Mcg Capsule, 145 MCG PO DAILY, (Reported) Liraglutide 0.6 Mg/0.1 Ml Pen.injctr, 1.8 MG SC 1100, (Reported) Lisinopril 10 Mg Tablet, 10 MG PO DAILY, (Reported) Meclizine HCl 25 Mg Tablet, 25 MG PO Q6H PRN for DIZZINESS, (Reported) Metformin HCl 500 Mg Tab.er.24h, 500 MG PO BID, (Reported) Mupirocin 22 Gm Oint...g., TOP TID PRN for SORES, (Reported) Nystatin 60 Gm Powder, TOP TID, (Reported) Ondansetron HCl 4 Mg Tablet, 4 MG PO Q8H PRN for NAUSEA/VOMITING-1ST LINE, (Reported) Pantoprazole Sodium 40 Mg Tablet.dr, 40 MG PO BID, (Reported) Pioglitazone HCl 15 Mg Tablet, 15 MG PO DAILY, (Reported) Potassium Chloride 10 Meq Tablet.er, 10 MEQ PO 1400, (Reported) Prednisone 20 Mg Tab, 40 MG PO DAILY@0700 Prescribed by: SALINAS COLVIN on 11/22/18 1120 Promethazine HCl 25 Mg Tablet, 25 MG PO Q4H PRN for NAUSEA/VOMITING-2ND LINE, (Reported) Scopolamine 1 Each Patch.td72, 1 PATCH TD Q72H, (Reported) Sertraline HCl 50 Mg Tablet, 150 MG PO HS, (Reported) TAKES 3 (50MG) TABLETS Sumatriptan Succinate 100 Mg Tablet, 100 MG PO UD PRN for MIGRAINE, (Reported) PER STANDARD INSTRUCTIONS Triamcinolone Acet 15 Gm Oint, TOP BID, (Reported) APPLY TO FEET Verapamil HCl 180 Mg Tablet.er, 180 MG PO BID, (Reported) Patient Home Medication List Home Medication List Reviewed: Yes Review of Systems Review of Systems Constitutional: see HPI; No chills; diaphoresis; No fever EENTM: no symptoms reported Respiratory: see HPI Cardiovascular: No chest pain Gastrointestinal: see HPI Genitourinary: see HPI Musculoskeletal: see HPI Skin: see HPI Psychiatric/Neurological: Anxiety, Headache, Weakness Past Zvdrzbs-Wqbssn-Ylbuwh Hx Past Med/Social Hx: Reviewed Nursing Past Med/Soc Hx Patient Social History Alcohol Beverage of Choice: Beer Type Used: Cigarettes 2nd Hand Smoke Exposure: Yes Recent Hopitalizations: No Immunizations Up To Date PED Vaccines UTD: Yes Seasonal Allergies Seasonal Allergies: No Past Medical History Surgeries: Yes (HYST/BSO) Appendectomy, Gallbladder, Hysterectomy, Oophorectomy Respiratory: Yes Asthma, COPD Currently Using CPAP: No Currently Using BIPAP: No Cardiac: Yes Atrial Fibrillation, Hypertension Neurological: Yes (Fibromyalgia, Memory Loss) Neuropathy, TIA, Vertigo [employer] History: Hysterectomy, Menopausal Genitourinary: No Gastrointestinal: Yes (LARGE VENTRAL HERNIA--NO REPAIR) Abdominal Hernia Musculoskeletal: No Fibromyalgia Endocrine: Yes Diabetes, Insulin dep HEENT: No Hearing Impairment: Denies Cancer: Yes (Polycythemia) Psychosocial: Yes Anxiety Integumentary: No Blood Disorders: Yes (Polycythemia) Family Medical History Abdominal aortic aneurysm 19 MOTHER Dementia 19 FATHER FH: anemia 19 FATHER Hypertension 19 MOTHER Diabetes, Stroke Physical Exam Vital Signs Vital Signs - First Documented 07/27/20 20:40 Temp 36.7 Pulse 88 Resp 22 B/P (MAP) 133/48 (76) Pulse Ox 98 O2 Delivery Nasal Cannula O2 Flow Rate 4.00 FiO2 98 Capillary Refill : Height, Weight, BMI Height: 5'5.00" Weight: 268lbs. 0.0oz. 121.415231zk; 44.6 BMI Method:Stated General Appearance: Anxious, Chronically ill, Moderate Distress (despite zofran from EMS actively retching and dry heaving), Obese HEENT: PERRL/EOMI, Moist Mucous Membranes Neck: Normal Inspection, Supple Respiratory: Chest Non Tender, Decreased Breath Sounds Cardiovascular: Regular Rate, Rhythm, Normal Peripheral Pulses Gastrointestinal: No Pulsatile Mass, Soft, Abnormal Bowel Sounds (decreased bowel sounds), Tenderness (mild diffuse tenderness to palpation ) Rectal: Deferred Extremity: Normal Capillary Refill, Normal Range of Motion, Pedal Edema Neurologic/Psychiatric: Alert, 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, 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 Norm as Tested Skin: Diaphoresis Progress/Results/Core Measures Suspected Sepsis SIRS Temperature: Pulse: Respiratory Rate: Laboratory Tests 07/27/20 20:50: White Blood Count 12.1H Blood Pressure / Mean: Laboratory Tests 07/27/20 20:50: Creatinine 0.70, INR Comment 0.9, Platelet Count 138, Total Bilirubin 0.3 Results/Orders Lab Results Laboratory Tests Test 07/27/20 20:50 07/27/20 22:31 Range/Units White Blood Count 12.1 H 4.3-11.0 10^3/uL Red Blood Count 5.27 4.35-5.85 10^6/uL Hemoglobin 12.9 11.5-16.0 G/DL Hematocrit 41 35-52 % Mean Corpuscular Volume 78 L 80-99 FL Mean Corpuscular Hemoglobin 24 L 25-34 PG Mean Corpuscular Hemoglobin Concent 32 32-36 G/DL Red Cell Distribution Width 18.4 H 10.0-14.5 % Platelet Count 138 130-400 10^3/uL Mean Platelet Volume 9.9 7.4-10.4 FL Immature Granulocyte % (Auto) 1 % Neutrophils (%) (Auto) 78 H 42-75 % Lymphocytes (%) (Auto) 16 12-44 % Monocytes (%) (Auto) 4 0-12 % Eosinophils (%) (Auto) 1 0-10 % Basophils (%) (Auto) 0 0-10 % Neutrophils # (Auto) 9.4 H 1.8-7.8 X 10^3 Lymphocytes # (Auto) 1.9 1.0-4.0 X 10^3 Monocytes # (Auto) 0.5 0.0-1.0 X 10^3 Eosinophils # (Auto) 0.2 0.0-0.3 10^3/uL Basophils # (Auto) 0.1 0.0-0.1 10^3/uL Immature Granulocyte # (Auto) 0.1 0.0-0.1 10^3/uL Prothrombin Time 12.5 12.2-14.7 SEC INR Comment 0.9 0.8-1.4 Activated Partial Thromboplast Time < 20 L 24-35 SEC Sodium Level 136 135-145 MMOL/L Potassium Level 3.9 3.6-5.0 MMOL/L Chloride Level 98 98-107 MMOL/L Carbon Dioxide Level 28 21-32 MMOL/L Anion Gap 10 5-14 MMOL/L Blood Urea Nitrogen 23 H 7-18 MG/DL Creatinine 0.70 0.60-1.30 MG/DL Estimat Glomerular Filtration Rate > 60 BUN/Creatinine Ratio 33 Glucose Level 256 H 70-105 MG/DL Calcium Level 9.5 8.5-10.1 MG/DL Corrected Calcium 9.9 8.5-10.1 MG/DL Magnesium Level 2.0 1.6-2.4 MG/DL Total Bilirubin 0.3 0.1-1.0 MG/DL Aspartate Amino Transf (AST/SGOT) 63 H 5-34 U/L Alanine Aminotransferase (ALT/SGPT) 79 H 0-55 U/L Alkaline Phosphatase 166 H 40-136 U/L Troponin I < 0.30 <0.30 NG/ML Pro-B-Type Natriuretic Peptide 17.2 <75.0 PG/ML Total Protein 7.3 6.4-8.2 GM/DL Albumin 3.5 3.2-4.5 GM/DL Lipase 18 8-78 U/L Urine Color YELLOW Urine Clarity CLEAR Urine pH 6.0 5-9 Urine Specific [place] 1.020 1.016-1.022 Urine Protein NEGATIVE NEGATIVE Urine Glucose (UA) 1+ H NEGATIVE Urine Ketones NEGATIVE NEGATIVE Urine Nitrite NEGATIVE NEGATIVE Urine Bilirubin NEGATIVE NEGATIVE Urine Urobilinogen 0.2 < = 1.0 MG/DL Urine Leukocyte Esterase NEGATIVE NEGATIVE Urine RBC (Auto) NEGATIVE NEGATIVE Urine RBC NONE /HPF Urine WBC RARE /HPF Urine Squamous Epithelial Cells 0-2 /HPF Urine Crystals NONE /LPF Urine Bacteria NEGATIVE /HPF Urine Casts NONE /LPF Urine Mucus NEGATIVE /LPF Urine Culture Indicated NO My Orders Orders - WESLEY YEBOAH MD Cbc With Automated Diff (07/27/20 20:48) Magnesium (07/27/20 20:48) Chest 1 View Ap/Pa Only (07/27/20 20:48) Ekg Tracing (07/27/20 20:48) Comprehensive Metabolic Panel (07/27/20 20:48) Protime With Inr (07/27/20 20:48) Partial Thromboplastin Time (07/27/20 20:48) O2 (07/27/20 20:48) Monitor-Rhythm Ecg Trace Only (07/27/20 20:48) Ed Iv/Invasive Line Start (07/27/20 20:48) Lipase (07/27/20 20:48) Troponin I Fs (07/27/20 20:48) Probnp Fs (07/27/20 20:48) Promethazine Injection (Phenergan Injec (07/27/20 20:48) Lorazepam Injection (Ativan Injection) (07/27/20 20:48) Ns Iv 1000 Ml (Sodium Chloride 0.9%) (07/27/20 20:48) Ct Head Wo (07/27/20 20:50) Ct Abdomen/Pelvis Wo (07/27/20 20:50) Ua Culture If Indicated (07/27/20 22:33) Rx-Lorazepam (Rx-Ativan) (07/27/20 23:15) Vital Signs/I&O 07/27/20 07/27/20 07/27/20 07/27/20 20:40 20:40 21:45 22:15 Temp 36.7 36.7 36.7 Pulse 88 94 94 Resp 22 22 16 B/P (MAP) 133/48 (76) 95/68 (77) 110/45 (66) Pulse Ox 98 98 98 98 O2 Delivery Nasal Cannula Nasal Cannula Nasal Cannula Nasal Cannula O2 Flow Rate 4.00 4.00 4.00 4.00 4.00 FiO2 98 07/27/20 22:42 Temp 36.7 Pulse 97 Resp 16 B/P (MAP) 122/58 (79) Pulse Ox 96 O2 Delivery Nasal Cannula O2 Flow Rate 4.00 4.00 Capillary Refill : Progress Note #1: Progress Note Check labs, ECG, cardiac enzymes, CT head with her dizziness, CT abdomen/pelvis with her n/v. For her n/v she has responded well to Phenergan in the past and the Zofran from EMS was not helping much so will try a dose of IV Phenergan. Give IVF for hydration. Ativan 1 mg IV for dizziness/vertigo symptoms. Differential diagnosis includes vertigo, stroke, myocardial infarction, bowel obstruction, kidney stone, UTI, pneumonia, DKA Progress Note #2: Time: 22:09 Progress Note Pt doing better after treatment and n/v and dry heaves improved after medicine. CXR without acute process. CT head without acute process. CT abdomen/pelvis with fatty liver and hepatosplenomegaly but no obstruction. labs show mild elevation of WBC to 12.1 but no significant change from baseline. Chemistry shows mild elevation of her LFTs and Glucose up to 256. Troponin is negative at < 0.3 and negative proBNP. Lipase is also negative. No acute process identified with testing to indicate more severe issue for her symptoms other than hyperglycemia from poor compliance. Vertigo can certainly be part of her symptoms as well since she has a history of that. No sign of pneumonia, myocardial infarction, CHF, bowel obstruction. Will check and see how she is feeling and if can get her home with some medicine for dizziness and vertigo or if she is still having symptoms despite meds where she might need observation admit for fluids and IV meds for nausea/vomiting and improve glucose. Progress Note #3: Time: 22:33 Progress Note daughter in with patient now and pt stating she still does not feel back to normal. She is still having complaint of "feeling sick". She is not having dry heaves now and nausea improved. Reviewed with pt and family that the tests have not shown anything specific other than elevated glucose and mild elevation of WBC. no obstruction on CT abdomen/pelvis and no kidney stones or inflammation s een. No pneumonia on CXR or what is seen of lungs on CT scan. Will see how she does with getting up to give urine specimen and maybe try po challenge. Progress Note #4: Time: 22:54 Progress Note Pt was able to get up from bed and give urine specimen on bedside commode. She tried getting up quickly from bed and was dizzy when she moved quickly to stand and get up. Her UA was negative for ketones or signs of infection. She had specific gravity of 1.020 and 1+ glucose. Negative Nitrites, LE, Bacteria or WBC. Could try to get her home with medicine for vertigo and nausea and have her push fluids and rest. If unable to do that may be able to place her for observation admit for vertigo and intractable n/v. Progress Note #5: Time: 23:13 Progress Note Pt updated about urine being negative for infection and she was feeling like she could go home. She states she has had this happen before and feels it will calm down if she can get some help for overnight. She will continue meclizine and will give low dose ativan for a take home pack to help with her symptoms if needed. Check with clinic if not improving or having worsening symptoms or return if feels she needs admitted. ECG Initial ECG Impression Date: Jul 27, 2020 Initial ECG Impression Time: 20:58 Initial ECG Rate: 92 Initial ECG Rhythm: Normal Sinus Initial ECG Comparisson: Unchanged Comment And his rhythm with a heart rate 92 bpm. UT interval 134 ms. There is a left anterior fascicular block. She has no acute ST elevation. QT interval 374 ms with a QTc interval 463 ms. There is no significant change from prior tracing from 2019. Diagnostic Imaging Diagonstic Imaging: Xray Plain Films/CT/US/NM/MRI: chest Comments NAME: GOYO MARRERO [facility] REC#: [id number] PT STATUS: REG ER : 1960 PHYSICIAN: WESLEY YEBOAH MD ADMIT DATE: 07/27/20/ER FS Draft Date of Exam:07/27/20 CHEST 1 VIEW AP/PA ONLY INDICATION: Sweating, short of breath. FINDINGS: Frontal view of the chest is compared to an exam from 01/08/2019. The lungs are clear. The heart and vascularity are normal. There are no effusions. IMPRESSION: Negative chest. Dictated on workstation # [id number] Dict: 07/27/202103 Trans: 07/27/202107 [facility] [id number] Interpreted by: MAJO HICKS MD Electronically signed by: Diagonstic Imaging: CT Plain Films/CT/US/NM/MRI: head Comments [facility] [employer] [place] NAME: GOYO MARRERO [facility] REC#: [id number] PT STATUS: REG ER : 1960 PHYSICIAN: WESLEY YEBOAH MD ADMIT DATE: 07/27/20/ER FS Draft Date of Exam:07/27/20 CT HEAD WO PROCEDURE: CT head without contrast. TECHNIQUE: Multiple contiguous axial images were obtained through the brain without the use of intravenous contrast. Auto Exposure Controls were utilized during the CT exam to meet ALARA standards for radiation dose reduction. INDICATION: Dizzy, headache and vertigo. FINDINGS: Noncontrast CT scan of the head demonstrates no mass effect, midline shift, hemorrhage or extraaxial fluid collections. Harper-white matter differentiation is normal. The ventricles, cortical sulci and basilar cisterns appear normal. There is sclerosis of the right mastoid air cells. This was present on the CT scan of the paranasal sinuses from 10/09/2018. IMPRESSION: There are no acute findings. There is chronic sclerosis of the right mastoid air cells. Dictated on workstation # [id number] Dict: 07/27/202130 Trans: 07/27/202137 [facility] [id number] Interpreted by: MAJO HICKS MD Electronically signed by: Reviewed: Reviewed by Tn Diagonstic Imaging: CT Plain Films/CT/US/NM/MRI: abdomen, pelvis Comments NAME: GOYO MARRERO [facility] REC#: [id number] PT STATUS: REG ER : 1960 PHYSICIAN: WESLEY YEBOAH MD ADMIT DATE: 07/27/20/ER FS Draft Date of Exam:07/27/20 CT ABDOMEN/PELVIS WO PROCEDURE: CT abdomen and pelvis without contrast. TECHNIQUE: Multiple contiguous axial images were obtained through the abdomen and pelvis without the use of intravenous contrast. Auto Exposure Controls were utilized during the CT exam to meet ALARA standards for radiation dose reduction. INDICATION: Nausea, vomiting and abdominal cramping. COMPARISON STUDY: CT scan from 05/23/2020. FINDINGS: A few tiny nodules are again seen in the lung bases. Mild fatty metamorphosis of the liver is present. The liver is enlarged measuring 23 cm. This is not appreciably changed. The spleen is also enlarged measuring 15 cm. The pancreas and adrenal glands are normal. Small cysts are seen in the left kidney. The gallbladder is absent. The urinary bladder is normal. No obstruction or inflammation of the bowel loops is present. There is thinning of the abdominal wall. No inflammatory changes are present in the mesentery. IMPRESSION: 1. Fatty liver is again identified. 2. A few tiny micronodules within the lung bases are again identified. 3. Hepatosplenomegaly is present. Dictated on workstation # [id number] Dict: 07/27/202155 Trans: 07/27/202202 [facility] [id number] Interpreted by: MAJO HICKS MD Electronically signed by: Departure Impression Primary Impression: Dizziness Additional Impressions: Nausea & vomiting Qualified Codes: R11.14 - Bilious vomiting Vertigo Hyperglycemia due to diabetes mellitus Disposition: HOME, SELF-CARE Condition: Improved Departure-Patient Inst. Decision time for Depature: 23:19 Referrals: TIAGO STEWART APRN (PCP/Family) Primary Care Physician Patient Instructions: Nausea and Vomiting, Adult ED, Dizziness, Adult ED Add. Discharge Instructions: Continue taking Meclizine and Scopolamine patches for your Vertigo. For the next 24 hours you could take Lorazepam (Ativan) 0.5 mg every 8 hours as needed for vertigo and dizziness. While taking the Lorazepam (Ativan) do not take Alprazolam (Xanax). Check back with clinic for continued concerns and return or be seen again for worsening symptoms All discharge instructions reviewed with patient and/or family. Voiced understanding. WESLEY YEBOAH MD Jul 27, 2020 20:57
[2020-07-27 21:05] LABS: BASOPHILS % (AUTO) 0 % (0-10); EOSINOPHILS % (AUTO) 1 % (0-10); HEMATOCRIT 41 % (35-52); HEMOGLOBIN 12.9 G/DL (11.5-16.0); LYMPHOCYTES % (AUTO) 16 % (12-44); MEAN CORPUSCULAR HEMOGLOBIN 24 PG (25-34); MEAN CORPUSCULAR HGB CONC 32 G/DL (32-36); MEAN CORPUSCULAR VOLUME 78 FL (80-99); MEAN PLATELET VOLUME 9.9 FL (7.4-10.4); MONOCYTES % (AUTO) 4 % (0-12); NEUTROPHILS % (AUTO) 78 % (42-75); PLATELET COUNT 138 10^3/uL (130-400); WHITE BLOOD COUNT 12.1 10^3/uL (4.3-11.0)
[2020-07-27 21:06] LABS: BASOPHILS # (AUTO) 0.1 10^3/uL (0.0-0.1); EOSINOPHILS # (AUTO) 0.2 10^3/uL (0.0-0.3); LYMPHOCYTES # (AUTO) 1.9 X 10^3 (1.0-4.0); MONOCYTES # (AUTO) 0.5 X 10^3 (0.0-1.0); NEUTROPHILS # (AUTO) 9.4 X 10^3 (1.8-7.8)
--- NOTE | 2020-07-27 21:08 | Diagnostic Imaging Report ---
INDICATION: Sweating, short of breath. FINDINGS: Frontal view of the chest is compared to an exam from 01/08/2019. The lungs are clear. The heart and vascularity are normal. There are no effusions. IMPRESSION: Negative chest. Dictated by: Dictated on workstation # [id number]
[2020-07-27 21:25] LABS: INR 0.9 (0.8-1.4); PARTIAL THROMBOPLASTIN TIME < 20 SEC (24-35); PROTHROMBIN TIME PATIENT 12.5 SEC (12.2-14.7)
[2020-07-27 21:27] LABS: ALANINE AMINOTRANSFERASE 79 U/L (0-55); ALKALINE PHOSPHATASE 166 U/L (40-136); BILIRUBIN,TOTAL 0.3 MG/DL (0.1-1.0); BUN/CREATININE RATIO 33; CALCIUM 9.5 MG/DL (8.5-10.1); CARBON DIOXIDE 28 MMOL/L (21-32); CHLORIDE 98 MMOL/L (98-107); GFR ESTIMATED > 60; GLUCOSE 256 MG/DL (70-105); POTASSIUM 3.9 MMOL/L (3.6-5.0); SODIUM 136 MMOL/L (135-145)
[2020-07-27 21:28] LABS: ALBUMIN 3.5 GM/DL (3.2-4.5); TOTAL PROTEIN 7.3 GM/DL (6.4-8.2)
[2020-07-27 21:39] LABS: LIPASE 18 U/L (8-78)
--- NOTE | 2020-07-27 21:39 | Diagnostic Imaging Report ---
PROCEDURE: CT head without contrast. TECHNIQUE: Multiple contiguous axial images were obtained through the brain without the use of intravenous contrast. Auto Exposure Controls were utilized during the CT exam to meet ALARA standards for radiation dose reduction. INDICATION: Dizzy, headache and vertigo. FINDINGS: Noncontrast CT scan of the head demonstrates no mass effect, midline shift, hemorrhage or extraaxial fluid collections. Harper-white matter differentiation is normal. The ventricles, cortical sulci and basilar cisterns appear normal. There is sclerosis of the right mastoid air cells. This was present on the CT scan of the paranasal sinuses from 10/09/2018. IMPRESSION: There are no acute findings. There is chronic sclerosis of the right mastoid air cells. Dictated by: Dictated on workstation # [id number]
--- NOTE | 2020-07-27 22:04 | Diagnostic Imaging Report ---
PROCEDURE: CT abdomen and pelvis without contrast. TECHNIQUE: Multiple contiguous axial images were obtained through the abdomen and pelvis without the use of intravenous contrast. Auto Exposure Controls were utilized during the CT exam to meet ALARA standards for radiation dose reduction. INDICATION: Nausea, vomiting and abdominal cramping. COMPARISON STUDY: CT scan from 05/23/2020. FINDINGS: A few tiny nodules are again seen in the lung bases. Mild fatty metamorphosis of the liver is present. The liver is enlarged measuring 23 cm. This is not appreciably changed. The spleen is also enlarged measuring 15 cm. The pancreas and adrenal glands are normal. Small cysts are seen in the left kidney. The gallbladder is absent. The urinary bladder is normal. No obstruction or inflammation of the bowel loops is present. There is thinning of the abdominal wall. No inflammatory changes are present in the mesentery. IMPRESSION: 1. Fatty liver is again identified. 2. A few tiny micronodules within the lung bases are again identified. 3. Hepatosplenomegaly is present. Dictated by: Dictated on workstation # [id number]
[2020-07-27 22:47] LABS: BILIRUBIN,URINE NEGATIVE (NEGATIVE); CLARITY,URINE CLEAR; COLOR,URINE YELLOW; GLUCOSE, URINE (UA) 1+ (NEGATIVE); KETONES,URINE NEGATIVE (NEGATIVE); LEUKOCYTE ESTERASE ,URINE NEGATIVE (NEGATIVE); NITRITE,URINE NEGATIVE (NEGATIVE); PROTEIN,URINE NEGATIVE (NEGATIVE)
[2020-07-27 22:48] LABS: BACTERIA,URINE NEGATIVE /HPF; SQUAMOUS EPITHELIAL CELL,UR 0-2 /HPF; WBC,URINE RARE /HPF
[2020-07-27] MEDS ORDERED: RX-LORAZEPAM (ATIVAN) 0.5 MG TAB PPK#4 PO PRN (23:15)
[2020-07-27 23:24] VITALS: BP 122/58
== END 2020-07-27 23:24 | disposition home or self-care (01) ==
LOC: EDUNIT# 20:36 → ER FS 20:40
DX: R42 Dizziness and giddiness (principal); R11.2 Nausea with vomiting, unspecified; E11.65 Type 2 diabetes mellitus with hyperglycemia; E66.9 Obesity, unspecified; J44.9 Chronic obstructive pulmonary disease, unspecified; I10 Essential (primary) hypertension; F41.9 Anxiety disorder, unspecified; Z77.22 Contact with and (suspected) exposure to environmental tobacco smoke (acute) (chronic); Z86.73 Personal history of transient ischemic attack (TIA), and cerebral infarction without residual deficits; Z68.41 Body mass index [BMI] 40.0-44.9, adult; Z79.4 Long term (current) use of insulin; Z79.52 Long term (current) use of systemic steroids; Z79.82 Long term (current) use of aspirin; Z79.899 Other long term (current) drug therapy
CPT/HCPCS: 36415; 70450; 71045; 74176; 80053; 81000; 83690; 83735; 83880; 84484; 85025; 85610; 85730; 93005; 93041

== ENCOUNTER → 2020-09-08 | Outpatient (CLI) | payer MEDICARE, MEDICAID ==
--- NOTE | 2020-09-08 14:53 | Diagnostic Imaging Report ---
CT CHEST SCREENING WO TECHNIQUE: Low-dose unenhanced CT of the chest was performed according to the screening protocol. Coronal MIP and sagittal MPR reformats are created. Automatic exposure controls were utilized to keep dose as low as reasonably achievable. INDICATION: 82 pack year history smoking. COMPARISON: Low-dose CT chest of 08/27/2018 FINDINGS: Pulmonary findings: No endoluminal nodule within the trachea. No suspicious pulmonary nodules have developed. The lungs are clear. Scattered calcified pulmonary granulomas are unchanged. Extrapulmonary findings: No axillary or mediastinal lymphadenopathy. No pericardial or pleural effusion. Scattered coronary artery calcifications are unchanged. Stable hepatomegaly with low attenuation likely due to hepatic steatosis. IMPRESSION: 1. No change to indicate clinically active lung cancer. Lung-RADS category: 1 - Negative Recommendations: Continued annual screening with low-dose CT in 12 months. Dictated by: Dictated on workstation # [id number]
== END ==
LOC: RAD 11:15
PROVIDERS: ATTEND Internal Medicine Hematology & Oncology
DX: Z12.2 Encounter for screening for malignant neoplasm of respiratory organs (principal); F17.210 Nicotine dependence, cigarettes, uncomplicated
CPT/HCPCS: 71271

== ENCOUNTER 2021-04-17 17:23 | Emergency (ER) | payer MEDICARE, MEDICAID ==
[~2021-04-17] VITALS: Ht 165.1 cm; Wt 131.0 kg
[~2021-04-17 17:23] MED LIST changes: +SCOP1PAT10 TD; -SCOP1PAT11 TD; -VERA180T11 PO; +VERA180T55 PO
[2021-04-17] MEDS ORDERED: METOCLOPRAMIDE INJ 10 MG/2 ML (REGLAN) IVP STA (17:34)
[2021-04-17] MEDS ORDERED: NS IV 1000 ML 1,000 ML IV STA (17:34)
[2021-04-17] MEDS ORDERED: PANTOPRAZOLE 40 MG (PROTONIX) VIAL IV STA (17:34)
[2021-04-17] MEDS ORDERED: diphenhydrAMINE 50 MG/ML INJ (BENADRYL) IVP STA (17:34)
[2021-04-17] MEDS ORDERED: KETOROLAC 30 MG/ML VIAL IVP STA (17:34)
[2021-04-17] MEDS ORDERED: LORazepam INJ 2 MG/ML (ATIVAN) VIAL IVP STA (17:34)
[2021-04-17 17:39] LABS: BASOPHILS % (AUTO) 0 % (0-10); EOSINOPHILS # (AUTO) 0.2 10^3/uL (0.0-0.3); EOSINOPHILS % (AUTO) 1 % (0-10); HEMATOCRIT 45 % (35-52); HEMOGLOBIN 14.3 g/dL (11.5-16.0); LYMPHOCYTES # (AUTO) 0.8 X 10^3 (1.0-4.0); LYMPHOCYTES % (AUTO) 6 % (12-44); MEAN CORPUSCULAR HEMOGLOBIN 25 pg (25-34); MEAN CORPUSCULAR HGB CONC 32 g/dL (32-36); MEAN CORPUSCULAR VOLUME 80 fL (80-99); MEAN PLATELET VOLUME 10.6 fL (9.0-12.2); MONOCYTES # (AUTO) 0.5 X 10^3 (0.0-1.0); MONOCYTES % (AUTO) 3 % (0-12); NEUTROPHILS # (AUTO) 13.6 X 10^3 (1.8-7.8); NEUTROPHILS % (AUTO) 90 % (42-75); PLATELET COUNT 258 10^3/uL (130-400); WHITE BLOOD COUNT 15.2 10^3/uL (4.3-11.0)
--- NOTE | 2021-04-17 17:43 | ED General ---
General Chief Complaint: Abdominal/GI Problems Stated Complaint: NAUSEA/VOMITING Source of Information: Patient History of Present Illness Date Seen by Provider: Apr 17, 2021 Time Seen by Provider: 17:23 Initial Comments 60-year-old female presenting with complaints of nausea, vomiting, headache since eating potato soup at noon. She states that she thinks that the potato soup made her sick. She took her regular dose of insulin when she had the soup. She reports that she was doing well but had the soup and no one else got sick. She denies having fever, chills, diarrhea, cough, chest pain, pain with urinat ion, change in vision, constipation. She reports having chronic dizziness and vertigo and is wearing a scopolamine patch. She reports generalized headache that started after the nausea and vomiting. She has epigastric pain that started with the nausea and vomiting. She does have a large ventral hernia which is stable and not causing pain. She denies any trauma to her head injury. She has chronic shortness of breath and COPD and wears supplemental oxygen at 3 L/min all the time. Timing/Duration: 4-6 Hours Severity: Moderate Modifying Factors: worse with Eating (Since eating potato soup at noon she has felt sick) Associated Systoms: No Chest Pain, No Cough, No Diaphoresis, No Fever/Chills; Headaches; No Loss of Appetite; Malaise, Nausea/Vomiting; No Rash, No Seizure; Shortness of Air (Chronic and at her baseline); No Syncope Allergies and Home Medications Allergies Coded Allergies: butorphanol (Verified Allergy, Severe, 03/13/18) strawberry (Verified Allergy, Severe, ANAPHYLAXIS, 03/13/18) codeine (Verified Allergy, Unknown, 11/21/18) doxycycline (Verified Allergy, Unknown, 11/21/18) erythromycin base (Verified Allergy, Unknown, NAUSEA, 03/13/18) fluoxetine (Verified Allergy, Unknown, 11/21/18) iodine (Verified Allergy, Unknown, 11/21/18) latex (Verified Allergy, Unknown, 03/13/18) morphine (Verified Allergy, Unknown, 03/13/18) pregabalin (Verified Allergy, Unknown, 11/21/18) salmeterol (Verified Allergy, Unknown, 11/21/18) gabapentin (Verified Adverse Reaction, Unknown, 11/22/18) heartburn Uncoded Allergies: pepperoni (Allergy, Severe, ANAPHYLAXIS, 03/13/18) Patient Home Medication List Home Medication List Reviewed: Yes Albuterol Sulfate (Proair Hfa) 1 Puff Puff, 2 PUFF IH Q4H PRN for SHORTNESS OF BREATH, (Reported) Entered as Reported by: DOMINGA PEREZ on 03/13/18 1038 Albuterol Sulfate (Albuterol Sulfate) 2.5 Mg/3 Ml Vial.neb, 2.5 MG NEB Q4H PRN for SHORTNESS OF BREATH, (Reported) Entered as Reported by: DOMINGA PEREZ on 03/13/18 1052 Alprazolam (Alprazolam) 0.5 Mg Tablet, 0.5 MG PO TID PRN for ANXIETY, (Reported) Entered as Reported by: DOMINGA PEREZ on 11/22/18 105 Aspirin (Aspirin EC) 325 Mg Tablet.dr, 325 MG PO DAILY, (Reported) Entered as Reported by: DOMINGA PEREZ on 03/13/18 1052 Baclofen (Baclofen) 10 Mg Tablet, 10 MG PO TID PRN for pain/muscle spasm Prescribed by: WESLEY YEBOAH on 05/23/20 0310 Cholecalciferol (Vitamin D3) (D3-50) 50,000 Unit Capsule, 50,000 UNITS PO [place], (Reported) Entered as Reported by: DOMINGA PEREZ on 11/22/18 1059 Digoxin (Digoxin) 250 Mcg Tablet, 250 MCG PO 1400, (Reported) Entered as Reported by: DOMINGA PEREZ on 03/13/18 1038 Fluticasone Propionate (Fluticasone Propionate) 16 Gm [place].susp, 2 SPRAYS NS DAILY, (Reported) Entered as Reported by: DOMINGA PEREZ on 11/22/18 1059 Furosemide (Furosemide) 40 Mg Tablet, 40 MG PO 0800,1400, (Reported) Entered as Reported by: DOMINGA PEREZ on 03/13/18 1038 Hydrocodone Bit/Acetaminophen (HYDROcodone/APAP 10/325 TABLET) 1 Each Tablet, 1- 2 TAB PO Q12H PRN for PAIN-MODERATE, (Reported) Entered as Reported by: DOMINGA PEREZ on 11/22/18 1059 Insulin Glargine,Hum.rec.anlog ([place]jeo Solostar) 300 Unit/1 Ml Insuln.pen, 60 UNITS SC BID, (Reported) Entered as Reported by: DOMINGA PEREZ on 11/22/18 105 Insulin Lispro (Humalog Kwikpen) 100 Unit/1 Ml Insuln.pen, 32-38 UNIT SQ TIDAC, (Reported) Entered as Reported by: DOMINGA PEREZ on 03/13/18 1038 Ipratropium/Albuterol Sulfate (Iprat-Albut 0.5-3(2.5) mg/3 ml) 3 Ml Ampul.neb, 3 ML NEB QID PRN for SHORTNESS OF BREATH, (Reported) Entered as Reported by: DOMINGA PEREZ on 03/13/18 1052 Linaclotide (Linzess) 145 Mcg Capsule, 145 MCG PO DAILY, (Reported) Entered as Reported by: DOMINGA PEREZ on 11/22/18 105 Liraglutide (Victoza 3-Naga) 0.6 Mg/0.1 Ml Pen.injctr, 1.8 MG SC 1100, (Reported) Entered as Reported by: DOMINGA PEREZ on 11/22/18 105 Lisinopril (Lisinopril) 10 Mg Tablet, 10 MG PO DAILY, (Reported) Entered as Reported by: DOMINGA PEREZ on 03/13/18 1038 Meclizine HCl (Meclizine HCl) 25 Mg Tablet, 25 MG PO Q6H PRN for DIZZINESS, (Reported) Entered as Reported by: DOMINGA PEREZ on 03/13/18 1038 Metformin HCl (Metformin HCl ER) 500 Mg Tab.er.24h, 500 MG PO BID, (Reported) Entered as Reported by: DOMINGA PEREZ on 11/22/18 105 Mupirocin (Mupirocin) 22 Gm Oint...g., TOP TID PRN for SORES, (Reported) Entered as Reported by: DOMINGA PEREZ on 11/22/18 105 Nystatin (Nystop) 60 Gm Powder, TOP TID, (Reported) Entered as Reported by: DOMINGA PEREZ on 11/22/18 105 Ondansetron HCl (Ondansetron HCl) 4 Mg Tablet, 4 MG PO Q8H PRN for NAUSEA/VOMITING-1ST LINE, (Reported) Entered as Reported by: DOMINGA PEREZ on 11/22/18 1059 Pantoprazole Sodium (Protonix) 40 Mg Tablet.dr, 40 MG PO BID, (Reported) Entered as Reported by: DOMINGA PEREZ on 03/13/18 1038 Pioglitazone HCl (Pioglitazone HCl) 15 Mg Tablet, 15 MG PO DAILY, (Reported) Entered as Reported by: DOMINGA PEREZ on 11/22/18 1059 Potassium Chloride (Potassium Chloride) 10 Meq Tablet.er, 10 MEQ PO 1400, (Reported) Entered as Reported by: DOMINGA PEREZ on 03/13/18 1038 Prednisone (Prednisone) 20 Mg Tab, 40 MG PO DAILY@0700 Prescribed by: SALINAS COLVIN on 11/22/18 1120 Promethazine HCl (Promethazine Tablet) 25 Mg Tablet, 25 MG PO Q4H PRN for NAUSEA/VOMITING-2ND LINE, (Reported) Entered as Reported by: DOMINGA PEREZ on 03/13/18 1038 Scopolamine (Transderm-Scop) 1 Each Patch.td72, 1 PATCH TD Q72H, (Reported) Entered as Reported by: DOMINGA PEREZ on 11/22/18 1059 Sertraline HCl (Sertraline HCl) 50 Mg Tablet, 150 MG PO HS, (Reported) Entered as Reported by: DOMINGA PEREZ on 11/22/18 1059 Sumatriptan Succinate (Imitrex) 100 Mg Tablet, 100 MG PO UD PRN for MIGRAINE, (Reported) Entered as Reported by: DOMINGA PEREZ on 03/13/18 1052 Triamcinolone Acet (Triamcinolone Acetonide 0.1% Ointment) 15 Gm Oint, TOP BID, (Reported) Entered as Reported by: DOMINGA PEREZ on 11/22/18 105 Verapamil HCl (Verapamil ER) 180 Mg Tablet.er, 180 MG PO BID, (Reported) Entered as Reported by: DOMINGA PERZE on 03/13/18 1038 Review of Systems Review of Systems Constitutional: No chills, No diaphoresis; dizziness (Chronic and at baseline); No fever; malaise EENTM: No ear discharge, No ear pain, No blurred vision, No double vision, No vision loss, No epistaxis, No nose congestion Respiratory: see HPI; No cough Cardiovascular: see HPI; No chest pain Gastrointestinal: see HPI, abdominal pain (epigastric pain); No constipation, No diarrhea; nausea, vomiting Genitourinary: No dysuria, No frequency, No hematuria Musculoskeletal: no symptoms reported Skin: no symptoms reported Psychiatric/Neurological: Anxiety, Headache (generalized); Denies Numbness, Denies Paresthesia Hematologic/Lymphatic: Denies Blood Clots Past Tfsgvye-Xnubmk-Ujjivw Hx Patient Social History Tobacco Use?: Yes Tobacco type used: Cigarettes Smoking Status: Current Everyday Smoker Substance use?: No Alcohol Use?: No Pt feels they are or have been: No Immunizations Up To Date PED Vaccines UTD: Yes Influenza Vaccine Up-to-Date: No; Not Current First/Initial COVID19 Vaccinat: Not currently vaccinated Seasonal Allergies Seasonal Allergies: No Past Medical History Surgery/Hospitalization HX: DM, COPD, Vertigo, GERD, HTN Surgeries: Yes (HYST/BSO) Appendectomy, Gallbladder, Hysterectomy, Oophorectomy Respiratory: Yes Asthma, COPD Currently Using CPAP: No Currently Using BIPAP: No Cardiac: Yes Atrial Fibrillation, Hypertension Neurological: Yes (Fibromyalgia, Memory Loss) Neuropathy, TIA, Vertigo [employer] History: Hysterectomy, Menopausal Genitourinary: No Gastrointestinal: Yes (LARGE VENTRAL HERNIA--NO REPAIR) Abdominal Hernia Musculoskeletal: No Fibromyalgia Endocrine: Yes Diabetes, Insulin dep HEENT: No Hearing Impairment: Denies Cancer: Yes (Polycythemia) Psychosocial: Yes Anxiety Integumentary: No Blood Disorders: Yes (Polycythemia) Family Medical History Abdominal aortic aneurysm 19 MOTHER Dementia 19 FATHER FH: anemia 19 FATHER Hypertension 19 MOTHER Diabetes, Stroke Physical Exam Vital Signs Vital Signs - First Documented 04/17/21 04/17/21 17:24 18:50 Temp 36.7 Pulse 113 Resp 18 B/P (MAP) 124/72 (89) Pulse Ox 93 O2 Delivery Room Air O2 Flow Rate 3.00 Capillary Refill : Height, Weight, BMI Height: 5'5.00" Weight: 268lbs. 0.0oz. 121.644338en; 44.6 BMI Method:Stated General Appearance: No Apparent Distress, Obese HEENT: PERRL/EOMI, Pharynx Normal Neck: Full Range of Motion, Normal Inspection, Non Tender, Supple Respiratory: Chest Non Tender, Lungs Clear, No Accessory Muscle Use, No Respiratory Distress, Decreased Breath Sounds Cardiovascular: Regular Rate, Rhythm, Normal Peripheral Pulses Gastrointestinal: Normal Bowel Sounds, No Pulsatile Mass, Soft; No Guarding; Hernia (large ventral hernia); No Rebound; Tenderness (epigastric) Rectal: Deferred Extremity: Normal Capillary Refill, Non Tender, Pedal Edema (trace to 1+ BLE) Neurologic/Psychiatric: Alert, Oriented x3, No Motor/Sensory Deficits, lap grinder II- XII Norm as Tested, Other (anxious) Skin: Warm/Dry Progress/Results/Core Measures Suspected Sepsis SIRS Temperature: Pulse: Respiratory Rate: Laboratory Tests 04/17/21 17:30: White Blood Count 15.2H Blood Pressure / Mean: Laboratory Tests 04/17/21 17:30: Creatinine 0.74, Platelet Count 258, Total Bilirubin 0.4 Results/Orders Lab Results Laboratory Tests Test 04/17/21 17:30 04/17/21 19:21 Range/Units White Blood Count 15.2 H 4.3-11.0 10^3/uL Red Blood Count 5.62 H 3.80-5.11 10^6/uL Hemoglobin 14.3 11.5-16.0 g/dL Hematocrit 45 35-52 % Mean Corpuscular Volume 80 80-99 fL Mean Corpuscular Hemoglobin 25 25-34 pg Mean Corpuscular Hemoglobin Concent 32 32-36 g/dL Red Cell Distribution Width 18.2 H 10.0-14.5 % Platelet Count 258 130-400 10^3/uL Mean Platelet Volume 10.6 9.0-12.2 fL Immature Granulocyte % (Auto) 1 % Neutrophils (%) (Auto) 90 H 42-75 % Lymphocytes (%) (Auto) 6 L 12-44 % Monocytes (%) (Auto) 3 0-12 % Eosinophils (%) (Auto) 1 0-10 % Basophils (%) (Auto) 0 0-10 % Neutrophils # (Auto) 13.6 H 1.8-7.8 X 10^3 Lymphocytes # (Auto) 0.8 L 1.0-4.0 X 10^3 Monocytes # (Auto) 0.5 0.0-1.0 X 10^3 Eosinophils # (Auto) 0.2 0.0-0.3 10^3/uL Basophils # (Auto) 0.0 0.0-0.1 10^3/uL Immature Granulocyte # (Auto) 0.1 0.0-0.1 10^3/uL Neutrophils % (Manual) 88 % Lymphocytes % (Manual) 11 % Monocytes % (Manual) 1 % Sodium Level 135 135-145 MMOL/L Potassium Level 4.2 3.6-5.0 MMOL/L Chloride Level 96 L 98-107 MMOL/L Carbon Dioxide Level 30 21-32 MMOL/L Anion Gap 9 5-14 MMOL/L Blood Urea Nitrogen 39 H 7-18 MG/DL Creatinine 0.74 0.60-1.30 MG/DL Estimat Glomerular Filtration Rate 93 BUN/Creatinine Ratio 53 Glucose Level 167 H 70-105 MG/DL Calcium Level 9.0 8.5-10.1 MG/DL Corrected Calcium 9.2 8.5-10.1 MG/DL Total Bilirubin 0.4 0.1-1.0 MG/DL Aspartate Amino Transf (AST/SGOT) 55 H 5-34 U/L Alanine Aminotransferase (ALT/SGPT) 89 H 0-55 U/L Alkaline Phosphatase 149 H 40-136 U/L Total Protein 8.0 6.4-8.2 GM/DL Albumin 3.7 3.2-4.5 GM/DL Lipase 17 8-78 U/L Urine Color YELLOW Urine Clarity CLEAR Urine pH 6.0 5-9 Urine Specific [place] 1.015 L 1.016-1.022 Urine Protein NEGATIVE NEGATIVE Urine Glucose (UA) NEGATIVE NEGATIVE Urine Ketones NEGATIVE NEGATIVE Urine Nitrite NEGATIVE NEGATIVE Urine Bilirubin NEGATIVE NEGATIVE Urine Urobilinogen 1.0 < = 1.0 MG/DL Urine Leukocyte Esterase NEGATIVE NEGATIVE Urine RBC (Auto) NEGATIVE NEGATIVE Urine RBC 5-10 H /HPF Urine WBC NONE /HPF Urine Squamous Epithelial Cells 10-25 H /HPF Urine Crystals NONE /LPF Urine Bacteria TRACE /HPF Urine Casts PRESENT /LPF Urine Granular Casts 0-2 H /LPF Urine Mucus NEGATIVE /LPF Urine Culture Indicated NO My Orders Orders - WESLEY YEBOAH MD Comprehensive Metabolic Panel (04/17/21 17:34) Lipase (04/17/21 17:34) Ua Culture If Indicated (04/17/21 17:34) Ed Iv/Invasive Line Start (04/17/21 17:34) Cbc With Automated Diff (04/17/21 17:34) Ct Abdomen/Pelvis Wo (04/17/21 17:34) Ns Iv 1000 Ml (Sodium Chloride 0.9%) (04/17/21 17:34) Ketorolac Injection (Toradol Injection) (04/17/21 17:34) Metoclopramide Injection (Reglan Injecti (04/17/21 17:34) Diphenhydramine Injection (Benadryl Inje (04/17/21 17:34) Ct Head Wo (04/17/21 17:34) Pantoprazole Injection (Protonix Injecti (04/17/21 17:34) Lorazepam Injection (Ativan Injection) (04/17/21 17:34) Manual Differential (04/17/21 17:30) Vital Signs/I&O 04/17/21 04/17/21 04/17/21 04/17/21 17:24 18:50 18:52 19:57 Temp 36.7 Pulse 113 102 98 Resp 18 20 22 B/P (MAP) 124/72 (89) 123/76 127/63 Pulse Ox 93 95 96 O2 Delivery Room Air Nasal Cannula Nasal Cannula O2 Flow Rate 3.00 3.00 Capillary Refill : Progress Note #1: Progress Note Check basic labs had ordered a urinalysis. CT scan of her head since she is complaining of generalized headache as well as dizziness with her nausea and vomiting. CT scan of the abdomen and pelvis to evaluate her epigastric abdominal pain with nausea and vomiting. For her continued nausea and dry heaves despite the Zofran from EMS will give 5 mg of Reglan, 25 mg of Benadryl, 40 mg of Protonix, 1 mg of Ativan. For hydration we will give 1 L of normal saline IV. For her headache will give Toradol 30 mg IV. Progress Note #2: Time: 18:[address] head shows increased opacification of mastoid cells compared to 2019. CBC has elevated WBC count with left shift which may be more due to stress reaction, b ut overall appears similar to labs from 2019 and earlier where she has chronic elevation of WBC with left shift. Chemistry with mild elevation of LFTs and BUN up to 39 to go with some dehydration. Lipase normal. LFTs are similar to 2019 lab values. Glucose 176. Awaiting Urinalysis and CT scan of Abdomen/Pelvis report Progress Note #3: Time: 18:[address] scan of abdomen/pelvis negative for obstruction or acute process. She has chronic ventral hernia that appears to have enlarged since last scan 2019. Still waiting on UA. Pt felt better and said she thought she could try ice chips. Once IVF finish infusing will try to collect UA. Since her tests otherwise appear stable unless she has findings for UTI will plan on discharge to home with nausea meds and try liquid diet for 24 hours then advance as tolerated. Progress Note #4: Progress Note UA looked ok and no sign of infection. Pt reports feeling better and tolerated po here in the ED. She reports having Phenergan at home for nausea so she plans to use that and rest. Counseled on follow up and return precautions. Diagnostic Imaging Diagonstic Imaging: CT Plain Films/CT/US/NM/MRI: head Comments NAME: GOYO MARRERO [facility] REC#: [id number] PT STATUS: REG ER : 1960 PHYSICIAN: WESLEY YEBOAH MD ADMIT DATE: 04/17/21/ER FS Draft Date of Exam:04/17/21 CT HEAD WO PROCEDURE: CT head without contrast. TECHNIQUE: Multiple contiguous axial images were obtained through the brain without the use of intravenous contrast. Auto Exposure Controls were utilized during the CT exam to meet ALARA standards for radiation dose reduction. INDICATION: Headache, dizziness and nausea with emesis. COMPARISON: 07/27/2020. CT HEAD: CT images of the head were obtained. FINDINGS: Ventricles and sulci are within normal limits for size. There is no intracranial hemorrhage identified. There is no abnormal mass effect or shift of midline structures. There has been opacification of left mastoid air cells. IMPRESSION: No acute intracranial abnormality is identified however there has been further opacification of left mastoid air cells. Dictated on workstation # [id number] Dict: 04/17/21 1803 Trans: 04/17/21 180 [facility] [id number] Interpreted by: CURTIS JAMES MD Electronically signed by: Diagonstic Imaging: CT Plain Films/CT/US/NM/MRI: abdomen, pelvis Comments NAME: GOYO MARRERO [facility] REC#: [id number] PT STATUS: REG ER : 1960 PHYSICIAN: WESLEY YEBOAH MD ADMIT DATE: 04/17/21/ER FS Signed Date of Exam:04/17/21 CT ABDOMEN/PELVIS WO PROCEDURE: CT abdomen and pelvis without contrast. TECHNIQUE: Multiple contiguous axial images were obtained through the abdomen and pelvis without the use of intravenous contrast. Auto Exposure Controls were utilized during the CT exam to meet ALARA standards for radiation dose reduction. INDICATION: Abdominal pain with nausea and emesis. COMPARISON: 07/27/2020. FINDINGS: There is mild low-density throughout the liver indicating steatosis. There is mild hepatosplenomegaly. Gallbladder is surgically absent without evidence of biliary ductal dilatation. No pancreatic or adrenal gland abnormality is identified. Exophytic nodules along the superior pole of the left kidney are likely due to hepatic cysts. Kidneys are otherwise unremarkable. There is no evidence of abdominal free fluid. There is thinning of the anterior abdominal wall with protrusion of fat and small bowel however no focal obstruction or incarceration is identified. This has shown increase when compared to previous study. Unopacified urinary bladder is unremarkable. IMPRESSION: Increasing anterior abdominal wall hernia below the umbilicus without focal obstruction or other significant inflammation identified. Dictated by: Dictated on workstation # [id number] Dict: 04/17/211809 Trans: 04/17/211816 [facility] [id number] Interpreted by: CURTIS JAMES MD Electronically signed by: CURTIS JAMES MD 04/17/211816 Reviewed: Reviewed by Me Departure Impression Primary Impression: Nausea and vomiting Qualified Codes: R11.14 - Bilious vomiting Additional Impression: Generalized headache Disposition: 30 STILL A PATIENT Condition: Stable Departure-Patient Inst. Decision time for Depature: 19:54 Referrals: NO,LOCAL PHYSICIAN (PCP) Primary Care Physician TIAGO STEWART APRN (Family) Primary Care Physician Patient Instructions: Food Poisoning ED, Headache, Adult ED, Nausea and Vomiting, Adult ED Add. Discharge Instructions: Try following a liquid diet for next 12 to 24 hours to let your stomach rest. After that advance your diet as you tolerate to your regular diabetic diet. Use Nausea medicine to help keep your stomach settled. Check with clinic for continued concerns. All discharge instructions reviewed with patient and/or family. Voiced understanding. WESLEY YEBOAH MD Apr 17, 2021 17:43
[2021-04-17 17:58] LABS: BILIRUBIN,TOTAL 0.4 MG/DL (0.1-1.0); CREATININE SERUM 0.74 MG/DL (0.60-1.30); POTASSIUM 4.2 MMOL/L (3.6-5.0)
[2021-04-17 17:59] LABS: ALBUMIN 3.7 GM/DL (3.2-4.5)
--- NOTE | 2021-04-17 18:06 | Diagnostic Imaging Report ---
PROCEDURE: CT head without contrast. TECHNIQUE: Multiple contiguous axial images were obtained through the brain without the use of intravenous contrast. Auto Exposure Controls were utilized during the CT exam to meet ALARA standards for radiation dose reduction. INDICATION: Headache, dizziness and nausea with emesis. COMPARISON: 07/27/2020. CT HEAD: CT images of the head were obtained. FINDINGS: Ventricles and sulci are within normal limits for size. There is no intracranial hemorrhage identified. There is no abnormal mass effect or shift of midline structures. There has been opacification of left mastoid air cells. IMPRESSION: No acute intracranial abnormality is identified however there has been further opacification of left mastoid air cells. Dictated by: Dictated on workstation # [id number]
[2021-04-17 18:11] LABS: LYMPHOCYTES % (MANUAL) 11 %; MONOCYTES % (MANUAL) 1 %; NEUTROPHILS % (MANUAL) 88 %
--- NOTE | 2021-04-17 18:18 | Diagnostic Imaging Report ---
PROCEDURE: CT abdomen and pelvis without contrast. TECHNIQUE: Multiple contiguous axial images were obtained through the abdomen and pelvis without the use of intravenous contrast. Auto Exposure Controls were utilized during the CT exam to meet ALARA standards for radiation dose reduction. INDICATION: Abdominal pain with nausea and emesis. COMPARISON: 07/27/2020. FINDINGS: There is mild low-density throughout the liver indicating steatosis. There is mild hepatosplenomegaly. Gallbladder is surgically absent without evidence of biliary ductal dilatation. No pancreatic or adrenal gland abnormality is identified. Exophytic nodules along the superior pole of the left kidney are likely due to hepatic cysts. Kidneys are otherwise unremarkable. There is no evidence of abdominal free fluid. There is thinning of the anterior abdominal wall with protrusion of fat and small bowel however no focal obstruction or incarceration is identified. This has shown increase when compared to previous study. Unopacified urinary bladder is unremarkable. IMPRESSION: Increasing anterior abdominal wall hernia below the umbilicus without focal obstruction or other significant inflammation identified. Dictated by: Dictated on workstation # [id number]
[2021-04-17 19:27] LABS: BILIRUBIN,URINE NEGATIVE (NEGATIVE); CLARITY,URINE CLEAR; COLOR,URINE YELLOW; GLUCOSE, URINE (UA) NEGATIVE (NEGATIVE); KETONES,URINE NEGATIVE (NEGATIVE); LEUKOCYTE ESTERASE ,URINE NEGATIVE (NEGATIVE); NITRITE,URINE NEGATIVE (NEGATIVE); PROTEIN,URINE NEGATIVE (NEGATIVE)
[2021-04-17 19:30] LABS: BACTERIA,URINE TRACE /HPF
[2021-04-17 19:31] LABS: GRANULAR CASTS,URINE 0-2 /LPF
[2021-04-17 19:57] VITALS: BP 127/63
== END 2021-04-17 19:57 | disposition still patient (30) ==
LOC: EDUNIT# 17:23 → ER FS 17:25
DX: R11.2 Nausea with vomiting, unspecified (principal); R51.9 Headache, unspecified; E66.9 Obesity, unspecified; J44.9 Chronic obstructive pulmonary disease, unspecified; F17.210 Nicotine dependence, cigarettes, uncomplicated; Z68.41 Body mass index [BMI] 40.0-44.9, adult; Z91.040 Latex allergy status
CPT/HCPCS: 36415; 70450; 74176; 80053; 81000; 83690; 85007; 85027

== ENCOUNTER 2022-01-09 21:50 | Emergency (ER) | payer MEDICARE, MEDICAID ==
[~2022-01-09] VITALS: Ht 165 cm; Wt 127.0 kg
[~2022-01-09 21:50] MED LIST changes: +ALBU8.5H6 IH; -RT-ALBUINH IH
--- NOTE | 2022-01-09 22:49 | ED Cough/URI ---
General Chief Complaint: Respiratory Problems Stated Complaint: ASTHMA Nursing Triage Note: patient reports since last week she has had respiratory symptoms. states last week she seen her primary care physician was given antibiotic and tested negative for flu and covid. patient verbalized take bx tx [id number] with no relief. wears home oxygen Source: patient, old records History of Present Illness Date Seen by Provider: Jan 09, 2022 Time Seen by Provider: 21:50 Initial Comments 61-year-old female presenting with complaints of increased cough and shortness of breath. She had seen her primary care provider 2 weeks ago and had negative testing for COVID and influenza. However she states that they did a chest x-ray and told her she had a pneumonia. She did 2 rounds of Zithromax and finished the last dose 2 to 3 days ago. She has been taking breathing treatments every 4 hours with no significant improvement. She does wear home oxygen. She has not had a fever or chills. She is not coughing up more mucus than usual. She also has sleep apnea and wears a CPAP with oxygen while sleeping. Timing/Duration: other (Over 2 weeks but felt it was worse in the last 2 days) Prior Episodes/Possible Cause: frequent episodes, chronic episodes Modifying Factors: Worse With Activity Associated Symptoms: chest pain/soreness, cough, muscle aches, nasal congestion, shortness of breath, wheezing Allergies and Home Medications Allergies Coded Allergies: butorphanol (Verified Allergy, Severe, 03/13/18) strawberry (Verified Allergy, Severe, ANAPHYLAXIS, 03/13/18) codeine (Verified Allergy, Unknown, 11/21/18) doxycycline (Verified Allergy, Unknown, 11/21/18) erythromycin base (Verified Allergy, Unknown, NAUSEA, 03/13/18) fluoxetine (Verified Allergy, Unknown, 11/21/18) iodine (Verified Allergy, Unknown, 11/21/18) latex (Verified Allergy, Unknown, 03/13/18) morphine (Verified Allergy, Unknown, 03/13/18) pregabalin (Verified Allergy, Unknown, 11/21/18) salmeterol (Verified Allergy, Unknown, 11/21/18) gabapentin (Verified Adverse Reaction, Unknown, 11/22/18) heartburn Uncoded Allergies: pepperoni (Allergy, Severe, ANAPHYLAXIS, 03/13/18) Patient Home Medication List Home Medication List Reviewed: Yes Albuterol Sulfate (Ventolin Hfa) 1 Puff Puff, 2 PUFF IH Q4H PRN for SHORTNESS OF BREATH, (Reported) Entered as Reported by: DOMINGA PEREZ on 03/13/18 1038 Albuterol Sulfate (Albuterol Sulfate) 2.5 Mg/3 Ml Vial.neb, 2.5 MG NEB Q4H PRN for SHORTNESS OF BREATH, (Reported) Entered as Reported by: DOMINGA PEREZ on 03/13/18 105 Alprazolam (Alprazolam) 0.5 Mg Tablet, 0.5 MG PO TID PRN for ANXIETY, (Reported) Entered as Reported by: DOMINGA PEREZ on 11/22/18 105 Aspirin (Aspirin EC) 325 Mg Tablet.dr, 325 MG PO DAILY, (Reported) Entered as Reported by: DOMINGA PEREZ on 03/13/18 105 Baclofen (Baclofen) 10 Mg Tablet, 10 MG PO TID PRN for pain/muscle spasm Prescribed by: WESLEY YEBOAH on 05/23/20 0310 Cholecalciferol (Vitamin D3) (D3-50) 50,000 Unit Capsule, 50,000 UNITS PO [place], (Reported) Entered as Reported by: DOMINGA PEREZ on 11/22/18 105 Digoxin (Digoxin) 250 Mcg Tablet, 250 MCG PO 1400, (Reported) Entered as Reported by: DOMINGA PEREZ on 03/13/18 1038 Fluticasone Propionate (Fluticasone Propionate) 16 Gm Shanks.susp, 2 SPRAYS NS DAILY, (Reported) Entered as Reported by: DOMINGA PEREZ on 11/22/18 105 Furosemide (Furosemide) 40 Mg Tablet, 40 MG PO 0800,1400, (Reported) Entered as Reported by: DOMINGA PEREZ on 03/13/18 1038 Hydrocodone Bit/Acetaminophen (HYDROcodone/APAP 10/325 TABLET) 1 Each Tablet, 1- 2 TAB PO Q12H PRN for PAIN-MODERATE, (Reported) Entered as Reported by: DOMINGA PEREZ on 11/22/18 105 Insulin Glargine,Hum.rec.anlog (Toujeo Solostar) 300 Unit/1 Ml Insuln.pen, 60 UNITS SC BID, (Reported) Entered as Reported by: DOMINGA PEREZ on 11/22/18 105 Insulin Lispro (Humalog Kwikpen) 100 Unit/1 Ml Insuln.pen, 32-38 UNIT SQ TIDAC, (Reported) Entered as Reported by: DOMINGA PEREZ on 03/13/18 1038 Ipratropium/Albuterol Sulfate (Iprat-Albut 0.5-3(2.5) mg/3 ml) 3 Ml Ampul.neb, 3 ML NEB QID PRN for SHORTNESS OF BREATH, (Reported) Entered as Reported by: DOMINGA PEREZ on 03/13/18 1052 Linaclotide (Linzess) 145 Mcg Capsule, 145 MCG PO DAILY, (Reported) Entered as Reported by: DOMINGA PEREZ on 11/22/18 105 Liraglutide (Victoza 3-Naga) 0.6 Mg/0.1 Ml Pen.injctr, 1.8 MG SC 1100, (Reported) Entered as Reported by: DOMINGA PEREZ on 11/22/18 105 Lisinopril (Lisinopril) 10 Mg Tablet, 10 MG PO DAILY, (Reported) Entered as Reported by: DOMINGA PEREZ on 03/13/18 1038 Meclizine HCl (Meclizine HCl) 25 Mg Tablet, 25 MG PO Q6H PRN for DIZZINESS, (Rep orted) Entered as Reported by: DOMINGA PEREZ on 03/13/18 1038 Metformin HCl (Metformin HCl ER) 500 Mg Tab.er.24h, 500 MG PO BID, (Reported) Entered as Reported by: DOMINGA PEREZ on 11/22/18 1059 Mupirocin (Mupirocin) 22 Gm Oint...g., TOP TID PRN for SORES, (Reported) Entered as Reported by: DOMINGA PEREZ on 11/22/18 1059 Nystatin (Nystop) 60 Gm Powder, TOP TID, (Reported) Entered as Reported by: DOMINGA PEREZ on 11/22/18 105 Ondansetron HCl (Ondansetron HCl) 4 Mg Tablet, 4 MG PO Q8H PRN for NAUSEA/ VOMITING-1ST LINE, (Reported) Entered as Reported by: DOMINGA PEREZ on 11/22/18 105 Pantoprazole Sodium (Protonix) 40 Mg Tablet.dr, 40 MG PO BID, (Reported) Entered as Reported by: DOMINGA PEREZ on 03/13/18 1038 Pioglitazone HCl (Pioglitazone HCl) 15 Mg Tablet, 15 MG PO DAILY, (Reported) Entered as Reported by: DOMINGA PEREZ on 11/22/18 1059 Potassium Chloride (Potassium Chloride) 10 Meq Tablet.er, 10 MEQ PO 1400, (Reported) Entered as Reported by: DOMINGA PEREZ on 03/13/18 1038 Prednisone (Prednisone) 20 Mg Tab, 40 MG PO DAILY@0700 Prescribed by: SALINAS COLVIN on 11/22/18 1120 Prednisone (Prednisone) 20 Mg Tab, 20 MG PO DAILY Prescribed by: WESLEY YEBOAH on 01/09/22 2352 Promethazine HCl (Promethazine Tablet) 25 Mg Tablet, 25 MG PO Q4H PRN for NAUSEA/VOMITING-2ND LINE, (Reported) Entered as Reported by: DOMINGA PEREZ on 03/13/18 1038 Scopolamine (Transderm-Scop) 1 Each Patch.td72, 1 PATCH TD Q72H, (Reported) Entered as Reported by: DOMINGA PEREZ on 11/22/18 1059 Sertraline HCl (Sertraline HCl) 50 Mg Tablet, 150 MG PO HS, (Reported) Entered as Reported by: DOMINGA PEREZ on 11/22/18 1059 Sumatriptan Succinate (Imitrex) 100 Mg Tablet, 100 MG PO UD PRN for MIGRAINE, (Reported) Entered as Reported by: DOMINGA PEREZ on 03/13/18 1052 Triamcinolone Acet (Triamcinolone Acetonide 0.1% Ointment) 15 Gm Oint, TOP BID, (Reported) Entered as Reported by: DOMINGA PEREZ on 11/22/18 1059 Verapamil HCl (Verapamil ER) 180 Mg Tablet.er, 180 MG PO BID, (Reported) Entered as Reported by: DOMINGA PEREZ on 03/13/18 1038 Review of Systems Review of Systems Constitutional: see HPI EENTM: see HPI Respiratory: see HPI Cardiovascular: see HPI Gastrointestinal: no symptoms reported Genitourinary: no symptoms reported Musculoskeletal: see HPI Skin: No rash Psychiatric/Neurological: Headache Past Nvgnlms-Cjryem-Tktwfv Hx Patient Social History Tobacco Use?: No Use of E-Cig and/or Vaping dev: No Substance use?: No Immunizations Up To Date PED Vaccines UTD: Yes Influenza Vaccine Up-to-Date: No; Not Current First/Initial COVID19 Vaccinat: Not currently vaccinated Second COVID19 Vaccination Yosi: Not currently vaccinated Third COVID19 Vaccination Date: Not currently vaccinated Seasonal Allergies Seasonal Allergies: No Past Medical History Surgery/Hospitalization HX: DM, COPD, Vertigo, GERD, HTN Surgeries: Yes (HYST/BSO) Appendectomy, Gallbladder, Hysterectomy, Oophorectomy Respiratory: Yes Asthma, COPD Currently Using CPAP: No Currently Using BIPAP: No Cardiac: Yes Atrial Fibrillation, Hypertension Neurological: Yes (Fibromyalgia, Memory Loss) Neuropathy, TIA, Vertigo [employer] HEL[employer] History: Hysterectomy, Menopausal Genitourinary: No Gastrointestinal: Yes (LARGE VENTRAL HERNIA--NO REPAIR) Abdominal Hernia Musculoskeletal: No Fibromyalgia Endocrine: Yes Diabetes, Insulin dep HEENT: No Hearing Impairment: Denies Cancer: Yes (Polycythemia) Psychosocial: Yes Anxiety Integumentary: No Blood Disorders: Yes (Polycythemia) Family Medical History Abdominal aortic aneurysm 19 MOTHER Dementia 19 FATHER FH: anemia 19 FATHER Hypertension 19 MOTHER Diabetes, Stroke Physical Exam Vital Signs - First Documented 01/09/22 21:55 Temp 36.1 Pulse 97 Resp 20 B/P (MAP) 151/41 (77) Pulse Ox 93 O2 Delivery Nasal Cannula O2 Flow Rate 2.00 Capillary Refill : Less Than 3 Seconds Height: 5'5.00" Weight: 268lbs. 0.0oz. 121.565702rp; 46.00 BMI Method:Stated General Appearance: mild distress, obese Eyes: Bilateral Eye PERRL, Bilateral Eye EOMI HEENT: pharynx normal Neck: non-tender, full range of motion, supple, normal inspection Respiratory: lungs clear, no respiratory distress, no accessory muscle use Cardiovascular: normal peripheral pulses, regular rate, rhythm Gastrointestinal: normal bowel sounds, non tender, soft, no pulsatile mass Extremities: normal range of motion, non-tender, normal capillary refill Neurologic/Psychiatric: alert, oriented x 3 Skin: normal color, warm/dry Progress/Results/Core Measures Suspected Sepsis SIRS Temperature: Pulse: 97 Respiratory Rate: 20 Blood Pressure 151 /41 Mean: 77 Results/Orders Lab Results Laboratory Tests Test 01/09/22 21:55 Range/Units Influenza Type A (RT-PCR) Not Detected Not Detecte Influenza Type B (RT-PCR) Not Detected Not Detecte SARS-CoV-2 RNA (RT-PCR) Not Detected Not Detecte My Orders Orders - WESLEY YEBOAH MD Covid 19 Inhouse Test (01/09/22 22:01) Chest Pa/Lat (2 View) (01/09/22 22:01) Influenza A And B By Pcr (01/09/22 22:01) Isolation Central Supply Req (01/09/22 22:01) Dexamethasone Injection (Decadron Inje (01/09/22 23:48) Vital Signs/I&O 01/09/22 01/09/22 01/10/22 21:55 21:55 00:05 Temp 36.1 36.1 Pulse 97 97 Resp 20 20 B/P (MAP) 151/41 (77) 151/41 Pulse Ox 93 97 O2 Delivery Nasal Cannula Nasal Cannula Nasal Cannula O2 Flow Rate 2.00 2.00 2.00 Capillary Refill : Less Than 3 Seconds Blood Pressure Mean: 77 Progress Note #1: Progress Note Obtain chest x-ray to look for signs of bacterial infection or pneumonia. Swab for influenza and COVID. Give breathing treatment and keep on her home oxygen Progress Note #2: Progress Note Reassured patient that I do not see signs of bacterial pneumonia on chest x-ray. The influenza and COVID swabs were negative. Will have patient take a steroid here and continue some steroid pills by mouth for few days. Stressed the importance of monitoring her sugar and following sliding scale to help keep her sugars from going too high. Diagnostic Imaging Diagonstic Imaging: Xray Plain Films/CT/US/NM/MRI: chest Comments On my personal review and interpretation of her two-view chest x-ray she has no acute infiltrate. There is some increased perihilar markings consistent with viral infection Departure Impression Primary Impression: COPD with exacerbation Additional Impressions: Shortness of breath Cough in adult Disposition: 01 HOME, SELF-CARE Condition: Stable Departure-Patient Inst. Decision time for Depature: 23:49 Referrals: NO,LOCAL PHYSICIAN (PCP) Primary Care Physician TIAGO STEWART APRN (Family) Primary Care Physician Patient Instructions: COPD Exacerbation, Adult ED, Shortness of Breath, Adult ED Add. Discharge Instructions: Take the steroid for next few days to help with cough and breathing. Continue with your breathing treatments at home. While on the steroid make sure you watch your sugars closely and use your sliding scale insulin as the steroid will make your sugars run higher. All discharge instructions reviewed with patient and/or family. Voiced understanding. Scripts Prednisone (Prednisone) 20 Mg Tab 20 MG PO DAILY, #22 TAB 0 Refills Take 3 tabs(60mg)daily,decrease by 1/2 tab(10mg)every other day. Prov: WESLEY YEBOAH MD 01/09/22 WESLEY YEBOAH MD Jan 09, 2022 22:49
[2022-01-09] MEDS ORDERED: PRD20T PO (23:52)
[2022-01-10 00:05] VITALS: BP 151/41
--- NOTE | 2022-01-10 07:57 | Diagnostic Imaging Report ---
EXAMINATION: CHEST (PA AND LATERAL) CLINICAL INDICATION: 61-year-old female, cough and shortness of breath. COMPARISON: November 21, 2018. FINDINGS: Heart size and mediastinal contours are unchanged. There is no identified pneumothorax. There is no pleural effusion. There is no identified interval focal airspace consolidation. There is redemonstrated widening of the left acromioclavicular joint. There are multilevel degenerative changes of the spine. IMPRESSION: 1. No identified acute cardiopulmonary abnormality. Dictated by: Dictated on workstation # [id number]
== END 2022-01-10 00:05 | disposition home or self-care (01) ==
LOC: EDUNIT# 21:50 → ER FS 21:52
DX: J44.1 Chronic obstructive pulmonary disease with (acute) exacerbation (principal); Z91.040 Latex allergy status; Z28.310 Unvaccinated for COVID-19; Z20.822 Contact with and (suspected) exposure to COVID-19
CPT/HCPCS: 71046; 87636

== ENCOUNTER 2022-03-27 17:51 | Emergency (ER) | payer MEDICARE, MEDICAID ==
[~2022-03-27] VITALS: Ht 165 cm; Wt 140.0 kg
--- NOTE | 2022-03-27 18:00 | ED Respiratory ---
General Chief Complaint: Respiratory Problems Stated Complaint: SOB History of Present Illness Date Seen by Provider: Mar 27, 2022 Time Seen by Provider: 18:00 Initial Comments 60-year-old female with PMH of morbid obesity/COPD/stopped smoking 2 months ago/HTN/A-fib, is brought in by EMS with complaints of shortness of breath which has been going on all week and has exacerbated today. Patientsaw her PCP yesterdy and was put on a long prednisone taper starting at 60mg. Pt states she was hanging out with smoker friends today and is exposed to second hand smoke. Pt was given one Duo neb by EMS in her home and one Albuterol neb in the ambulance. Pt uses 3L of O2 at home as baseline. Denies fever, chills, chest pain, diaphoresis, dizziness. Allergies and Home Medications Allergies Coded Allergies: butorphanol (Verified Allergy, Severe, 03/13/18) strawberry (Verified Allergy, Severe, ANAPHYLAXIS, 03/13/18) codeine (Verified Allergy, Unknown, 11/21/18) doxycycline (Verified Allergy, Unknown, 11/21/18) erythromycin base (Verified Allergy, Unknown, NAUSEA, 03/13/18) fluoxetine (Verified Allergy, Unknown, 11/21/18) iodine (Verified Allergy, Unknown, 11/21/18) latex (Verified Allergy, Unknown, 03/13/18) morphine (Verified Allergy, Unknown, 03/13/18) pregabalin (Verified Allergy, Unknown, 11/21/18) salmeterol (Verified Allergy, Unknown, 11/21/18) gabapentin (Verified Adverse Reaction, Unknown, 11/22/18) heartburn Uncoded Allergies: pepperoni (Allergy, Severe, ANAPHYLAXIS, 03/13/18) Patient Home Medication List Home Medication List Reviewed: Yes Albuterol Sulfate (Ventolin Hfa) 1 Puff Puff, 2 PUFF IH Q4H PRN for SHORTNESS OF BREATH, (Reported) Entered as Reported by: DOMINGA PEREZ on 03/13/18 1038 Albuterol Sulfate (Albuterol Sulfate) 2.5 Mg/3 Ml Vial.neb, 2.5 MG NEB Q4H PRN for SHORTNESS OF BREATH, (Reported) Entered as Reported by: DOMINGA PEREZ on 03/13/18 1052 Alprazolam (Alprazolam) 0.5 Mg Tablet, 0.5 MG PO TID PRN for ANXIETY, (Reported) Entered as Reported by: DOMINGA PEREZ on 11/22/18 105 Aspirin (Aspirin EC) 325 Mg Tablet.dr, 325 MG PO DAILY, (Reported) Entered as Reported by: DOMINGA PEREZ on 03/13/18 105 Baclofen (Baclofen) 10 Mg Tablet, 10 MG PO TID PRN for pain/muscle spasm Prescribed by: WESLEY YEBOAH on 05/23/20 0310 Cholecalciferol (Vitamin D3) (D3-50) 50,000 Unit Capsule, 50,000 UNITS PO [place], (Reported) Entered as Reported by: DOMINGA PEREZ on 11/22/18 105 Digoxin (Digoxin) 250 Mcg Tablet, 250 MCG PO 1400, (Reported) Entered as Reported by: DOMINGA PEREZ on 03/13/18 1038 Fluticasone Propionate (Fluticasone Propionate) 16 Gm [place].susp, 2 SPRAYS NS DAILY, (Reported) Entered as Reported by: DOMINGA PEREZ on 11/22/18 105 Furosemide (Furosemide) 40 Mg Tablet, 40 MG PO 0800,1400, (Reported) Entered as Reported by: DOMINGA PEREZ on 03/13/18 1038 Hydrocodone Bit/Acetaminophen (HYDROcodone/APAP 10/325 TABLET) 1 Each Tablet, 1- 2 TAB PO Q12H PRN for PAIN-MODERATE, (Reported) Entered as Reported by: DOMINGA PEREZ on 11/22/18 105 Insulin Glargine,Hum.rec.anlog (Toujeo Solostar) 300 Unit/1 Ml Insuln.pen, 60 UNITS SC BID, (Reported) Entered as Reported by: DOMINGA PEREZ on 11/22/18 105 Insulin Lispro (Humalog Kwikpen) 100 Unit/1 Ml Insuln.pen, 32-38 UNIT SQ TIDAC, (Reported) Entered as Reported by: DOMINGA EPREZ on 03/13/18 1038 Ipratropium/Albuterol Sulfate (Iprat-Albut 0.5-3(2.5) mg/3 ml) 3 Ml Ampul.neb, 3 ML NEB QID PRN for SHORTNESS OF BREATH, (Reported) Entered as Reported by: DOMINGA PEREZ on 03/13/18 1052 Linaclotide (Linzess) 145 Mcg Capsule, 145 MCG PO DAILY, (Reported) Entered as Reported by: DOMINGA PEREZ on 11/22/18 105 Liraglutide (Victoza 3-Naga) 0.6 Mg/0.1 Ml Pen.injctr, 1.8 MG SC 1100, (Reported) Entered as Reported by: DOMINGA PEREZ on 11/22/18 1059 Lisinopril (Lisinopril) 10 Mg Tablet, 10 MG PO DAILY, (Reported) Entered as Reported by: DOMINGA PEREZ on 03/13/18 1038 Meclizine HCl (Meclizine HCl) 25 Mg Tablet, 25 MG PO Q6H PRN for DIZZINESS, (Reported) Entered as Reported by: DOMINGA PEREZ on 03/13/18 1038 Metformin HCl (Metformin HCl ER) 500 Mg Tab.er.24h, 500 MG PO BID, (Reported) Entered as Reported by: DOMINGA PEREZ on 11/22/18 1059 Mupirocin (Mupirocin) 22 Gm Oint...g., TOP TID PRN for SORES, (Reported) Entered as Reported by: DOMINGA EPREZ on 11/22/18 1059 Nystatin (Nystop) 60 Gm Powder, TOP TID, (Reported) Entered as Reported by: DOMINGA PEREZ on 11/22/18 1059 Ondansetron HCl (Ondansetron HCl) 4 Mg Tablet, 4 MG PO Q8H PRN for NAUSEA/VOMITING-1ST LINE, (Reported) Entered as Reported by: DOMINGA PEREZ on 11/22/18 1059 Pantoprazole Sodium (Protonix) 40 Mg Tablet.dr, 40 MG PO BID, (Reported) Entered as Reported by: DOMINGA PEREZ on 03/13/18 1038 Pioglitazone HCl (Pioglitazone HCl) 15 Mg Tablet, 15 MG PO DAILY, (Reported) Entered as Reported by: DOMINGA PEREZ on 11/22/18 1059 Potassium Chloride (Potassium Chloride) 10 Meq Tablet.er, 10 MEQ PO 1400, (Reported) Entered as Reported by: DOMINGA PEREZ on 03/13/18 1038 Prednisone (Prednisone) 20 Mg Tab, 40 MG PO DAILY@0700 Prescribed by: SALINAS CLOVIN on 11/22/18 1120 Prednisone (Prednisone) 20 Mg Tab, 20 MG PO DAILY Prescribed by: WESLEY YEBOAH on 01/09/22 2352 Promethazine HCl (Promethazine Tablet) 25 Mg Tablet, 25 MG PO Q4H PRN for NAUSEA/VOMITING-2ND LINE, (Reported) Entered as Reported by: DOMINGA PEREZ on 03/13/18 1038 Scopolamine (Transderm-Scop) 1 Each Patch.td72, 1 PATCH TD Q72H, (Reported) Entered as Reported by: DOMINGA PEREZ on 11/22/18 1059 Sertraline HCl (Sertraline HCl) 50 Mg Tablet, 150 MG PO HS, (Reported) Entered as Reported by: DOMINGA PEREZ on 11/22/18 1059 Sumatriptan Succinate (Imitrex) 100 Mg Tablet, 100 MG PO UD PRN for MIGRAINE, (Reported) Entered as Reported by: DOMINGA PEREZ on 03/13/18 1052 Triamcinolone Acet (Triamcinolone Acetonide 0.1% Ointment) 15 Gm Oint, TOP BID, (Reported) Entered as Reported by: DOMINGA PEREZ on 11/22/18 1059 Verapamil HCl (Verapamil ER) 180 Mg Tablet.er, 180 MG PO BID, (Reported) Entered as Reported by: DOMINGA PEREZ on 03/13/18 1038 Review of Systems Review of Systems Constitutional: no symptoms reported EENTM: no symptoms reported Respiratory: short of breath, wheezing Cardiovascular: no symptoms reported Gastrointestinal: no symptoms reported Genitourinary: no symptoms reported Musculoskeletal: no symptoms reported Skin: no symptoms reported Psychiatric/Neurological: No Symptoms Reported Hematologic/Lymphatic: No Symptoms Reported Immunological/Allergic: no symptoms reported Past Ljxrhuv-Jgxqpn-Gsmaww Hx Patient Social History Tobacco Use?: Yes Tobacco type used: Cigarettes Smoking Status: Former Smoker Use of E-Cig and/or Vaping dev: No Substance use?: No Alcohol Use?: No Pt feels they are or have been: No Immunizations Up To Date PED Vaccines UTD: Yes First/Initial COVID19 Vaccinat: Not currently vaccinated Second COVID19 Vaccination Yosi: Not currently vaccinated Third COVID19 Vaccination Date: Not currently vaccinated Seasonal Allergies Seasonal Allergies: No Past Medical History Surgery/Hospitalization HX: DM, COPD, Vertigo, GERD, HTN Surgeries: Yes (HYST/BSO) Appendectomy, Gallbladder, Hysterectomy, Oophorectomy Respiratory: Yes Asthma, COPD Currently Using CPAP: No Currently Using BIPAP: No Cardiac: Yes Atrial Fibrillation, Hypertension Neurological: Yes (Fibromyalgia, Memory Loss) Neuropathy, TIA, Vertigo NURSE OBGYN History: Hysterectomy, Menopausal Genitourinary: No Gastrointestinal: Yes (LARGE VENTRAL HERNIA--NO REPAIR) Abdominal Hernia Musculoskeletal: No Fibromyalgia Endocrine: Yes Diabetes, Insulin dep HEENT: No Hearing Impairment: Denies Cancer: Yes (Polycythemia) Psychosocial: Yes Anxiety Integumentary: No Blood Disorders: Yes (Polycythemia) Family Medical History Abdominal aortic aneurysm 19 MOTHER Dementia 19 FATHER FH: anemia 19 FATHER Hypertension 19 MOTHER Diabetes, Stroke Physical Exam Vital Signs - First Documented 03/27/22 03/27/22 17:57 18:00 Temp 36.1 Pulse 72 Resp 18 B/P (MAP) 136/41 (72) Pulse Ox 94 O2 Delivery Nasal Cannula O2 Flow Rate 3.00 Capillary Refill : Height: 5'5.00" Weight: 268lbs. 0.0oz. 121.179344xr; 46.00 BMI Method:Stated General Appearance: moderate distress, obese HEENT: PERRL/EOMI, pharynx normal Neck: non-tender, full range of motion Respiratory: chest non-tender, no accessory muscle use, rhonchi, wheezing, expiration Cardiovascular: regular rate, rhythm Gastrointestinal: normal bowel sounds, non tender, soft Extremities: normal range of motion Neurologic/Psychiatric: no motor/sensory deficits, alert, oriented x 3 Skin: normal color Progress/Results/Core Measures Suspected Sepsis SIRS Temperature: Pulse: Respiratory Rate: Laboratory Tests 03/27/22 18:00: White Blood Count 14.2H Blood Pressure / Mean: Laboratory Tests 03/27/22 18:00: Creatinine 0.82, INR Comment 0.9, Platelet Count 210, Total Bilirubin 0.3 Results/Orders Lab Results Laboratory Tests Test 03/27/22 18:00 03/27/22 18:14 03/27/22 18:16 Range/Units White Blood Count 14.2 H 4.3-11.0 10^3/uL Red Blood Count 5.41 H 3.80-5.11 10^6/uL Hemoglobin 14.7 11.5-16.0 g/dL Hematocrit 46 35-52 % Mean Corpuscular Volume 86 80-99 fL Mean Corpuscular Hemoglobin 27 25-34 pg Mean Corpuscular Hemoglobin Concent 32 32-36 g/dL Red Cell Distribution Width 17.4 H 10.0-14.5 % Platelet Count 210 130-400 10^3/uL Mean Platelet Volume 11.0 9.0-12.2 fL Immature Granulocyte % (Auto) 1 % Neutrophils (%) (Auto) 83 H 42-75 % Lymphocytes (%) (Auto) 10 L 12-44 % Monocytes (%) (Auto) 5 0-12 % Eosinophils (%) (Auto) 0 0-10 % Basophils (%) (Auto) 0 0-10 % Neutrophils # (Auto) 11.8 H 1.8-7.8 10^3/uL Lymphocytes # (Auto) 1.5 1.0-4.0 10^3/uL Monocytes # (Auto) 0.7 0.0-1.0 10^3/uL Eosinophils # (Auto) 0.0 0.0-0.3 10^3/uL Basophils # (Auto) 0.1 0.0-0.1 10^3/uL Immature Granulocyte # (Auto) 0.2 H 0.0-0.1 10^3/uL Neutrophils % (Manual) 89 % Lymphocytes % (Manual) 7 % Monocytes % (Manual) 4 % Prothrombin Time 12.8 12.2-14.7 SEC INR Comment 0.9 0.8-1.4 Activated Partial Thromboplast Time 25 24-35 SEC D-Dimer 0.32 0.00-0.49 UG/ML Sodium Level 141 135-145 MMOL/L Potassium Level 4.3 3.6-5.0 MMOL/L Chloride Level 99 98-107 MMOL/L Carbon Dioxide Level 29 21-32 MMOL/L Anion Gap 13 5-14 MMOL/L Blood Urea Nitrogen 44 H 7-18 MG/DL Creatinine 0.82 0.60-1.30 MG/DL Estimat Glomerular Filtration Rate 81 BUN/Creatinine Ratio 54 Glucose Level 230 H 70-105 MG/DL Calcium Level 9.8 8.5-10.1 MG/DL Corrected Calcium 10.2 H 8.5-10.1 MG/DL Magnesium Level 2.2 1.6-2.4 MG/DL Total Bilirubin 0.3 0.1-1.0 MG/DL Aspartate Amino Transf (AST/SGOT) 21 5-34 U/L Alanine Aminotransferase (ALT/SGPT) 42 0-55 U/L Alkaline Phosphatase 169 H 40-136 U/L Troponin I < 0.30 <0.30 NG/ML Pro-B-Type Natriuretic Peptide 41.2 <125.0 PG/ML Total Protein 7.4 6.4-8.2 GM/DL Albumin 3.5 3.2-4.5 GM/DL Influenza Type A (RT-PCR) Not Detected Not Detecte Influenza Type B (RT-PCR) Not Detected Not Detecte SARS-CoV-2 RNA (RT-PCR) Not Detected Not Detecte Urine Color YELLOW Urine Clarity CLEAR Urine pH 5.5 5-9 Urine Specific [place] 1.010 L 1.016-1.022 Urine Protein NEGATIVE NEGATIVE Urine Glucose (UA) 3+ H NEGATIVE Urine Ketones NEGATIVE NEGATIVE Urine Nitrite NEGATIVE NEGATIVE Urine Bilirubin NEGATIVE NEGATIVE Urine Urobilinogen 0.2 < = 1.0 MG/DL Urine Leukocyte Esterase NEGATIVE NEGATIVE Urine RBC (Auto) NEGATIVE NEGATIVE Urine RBC NONE /HPF Urine WBC NONE /HPF Urine Squamous Epithelial Cells 5-10 /HPF Urine Crystals NONE /LPF Urine Bacteria TRACE /HPF Urine Casts NONE /LPF Urine Mucus NEGATIVE /LPF Urine Culture Indicated NO Urine Opiates Screen NEGATIVE NEGATIVE Urine Oxycodone Screen NEGATIVE NEGATIVE Urine Methadone Screen NEGATIVE NEGATIVE Urine Propoxyphene Screen NEGATIVE NEGATIVE Urine Barbiturates Screen NEGATIVE NEGATIVE Ur Tricyclic Antidepressants Screen NEGATIVE NEGATIVE Urine Phencyclidine Screen NEGATIVE NEGATIVE Urine Amphetamines Screen NEGATIVE NEGATIVE Urine Methamphetamines Screen NEGATIVE NEGATIVE Urine Benzodiazepines Screen POSITIVE H NEGATIVE Urine Cocaine Screen NEGATIVE NEGATIVE Urine Cannabinoids Screen NEGATIVE NEGATIVE My Orders Orders - KAMERON LYNCH MD Chest 1 View Ap/Pa Only (03/27/22 18:00) Cbc With Automated Diff (03/27/22 18:01) Comprehensive Metabolic Panel (03/27/22 18:01) Fibrin Degradation Products (03/27/22 18:01) Drug Screen Stat (Urine) (03/27/22 18:01) Protime With Inr (03/27/22 18:01) Partial Thromboplastin Time (03/27/22 18:01) Ua Culture If Indicated (03/27/22 18:01) Troponin I Fs (03/27/22 18:01) Albuterol/Ipra Inhalation Soln (Duoneb I (03/27/22 18:15) Svn Small Volume Nebulizer (03/27/22 18:04) Ondansetron Injection (Zofran Injectio (03/27/22 18:15) Probnp Fs (03/27/22 18:06) Manual Differential (03/27/22 18:00) Covid 19 Inhouse Test (03/27/22 18:11) Influenza A And B By Pcr (03/27/22 18:11) Furosemide Injection (Lasix Injection) (03/27/22 18:30) Magnesium (03/27/22 18:26) Albuterol/Ipra Inhalation Soln (Duoneb I (03/27/22 19:15) Svn Small Volume Nebulizer (03/27/22 19:03) Medications Given in ED Current Medications Medications Dose Ordered Sig/Mary Anne Route Start Time Stop Time Status Last Admin Dose Admin Albuterol/ Ipratropium 3 ml ONCE ONCE INH 03/27/22 18:15 03/27/22 18:17 DC 03/27/22 18:10 3 ML Albuterol/ Ipratropium 3 ml ONCE ONCE INH 03/27/22 19:15 03/27/22 19:16 DC 03/27/22 19:08 3 ML Furosemide 40 mg ONCE ONCE IVP 03/27/22 18:30 03/27/22 18:31 UNV 03/27/22 18:33 40 MG Ondansetron HCl 4 mg ONCE ONCE IVP 03/27/22 18:15 03/27/22 18:17 DC 03/27/22 18:10 4 MG Vital Signs/I&O 03/27/22 03/27/22 17:57 18:00 Temp 36.1 Pulse 72 Resp 18 B/P (MAP) 136/41 (72) Pulse Ox 94 O2 Delivery Nasal Cannula Nasal Cannula O2 Flow Rate 3.00 3.00 Capillary Refill : Progress Note : Progress Note 1. ACUTE COPD EXACERBATION: - CXR: Pulmonary venous congestion. Due to this will give iv lasix in case of component of pulmonary edema. - Labs: overall unremarkable, afebrile, vitals stable in ER with O2 sat at 98%on 3L of O2 which is her home baseline - D-dimer normal, and pro-BNP normal. Will not pursue investigation for PE due to normal d-dimer - Duo neb x1 given by EMS in her home,with one more pure Albuterol neb given in ambulance, then Duo neb x 2 given in the ER with complete resolution of symptoms and clear chest exam. - Solumedrol 125mg iv given by EMS - Pt is on 3 L of O2, as she is at home. - Lasix 40mg iv STAT -Advised patient to continue steroid taper as prescribed by PCP, with modification to take the entire daily dose at 1 time daily -Advised to follow-up with PCP in the next 3 to 7 days -Advised to stay away from other smokers and avoid secondhand smoke -The patient was seen in the ED, and treated appropriately to presentation at a specific point in time. Patient is informed that there is a possibility that disease and illness can evolve and change in acuity rapidly or slowly after patient is discharged from the ER. Precautionary advice given to the patient for immediate return to ER if symptoms worsen or do not resolve, and to seek [facility] care sooner rather than later. Pt also advised on the importance of PCP follow up and compliance with management and follow up plan with PCP and/or specialist, as this is part of the management plan. Pt verbally expressed understanding. Diagnostic Imaging Diagonstic Imaging: Xray Plain Films/CT/US/NM/MRI: chest Comments NAME: GOYO MARRERO [facility] REC#: [id number] PT STATUS: REG ER : 1960 PHYSICIAN: KAMERON LYNCH MD ADMIT DATE: 03/27/22/ER FS Draft Date of Exam:03/27/22 CHEST 1 VIEW AP/PA ONLY INDICATION: Shortness of breath. COMPARISON: 07/27/2020. FINDINGS: There is generalized cardiomegaly and mild central pulmonary venous congestion. The mediastinal configuration is unremarkable. There is no pleural effusion, pneumothorax or pneumonia. The visualized osseous structures are unremarkable. IMPRESSION: Cardiomegaly and mild central pulmonary venous congestion. Dictated on workstation # [id number] Dict: 03/27/221814 Trans: 03/27/221819 [facility] [id number] Interpreted by: GEOVANNI TILLMAN MD Electronically signed by: Departure Impression Primary Impression: Acute exacerbation of chronic obstructive pulmonary disease (COPD) Disposition: 01 HOME, SELF-CARE Condition: Improved Departure-Patient Inst. Referrals: NO,LOCAL PHYSICIAN (PCP) Primary Care Physician TIAGO STEWART APRN (Family) Primary Care Physician Patient Instructions: Risk Factors for COPD, Exacerbation of COPD (DC), COPD Exacerbation, Adult ED, How to Use a Nebulizer ED, Medicines for Chronic Obstructive Pulmonary Disease (COPD), COPD Diet Add. Discharge Instructions: -Advised patient to continue steroid taper as prescribed by PCP, with modification to take the entire daily dose at 1 time daily -Advised to follow-up with PCP in the next 3 to 7 days -Advised to stay away from other smokers and avoid secondhand smoke -Return to ER if symptoms worsen All discharge instructions reviewed with patient and/or family. Voiced understanding. KAMERON LYNCH MD Mar 27, 2022 18:00
[2022-03-27 18:08] LABS: BASOPHILS # (AUTO) 0.1 10^3/uL (0.0-0.1); BASOPHILS % (AUTO) 0 % (0-10); EOSINOPHILS % (AUTO) 0 % (0-10); HEMATOCRIT 46 % (35-52); HEMOGLOBIN 14.7 g/dL (11.5-16.0); LYMPHOCYTES # (AUTO) 1.5 10^3/uL (1.0-4.0); LYMPHOCYTES % (AUTO) 10 % (12-44); MEAN CORPUSCULAR HEMOGLOBIN 27 pg (25-34); MEAN CORPUSCULAR HGB CONC 32 g/dL (32-36); MEAN CORPUSCULAR VOLUME 86 fL (80-99); MONOCYTES # (AUTO) 0.7 10^3/uL (0.0-1.0); MONOCYTES % (AUTO) 5 % (0-12); NEUTROPHILS # (AUTO) 11.8 10^3/uL (1.8-7.8); NEUTROPHILS % (AUTO) 83 % (42-75); PLATELET COUNT 210 10^3/uL (130-400); WHITE BLOOD COUNT 14.2 10^3/uL (4.3-11.0)
[2022-03-27] MEDS ORDERED: ONDANSETRON 4 MG/2 ML (SDV) Z0FRAN IVP ONE (18:15)
[2022-03-27] MEDS ORDERED: RT-ALBUTEROL/IPRATROPIUM 3 ML (DUONEB) VIAL INH ONE ×2 (18:15→19:15)
[2022-03-27 18:19] LABS: INR 0.9 (0.8-1.4); PROTHROMBIN TIME PATIENT 12.8 SEC (12.2-14.7)
--- NOTE | 2022-03-27 18:20 | Diagnostic Imaging Report ---
INDICATION: Shortness of breath. COMPARISON: 07/27/2020. FINDINGS: There is generalized cardiomegaly and mild central pulmonary venous congestion. The mediastinal configuration is unremarkable. There is no pleural effusion, pneumothorax or pneumonia. The visualized osseous structures are unremarkable. IMPRESSION: Cardiomegaly and mild central pulmonary venous congestion. Dictated by: Dictated on workstation # [id number]
[2022-03-27 18:24] LABS: FIBRIN DEGRADATION PRODUCTS 0.32 UG/ML (0.00-0.49)
[2022-03-27] MEDS ORDERED: FUROSEMIDE 40 MG/4 ML INJ (LASIX) IVP ONE (18:30)
[2022-03-27] MEDS ORDERED: FUROSEMIDE 40 MG/4 ML INJ (LASIX) ONE (18:31)
[2022-03-27 18:35] LABS: ALANINE AMINOTRANSFERASE 42 U/L (0-55); ALBUMIN 3.5 GM/DL (3.2-4.5); ALKALINE PHOSPHATASE 169 U/L (40-136); BILIRUBIN,TOTAL 0.3 MG/DL (0.1-1.0); BUN/CREATININE RATIO 54; CALCIUM 9.8 MG/DL (8.5-10.1); CARBON DIOXIDE 29 MMOL/L (21-32); CHLORIDE 99 MMOL/L (98-107); CREATININE SERUM 0.82 MG/DL (0.60-1.30); GFR ESTIMATED 81; GLUCOSE 230 MG/DL (70-105); POTASSIUM 4.3 MMOL/L (3.6-5.0); SODIUM 141 MMOL/L (135-145); TOTAL PROTEIN 7.4 GM/DL (6.4-8.2)
[2022-03-27 18:46] LABS: BILIRUBIN,URINE NEGATIVE (NEGATIVE); CLARITY,URINE CLEAR; COLOR,URINE YELLOW; GLUCOSE, URINE (UA) 3+ (NEGATIVE); KETONES,URINE NEGATIVE (NEGATIVE); LEUKOCYTE ESTERASE ,URINE NEGATIVE (NEGATIVE); NITRITE,URINE NEGATIVE (NEGATIVE); PH,URINE 5.5 (5-9); PROTEIN,URINE NEGATIVE (NEGATIVE)
[2022-03-27 18:48] LABS: BACTERIA,URINE TRACE /HPF
[2022-03-27 18:54] LABS: LYMPHOCYTES % (MANUAL) 7 %; MONOCYTES % (MANUAL) 4 %; NEUTROPHILS % (MANUAL) 89 %
[2022-03-27 18:57] LABS: AMPHETAMINE SCREEN, URINE NEGATIVE (NEGATIVE); BARBITURATE SCREEN URINE NEGATIVE (NEGATIVE); BENZODIAZEPINES SCREEN URINE POSITIVE (NEGATIVE); CANNABINOID SCREEN, URINE NEGATIVE (NEGATIVE); COCAINE SCREEN URINE NEGATIVE (NEGATIVE); METHADONE STAT NEGATIVE (NEGATIVE); OPIATE SCREEN URINE NEGATIVE (NEGATIVE); OXYCODONE STAT NEGATIVE (NEGATIVE); PROPOXYPHENE STAT NEGATIVE (NEGATIVE); TRICYCLIC ANTIDEPRESSANTS SCRE NEGATIVE (NEGATIVE)
[2022-03-27 19:59] VITALS: BP 162/77
== END 2022-03-27 20:12 | disposition home or self-care (01) ==
LOC: EDUNIT# 17:51 → ER FS 17:52
DX: J44.1 Chronic obstructive pulmonary disease with (acute) exacerbation (principal); E66.01 Morbid (severe) obesity due to excess calories; E11.9 Type 2 diabetes mellitus without complications; Z91.040 Latex allergy status; Z87.891 Personal history of nicotine dependence; Z77.22 Contact with and (suspected) exposure to environmental tobacco smoke (acute) (chronic); Z79.4 Long term (current) use of insulin; Z28.310 Unvaccinated for COVID-19; Z20.822 Contact with and (suspected) exposure to COVID-19; Z68.43 Body mass index [BMI] 50.0-59.9, adult
CPT/HCPCS: 36415; 71045; 80053; 80306; 81000; 83735; 83880; 84484; 85007; 85027; 85379; 85610; 85730; 87636; 94640

== ENCOUNTER 2022-04-12 20:09 | Emergency (ER) | payer MEDICARE, MEDICAID ==
[~2022-04-12] VITALS: Ht 165.1 cm; Wt 137.8 kg
[2022-04-12] MEDS ORDERED: methylPREDNISolone 125 MG (Solu-MEDROL) VIAL IV STA (20:16)
--- NOTE | 2022-04-12 20:22 | ED Dyspnea ---
General Stated Complaint: RESPIRATORY DISTRESS History of Present Illness Date Seen by Provider: Apr 12, 2022 Time Seen by Provider: 20:07 Initial Comments 61-year-old female with PMH of COPD on 3 L of oxygen at baseline at home, and CPAP at night/CHF/A-fib currently taking 324 mg of aspirin/DM2/ HTN/active smoker, smoking half a pack a day, is brought in by EMS with complaints of shortness of breath and feeling that she is drowning in her lungs. Patient states that the symptoms started last night and has been worsening since then. Patient has been taking her albuterol inhalers and a couple of DuoNeb treatments at home but it has not improved. EMS reports that patient was satting at 75% on room air when they first got there. EMS gave 1 treatment of DuoNeb and put her on CPAP which improved her symptoms slightly and she was satting 100% on CPAP when she came into the ER. In the ER patient is barely able to speak more than 2-3 words at a time without becoming increasingly short of breath. Patient's face was bright red and she was using her accessory muscles of respiration at that time. Patient's symptoms improved as patient was treated. Denies recent URI, cough, fever and chills, abdominal pain, diarrhea, chest pain, palpitations. Allergies and Home Medications Allergies Coded Allergies: butorphanol (Verified Allergy, Severe, 03/13/18) strawberry (Verified Allergy, Severe, ANAPHYLAXIS, 03/13/18) codeine (Verified Allergy, Unknown, 11/21/18) doxycycline (Verified Allergy, Unknown, 11/21/18) erythromycin base (Verified Allergy, Unknown, NAUSEA, 03/13/18) fluoxetine (Verified Allergy, Unknown, 11/21/18) iodine (Verified Allergy, Unknown, 11/21/18) latex (Verified Allergy, Unknown, 03/13/18) morphine (Verified Allergy, Unknown, 03/13/18) pregabalin (Verified Allergy, Unknown, 11/21/18) salmeterol (Verified Allergy, Unknown, 11/21/18) gabapentin (Verified Adverse Reaction, Unknown, 11/22/18) heartburn Uncoded Allergies: pepperoni (Allergy, Severe, ANAPHYLAXIS, 03/13/18) Patient Home Medication List Home Medication List Reviewed: Yes Albuterol Sulfate (Ventolin Hfa) 1 Puff Puff, 2 PUFF IH Q4H PRN for SHORTNESS OF BREATH, (Reported) Entered as Reported by: DOMINGA PEREZ on 03/13/18 1038 Albuterol Sulfate (Albuterol Sulfate) 2.5 Mg/3 Ml Vial.neb, 2.5 MG NEB Q4H PRN for SHORTNESS OF BREATH, (Reported) Entered as Reported by: DOMINGA PEREZ on 03/13/18 105 Alprazolam (Alprazolam) 0.5 Mg Tablet, 0.5 MG PO TID PRN for ANXIETY, (Reported) Entered as Reported by: DOMINGA PEREZ on 11/22/18 105 Aspirin (Aspirin EC) 325 Mg Tablet.dr, 325 MG PO DAILY, (Reported) Entered as Reported by: DOMINGA PEREZ on 03/13/18 105 Baclofen (Baclofen) 10 Mg Tablet, 10 MG PO TID PRN for pain/muscle spasm Prescribed by: WESLEY YEBOAH on 05/23/20 0310 Cholecalciferol (Vitamin D3) (D3-50) 50,000 Unit Capsule, 50,000 UNITS PO [place], (Reported) Entered as Reported by: DOMINGA PEREZ on 11/22/18 105 Digoxin (Digoxin) 250 Mcg Tablet, 250 MCG PO 1400, (Reported) Entered as Reported by: DOMINGA PEREZ on 03/13/18 1038 Fluticasone Propionate (Fluticasone Propionate) 16 Gm [place].susp, 2 SPRAYS NS DAILY, (Reported) Entered as Reported by: DOMINGA PEREZ on 11/22/18 105 Furosemide (Furosemide) 40 Mg Tablet, 40 MG PO 0800,1400, (Reported) Entered as Reported by: DOMINGA PEREZ on 03/13/18 1038 Hydrocodone Bit/Acetaminophen (HYDROcodone/APAP 10/325 TABLET) 1 Each Tablet, 1- 2 TAB PO Q12H PRN for PAIN-MODERATE, (Reported) Entered as Reported by: DOMINGA PEREZ on 11/22/18 105 Insulin Glargine,Hum.rec.anlog (Toujeo Solostar) 300 Unit/1 Ml Insuln.pen, 60 UNITS SC BID, (Reported) Entered as Reported by: DOMINGA PEREZ on 11/22/18 105 Insulin Lispro (Humalog Kwikpen) 100 Unit/1 Ml Insuln.pen, 32-38 UNIT SQ TIDAC, (Reported) Entered as Reported by: DOMINGA PEREZ on 03/13/18 1038 Ipratropium/Albuterol Sulfate (Iprat-Albut 0.5-3(2.5) mg/3 ml) 3 Ml Ampul.neb, 3 ML NEB QID PRN for SHORTNESS OF BREATH, (Reported) Entered as Reported by: DOMINGA PEREZ on 03/13/18 1052 Linaclotide (Linzess) 145 Mcg Capsule, 145 MCG PO DAILY, (Reported) Entered as Reported by: DOMINGA PEREZ on 11/22/18 1059 Liraglutide (Victoza 3-Naga) 0.6 Mg/0.1 Ml Pen.injctr, 1.8 MG SC 1100, (Reported) Entered as Reported by: DOMINGA PEREZ on 11/22/18 1059 Lisinopril (Lisinopril) 10 Mg Tablet, 10 MG PO DAILY, (Reported) Entered as Reported by: DOMINGA PEREZ on 03/13/18 1038 Meclizine HCl (Meclizine HCl) 25 Mg Tablet, 25 MG PO Q6H PRN for DIZZINESS, (Reported) Entered as Reported by: DOMINGA PEREZ on 03/13/18 1038 Metformin HCl (Metformin HCl ER) 500 Mg Tab.er.24h, 500 MG PO BID, (Reported) Entered as Reported by: DOMINGA PEREZ on 11/22/18 1059 Mupirocin (Mupirocin) 22 Gm Oint...g., TOP TID PRN for SORES, (Reported) Entered as Reported by: DOMINGA PEREZ on 11/22/18 1059 Nystatin (Nystop) 60 Gm Powder, TOP TID, (Reported) Entered as Reported by: DOMINGA PEREZ on 11/22/18 1059 Ondansetron HCl (Ondansetron HCl) 4 Mg Tablet, 4 MG PO Q8H PRN for NAUSEA/VOMITING-1ST LINE, (Reported) Entered as Reported by: DOMINGA PEREZ on 11/22/18 1059 Pantoprazole Sodium (Protonix) 40 Mg Tablet.dr, 40 MG PO BID, (Reported) Entered as Reported by: DOMINGA PEREZ on 03/13/18 1038 Pioglitazone HCl (Pioglitazone HCl) 15 Mg Tablet, 15 MG PO DAILY, (Reported) Entered as Reported by: DOMINGA PEREZ on 11/22/18 1059 Potassium Chloride (Potassium Chloride) 10 Meq Tablet.er, 10 MEQ PO 1400, (Reported) Entered as Reported by: DOMINGA PEREZ on 03/13/18 1038 Prednisone (Prednisone) 20 Mg Tab, 40 MG PO DAILY@0700 Prescribed by: SALINAS COLVIN on 11/22/18 1120 Prednisone (Prednisone) 20 Mg Tab, 20 MG PO DAILY Prescribed by: WESLEY YEBOAH on 01/09/22 2352 Promethazine HCl (Promethazine Tablet) 25 Mg Tablet, 25 MG PO Q4H PRN for NAUSEA/VOMITING-2ND LINE, (Reported) Entered as Reported by: DOMINGA PEREZ on 03/13/18 1038 Scopolamine (Transderm-Scop) 1 Each Patch.td72, 1 PATCH TD Q72H, (Reported) Entered as Reported by: DOMINGA PEREZ on 11/22/18 1059 Sertraline HCl (Sertraline HCl) 50 Mg Tablet, 150 MG PO HS, (Reported) Entered as Reported by: DOMINGA PEREZ on 11/22/18 1059 Sumatriptan Succinate (Imitrex) 100 Mg Tablet, 100 MG PO UD PRN for MIGRAINE, (Reported) Entered as Reported by: DOMINGA PEREZ on 03/13/18 1052 Triamcinolone Acet (Triamcinolone Acetonide 0.1% Ointment) 15 Gm Oint, TOP BID, (Reported) Entered as Reported by: DOMINGA PEREZ on 11/22/18 1059 Verapamil HCl (Verapamil ER) 180 Mg Tablet.er, 180 MG PO BID, (Reported) Entered as Reported by: DOMINGA PEREZ on 03/13/18 1038 Review of Systems Review of Systems Constitutional: no symptoms reported, see HPI EENTM: no symptoms reported Respiratory: short of breath, wheezing Cardiovascular: no symptoms reported Gastrointestinal: no symptoms reported Genitourinary: no symptoms reported Musculoskeletal: no symptoms reported Skin: no symptoms reported Psychiatric/Neurological: No Symptoms Reported Endocrine: No Symptoms Reported Hematologic/Lymphatic: No Symptoms Reported Past Rvqzhfn-[id number]-Fxjwxt Hx Immunizations Up To Date PED Vaccines UTD: Yes First/Initial COVID19 Vaccinat: Not currently vaccinated Second COVID19 Vaccination Yosi: Not currently vaccinated Third COVID19 Vaccination Date: Not currently vaccinated Seasonal Allergies Seasonal Allergies: No Past Medical History Surgery/Hospitalization HX: DM, COPD, Vertigo, GERD, HTN Surgeries: Yes (HYST/BSO) Appendectomy, Gallbladder, Hysterectomy, Oophorectomy Respiratory: Yes Asthma, COPD Currently Using CPAP: No Currently Using BIPAP: No Cardiac: Yes Atrial Fibrillation, Hypertension Neurological: Yes (Fibromyalgia, Memory Loss) Neuropathy, TIA, Vertigo URGENT CARE History: Hysterectomy, Menopausal Genitourinary: No Gastrointestinal: Yes (LARGE VENTRAL HERNIA--NO REPAIR) Abdominal Hernia Musculoskeletal: No Fibromyalgia Endocrine: Yes Diabetes, Insulin dep HEENT: No Hearing Impairment: Denies Cancer: Yes (Polycythemia) Psychosocial: Yes Anxiety Integumentary: No Blood Disorders: Yes (Polycythemia) Family Medical History Abdominal aortic aneurysm 19 MOTHER Dementia 19 FATHER FH: anemia 19 FATHER Hypertension 19 MOTHER Diabetes, Stroke Physical Exam Vital Signs Vital Signs - First Documented 04/12/22 20:12 Temp 37.1 Pulse 108 Resp 25 B/P (MAP) 118/65 (82) Pulse Ox 99 O2 Delivery NIV CPAP O2 Flow Rate 3.00 Capillary Refill : Height, Weight, BMI Height: 5'5.00" Weight: 268lbs. 0.0oz. 121.302206vx; 51.00 BMI Method:Stated General Appearance: Anxious, Obese, Severe Distress, Other (Red-faced initially, and having difficulty saying more than 2-3 words at a time, and becoming breathless after saying those words. After treatment patient drastically improved and is able to speak in paragraphs without any respiratory symptoms.) HEENT: PERRL/EOMI, Normal ENT Inspection Neck: Full Range of Motion, Supple Respiratory: Chest Non Tender, Accessory Muscle Use (Initially), Decreased Breath Sounds (Initially but improved with each subsequent DuoNeb treatment), Expiration (Pittore wheeze), Respiratory Distress, Wheezing Cardiovascular: Tachycardia (Initially but later normalized), Other (Bilateral pedal edema present) Gastrointestinal: Normal Bowel Sounds, Non Tender, Soft Extremity: Normal Range of Motion Neurologic/Psychiatric: Alert, Oriented x3 Skin: Other (White curdy discharge seen in the vagina with fungal patches on her genital area.) Focused Exam Lactate Level 04/12/22 20:16: Lactic Acid Level 1.73 Lactic Acid Level Laboratory Tests Test 04/12/22 20:16 Lactic Acid Level 1.73 MMOL/L (0.50-2.00) Progress/Results/Core Measures Results/Orders Lab Results Laboratory Tests Test 04/12/22 20:16 04/12/22 20:17 04/12/22 21:21 Range/Units White Blood Count 13.8 H 4.3-11.0 10^3/uL Red Blood Count 5.60 H 3.80-5.11 10^6/uL Hemoglobin 15.1 11.5-16.0 g/dL Hematocrit 48 35-52 % Mean Corpuscular Volume 86 80-99 fL Mean Corpuscular Hemoglobin 27 25-34 pg Mean Corpuscular Hemoglobin Concent 31 L 32-36 g/dL Red Cell Distribution Width 18.6 H 10.0-14.5 % Platelet Count 224 130-400 10^3/uL Mean Platelet Volume 11.0 9.0-12.2 fL Immature Granulocyte % (Auto) 1 % Neutrophils (%) (Auto) 76 H 42-75 % Lymphocytes (%) (Auto) 16 12-44 % Monocytes (%) (Auto) 5 0-12 % Eosinophils (%) (Auto) 1 0-10 % Basophils (%) (Auto) 0 0-10 % Neutrophils # (Auto) 10.5 H 1.8-7.8 10^3/uL Lymphocytes # (Auto) 2.2 1.0-4.0 10^3/uL Monocytes # (Auto) 0.7 0.0-1.0 10^3/uL Eosinophils # (Auto) 0.2 0.0-0.3 10^3/uL Basophils # (Auto) 0.1 0.0-0.1 10^3/uL Immature Granulocyte # (Auto) 0.2 H 0.0-0.1 10^3/uL Prothrombin Time 12.5 12.2-14.7 SEC INR Comment 0.9 0.8-1.4 Activated Partial Thromboplast Time 25 24-35 SEC D-Dimer 0.38 0.00-0.49 UG/ML Sodium Level 140 135-145 MMOL/L Potassium Level 3.6 3.6-5.0 MMOL/L Chloride Level 94 L 98-107 MMOL/L Carbon Dioxide Level 34 H 21-32 MMOL/L Anion Gap 12 5-14 MMOL/L Blood Urea Nitrogen 36 H 7-18 MG/DL Creatinine 0.93 0.60-1.30 MG/DL Estimat Glomerular Filtration Rate 70 BUN/Creatinine Ratio 39 Glucose Level 221 H 70-105 MG/DL Lactic Acid Level 1.73 0.50-2.00 MMOL/L Calcium Level 9.3 8.5-10.1 MG/DL Corrected Calcium 9.7 8.5-10.1 MG/DL Total Bilirubin 0.5 0.1-1.0 MG/DL Aspartate Amino Transf (AST/SGOT) 24 5-34 U/L Alanine Aminotransferase (ALT/SGPT) 50 0-55 U/L Alkaline Phosphatase 176 H 40-136 U/L Troponin I < 0.30 <0.30 NG/ML Pro-B-Type Natriuretic Peptide 27.3 <125.0 PG/ML Total Protein 7.2 6.4-8.2 GM/DL Albumin 3.5 3.2-4.5 GM/DL Influenza Type A (RT-PCR) Not Detected Not Detecte Influenza Type B (RT-PCR) Not Detected Not Detecte SARS-CoV-2 RNA (RT-PCR) Not Detected Not Detecte Urine Color YELLOW Urine Clarity CLEAR Urine pH 6.0 5-9 Urine Specific [place] 1.010 L 1.016-1.022 Urine Protein NEGATIVE NEGATIVE Urine Glucose (UA) 3+ H NEGATIVE Urine Ketones NEGATIVE NEGATIVE Urine Nitrite NEGATIVE NEGATIVE Urine Bilirubin NEGATIVE NEGATIVE Urine Urobilinogen 0.2 < = 1.0 MG/DL Urine Leukocyte Esterase NEGATIVE NEGATIVE Urine RBC (Auto) NEGATIVE NEGATIVE Urine RBC NONE /HPF Urine WBC NONE /HPF Urine Squamous Epithelial Cells RARE /HPF Urine Crystals NONE /LPF Urine Bacteria NEGATIVE /HPF Urine Casts PRESENT /LPF Urine Hyaline Casts RARE /LPF Urine Mucus NEGATIVE /LPF Urine Culture Indicated NO Urine Opiates Screen NEGATIVE NEGATIVE Urine Oxycodone Screen NEGATIVE NEGATIVE Urine Methadone Screen NEGATIVE NEGATIVE Urine Propoxyphene Screen NEGATIVE NEGATIVE Urine Barbiturates Screen NEGATIVE NEGATIVE Ur Tricyclic Antidepressants Screen NEGATIVE NEGATIVE Urine Phencyclidine Screen NEGATIVE NEGATIVE Urine Amphetamines Screen NEGATIVE NEGATIVE Urine Methamphetamines Screen NEGATIVE NEGATIVE Urine Benzodiazepines Screen POSITIVE H NEGATIVE Urine Cocaine Screen NEGATIVE NEGATIVE Urine Cannabinoids Screen NEGATIVE NEGATIVE My Orders Orders - KAMERON LYNCH MD Albuterol/Ipra Inhalation Soln (Duoneb I (04/12/22 20:30) Methylprednisolone Sod Succ (Solu-Medrol (04/12/22 20:16) Svn Small Volume Nebulizer (04/12/22 20:16) Chest 1 View Ap/Pa Only (04/12/22 20:18) Furosemide Injection (Lasix Injection) (04/12/22 20:30) Cbc With Automated Diff (04/12/22 20:19) Comprehensive Metabolic Panel (04/12/22 20:19) Fibrin Degradation Products (04/12/22 20:19) Drug Screen Stat (Urine) (04/12/22 20:19) Lactic Acid Analyzer (04/12/22 20:19) Protime With Inr (04/12/22 20:19) Partial Thromboplastin Time (04/12/22 20:19) Ua Culture If Indicated (04/12/22 20:19) Probnp Fs (04/12/22 20:19) Troponin I Fs (04/12/22 20:19) Covid 19 Inhouse Test (04/12/22 20:20) Influenza A And B By Pcr (04/12/22 20:20) Continuous Ekg Monitoring (04/12/22 20:21) Ekg Tracing (04/12/22 20:21) Lorazepam Tablet (Ativan Tablet) (04/12/22 20:51) Monitor-Rhythm Ecg Trace Only (04/12/22 21:04) Ed Iv/Invasive Line Start (04/12/22 21:15) Medications Given in ED Current Medications Medications Dose Ordered Sig/Mary [place] Route Start Time Stop Time Status Last Admin Dose Admin Albuterol/ Ipratropium 3 ml ONCE ONCE INH 04/12/22 20:30 04/12/22 20:31 DC 04/12/22 20:40 3 ML Furosemide 60 mg ONCE ONCE IVP 04/12/22 20:30 04/12/22 20:31 DC 04/12/22 20:43 60 MG Vital Signs/I&O 04/12/22 04/12/22 04/12/22 04/12/22 20:12 20:12 20:40 21:45 Temp 37.1 Pulse 108 99 Resp 25 18 B/P (MAP) 118/65 (82) 142/83 Pulse Ox 99 99 94 O2 Delivery NIV CPAP Nasal Cannula NIV CPAP Nasal Cannula O2 Flow Rate 3.00 3.00 Progress Progress Note : Progress Note 1. ACUTE RESPIRATORY DISTRESS/ ACUTE COPD EXACERBATION: - CXR: cardiomegally - Labs overall unremarkable - BNP is normal - Solumedrol 125mg iv STAT/ Duo neb x 3 with progressive improvement in respiratory status ( 1 treatment by EMS,and 2 in the ER) - Lasix 60mg iv STAT -Patient was placed on BiPAP and had oxygen saturation of 100%, slowly took off BiPAP and put patient on 3 L of oxygen via nasal cannula as per her home baseline after all the medications were given. Patient tolerated well and came back to baseline with oxygen saturation ranging between 95% to 97%. - Instructions on use of inhalers and neb treatments at home. -Prescription for prednisone 50 mg daily for the next 4 days -Follow-up with PCP within the next 3 to 5 days -Strongly advised patient to stop smoking TIFFANY The patient was seen in the ED, and treated appropriately to presentation at a specific point in time. Patient is informed that there is a possibility that disease and illness can evolve and change in acuity rapidly or slowly after patient is discharged from the ER. Precautionary advice given to the patient for immediate return to ER if symptoms worsen or do not resolve, and to seek emergency care sooner rather than later. Pt also advised on the importance of PCP follow up and compliance with management and follow up plan with PCP and/or specialist, as this is part of the management plan. Pt verbally expressed understanding. Diagnostic Imaging Diagonstic Imaging: Xray Plain Films/CT/US/NM/MRI: chest Comments [facility], [place] NAME: GOYO [facility]ARR[facility] REC#: [id number] PT STATUS: REG ER : 1960 PHYSICIAN: KAMERON LYNCH MD ADMIT DATE: 04/12/22/ER FS Draft Date of Exam:04/12/22 CHEST 1 VIEW AP/PA ONLY EXAM: CHEST 1 VIEW AP/PA ONLY INDICATION: Shortness of breath. COMPARISON: 03/27/2022. FINDINGS: Stable cardiomegaly with mild pulmonary vascular congestion. No focal pulmonary opacity. No pleural effusion or pneumothorax. No acute osseous findings. IMPRESSION: Stable cardiomegaly with mild pulmonary vascular congestion. Dictated on workstation # [id number] Dict: 04/12/222048 Trans: 04/12/222050 [facility] [id number] Interpreted by: ISIDRO CABELLO MD Electronically signed by: Departure Impression Primary Impression: Acute exacerbation of chronic obstructive pulmonary disease (COPD) Additional Impression: Acute respiratory distress Disposition: 01 HOME, SELF-CARE Condition: Improved Departure-Patient Inst. Referrals: TIAGO STEWART APRN (PCP/Family) Primary Care Physician Patient Instructions: COPD Exacerbation, Adult ED, Acute Respiratory Distress Syndrome, How to Use a Nebulizer ED, Exacerbation of COPD (DC) Add. Discharge Instructions: - Instructions on use of inhalers and neb treatments at home. -Prescription for prednisone 50 mg daily for the next 4 days -Follow-up with PCP within the next 3 to 5 days -Strongly advised patient to stop smoking TIFFANY -Return to ER if symptoms return or worsen KAMERON LYNCH MD Apr 12, 2022 20:22
[2022-04-12] MEDS ORDERED: RT-ALBUTEROL/IPRATROPIUM 3 ML (DUONEB) VIAL INH ONE (20:30)
[2022-04-12] MEDS ORDERED: FUROSEMIDE 40 MG/4 ML INJ (LASIX) IVP ONE (20:30)
[2022-04-12 20:34] LABS: BASOPHILS # (AUTO) 0.1 10^3/uL (0.0-0.1); BASOPHILS % (AUTO) 0 % (0-10); EOSINOPHILS # (AUTO) 0.2 10^3/uL (0.0-0.3); EOSINOPHILS % (AUTO) 1 % (0-10); HEMATOCRIT 48 % (35-52); HEMOGLOBIN 15.1 g/dL (11.5-16.0); LYMPHOCYTES # (AUTO) 2.2 10^3/uL (1.0-4.0); LYMPHOCYTES % (AUTO) 16 % (12-44); MEAN CORPUSCULAR HEMOGLOBIN 27 pg (25-34); MEAN CORPUSCULAR HGB CONC 31 g/dL (32-36); MEAN CORPUSCULAR VOLUME 86 fL (80-99); MONOCYTES # (AUTO) 0.7 10^3/uL (0.0-1.0); MONOCYTES % (AUTO) 5 % (0-12); NEUTROPHILS # (AUTO) 10.5 10^3/uL (1.8-7.8); NEUTROPHILS % (AUTO) 76 % (42-75); PLATELET COUNT 224 10^3/uL (130-400); WHITE BLOOD COUNT 13.8 10^3/uL (4.3-11.0)
[2022-04-12] MEDS ORDERED: LORazepam 0.5 MG (ATIVAN) TABLET PO STA (20:51)
--- NOTE | 2022-04-12 20:51 | Diagnostic Imaging Report ---
EXAM: CHEST 1 VIEW AP/PA ONLY INDICATION: Shortness of breath. COMPARISON: 03/27/2022. FINDINGS: Stable cardiomegaly with mild pulmonary vascular congestion. No focal pulmonary opacity. No pleural effusion or pneumothorax. No acute osseous findings. IMPRESSION: Stable cardiomegaly with mild pulmonary vascular congestion. Dictated by: Dictated on workstation # [id number]
[2022-04-12 20:54] LABS: FIBRIN DEGRADATION PRODUCTS 0.38 UG/ML (0.00-0.49); INR 0.9 (0.8-1.4); PROTHROMBIN TIME PATIENT 12.5 SEC (12.2-14.7)
[2022-04-12 21:04] LABS: ALANINE AMINOTRANSFERASE 50 U/L (0-55); ALKALINE PHOSPHATASE 176 U/L (40-136); BILIRUBIN,TOTAL 0.5 MG/DL (0.1-1.0); BUN/CREATININE RATIO 39; CALCIUM 9.3 MG/DL (8.5-10.1); CARBON DIOXIDE 34 MMOL/L (21-32); CHLORIDE 94 MMOL/L (98-107); CREATININE SERUM 0.93 MG/DL (0.60-1.30); GFR ESTIMATED 70; GLUCOSE 221 MG/DL (70-105); POTASSIUM 3.6 MMOL/L (3.6-5.0); SODIUM 140 MMOL/L (135-145)
[2022-04-12 21:05] LABS: ALBUMIN 3.5 GM/DL (3.2-4.5); TOTAL PROTEIN 7.2 GM/DL (6.4-8.2)
[2022-04-12 21:28] LABS: BILIRUBIN,URINE NEGATIVE (NEGATIVE); CLARITY,URINE CLEAR; COLOR,URINE YELLOW; GLUCOSE, URINE (UA) 3+ (NEGATIVE); KETONES,URINE NEGATIVE (NEGATIVE); LEUKOCYTE ESTERASE ,URINE NEGATIVE (NEGATIVE); NITRITE,URINE NEGATIVE (NEGATIVE); PROTEIN,URINE NEGATIVE (NEGATIVE)
[2022-04-12 21:32] LABS: BACTERIA,URINE NEGATIVE /HPF; HYALINE CASTS, URINE RARE /LPF; SQUAMOUS EPITHELIAL CELL,UR RARE /HPF
[2022-04-12 21:38] LABS: AMPHETAMINE SCREEN, URINE NEGATIVE (NEGATIVE); BARBITURATE SCREEN URINE NEGATIVE (NEGATIVE); BENZODIAZEPINES SCREEN URINE POSITIVE (NEGATIVE); CANNABINOID SCREEN, URINE NEGATIVE (NEGATIVE); COCAINE SCREEN URINE NEGATIVE (NEGATIVE); METHADONE STAT NEGATIVE (NEGATIVE); OPIATE SCREEN URINE NEGATIVE (NEGATIVE); OXYCODONE STAT NEGATIVE (NEGATIVE); PROPOXYPHENE STAT NEGATIVE (NEGATIVE); TRICYCLIC ANTIDEPRESSANTS SCRE NEGATIVE (NEGATIVE)
[2022-04-12 21:45] VITALS: BP 142/83
[2022-04-12] MEDS ORDERED: PRD50T PO (21:58)
[2022-04-12] MEDS ORDERED: FLUC150T PO (21:58)
== END 2022-04-12 21:58 | disposition home or self-care (01) ==
LOC: EDUNIT# 20:09 → ER FS 20:10
DX: J44.1 Chronic obstructive pulmonary disease with (acute) exacerbation (principal); R06.03 Acute respiratory distress; I48.91 Unspecified atrial fibrillation; E66.9 Obesity, unspecified; F17.210 Nicotine dependence, cigarettes, uncomplicated; Z68.43 Body mass index [BMI] 50.0-59.9, adult; Z91.040 Latex allergy status; Z79.82 Long term (current) use of aspirin; Z20.822 Contact with and (suspected) exposure to COVID-19; Z28.310 Unvaccinated for COVID-19; Z99.81 Dependence on supplemental oxygen; Z99.89 Dependence on other enabling machines and devices
CPT/HCPCS: 36415; 71045; 80053; 80306; 81000; 83605; 83880; 84484; 85025; 85379; 85610; 85730; 87636; 93005; 93041; 94640

== ENCOUNTER 2022-10-21 21:51 | Emergency (ER) | payer MEDICARE, MEDICAID ==
[~2022-10-21] VITALS: Ht 165.1 cm; Wt 136.0 kg
[~2022-10-21 21:51] MED LIST changes: +FLUC150T PO; +PRD50T PO
[2022-10-21] MEDS ORDERED: RT-Ipratropium/Albuterol NEB 3 ML VIAL INH ONE (22:00)
--- NOTE | 2022-10-21 22:08 | ED Respiratory ---
General Chief Complaint: Respiratory Problems Stated Complaint: RESP ISSUES Source: patient, EMS Exam Limitations: no limitations History of Present Illness Date Seen by Provider: Oct 21, 2022 Time Seen by Provider: 21:51 Initial Comments 62-year-old female brought in by EMS for respiratory distress. She has COPD, wears 2 to 3 L of oxygen via nasal cannula as well as CPAP at night. She had worsening shortness of breath this afternoon. All fire arrival her oxygen saturation was reportedly 87% on her home 2 L of oxygen. She denies any changes in her chronic productive cough. No chest pain. No abdominal pain. She was quite anxious in route so EMS gave her 1 mg of Ativan and also gave her a DuoNeb treatment. All other systems reviewed and negative except documented per HPI. Voice recognition software was used to help create this chart Allergies and Home Medications Allergies Coded Allergies: butorphanol (Verified Allergy, Severe, 03/13/18) strawberry (Verified Allergy, Severe, ANAPHYLAXIS, 03/13/18) codeine (Verified Allergy, Unknown, 11/21/18) doxycycline (Verified Allergy, Unknown, 11/21/18) erythromycin base (Verified Allergy, Unknown, NAUSEA, 03/13/18) fluoxetine (Verified Allergy, Unknown, 11/21/18) iodine (Verified Allergy, Unknown, 11/21/18) latex (Verified Allergy, Unknown, 03/13/18) morphine (Verified Allergy, Unknown, 03/13/18) pregabalin (Verified Allergy, Unknown, 11/21/18) salmeterol (Verified Allergy, Unknown, 11/21/18) gabapentin (Verified Adverse Reaction, Unknown, 11/22/18) heartburn Uncoded Allergies: pepperoni (Allergy, Severe, ANAPHYLAXIS, 03/13/18) Patient Home Medication List Home Medication List Reviewed: Yes Albuterol Sulfate (Ventolin Hfa) 1 Puff Puff, 2 PUFF IH Q4H PRN for SHORTNESS OF BREATH, (Reported) Entered as Reported by: DOMINGA PEREZ on 03/13/18 1038 Albuterol Sulfate (Albuterol Sulfate) 2.5 Mg/3 Ml Vial.neb, 2.5 MG NEB Q4H PRN for SHORTNESS OF BREATH, (Reported) Entered as Reported by: DOMINGA PEREZ on 03/13/18 1052 Alprazolam (Alprazolam) 0.5 Mg Tablet, 0.5 MG PO TID PRN for ANXIETY, (Reported) Entered as Reported by: DOMINGA PEREZ on 11/22/18 1059 Aspirin (Aspirin EC) 325 Mg Tablet.dr, 325 MG PO DAILY, (Reported) Entered as Reported by: DOMINGA PEREZ on 03/13/18 105 Baclofen (Baclofen) 10 Mg Tablet, 10 MG PO TID PRN for pain/muscle spasm Prescribed by: WESLEY YEBOAH on 05/23/20 0310 Cholecalciferol (Vitamin D3) (D3-50) 50,000 Unit Capsule, 50,000 UNITS PO [place], (Reported) Entered as Reported by: DOMINGA PEREZ on 11/22/18 105 Digoxin (Digoxin) 250 Mcg Tablet, 250 MCG PO 1400, (Reported) Entered as Reported by: DOMINGA PEREZ on 03/13/18 1038 Fluconazole (Diflucan) 150 Mg Tablet, 150 MG PO ONCE Prescribed by: KAMERON LYNCH MD on 04/12/222157 Fluticasone Propionate (Fluticasone Propionate) 16 Gm Manly.susp, 2 SPRAYS NS DAILY, (Reported) Entered as Reported by: DOMINGA PEREZ on 11/22/18 105 Furosemide (Furosemide) 40 Mg Tablet, 40 MG PO 0800,1400, (Reported) Entered as Reported by: DOMINGA PEREZ on 03/13/18 1038 Hydrocodone Bit/Acetaminophen (HYDROcodone/APAP 10/325 TABLET) 1 Each Tablet, 1- 2 TAB PO Q12H PRN for PAIN-MODERATE, (Reported) Entered as Reported by: DOMINGA PEREZ on 11/22/18 105 Insulin Glargine,Hum.rec.anlog (Toujeo Solostar) 300 Unit/1 Ml Insuln.pen, 60 UNITS SC BID, (Reported) Entered as Reported by: DOMINGA PEREZ on 11/22/18 105 Insulin Lispro (Humalog Kwikpen) 100 Unit/1 Ml Insuln.pen, 32-38 UNIT SQ TIDAC, (Reported) Entered as Reported by: DOMINGA PEREZ on 03/13/18 1038 Ipratropium/Albuterol Sulfate (Iprat-Albut 0.5-3(2.5) mg/3 ml) 3 Ml Ampul.neb, 3 ML NEB QID PRN for SHORTNESS OF BREATH, (Reported) Entered as Reported by: DOMINGA PEREZ on 03/13/18 105 Linaclotide (Linzess) 145 Mcg Capsule, 145 MCG PO DAILY, (Reported) Entered as Reported by: DOMINGA PEREZ on 11/22/18 105 Liraglutide (Victoza 3-Naga) 0.6 Mg/0.1 Ml Pen.injctr, 1.8 MG SC 1100, (Reported) Entered as Reported by: DOMINGA PEREZ on 11/22/18 105 Lisinopril (Lisinopril) 10 Mg Tablet, 10 MG PO DAILY, (Reported) Entered as Reported by: DOMINGA PEREZ on 03/13/18 1038 Meclizine HCl (Meclizine HCl) 25 Mg Tablet, 25 MG PO Q6H PRN for DIZZINESS, (Reported) Entered as Reported by: DOMINGA PEREZ on 03/13/18 1038 Metformin HCl (Metformin HCl ER) 500 Mg Tab.er.24h, 500 MG PO BID, (Reported) Entered as Reported by: DOMINGA PEREZ on 11/22/18 105 Mupirocin (Mupirocin) 22 Gm Oint...g., TOP TID PRN for SORES, (Reported) Entered as Reported by: DOMINGA PEREZ on 11/22/18 105 Nystatin (Nystop) 60 Gm Powder, TOP TID, (Reported) Entered as Reported by: DOMINGA PEREZ on 11/22/18 105 Ondansetron HCl (Ondansetron HCl) 4 Mg Tablet, 4 MG PO Q8H PRN for NAUSEA/VOMITING-1ST LINE, (Reported) Entered as Reported by: DOMINGA PEREZ on 11/22/18 105 Pantoprazole Sodium (Protonix) 40 Mg Tablet.dr, 40 MG PO BID, (Reported) Entered as Reported by: DOMINGA PEREZ on 03/13/18 1038 Pioglitazone HCl (Pioglitazone HCl) 15 Mg Tablet, 15 MG PO DAILY, (Reported) Entered as Reported by: DOMINGA PEREZ on 11/22/18 105 Potassium Chloride (Potassium Chloride) 10 Meq Tablet.er, 10 MEQ PO 1400, (Reported) Entered as Reported by: DOMINGA PEREZ on 03/13/18 1038 Prednisone (Prednisone) 20 Mg Tab, 40 MG PO DAILY@0700 Prescribed by: SALINAS COLVIN on 11/22/18 1120 Prednisone (Prednisone) 20 Mg Tab, 20 MG PO DAILY Prescribed by: WESLEY YEBOAH on 01/09/22 2352 Prednisone (Prednisone) 50 Mg Tab, 50 MG PO DAILY Prescribed by: KAMERON LYNCH MD on 04/12/22 2158 Promethazine HCl (Promethazine Tablet) 25 Mg Tablet, 25 MG PO Q4H PRN for NAUSEA/VOMITING-2ND LINE, (Reported) Entered as Reported by: DOMINGA PEREZ on 03/13/18 1038 Scopolamine (Transderm-Scop) 1 Each Patch.td72, 1 PATCH TD Q72H, (Reported) Entered as Reported by: DOMINGA PEREZ on 11/22/18 1059 Sertraline HCl (Sertraline HCl) 50 Mg Tablet, 150 MG PO HS, (Reported) Entered as Reported by: DOMIGNA PEREZ on 11/22/18 1059 Sumatriptan Succinate (Imitrex) 100 Mg Tablet, 100 MG PO UD PRN for MIGRAINE, (Reported) Entered as Reported by: DOMINGA PEREZ on 03/13/18 1052 Triamcinolone Acet (Triamcinolone Acetonide 0.1% Ointment) 15 Gm Oint, TOP BID, (Reported) Entered as Reported by: DOMINGA PEREZ on 11/22/18 1059 Verapamil HCl (Verapamil ER) 180 Mg Tablet.er, 180 MG PO BID, (Reported) Entered as Reported by: DOMINGA PEREZ on 03/13/18 1038 Review of Systems Review of Systems Constitutional: see HPI Past Izfpgtl-Zvtfdy-Fxmrmi Hx Patient Social History Tobacco Use?: No Use of E-Cig and/or Vaping dev: No Substance use?: No Alcohol Use?: No Immunizations Up To Date PED Vaccines UTD: Yes First/Initial COVID19 Vaccinat: Not currently vaccinated Second COVID19 Vaccination Yosi: Not currently vaccinated Third COVID19 Vaccination Date: Not currently vaccinated Seasonal Allergies Seasonal Allergies: No Past Medical History Surgery/Hospitalization HX: DM, COPD, Vertigo, GERD, HTN Surgeries: Yes (HYST/BSO) Appendectomy, Gallbladder, Hysterectomy, Oophorectomy Respiratory: Yes Asthma, COPD Currently Using CPAP: No Currently Using BIPAP: No Cardiac: Yes Atrial Fibrillation, Hypertension Neurological: Yes (Fibromyalgia, Memory Loss) Neuropathy, TIA, Vertigo [employer] History: Hysterectomy, Menopausal Genitourinary: No Gastrointestinal: Yes (LARGE VENTRAL HERNIA--NO REPAIR) Abdominal Hernia Musculoskeletal: No Fibromyalgia Endocrine: Yes Diabetes, Insulin dep HEENT: No Hearing Impairment: Denies Cancer: Yes (Polycythemia) Psychosocial: Yes Anxiety Integumentary: No Blood Disorders: Yes (Polycythemia) Family Medical History Abdominal aortic aneurysm 19 MOTHER Dementia 19 FATHER FH: anemia 19 FATHER Hypertension 19 MOTHER Diabetes, Stroke Physical Exam Vital Signs - First Documented 10/21/22 21:53 Temp 37.1 Pulse 129 Resp 26 B/P (MAP) 203/83 (123) Pulse Ox 95 O2 Delivery Nasal Cannula O2 Flow Rate 3.00 Capillary Refill : Height: 5'5.00" Weight: 268lbs. 0.0oz. 121.742983if; 50.00 BMI Method:Stated General Appearance: other (The patient is anxious) Eyes: Bilateral Eye Normal Inspection, Bilateral Eye PERRL, Bilateral Eye EOMI HEENT: normal ENT inspection, pharynx normal Neck: non-tender, supple Respiratory: chest non-tender, other (His friend expiratory wheezes bilaterally.) Cardiovascular: no murmur, tachycardia Gastrointestinal: normal bowel sounds, non tender, soft, other (Morbidly obese) Extremities: other (Right-sided edema, 2+ pitting. Trace edema on the left side. The patient states she chronically has right greater than left edema.) Neurologic/Psychiatric: alert, oriented x 3 Skin: normal color, warm/dry Focused Exam Lactate Level 10/21/22 21:59: Lactic Acid Level 1.56 Lactic Acid Level Laboratory Tests Test 10/21/22 21:59 Lactic Acid Level 1.56 MMOL/L (0.50-2.00) Progress/Results/Core Measures Suspected Sepsis SIRS Temperature: Pulse: Respiratory Rate: Laboratory Tests 10/21/22 21:59: White Blood Count 7.8 Blood Pressure / Mean: 10/21/22 21:59: Lactic Acid Level 1.56 Laboratory Tests 10/21/22 21:59: Creatinine 0.71, Platelet Count 205, Total Bilirubin 0.4 Results/Orders Lab Results Laboratory Tests Test 10/21/22 21:59 9/8/23 22:05 Range/Units White Blood Count 7.8 4.3-11.0 10^3/uL Red Blood Count 5.57 H 3.80-5.11 10^6/uL Hemoglobin 15.7 11.5-16.0 g/dL Hematocrit 51 35-52 % Mean Corpuscular Volume 92 80-99 fL Mean Corpuscular Hemoglobin 28 25-34 pg Mean Corpuscular Hemoglobin Concent 31 L 32-36 g/dL Red Cell Distribution Width 16.4 H 10.0-14.5 % Platelet Count 205 130-400 10^3/uL Mean Platelet Volume 11.0 9.0-12.2 fL Immature Granulocyte % (Auto) 1 % Neutrophils (%) (Auto) 71 42-75 % Lymphocytes (%) (Auto) 23 12-44 % Monocytes (%) (Auto) 3 0-12 % Eosinophils (%) (Auto) 2 0-10 % Basophils (%) (Auto) 1 0-10 % Neutrophils # (Auto) 5.6 1.8-7.8 10^3/uL Lymphocytes # (Auto) 1.8 1.0-4.0 10^3/uL Monocytes # (Auto) 0.2 0.0-1.0 10^3/uL Eosinophils # (Auto) 0.1 0.0-0.3 10^3/uL Basophils # (Auto) 0.0 0.0-0.1 10^3/uL Immature Granulocyte # (Auto) 0.1 0.0-0.1 10^3/uL Sodium Level 143 135-145 MMOL/L Potassium Level 3.6 3.6-5.0 MMOL/L Chloride Level 102 98-107 MMOL/L Carbon Dioxide Level 33 H 21-32 MMOL/L Anion Gap 8 5-14 MMOL/L Blood Urea Nitrogen 19 H 7-18 MG/DL Creatinine 0.71 0.60-1.30 MG/DL Estimat Glomerular Filtration Rate 96 BUN/Creatinine Ratio 27 Glucose Level 194 H 70-105 MG/DL Lactic Acid Level 1.56 0.50-2.00 MMOL/L Calcium Level 9.0 8.5-10.1 MG/DL Corrected Calcium 9.4 8.5-10.1 MG/DL Total Bilirubin 0.4 0.1-1.0 MG/DL Aspartate Amino Transf (AST/SGOT) 17 5-34 U/L Alanine Aminotransferase (ALT/SGPT) 31 0-55 U/L Alkaline Phosphatase 177 H 40-136 U/L Total Protein 7.1 6.4-8.2 GM/DL Albumin 3.5 3.2-4.5 GM/DL SARS-CoV-2 RNA (RT-PCR) Not Detected Not Detecte My Orders Orders - CATARINOHENRIETTA HOLM DO Cbc With Automated Diff (10/21/22 21:59) Comprehensive Metabolic Panel (10/21/22 21:59) Blood Culture (10/21/22 21:59) Chest 1 View Ap/Pa Only (10/21/22 21:59) Ed Iv/Invasive Line Start (10/21/22 21:59) Ed Iv/Invasive Line Start (10/21/22 21:59) Ekg Tracing (10/21/22 21:59) Vital Signs Adult Sepsis Patie Q15M (10/21/22 21:59) O2 (10/21/22 21:59) Remove Rings In Anticipation O (10/21/22 21:59) Lactic Acid Analyzer (10/21/22 21:59) Ipratropium/Albuterol Inh Soln (Ipratrop (10/21/22 22:00) Svn Small Volume Nebulizer (10/21/22 21:59) Covid 19 Inhouse Test (10/21/22 21:59) Medications Given in ED Current Medications Medications Dose Ordered Sig/Mary Anne Route Start Time Stop Time Status Last Admin Dose Admin Albuterol/ Ipratropium 3 ml ONCE ONCE INH 10/21/22 22:00 10/21/22 22:02 DC 10/21/22 22:11 3 ML Vital Signs/I&O 10/21/22 10/21/22 21:53 21:53 Temp 37.1 Pulse 129 Resp 26 B/P (MAP) 203/83 (123) Pulse Ox 95 O2 Delivery Nasal Cannula Non Rebreather O2 Flow Rate 3.00 15.00 Capillary Refill : ECG Comment sinus tachycardia with occasional PVC's. normal intervals,slight LAD. No ST or T wave changes. No STEMI. Departure Communication (Admissions) Patient initially with significant wheezing, respiratory distress. This improved after DuoNeb. We were able to wean her off of facemask oxygen back to her home 2 to 3 L of oxygen via nasal cannula. Her tachycardia improved and is now only slight, 102 at the time of this dictation. Vital signs are otherwise stable with current oxygen 95% on 2 L of oxygen via nasal cannula. She states she is feeling much better. I think this is likely related to COPD and somewhat related to anxiety from hypoxia. Her chest x-ray on my independent review shows no acute cardiopulmonary abnormalities, no focal pneumonias no infiltrates or edema. COVID test is negative. Her labs are reassuring with a normal white blood cell count, normal electrolytes. EKG is nonischemic. She is stable for discharge home. I will prescribe her some prednisone to start in the morning. She has a nebulizer at home and will continue to use treatments as needed. Impression Primary Impression: COPD with exacerbation Disposition: HOME, SELF-CARE Condition: Stable Departure-Patient Inst. Referrals: TIAGO STEWART APRN (PCP/Family) Primary Care Physician Patient Instructions: COPD Exacerbation, Adult ED Add. Discharge Instructions: Take the prednisone as prescribed until it is gone. Continue to use your oxygen as needed at home. Use your home nebulizer machine as needed. Return to the emergency department for any severe concerns. Follow-up with your primary doctor for any nonemergent needs. All discharge instructions reviewed with patient and/or family. Voiced understanding. Scripts Prednisone (Prednisone) 50 Mg Tab 50 MG PO DAILY for 5 Days, #5 TAB Prov: HENRIETTA TORIBIO DO 10/21/22 HENRIETTA TORIBIO DO Oct 21, 2022 22:08
[2022-10-21 22:36] LABS: BASOPHILS % (AUTO) 1 % (0-10); EOSINOPHILS # (AUTO) 0.1 10^3/uL (0.0-0.3); EOSINOPHILS % (AUTO) 2 % (0-10); HEMATOCRIT 51 % (35-52); HEMOGLOBIN 15.7 g/dL (11.5-16.0); LYMPHOCYTES # (AUTO) 1.8 10^3/uL (1.0-4.0); LYMPHOCYTES % (AUTO) 23 % (12-44); MEAN CORPUSCULAR HEMOGLOBIN 28 pg (25-34); MEAN CORPUSCULAR HGB CONC 31 g/dL (32-36); MEAN CORPUSCULAR VOLUME 92 fL (80-99); MONOCYTES # (AUTO) 0.2 10^3/uL (0.0-1.0); MONOCYTES % (AUTO) 3 % (0-12); NEUTROPHILS # (AUTO) 5.6 10^3/uL (1.8-7.8); NEUTROPHILS % (AUTO) 71 % (42-75); PLATELET COUNT 205 10^3/uL (130-400); WHITE BLOOD COUNT 7.8 10^3/uL (4.3-11.0)
[2022-10-21 22:58] LABS: ALBUMIN 3.5 GM/DL (3.2-4.5); BILIRUBIN,TOTAL 0.4 MG/DL (0.1-1.0); CREATININE SERUM 0.71 MG/DL (0.60-1.30); POTASSIUM 3.6 MMOL/L (3.6-5.0); TOTAL PROTEIN 7.1 GM/DL (6.4-8.2)
[2022-10-21] MEDS ORDERED: PRD50T PO (23:08)
[2022-10-21 23:16] VITALS: BP 145/61
--- NOTE | 2022-10-22 06:27 | Diagnostic Imaging Report ---
CLINICAL INDICATION: Patient with shortness of air and respiratory issues. EXAM: Portable chest x-ray upright view. COMPARISON: Chest x-ray dated 04/12/2022. FINDINGS: Lungs/pleura: There is mild bibasilar atelectasis. There is no pneumothorax. There is no pleural effusion. Mediastinum: Unremarkable. Pulmonary vasculature: There is mild pulmonary vascular congestion. Heart: Stable cardiomegaly. Bones/extrathoracic soft tissue: There are degenerative spurs involving the thoracic spine. IMPRESSION: 1: There is mild bibasilar atelectasis. 2: There is cardiomegaly with mild pulmonary vascular congestion. Dictated by: Dictated on workstation # [id number]
== END 2022-10-21 23:17 | disposition home or self-care (01) ==
LOC: EDUNIT# 21:51 → ER FS 21:53
DX: J44.9 Chronic obstructive pulmonary disease, unspecified (principal); Z99.81 Dependence on supplemental oxygen; Z91.040 Latex allergy status; Z28.310 Unvaccinated for COVID-19; Z20.822 Contact with and (suspected) exposure to COVID-19
CPT/HCPCS: 36415; 71045; 80053; 83605; 85025; 87040; 87636; 94640

== ENCOUNTER → 2022-12-12 | Outpatient (CLI) | payer MEDICARE, MEDICAID ==
[~2022-12-12] MED LIST changes: -MECL-149 PO; +MECL-291 PO
[2022-12-12 13:59] LABS: POTASSIUM 3.5 MMOL/L (3.6-5.0)
[2022-12-12 14:00] LABS: CALCIUM 9.2 MG/DL (8.5-10.1); CREATININE SERUM 0.61 MG/DL (0.60-1.30)
== END ==
LOC: LAB FS 13:15
PROVIDERS: ATTEND Nurse Practitioner Primary Care
DX: E87.6 Hypokalemia (principal)
CPT/HCPCS: 36415; 80048